=== PATIENT | male | born 1975 | race Caucasian/White ===

== ENCOUNTER 2020-03-20 07:34 | Inpatient (IN) | payer MEDICARE, MEDICAID ==
--- NOTE | 2020-03-20 07:43 | EDM.PDOC ---
ED HPI GENERAL MEDICAL PROBLEM - General Chief Complaint: Respiratory Problem Stated Complaint: [facility] Time Seen by Provider: 03/20/20 07:43 Source of Information: Reports: Patient History Limitations: Reports: No Limitations - History of Present Illness INITIAL COMMENTS - FREE TEXT/NARRATIVE: 44-year-old male presents to the ED with a 3-week history of productive cough. Getting worse the last 3 to 4 days with increased wheezing and dyspnea on minimal exertion. He has been up all night due to dyspnea and wheezing. Has a history of asthma. Quit smoking several months ago. Sputum is dark green in color without hemoptysis. Some chills but no defined fever. Appetite has not been great because of feeling full. Denies any diarrhea nausea or vomiting. No chest pain other than central chest discomfort from coughing so much. Patient uses his metered-dose inhaler which is albuterol as well as his nebulizer at home with very little relief. Paramedics gave him albuterol in the ambulance and Solu-Medrol 125 mg IV. Before he was seen in clinic 3 weeks ago and started on a Medrol Dosepak as well as an antibiotic of which she is not sure what it was. He did take it twice a day for 7 days. He did not get any better. As far as he knows he has had no exposure to COVID 19 virus. Onset: Gradual Onset Date: 02/21/20 Duration: Day(s):, Constant, Getting Worse Location: Reports: Chest (Redness of breath associated with wheezing and severe paroxysmal productive cough.) Quality: Reports: Other Severity: Severe (Shortness of breath with wheezing.) Improves with: Reports: None Worsens with: Reports: None Context: Denies: Activity, Exercise, Lifting, Sick Contact, Trauma, Other Associated Symptoms: Reports: Cough, cough w sputum (Enemas dark green in color without blood), Diaphoresis, Fever/Chills, Loss of Appetite, Malaise (Pelaez but no defined fever), Shortness of Breath. 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 - Related Data Allergies Allergy/AdvReac Type Severity Reaction Status Date / Time No Known Allergies Allergy Verified 03/20/20 07:43 Home Meds: Home Meds Albuterol Sulfate 2.5 mg IH Q6HR PRN #25 unit 11/04/15 [Rx] Albuterol [Proventil HFA] 2 puff INH Q4H PRN #1 inhaler 11/04/15 [Rx] Cyclobenzaprine [Flexeril] 10 mg PO TID PRN 03/20/20 [History] Dulaglutide [Trulicity] 0.75 mg SQ MO 03/20/20 [History] Hydrocodone/Acetaminophen [Hydrocodone-Acetamin 5-325 mg] 1 tab PO Q6H PRN 03/20/20 [History] Losartan [Cozaar] 50 mg PO DAILY 03/20/20 [History] metFORMIN HCl [Metformin HCl] 1,000 mg PO BID 03/20/20 [History] Past Medical History Respiratory History: Reports: Asthma Other Genitourinary History: States voided twice today with blood in it Other Musculoskeletal History: multiple surguries on L arm and hand Endocrine/Metabolic History: Reports: Diabetes, Type II (Controlled with Trulicity and metformin and diet.), Obesity/BMI 30+ - Past Surgical History GI Surgical History: Reports: Hernia, Abdominal (Umbilical herniorrhaphy couple years ago with mesh grafting.) Social & Family History - Living Situation & Occupation Living situation: Reports: Single Occupation: Employed ED ROS GENERAL - Review of Systems Review Of Systems: See Below Constitutional: Reports: Chills, Malaise, Weakness, Fatigue, Decreased Appetite. Denies: Fever HEENT: Reports: No Symptoms Respiratory: Reports: Shortness of Breath, Wheezing, Cough, Sputum. Denies: Pleuritic Chest Pain, Hemoptysis (Greenish colored sputum) Cardiovascular: Reports: Chest Pain (Central chest discomfort from coughing so much.), Blood Pressure Problem, Dyspnea on Exertion, Lightheadedness. Denies: Claudication, Edema, Orthopnea Endocrine: Reports: Fatigue GI/Abdominal: Reports: Decreased Appetite, Nausea. Denies: Constipation, Diarrhea, Vomiting (Based on nausea) : Reports: No Symptoms Musculoskeletal: Reports: Back Pain Skin: Reports: No Symptoms (Occasional problems with low back pain) Neurological: Reports: No Symptoms Psychiatric: Reports: No Symptoms Hematologic/Lymphatic: Reports: No Symptoms Immunologic: Reports: No Symptoms ED EXAM, GENERAL - Physical Exam Exam: See Below Exam Limited By: No Limitations General Appearance: Alert, WD/WN, Moderate Distress, Other (Temperature is 36.1. He does not feel warm to palpation. Heart rate 106 and sinus tachycardia on the monitor respiratory to 35 with O2 sats of 94% on 2 L. BP 169/98.) Eye Exam: Bilateral Eye: Conjunctival Injection (Is been up all night and conjunctiva are mildly injected.), Normal Inspection (No blepharal pallor or scleral icterus.), PERRL Ears: Normal TMs Throat/Mouth: Normal Inspection, Normal Lips, Normal Oropharynx, Other Head: Atraumatic, Normocephalic (Is minimally dry.) Neck: Normal Inspection, Supple, Non-Tender, Full Range of Motion. No: Carotid Bruit, Lymphadenopathy (L), Lymphadenopathy (R) Respiratory/Chest: Chest Non-Tender, Respiratory Distress (Marked tachypnea.), Decreased Breath Sounds (Use wheezing in all lung farris. Air entry of the lower 30% of lung farris bilaterally.), Wheezing. No: Lungs Clear, Normal Breath Sounds, Accessory Muscle Use, Retractions, Splinting Cardiovascular: Regular Rate, Rhythm, No Gallop, No Murmur, No Rub Peripheral Pulses: 1+: Posterior Tibial (L) (Feet are edematous.), Posterior Tibial (R), Dorsalis Pedis (L), Dorsalis Pedis (R), 3+: Carotid (L), Carotid (R) GI/Abdominal: Normal Bowel Sounds, Soft, Non-Tender, No Organomegaly, No Mass, Other (Markedly obese. Abdominal girth limits ability to palpate solid organs.) Back Exam: Normal Inspection, Full Range of Motion. No: CVA Tenderness (L), CVA Tenderness (R) Extremities: Normal Inspection, Non-Tender, Normal Capillary Refill, Pedal Edema Neurological: Alert, Oriented, CN II-XII Intact, Normal Cognition Psychiatric: Normal Affect, Normal Mood Skin Exam: Warm, Dry, Intact, Normal Color, No Rash EKG INTERPRETATION EKG Date: 03/20/20 Time: 08:14 Rhythm: Other Rate (Beats/Min): 100 [place]: Normal P-Wave: Enlarged (Left atrial hypertrophy pattern) QRS: Other (Crease voltage in the precordial leads. There are Q waves V1 and V2. Consider old anteroseptal myocardial infarction.) ST-T: Other (Markedly wandering baseline with early transition pattern no true ischemia identified) QT: Prolonged (Mildly prolonged) EKG Interpretation Comments: Abnormal ECG Course - Vital Signs Last Recorded V/S: Last Vital Signs Temp 36.1 C 03/20/20 07:38 Pulse 106 H 03/20/20 07:38 Resp 35 H 03/20/20 07:38 BP 169/98 H 03/20/20 07:38 Pulse Ox 85 L 03/20/20 08:40 - Orders/Labs/Meds Orders: Active Orders 24 hr Category Date Time Status EKG Documentation Completion [RC] STAT Care 03/20/20 07:54 Active Oxygen Therapy [RC] ASDIRECTED Care 03/20/20 08:40 Active RT Aerosol Therapy [RC] ASDIRECTED Care 03/20/20 07:57 Active CULTURE SPUTUM + SMEAR [] Stat Lab 03/20/20 08:05 Received cefTRIAXone [Rocephin] 2 gm Med 03/20/20 10:15 Active Sodium Chloride 0.9% [Normal Saline] 100 ml IV Q24H Medication Orders Acetaminophen (Tylenol) 650 mg PO Q4H PRN PRN Reason: Pain (Mild 1-3)/fever Albuterol/Ipratropium (Duoneb 3.0-0.5 Mg/3 Ml) 3 ml NEB Q6HRRT [facility] Dextrose/Water (Dextrose 50% In Water) 50 ml IVPUSH ASDIRECTED PRN PRN Reason: Hypoglycemia Enoxaparin Sodium (Lovenox) 40 mg SUBCUT DAILY [facility] Guaifenesin/Phenylephrine HCl (Robitussin Dm) 10 ml PO TID@0700,1400,2100 PRN PRN Reason: Cough Ceftriaxone Sodium 2 gm/ (Sodium Chloride) 100 mls @ 200 mls/hr IV Q24H [facility] Last Admin: 03/20/20 10:20 Dose: 200 mls/hr Documented by: GLADYS Insulin Human Lispro (Humalog) 0 unit SUBCUT QIDACANDBED [facility]; Protocol Ondansetron HCl (Zofran Odt) 4 mg PO Q6H PRN PRN Reason: nausea, able to take PO Labs: Laboratory Tests 03/20/20 03/20/20 03/20/20 Range/Units 08:05 08:15 08:29 WBC 8.06 (4.23-9.07) K/mm3 RBC 5.27 (4.63-6.08) M/mm3 Hgb 15.4 (13.7-17.5) gm/dl Hct 47.8 (40.1-51.0) % MCV 90.7 (79.0-92.2) fl MCH 29.2 (25.7-32.2) pg MCHC 32.2 (32.2-35.5) g/dl RDW Std Deviation 46.1 H (35.1-43.9) fL Plt Count 216 (163-337) K/mm3 MPV 10.7 (9.4-12.3) fl Neutrophils % (Manual) 79 H (40-60) % Band Neutrophils % 0 (0-10) % Lymphocytes % (Manual) 15 L (20-40) % Atypical Lymphs % 0 % Monocytes % (Manual) 3 (2-10) % Eosinophils % (Manual) 2 (0.8-7.0) % Basophils % (Manual) 1 (0.2-1.2) 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 Adequate Plt Morphology Comment Normal Anisocytosis RBC Morph Comment Normal Puncture Site Rt radial ABG pH 7.40 (7.35-7.45) ABG pCO2 45.9 H (35.0-45.0) mmHg ABG pO2 67.0 L (80.0-100.0) mmHg ABG HCO3 27.6 H (22.0-26.0) meq/L ABG O2 Saturation 90.0 L (96.0-97.0) % ABG Base Excess 2.5 H (-2-2.0) Jesu Test Positive A-a Gradient 26 mmHg O2 Delivery Device Room air FiO2 21.00 (21.00-100.00) % Sodium (136-145) mEq/L Potassium (3.5-5.1) mEq/L Chloride (98-107) mEq/L Carbon Dioxide (21-32) mEq/L Anion Gap (5-15) BUN (7-18) mg/dL Creatinine (0.7-1.3) mg/dL Est Cr Clr Drug Dosing mL/min Estimated GFR (MDRD) (>60) mL/min BUN/Creatinine Ratio (14-18) Glucose (74-106) mg/dL Calcium (8.5-10.1) mg/dL Magnesium (1.8-2.4) mg/dl Total Bilirubin (0.2-1.0) mg/dL AST (15-37) U/L ALT (16-63) U/L Alkaline Phosphatase (46-116) U/L Troponin I (0.00-0.056) ng/mL C-Reactive Protein (<1.0) mg/dL NT-Pro-B Natriuret Pep (0-125) pg/mL Total Protein (6.4-8.2) g/dl Albumin (3.4-5.0) g/dl Globulin gm/dL Albumin/Globulin Ratio (1-2) Mycoplasma pneumon IgM (NEGATIVE) SARS Virus RNA (PCR) Negative (NEGATIVE) 03/20/20 03/20/20 03/20/20 Range/Units 08:29 08:29 08:29 WBC (4.23-9.07) K/mm3 RBC (4.63-6.08) M/mm3 Hgb (13.7-17.5) gm/dl Hct (40.1-51.0) % MCV (79.0-92.2) fl MCH (25.7-32.2) pg MCHC (32.2-35.5) g/dl RDW Std Deviation (35.1-43.9) fL Plt Count (163-337) K/mm3 MPV (9.4-12.3) fl Neutrophils % (Manual) (40-60) % Band Neutrophils % (0-10) % Lymphocytes % (Manual) (20-40) % Atypical Lymphs % % Monocytes % (Manual) (2-10) % Eosinophils % (Manual) (0.8-7.0) % Basophils % (Manual) (0.2-1.2) Toxic Granulation Platelet Estimate Plt Morphology Comment Anisocytosis RBC Morph Comment Puncture Site ABG pH (7.35-7.45) ABG pCO2 (35.0-45.0) mmHg ABG pO2 (80.0-100.0) mmHg ABG HCO3 (22.0-26.0) meq/L ABG O2 Saturation (96.0-97.0) % ABG Base Excess (-2-2.0) Jesu Test A-a Gradient mmHg O2 Delivery Device FiO2 (21.00-100.00) % Sodium 140 (136-145) mEq/L Potassium 3.6 (3.5-5.1) mEq/L Chloride 102 (98-107) mEq/L Carbon Dioxide 28 (21-32) mEq/L Anion Gap 13.6 (5-15) BUN 9 (7-18) mg/dL Creatinine 0.8 (0.7-1.3) mg/dL Est Cr Clr Drug Dosing 139.85 mL/min Estimated GFR (MDRD) > 60 (>60) mL/min BUN/Creatinine Ratio 11.3 L (14-18) Glucose 143 H (74-106) mg/dL Calcium 9.3 (8.5-10.1) mg/dL Magnesium 2.1 (1.8-2.4) mg/dl Total Bilirubin 0.4 (0.2-1.0) mg/dL AST 29 (15-37) U/L ALT 47 (16-63) U/L Alkaline Phosphatase 104 (46-116) U/L Troponin I < 0.017 (0.00-0.056) ng/mL C-Reactive Protein 2.0 H* (<1.0) mg/dL NT-Pro-B Natriuret Pep 9 (0-125) pg/mL Total Protein 7.2 (6.4-8.2) g/dl Albumin 3.5 (3.4-5.0) g/dl Globulin 3.7 gm/dL Albumin/Globulin Ratio 1.0 (1-2) Mycoplasma pneumon IgM Negative (NEGATIVE) SARS Virus RNA (PCR) (NEGATIVE) Meds: Medications Generic Name Dose Route Start Last Admin Trade Name Freq PRN Reason Stop Dose Admin Acetaminophen 650 mg 03/20/20 11:48 Tylenol PO Q4H PRN Pain (Mild 1-3)/fever Albuterol/Ipratropium 3 ml 03/20/20 15:00 Duoneb 3.0-0.5 Mg/3 Ml NEB Q6HRRT [facility] Dextrose/Water 50 ml 03/20/20 12:00 Dextrose 50% In Water IVPUSH ASDIRECTED PRN Hypoglycemia Enoxaparin Sodium 40 mg 03/21/20 09:00 Lovenox SUBCUT DAILY [facility] Guaifenesin/Phenylephrine HCl 10 ml 03/20/20 14:00 Robitussin Dm PO TID@0700,1400,2100 PRN Cough Ceftriaxone Sodium 2 gm/ 100 mls @ 200 mls/hr 03/20/20 10:15 03/20/20 10:20 Sodium Chloride IV 200 mls/hr Q24H [facility] Administration Insulin Human Lispro 0 unit 03/20/20 17:00 Humalog SUBCUT QIDACANDBED [facility] Protocol Ondansetron HCl 4 mg 03/20/20 11:48 Zofran Odt PO Q6H PRN nausea, able to take PO Discontinued Medications Generic Name Dose Route Start Last Admin Trade Name Freq PRN Reason Stop Dose Admin Albuterol 10 mg 03/20/20 07:56 03/20/20 08:02 Proventil NEB 03/20/20 07:57 10 mg ONETIME ONE Administration Albuterol Confirm 03/20/20 07:56 03/20/20 08:02 Proventil Neb Soln Administered 03/20/20 07:57 Not Given Dose 10 mg .ROUTE .STK-MED ONE Magnesium Sulfate 2 gm/ Premix 50 mls @ 25 mls/hr 03/20/20 07:55 03/20/20 08:11 IV 03/20/20 09:54 25 mls/hr ONETIME ONE Administration - Radiology Interpretation Free Text/Narrative:: 44-year-old male presents to the ED with a 3-week history of upper respiratory tract infection with paroxysmal cough and increased wheezing and dyspnea. He is gotten worse over the last 3 days. 3 weeks ago he did take a Medrol Dosepak and a antibiotic and seem to be a little bit better. He was up all night the last 2 nights due to dyspnea and wheezing. Coughing up greenish sputum. No defined fever but does have some chills. No known exposure to COVID-19. Has a history of asthma. Using a nebulizer at home to excess with minimal relief. On exam he is diffusely wheezing in all 4 quadrants with loss of air anterior lower 25% lung farris bilaterally posteriorly. Coughing up even saliva at times. Sputum is otherwise green in color. Has not had much to eat because of loss of appetite and early satiety. He has received albuterol treatment by paramedics in route to the hospital as well as Solu-Medrol 125 mg IV. Plan chest x-ray. Routine labs including mycoplasma titer. Will be treated with continuous albuterol treatment 10 mg over the next hour. Routine labs without blood cultures as he is afebrile at this time. Will be screened for COVID-19. - Re-Assessments/Exams Free Text/Narrative Re-Assessment/Exam: 03/20/20 08:37 ABGs reveal a normal pH at 7.40. To retention at 45.9. PO2 is 67 bicarb is 27.6. O2 saturations 90% on room air. Placed back on 2 L/min by nasal cannula. 03/20/20 08:39 he is elevated at 180/85. O2 sats are only 91% on room air. O2 will be increased to 3 L/min. States overall he feels better but he is still breathing very rapidly with diffuse wheezing. 03/20/20 08:46 heart rate is 107. BP 180/85. O2 sats are 95% on 3 L. 03/20/20 09:57 White blood cell count was 8.06. 79% neutrophils no bands cells reported hemoglobin 15.4 with hematocrit of 47.8. Platelet count 216,000. Chemistry reveals a sodium of 140 potassium 3.6. Chloride 102 with a bicarb of 28. Anion gap is 13.6. BUN is 9 with a creatinine of 0.8. GFR greater than 60. Glucose 143. Calcium 9.3. Magnesium 2.1. Liver function normal troponin I is less than 0.017. C-reactive protein 2.0. BNP is 9 Mycoplasma pneumonia IgM negative COVID 19 test negative. Audible chest x-ray which is a very poor quality i.e. underpenetrated. It does not reveal any obvious infiltrates in the lungs. Cardiac silhouette is within normal limits. 03/20/20 10:0 still wheezing in all lung farris. Coughing paroxysmal A. He has brought up a good deal of sputum I am unsure if a sample was actually collected and sent for culture. With the labs the way they are it appears that this is most likely viral in origin. Because he is hypoxic he currently requires treatment with nebulizer management and intravenous steroids. He has to catch the train early on Tuesday this week to get back home [facility]. Case will be discussed with on-call hospitalist Dr. Jose. We will start him on antibiotic Rocephin 2 g IV at this time his sputum is dark green in color. 03/20/20 10:[address] Jose and he is excepted care. Patient will be admitted to the [facility] surgery floor at this time Departure - Departure Time of Disposition: 11:10 Disposition: Admitted As Inpatient 68 Condition: Fair Clinical Impression: Exacerbation of allergic asthma due to infection - Discharge Information *PRESCRIPTION DRUG MONITORING PROGRAM REVIEWED*: Not Applicable *COPY OF PRESCRIPTION DRUG MONITORING REPORT IN PATIENT BEATRIZ: Not Applicable Sepsis Event Note (ED) - Focused Exam Vital Signs: Vital Signs Temp Pulse Resp BP Pulse Ox Pulse Ox Pulse Ox 03/20/20 08:40 85 L 03/20/20 08:03 89 L 03/20/20 07:38 36.1 C 106 H 35 H 169/98 H 94 L - My Orders Last 24 Hours: My Active Orders 03/20/20 07:54 EKG Documentation Completion [RC] STAT 03/20/20 07:57 RT Aerosol Therapy [RC] ASDIRECTED 03/20/20 08:05 CULTURE SPUTUM + SMEAR [RM] Stat 03/20/20 08:40 Oxygen Therapy [RC] ASDIRECTED 03/20/20 10:15 cefTRIAXone [Rocephin] 2 gm Sodium Chloride 0.9% [Normal Saline] 100 ml IV Q24H - Assessment/Plan Last 24 Hours: My Active Orders 03/20/20 07:54 EKG Documentation Completion [RC] STAT 03/20/20 07:57 RT Aerosol Therapy [RC] ASDIRECTED 03/20/20 08:05 CULTURE SPUTUM + SMEAR [RM] Stat 03/20/20 08:40 Oxygen Therapy [RC] ASDIRECTED 03/20/20 10:15 cefTRIAXone [Rocephin] 2 gm Sodium Chloride 0.9% [Normal Saline] 100 ml IV Q24H
[2020-03-20] MEDS ORDERED: Magnesium Sulfate/Water 2 GM in Premix Bag 1 BAG IV ONE (07:55)
[2020-03-20] MEDS ORDERED: Albuterol 0.5% 2.5 MG/0.5 ML Neb Soln NEB ONE (07:56)
[2020-03-20] MEDS ORDERED: Albuterol 0.083% 2.5 MG/3 ML Neb Soln ONE (07:56)
[2020-03-20] MEDS: cefTRIAXone 2 GM in Sodium Chloride 0.9% 100 ML IV SCH (10:20)
--- NOTE | 2020-03-20 10:22 | CR ---
Chest: AP view of the chest was obtained. Comparison: Prior chest x-ray of 11/04/15. Heart size and mediastinum are normal. Lungs show no acute parenchymal change. Bony structures are grossly intact. Impression: 1. Nothing acute is appreciated on AP chest x-ray. Diagnostic code #1 This report was dictated in MDT
--- NOTE | 2020-03-20 10:50 | PCM.HP.2 ---
H&P History of Present Illness - General Date of Service: 03/20/20 Admit Problem/Dx: Admission Diagnosis/Problem Admission Diagnosis/Problem Upper respiratory tract infection Source of Information: Patient, Old Records, Provider, RN, RN Notes Reviewed History Limitations: Reports: No Limitations - History of Present Illness Initial Comments - Free Text/Narative: Gage Gongora is a 44 yo male who presented to ED via [facility] on 03/20/2020 with a 3-week history of productive cough has been getting worse the last 3 to 4 days. He notes an increase in wheezing and worsening dyspnea with minimal exertion. He states he has not been getting any sleep due to symptoms. He does have a history of asthma and is a former smoker who quit several months ago. He has been coughing up dark green sputum. Reports he has been chilled but denies any fever, diarrhea, nausea, vomiting. He does report some mild central pleuritic chest pain from coughing. He has a home albuterol inhaler and nebulizer, both of which have been providing little relief of symptoms. In rout e to ED paramedics gave him an albuterol nebulizer along with 105 mg of Solu- Medrol. Reports he was seen at [place] clinic approximately 3 weeks prior and was given a Medrol dose pack and an antibiotic, but he is unsure which 1. Reports has not been feeling any better. Denies any exposure to COVID-19 virus or sick contacts. He took Tylenol prior to arrival. In the ED he was afebrile with a temp of 36.1 Celsius. Pulse 106. Respirations 35. Blood pressure 169/98. Pulse ox was low at 85% on room air. Twelve-lead EKG is obtained showing sinus tachycardia at 100 bpm. P waves are enlarged indicating a left atrial hypertrophy pattern. Q waves are noted in V1 and V2. There is a wandering baseline with early transition pattern. QT is mildly prolonged. CBC is looks good with no leukocytosis. There is no bandemia. ABG shows metabolic alkalosis. Electrolytes are grossly normal and troponin is negative. Mycoplasma and COVID-19 screen are both negative. He is placed on 2 L of oxygen via nasal cannula and this is later needed to be bumped up to 3 L. Chest x-ray is obtained showing nothing acute. He is having a significantly productive cough and sputum culture is obtained. He started on 2 g IV Rocephin. His wheezing does improve with continued nebulizers. He carries a history of asthma, type II DM on Trulicity and metformin, obesity, umbilical hernia repair, sleep apnea not compliant with CPAP, chronic low back pain, HTN. He is a full code. His PCP is not from the area. - Related Data Allergies/Adverse Reactions: Allergies Allergy/AdvReac Type Severity Reaction Status Date / Time No Known Allergies Allergy Verified 03/20/20 07:43 Home Medications: Home Meds Albuterol Sulfate 2.5 mg IH Q6HR PRN #25 unit 11/04/15 [Rx] Albuterol [Proventil HFA] 2 puff INH Q4H PRN #1 inhaler 11/04/15 [Rx] Cyclobenzaprine [Flexeril] 10 mg PO TID PRN 03/20/20 [History] Dulaglutide [Trulicity] 0.75 mg SQ MO 03/20/20 [History] Hydrocodone/Acetaminophen [Hydrocodone-Acetamin 5-325 mg] 1 tab PO Q6H PRN 03/20/20 [History] Losartan [Cozaar] 50 mg PO DAILY 03/20/20 [History] metFORMIN HCl [Metformin HCl] 1,000 mg PO BID 03/20/20 [History] Past Medical History Cardiovascular History: Reports: Hypertension Respiratory History: Reports: Asthma Other Genitourinary History: States voided twice today with blood in it Other Musculoskeletal History: multiple surguries on L arm and hand Endocrine/Metabolic History: Reports: Diabetes, Type II (Controlled with Trulicity and metformin and diet.), Obesity/BMI 30+ - Past Surgical History GI Surgical History: Reports: Hernia, Abdominal (Umbilical herniorrhaphy couple years ago with mesh grafting.) Social & Family History - Tobacco Use Smoking Status *Q: Never Smoker - Recreational Drug Use Recreational Drug Use: Yes Drug Use in Last 12 Months: Yes Recreational Drug Type: Reports: Marijuana/Hashish - Living Situation & Occupation Living situation: Reports: Single Occupation: Employed H&P Review of Systems - Review of Systems: Review Of Systems: See Below General: Reports: Chills, Malaise, Weakness, Fatigue, Decreased Appetite. Denies: Fever HEENT: Reports: Sore Throat (mild - 2/2 coughing ). Denies: Ear Pain, Eye Pain, Headaches, Hearing Changes, Rhinitis, Post Nasal Drip, Sinus Congestion Pulmonary: Reports: Shortness of Breath, Wheezing, Pleuritic Chest Pain, Cough, Sputum. Denies: Hemoptysis Cardiovascular: Reports: No Symptoms, Lightheadedness. Denies: Chest Pain, Palpitations, Dyspnea on Exertion, Edema Gastrointestinal: Reports: No Symptoms. Denies: Abdominal Pain, Constipation, Diarrhea, Nausea, Vomiting Genitourinary: Reports: No Symptoms. Denies: Pain Musculoskeletal: Reports: Back Pain (Chronic ) Skin: Reports: No Symptoms. Denies: Cyanosis Psychiatric: Reports: No Symptoms Neurological: Reports: No Symptoms. Denies: Confusion, Difficulty Walking, Gait Disturbance Hematologic/Lymphatic: Reports: No Symptoms. Denies: Anemia Exam - Exam Exam: See Below - Vital Signs Vital Signs: Last Vital Signs Temp 97.0 F 03/20/20 07:38 Pulse 106 H 03/20/20 07:38 Resp 35 H 03/20/20 07:38 BP 169/98 H 03/20/20 07:38 Pulse Ox 85 L 03/20/20 08:40 Weight: 420 lb - Exam Quality Assessment: Supplemental Oxygen (2L), DVT Prophylaxis General: Alert, Oriented, Cooperative. No: Mild Distress HEENT: Conjunctiva Clear, EACs Clear, Mucosa Moist & [place], Nares Patent, Posterior Pharynx Clear Neck: Supple, Trachea Midline Lungs: Normal Respiratory Effort, Decreased Breath Sounds, Wheezing. No: Crackles, Rales, Rhonchi Cardiovascular: Regular Rate, Regular Rhythm GI/Abdominal Exam: Normal Bowel Sounds, Soft, Non-Tender, No Distention (Male) Exam: Deferred Rectal (Males) Exam: Deferred Back Exam: Normal Inspection, Full Range of Motion Extremities: Normal Inspection, Normal Range of Motion, Non-Tender, Normal Capillary Refill, Pedal Edema, Other (Bilateral lower extremity discoloration with dry flaking skin ) Peripheral Pulses: 1+: Dorsalis Pedis (L), Dorsalis Pedis (R), 2+: Radial (L), Radial (R) Skin: Warm, Dry, Intact Neurological: Cranial Nerves Intact (Grossly) Neuro Extensive - Mental Status: Alert, Oriented x3, Normal Mood/Affect - Patient Data Lab Results Last 24 hrs: Laboratory Results - last 24 hr 03/20/20 03/20/20 03/20/20 Range/Units 08:05 08:15 08:29 WBC 8.06 (4.23-9.07) K/mm3 RBC 5.27 (4.63-6.08) M/mm3 Hgb 15.4 (13.7-17.5) gm/dl Hct 47.8 (40.1-51.0) % MCV 90.7 (79.0-92.2) fl MCH 29.2 (25.7-32.2) pg MCHC 32.2 (32.2-35.5) g/dl RDW Std Deviation 46.1 H (35.1-43.9) fL Plt Count 216 (163-337) K/mm3 MPV 10.7 (9.4-12.3) fl Neutrophils % (Manual) 79 H (40-60) % Band Neutrophils % 0 (0-10) % Lymphocytes % (Manual) 15 L (20-40) % Atypical Lymphs % 0 % Monocytes % (Manual) 3 (2-10) % Eosinophils % (Manual) 2 (0.8-7.0) % Basophils % (Manual) 1 (0.2-1.2) Toxic Granulation Correction Warden Platelet Estimate Adequate Plt Morphology Comment Normal Anisocytosis RBC Morph Comment Normal Puncture Site Rt radial ABG pH 7.40 (7.35-7.45) ABG pCO2 45.9 H (35.0-45.0) mmHg ABG pO2 67.0 L (80.0-100.0) mmHg ABG HCO3 27.6 H (22.0-26.0) meq/L ABG O2 Saturation 90.0 L (96.0-97.0) % ABG Base Excess 2.5 H (-2-2.0) Jesu Test Positive A-a Gradient 26 mmHg O2 Delivery Device Room air FiO2 21.00 (21.00-100.00) % Sodium (136-145) mEq/L Potassium (3.5-5.1) mEq/L Chloride (98-107) mEq/L Carbon Dioxide (21-32) mEq/L Anion Gap (5-15) BUN (7-18) mg/dL Creatinine (0.7-1.3) mg/dL Est Cr Clr Drug Dosing mL/min Estimated GFR (MDRD) (>60) mL/min BUN/Creatinine Ratio (14-18) Glucose (74-106) mg/dL Calcium (8.5-10.1) mg/dL Magnesium (1.8-2.4) mg/dl Total Bilirubin (0.2-1.0) mg/dL AST (15-37) U/L ALT (16-63) U/L Alkaline Phosphatase (46-116) U/L Troponin I (0.00-0.056) ng/mL C-Reactive Protein (<1.0) mg/dL NT-Pro-B Natriuret Pep (0-125) pg/mL Total Protein (6.4-8.2) g/dl Albumin (3.4-5.0) g/dl Globulin gm/dL Albumin/Globulin Ratio (1-2) Mycoplasma pneumon IgM (NEGATIVE) SARS Virus RNA (PCR) Negative (NEGATIVE) 03/20/20 03/20/20 03/20/20 Range/Units 08:29 08:29 08:29 WBC (4.23-9.07) K/mm3 RBC (4.63-6.08) M/mm3 Hgb (13.7-17.5) gm/dl Hct (40.1-51.0) % MCV (79.0-92.2) fl MCH (25.7-32.2) pg MCHC (32.2-35.5) g/dl RDW Std Deviation (35.1-43.9) fL Plt Count (163-337) K/mm3 MPV (9.4-12.3) fl Neutrophils % (Manual) (40-60) % Band Neutrophils % (0-10) % Lymphocytes % (Manual) (20-40) % Atypical Lymphs % % Monocytes % (Manual) (2-10) % Eosinophils % (Manual) (0.8-7.0) % Basophils % (Manual) (0.2-1.2) Toxic Granulation Platelet Estimate Plt Morphology Comment Anisocytosis RBC Morph Comment Puncture Site ABG pH (7.35-7.45) ABG pCO2 (35.0-45.0) mmHg ABG pO2 (80.0-100.0) mmHg ABG HCO3 (22.0-26.0) meq/L ABG O2 Saturation (96.0-97.0) % ABG Base Excess (-2-2.0) Jesu Test A-a Gradient mmHg O2 Delivery Device FiO2 (21.00-100.00) % Sodium 140 (136-145) mEq/L Potassium 3.6 (3.5-5.1) mEq/L Chloride 102 (98-107) mEq/L Carbon Dioxide 28 (21-32) mEq/L Anion Gap 13.6 (5-15) BUN 9 (7-18) mg/dL Creatinine 0.8 (0.7-1.3) mg/dL Est Cr Clr Drug Dosing 139.85 mL/min Estimated GFR (MDRD) > 60 (>60) mL/min BUN/Creatinine Ratio 11.3 L (14-18) Glucose 143 H (74-106) mg/dL Calcium 9.3 (8.5-10.1) mg/dL Magnesium 2.1 (1.8-2.4) mg/dl Total Bilirubin 0.4 (0.2-1.0) mg/dL AST 29 (15-37) U/L ALT 47 (16-63) U/L Alkaline Phosphatase 104 (46-116) U/L Troponin I < 0.017 (0.00-0.056) ng/mL C-Reactive Protein 2.0 H* (<1.0) mg/dL NT-Pro-B Natriuret Pep 9 (0-125) pg/mL Total Protein 7.2 (6.4-8.2) g/dl Albumin 3.5 (3.4-5.0) g/dl Globulin 3.7 gm/dL Albumin/Globulin Ratio 1.0 (1-2) Mycoplasma pneumon IgM Negative (NEGATIVE) SARS Virus RNA (PCR) (NEGATIVE) Result Diagrams: 03/20/20 08:29 03/20/20 08:29 Sepsis Event Note - Evaluation Sepsis Screening Result: No Definite Risk - Focused Exam Vital Signs: Vital Signs Temp Pulse Resp BP Pulse Ox Pulse Ox Pulse Ox 03/20/20 08:40 85 L 03/20/20 08:03 89 L 03/20/20 07:38 97.0 F 106 H 35 H 169/98 H 94 L Date Exam was Performed: 03/20/20 Time Exam was Performed: 15:47 - Problem List (1) Obesity SNOMED Code(s): 741307956, 882435260 ICD Code: E66.9 - OBESITY, UNSPECIFIED Status: Chronic Priority: High Current Visit: Yes Qualifiers: Obesity type: unspecified obesity type Obesity classification: adult class 3 (BMI >= 40) Serious obesity comorbidity presence: unspecified whether serious comorbidity present Body mass index: BMI 50.0-59.9 Qualified Code(s): E66.01 - Morbid (severe) obesity due to excess calories; Z68.43 - Body mass index (BMI) 50.0-59.9, adult (2) Type II diabetes mellitus SNOMED Code(s): 20769390 ICD Code: E11.9 - TYPE 2 DIABETES MELLITUS WITHOUT COMPLICATIONS Status: Chronic Priority: Medium Current Visit: Yes Qualifiers: 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: with long-term use Diabetes mellitus complication status: with other specified complication Qualified Code(s): E11.69 - Type 2 diabetes mellitus with other specified complication; Z79.4 - intermediate (current) use of insulin (3) GURWINDER (obstructive sleep apnea) SNOMED Code(s): 56904989 ICD Code: G47.33 - OBSTRUCTIVE SLEEP APNEA (ADULT) (PEDIATRIC) Status: Chronic Priority: Medium Current Visit: Yes (4) Asthma exacerbation SNOMED Code(s): 106794614 ICD Code: J45.901 - UNSPECIFIED ASTHMA WITH (ACUTE) EXACERBATION Status: Acute Priority: High Current Visit: Yes Qualifiers: Asthma severity: moderate Asthma persistence: unspecified Qualified Code(s): J45.901 - Unspecified asthma with (acute) exacerbation (5) Exacerbation of allergic asthma due to infection SNOMED Code(s): 491977329 ICD Code: J45.901 - UNSPECIFIED ASTHMA WITH (ACUTE) EXACERBATION Status: Acute Priority: High Current Visit: Yes (6) Bronchitis SNOMED Code(s): 29443871 ICD Code: J40 - BRONCHITIS, NOT SPECIFIED ACUTE OR CHRONIC Status: Acute Priority: High Current Visit: Yes (7) Chronic lower back pain SNOMED Code(s): 836325761 ICD Code: M54.5 - LOW BACK PAIN; G89.29 - OTHER CHRONIC PAIN 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 Priority: Low Current Visit: No Qualifiers: Back pain laterality: unspecified Sciatica presence: unspecified whether sciatica present Qualified Code(s): M54.5 - Low back pain; G89.29 - Other chronic pain (8) Hypertension SNOMED Code(s): 66243305 ICD Code: I10 - ESSENTIAL (PRIMARY) HYPERTENSION Status: Chronic Priority: Low Current Visit: No Qualifiers: Hypertension type: unspecified Qualified Code(s): I10 - Essential (primary) hypertension Problem List Initiated/Reviewed/Updated: Yes Orders Last 24hrs: Active Orders 24 hr Category Date Time Status Admission Status [Patient Status] [ADT] Routine ADT 03/20/20 10:21 Active EKG Documentation Completion [RC] STAT Care 03/20/20 07:54 Active Oxygen Therapy [RC] ASDIRECTED Care 03/20/20 08:40 Active RT Aerosol Therapy [RC] ASDIRECTED Care 03/20/20 07:57 Active CULTURE SPUTUM + SMEAR [RM] Stat Lab 03/20/20 08:05 Received cefTRIAXone [Rocephin] 2 gm Med 03/20/20 10:15 Active Sodium Chloride 0.9% [Normal Saline] 100 ml IV Q24H Medication Orders Ceftriaxone Sodium 2 gm/ (Sodium Chloride) 100 mls @ 200 mls/hr IV Q24H DELBERT Last Admin: 03/20/20 10:20 Dose: 200 mls/hr Documented by: GLADYS Assessment/Plan Comment:: Day of admission: Reports 3 week history of productive cough that has been getting worse over past 3-4 days Hx/o asthma, GURWINDER (untreated), Type II DM, HTN Former smoker who quit a few months ago Used home albuterol inhaler and nebulizer with no relief Given 125mg solu-medrol and albuterol inhale by EMS Given 2gm magnesium, Rocephin, and albuterol neb in ED CXR shows nothing acute No leukocytosis, CRP 2.0, afebrile, electrolytes good Negative COVID-19 and mycoplasma Sputum culture obtained in ED and pending Hoping to catch train from [place] on Tuesday03/22/20 to [facility] Admitted inpatient M/S/P Bronchitis Exacerbation of allergic asthma due to infection Asthma exacerbation GURWINDER (obstructive sleep apnea) PLAN - Continue 2gm Rocephin - RT/IS - Scheduled Duo-nebs and PRN Albuterol nebs - Await sputum cultures - Obtain blood cultures if patient develops fever - Cepacol lozenge for throat pain - PRN dextromethorphan/guaifenesin - Monitor labs - 60mg solu-medrol Q12H - O2 as needed - Consider repeat CXR in 24-48 hours - Droplet isolation Obesity Type II diabetes mellitus Chronic lower back pain Hypertension On home Trulicity, Metformin, PRN [place], PRN Flexeril, Cozaar A1C obtained and is 7.00 PLAN - Hold home Trulicity and metformin - Continue PRN [place] and Flexeril for back pain/spasms - Continue Home Cozaar - Creel Hand consult - Sliding scale insulin - QID AC and Bedtime blood glucose checks DVT prophylaxis: Lovenox GI prophylaxis: Not indicated Code status: Full code PCP: Not from Area Social: Lives in [facility] and is here visiting friends. Hoping to catch train from [place] to home on 03/22/20 if possible. Disposition: Patient will be admitted M/S/P floor inpatient status for management of Asthma exacerbation and further workup of suspected infection. - Mortality Measure Prognosis:: Good
[2020-03-20] MEDS ORDERED: Acetaminophen 325 MG Tab PO PRN (11:48)
[2020-03-20] MEDS ORDERED: Ondansetron 4 MG Tab.DIS PO PRN (11:48)
[2020-03-20] MEDS ORDERED: 50% Dextrose in Water 50 ML Syringe IVPUSH PRN (12:00)
[2020-03-20] MEDS ORDERED: Albuterol 0.083% 2.5 MG/3 ML Neb Soln NEB PRN (13:44)
[2020-03-20] MEDS ORDERED: guaiFENesin/Dextromethorphan 100-10 MG/5 ML Soln 5 ML Cup PO PRN (14:00)
[2020-03-20] MEDS: Albuterol/Ipratropium 3.0-0.5 MG/3 ML Neb Soln NEB SCH ×2 (14:13→20:14)
[2020-03-20] MEDS ORDERED: Nystatin Topical Powder 15 GM Bottle TOP PRN (14:41)
[2020-03-20] MEDS: Insulin Lispro 100 Units/ML 3 ML Vial SUBCUT SCH ×2 (17:28→21:18)
[2020-03-20] MEDS: Acetaminophen/HYDROcodone 325-5 MG Tab PO PRN (17:37)
[2020-03-20] MEDS: methylPREDNISolone Sodium Succinate 40 MG/1 ML SDV IVPUSH SCH (21:09)
[2020-03-20] MEDS: Cyclobenzaprine 10 MG Tab PO PRN (21:09)
[2020-03-20] MEDS: guaiFENesin/Dextromethorphan 100-10 MG/5 ML Soln 5 ML Cup PO SCH (21:09)
[2020-03-21] MEDS: Albuterol/Ipratropium 3.0-0.5 MG/3 ML Neb Soln NEB SCH ×4 (02:43→20:18)
[2020-03-21] MEDS: Acetaminophen/HYDROcodone 325-5 MG Tab PO PRN ×3 (06:21→21:00)
[2020-03-21] MEDS: guaiFENesin/Dextromethorphan 100-10 MG/5 ML Soln 5 ML Cup PO SCH ×3 (06:21→21:01)
[2020-03-21] MEDS: Benzocaine/Cetylpyridinium/Menthol Lozenge MUCMEM PRN ×3 (06:21→13:43)
[2020-03-21] MEDS: Cyclobenzaprine 10 MG Tab PO PRN ×2 (08:11→17:24)
[2020-03-21] MEDS: Losartan 25 MG Tab PO SCH (08:11)
[2020-03-21] MEDS: Insulin Lispro 100 Units/ML 3 ML Vial SUBCUT SCH ×4 (08:12→21:01)
[2020-03-21] MEDS: Enoxaparin 40 MG/0.4 ML Syringe SUBCUT SCH (08:14)
[2020-03-21] MEDS: methylPREDNISolone Sodium Succinate 40 MG/1 ML SDV IVPUSH SCH ×2 (08:16→21:00)
[2020-03-21] MEDS: cefTRIAXone 2 GM in Sodium Chloride 0.9% 100 ML IV SCH (10:40)
[2020-03-21] MEDS ORDERED: Nicotine 14 MG/24 Hr Patch TRDERM SCH (11:00)
--- NOTE | 2020-03-21 12:38 | PCM.PN ---
- General Info Date of Service: 03/21/20 Admission Dx/Problem (Free Text): Admission Diagnosis/Problem Admission Diagnosis/Problem Upper respiratory tract infection Functional Status: Reports: Pain Controlled, Tolerating Diet, Ambulating, Urinating, Other (Acapella ). Denies: New Symptoms - Review of Systems General: Reports: No Symptoms, Weakness (improved ). Denies: Fever, Fatigue, Malaise, Chills HEENT: Reports: No Symptoms. Denies: Headaches, Sore Throat Pulmonary: Reports: Shortness of Breath (Improved ), Pleuritic Chest Pain (Mild ), Cough (Improved ), Sputum, Wheezing (improved ) Cardiovascular: Reports: Dyspnea on Exertion, Edema (baseline ). Denies: Palpitations Gastrointestinal: Reports: No Symptoms. Denies: Abdominal Pain, Constipation, Diarrhea, Nausea, Vomiting Genitourinary: Reports: No Symptoms. Denies: Pain Musculoskeletal: Reports: No Symptoms Skin: Reports: No Symptoms. Denies: Cyanosis Neurological: Reports: No Symptoms. Denies: Confusion, Pre-Existing Deficit, Difficulty Walking, Gait Disturbance Psychiatric: Reports: No Symptoms - Patient Data Vitals - Most Recent: Last Vital Signs Temp 97.7 F 03/21/20 07:43 Pulse 97 03/21/20 07:43 Resp 20 03/21/20 07:43 BP 171/84 H 03/21/20 08:11 Pulse Ox 92 L 03/21/20 09:05 Weight - Most Recent: 432 lb 14.4 oz I&O - Last 24 Hours: Intake & Output 03/20/20 03/21/20 03/21/20 22:59 06:59 14:59 Intake Total 1100 1000 500 Output Total 1600 1700 Balance -500 -700 500 Lab Results Last 24 Hours: Laboratory Results - last 24 hr 03/20/20 03/20/20 03/20/20 Range/Units 08:29 16:45 17:13 WBC (4.23-9.07) K/mm3 RBC (4.63-6.08) M/mm3 Hgb (13.7-17.5) gm/dl Hct (40.1-51.0) % MCV (79.0-92.2) fl MCH (25.7-32.2) pg MCHC (32.2-35.5) g/dl RDW Std Deviation (35.1-43.9) fL Plt Count (163-337) K/mm3 MPV (9.4-12.3) fl Neut % (Auto) (34.0-67.9) % Lymph % (Auto) (21.8-53.1) % Scott % (Auto) (5.3-12.2) % Eos % (Auto) (0.8-7.0) Baso % (Auto) (0.1-1.2) % Neut # (Auto) (1.78-5.38) K/mm3 Lymph # (Auto) (1.32-3.57) K/mm3 Scott # (Auto) (0.30-0.82) K/mm3 Eos # (Auto) (0.04-0.54) K/mm3 Baso # (Auto) (0.01-0.08) K/mm3 Manual Slide Review Sodium (136-145) mEq/L Potassium (3.5-5.1) mEq/L Chloride (98-107) mEq/L Carbon Dioxide (21-32) mEq/L Anion Gap (5-15) BUN (7-18) mg/dL Creatinine (0.7-1.3) mg/dL Est Cr Clr Drug Dosing mL/min Estimated GFR (MDRD) (>60) mL/min BUN/Creatinine Ratio (14-18) Glucose (74-106) mg/dL POC Glucose 207 H (70-105) mg/dL Hemoglobin A1c 7.00 H (4.50-6.20) % Calcium (8.5-10.1) mg/dL Magnesium (1.8-2.4) mg/dl MRSA (PCR) Negative 03/20/20 03/21/20 03/21/20 Range/Units 21:16 04:53 04:53 WBC 10.22 H (4.23-9.07) K/mm3 RBC 5.16 (4.63-6.08) M/mm3 Hgb 14.9 (13.7-17.5) gm/dl Hct 46.6 (40.1-51.0) % MCV 90.3 (79.0-92.2) fl MCH 28.9 (25.7-32.2) pg MCHC 32.0 L (32.2-35.5) g/dl RDW Std Deviation 46.2 H (35.1-43.9) fL Plt Count 199 (163-337) K/mm3 MPV 11.5 (9.4-12.3) fl Neut % (Auto) 92.2 H (34.0-67.9) % Lymph % (Auto) 5.7 L (21.8-53.1) % Scott % (Auto) 1.9 L (5.3-12.2) % Eos % (Auto) 0 L (0.8-7.0) Baso % (Auto) 0.1 (0.1-1.2) % Neut # (Auto) 9.43 H (1.78-5.38) K/mm3 Lymph # (Auto) 0.58 L (1.32-3.57) K/mm3 Scott # (Auto) 0.19 L (0.30-0.82) K/mm3 Eos # (Auto) 0.00 L (0.04-0.54) K/mm3 Baso # (Auto) 0.01 (0.01-0.08) K/mm3 Manual Slide Review Abnormal smear Sodium 142 (136-145) mEq/L Potassium 4.5 (3.5-5.1) mEq/L Chloride 106 (98-107) mEq/L Carbon Dioxide 26 (21-32) mEq/L Anion Gap 14.5 (5-15) BUN 13 (7-18) mg/dL Creatinine 0.7 (0.7-1.3) mg/dL Est Cr Clr Drug Dosing 159.83 mL/min Estimated GFR (MDRD) > 60 (>60) mL/min BUN/Creatinine Ratio 18.6 H (14-18) Glucose 170 H (74-106) mg/dL POC Glucose 237 H (70-105) mg/dL Hemoglobin A1c (4.50-6.20) % Calcium 9.2 (8.5-10.1) mg/dL Magnesium 2.2 (1.8-2.4) mg/dl MRSA (PCR) 03/21/20 03/21/20 Range/Units 06:29 11:55 WBC (4.23-9.07) K/mm3 RBC (4.63-6.08) M/mm3 Hgb (13.7-17.5) gm/dl Hct (40.1-51.0) % MCV (79.0-92.2) fl MCH (25.7-32.2) pg MCHC (32.2-35.5) g/dl RDW Std Deviation (35.1-43.9) fL Plt Count (163-337) K/mm3 MPV (9.4-12.3) fl Neut % (Auto) (34.0-67.9) % Lymph % (Auto) (21.8-53.1) % Scott % (Auto) (5.3-12.2) % Eos % (Auto) (0.8-7.0) Baso % (Auto) (0.1-1.2) % Neut # (Auto) (1.78-5.38) K/mm3 Lymph # (Auto) (1.32-3.57) K/mm3 Scott # (Auto) (0.30-0.82) K/mm3 Eos # (Auto) (0.04-0.54) K/mm3 Baso # (Auto) (0.01-0.08) K/mm3 Manual Slide Review Sodium (136-145) mEq/L Potassium (3.5-5.1) mEq/L Chloride (98-107) mEq/L Carbon Dioxide (21-32) mEq/L Anion Gap (5-15) BUN (7-18) mg/dL Creatinine (0.7-1.3) mg/dL Est Cr Clr Drug Dosing mL/min Estimated GFR (MDRD) (>60) mL/min BUN/Creatinine Ratio (14-18) Glucose (74-106) mg/dL POC Glucose 173 H 188 H (70-105) mg/dL Hemoglobin A1c (4.50-6.20) % Calcium (8.5-10.1) mg/dL Magnesium (1.8-2.4) mg/dl MRSA (PCR) Davian Results Last 24 Hours: Microbiology 03/20/20 08:05 Gram Stain - Final Sputum - Expectorated Sputum Culture - Preliminary Med Orders - Current: Current Medications Acetaminophen (Tylenol) 650 mg PO Q4H PRN PRN Reason: Pain (Mild 1-3)/fever Hydrocodone Bitart/Acetaminophen ([place] 325-5 Mg) 1 tab PO Q6H PRN PRN Reason: Pain Last Admin: 03/21/20 06:21 Dose: 1 tab Documented by: Albuterol (Proventil Neb Soln) 2.5 mg NEB Q2H PRN PRN Reason: SOB/Wheezing Last Admin: 03/21/20 00:35 Dose: 2.5 mg Documented by: Albuterol/Ipratropium (Duoneb 3.0-0.5 Mg/3 Ml) 3 ml NEB Q6HRRT [facility] Last Admin: 03/21/20 08:50 Dose: 3 ml Documented by: Benzocaine/Menthol (Cepacol Sore Throat) 1 lozenge MUCMEM Q2H PRN PRN Reason: Sore Throat Last Admin: 03/21/20 08:11 Dose: 1 lozenge Documented by: Cyclobenzaprine HCl (Flexeril) 10 mg PO TID PRN PRN Reason: Pain Last Admin: 03/21/20 08:11 Dose: 10 mg Documented by: Dextrose/Water (Dextrose 50% In Water) 50 ml IVPUSH ASDIRECTED PRN PRN Reason: Hypoglycemia Enoxaparin Sodium (Lovenox) 40 mg SUBCUT DAILY [facility] Last Admin: 03/21/20 08:14 Dose: 40 mg Documented by: Guaifenesin/Phenylephrine HCl (Robitussin Dm) 10 ml PO TID@0700,1400,2100 [facility] Last Admin: 03/21/20 06:21 Dose: 10 ml Documented by: Ceftriaxone Sodium 2 gm/ (Sodium Chloride) 100 mls @ 200 mls/hr IV Q24H [facility] Last Admin: 03/21/20 10:40 Dose: 200 mls/hr Documented by: Insulin Human Lispro (Humalog) 0 unit SUBCUT QIDACANDBED [facility]; Protocol Last Admin: 03/21/20 12:07 Dose: 2 units Documented by: Losartan Potassium (Cozaar) 50 mg PO DAILY [facility] Last Admin: 03/21/20 08:11 Dose: 50 mg Documented by: Methylprednisolone Sodium Succinate (Solu-Medrol) 60 mg IVPUSH Q12H [facility] Last Admin: 03/21/20 08:16 Dose: 60 mg Documented by: Miscellaneous Information (Remove Patch) 1 ea TRDERM DAILY@1100 [facility] Last Admin: 03/21/20 12:08 Dose: Not Given Documented by: Nicotine (Habitrol) 14 mg TRDERM DAILY@1100 [facility] Last Admin: 03/21/20 12:05 Dose: 14 mg Documented by: Nystatin (Nystop) 0 gm TOP TID PRN PRN Reason: Rash Ondansetron HCl (Zofran Odt) 4 mg PO Q6H PRN PRN Reason: nausea, able to take PO Discontinued Medications Albuterol (Proventil) 10 mg NEB ONETIME ONE Stop: 03/20/20 07:57 Last Admin: 03/20/20 08:02 Dose: 10 mg Documented by: Albuterol (Proventil Neb Soln) Confirm Administered Dose 10 mg .ROUTE .STK-MED ONE Stop: 03/20/20 07:57 Last Admin: 03/20/20 08:02 Dose: Not Given Documented by: Guaifenesin/Phenylephrine HCl (Robitussin Dm) 10 ml PO TID@0700,1400,2100 PRN PRN Reason: Cough Magnesium Sulfate 2 gm/ Premix 50 mls @ 25 mls/hr IV ONETIME ONE Stop: 03/20/20 09:54 Last Admin: 03/20/20 08:11 Dose: 25 mls/hr Documented by: - Exam Quality Assessment: Supplemental Oxygen (1L), DVT Prophylaxis General: Alert, Oriented, Cooperative, No Acute Distress HEENT: Pupils Equal, Pupils Reactive, Mucous Membr. Moist/[place] Neck: Supple, Trachea Midline Lungs: Normal Respiratory Effort, Decreased Breath Sounds, Wheezing (improved ) Cardiovascular: Regular Rate, Regular Rhythm GI/Abdominal Exam: Normal Bowel Sounds, Soft, Non-Tender, No Distention (Male) Exam: Deferred Back Exam: Normal Inspection, Full Range of Motion Extremities: Normal Range of Motion, Non-Tender, Normal Capillary Refill, Pedal Edema (trace ), Other (Bilateral chronic lower extremity discoloration) Peripheral Pulses: 2+: Dorsalis Pedis (L), Dorsalis Pedis (R), 3+: Radial (L), Radial (R) Skin: Warm, Dry, Intact Neurological: No New Focal Deficit Psy/Mental Status: Alert, Normal Affect, Normal Mood Sepsis Event Note - Evaluation Sepsis Screening Result: No Definite Risk - Focused Exam Vital Signs: Vital Signs Temp Pulse Resp BP Pulse Ox Pulse Ox Pulse Ox 03/21/20 09:05 92 L 03/21/20 08:51 89 L 03/21/20 08:11 171/84 H 03/21/20 07:43 97.7 F 97 20 171/84 H 92 L 03/21/20 06:26 106 H 20 143/75 H 93 L 03/21/20 02:46 95 03/21/20 00:37 97 Date Exam was Performed: 03/21/20 Time Exam was Performed: 12:32 - Problem List & Annotations (1) Obesity SNOMED Code(s): 013530970, 243586823 Code(s): E66.9 - OBESITY, UNSPECIFIED Status: Chronic Priority: High Current Visit: Yes Qualifiers: Obesity type: unspecified obesity type Obesity classification: adult class 3 (BMI >= 40) Serious obesity comorbidity presence: unspecified whether serious comorbidity present Body mass index: BMI 50.0-59.9 Qualified Code(s): E66.01 - Morbid (severe) obesity due to excess calories; Z68.43 - Body mass index (BMI) 50.0-59.9, adult (2) Type II diabetes mellitus SNOMED Code(s): 65867911 Code(s): E11.9 - TYPE 2 DIABETES MELLITUS WITHOUT COMPLICATIONS Status: Chronic Priority: Medium Current Visit: Yes Qualifiers: Diabetes mellitus senior living insulin use: with exterminator helper use Diabetes mellitus complication status: with other specified complication Qualified Code(s): E11.69 - Type 2 diabetes mellitus with other specified complication; Z79.4 - retirement (current) use of insulin (3) GURWINDER (obstructive sleep apnea) SNOMED Code(s): 14259362 Code(s): G47.33 - OBSTRUCTIVE SLEEP APNEA (ADULT) (PEDIATRIC) Status: Chronic Priority: Medium Current Visit: Yes (4) Asthma exacerbation SNOMED Code(s): 809670264 Code(s): J45.901 - UNSPECIFIED ASTHMA WITH (ACUTE) EXACERBATION Status: Acute Priority: High Current Visit: Yes Qualifiers: Asthma severity: moderate Asthma persistence: unspecified Qualified Code(s): J45.901 - Unspecified asthma with (acute) exacerbation (5) Exacerbation of allergic asthma due to infection SNOMED Code(s): 760952886 Code(s): J45.901 - UNSPECIFIED ASTHMA WITH (ACUTE) EXACERBATION Status: Acute Priority: High Current Visit: Yes (6) Bronchitis SNOMED Code(s): 36183126 Code(s): J40 - BRONCHITIS, NOT SPECIFIED ACUTE OR CHRONIC Status: Acute Priority: High Current Visit: Yes (7) Chronic lower back pain SNOMED Code(s): 825474125 Code(s): M54.5 - LOW BACK PAIN; G89.29 - OTHER CHRONIC PAIN Status: Chronic Priority: Low Current Visit: No Qualifiers: Back pain laterality: unspecified Sciatica presence: unspecified whether sciatica present Qualified Code(s): M54.5 - Low back pain; G89.29 - Other chronic pain (8) Hypertension SNOMED Code(s): 35909565 Code(s): I10 - ESSENTIAL (PRIMARY) HYPERTENSION Status: Chronic Priority: Low Current Visit: No Qualifiers: Hypertension type: unspecified Qualified Code(s): I10 - Essential (primary) hypertension - Problem List Review Problem List Initiated/Reviewed/Updated: Yes - My Orders Last 24 Hours: My Active Orders 03/20/20 11:48 Height and Weight [RC] 0400 Up With Assistance [RC] ASDIRECTED VTE/DVT Education [RC] BID Vital Signs [RC] 10,16,22,04 Respiratory Care Assess and Treatment [CONS] Routine Acetaminophen [Tylenol] 650 mg PO Q4H PRN Ondansetron [Zofran ODT] 4 mg PO Q6H PRN Resuscitation Status Routine 03/20/20 11:49 Intake and Output [RC] 04,1600 Pulse Oximetry [RC] PRN 03/20/20 11:58 Consult to Hearing Aid Assembly Supervisor [CONS] Routine 03/20/20 12:00 Blood Glucose Check, Bedside [RC] QIDACANDBED Dextrose 50% in Water 50 ml IVPUSH ASDIRECTED PRN 03/20/20 13:44 Albuterol [Proventil Neb Soln] 2.5 mg NEB Q2H PRN 03/20/20 13:45 RT Aerosol Therapy [RC] ASDIRECTED 03/20/20 14:15 Acapella [RT Chest Physiotherapy] [RC] ASDIRECTED 03/20/20 14:29 CPAP Adult [RT BiPAP/CPAP] [RC] ASDIRECTED 03/20/20 14:41 Nystatin [Nystop] 0 gm TOP TID PRN 03/20/20 15:00 Albuterol/Ipratropium [DuoNeb 3.0-0.5 MG/3 ML] 3 ml NEB Q6HRRT 03/20/20 15:05 STREP PNEUMONIAE ANTIGEN [MREF] Routine 03/20/20 15:20 Benzocaine/Cetylpyrd/Menthol [Cepacol Sore Throat] 1 lozenge MUCMEM Q2H PRN 03/20/20 15:51 Isolation [COMM] Routine 03/20/20 15:56 Acetaminophen/HYDROcodone [[place] 325-5 MG] 1 tab PO Q6H PRN Cyclobenzaprine [Flexeril] 10 mg PO TID PRN 03/20/20 16:45 CULTURE MRSA [RM] Routine 03/20/20 17:00 Insulin Lispro [HumaLOG] See Protocol SUBCUT QIDACANDBED 03/20/20 21:00 Dextromethorphan/guaiFENesin [Robitussin DM] 10 ml PO TID@0700,1400,2100 methylPREDNISolone Sod Succ [Solu-MEDROL] 60 mg IVPUSH Q12H 03/21/20 09:00 Enoxaparin [Lovenox] 40 mg SUBCUT DAILY Losartan [Cozaar] 50 mg PO DAILY 03/21/20 11:00 Nicotine [Habitrol] 14 mg TRDERM DAILY@1100 Remove Patch 1 ea TRDERM DAILY@1100 03/22/20 05:11 BASIC METABOLIC PANEL,BMP [CHEM] AM CBC WITH AUTO DIFF [HEME] AM MAGNESIUM [CHEM] AM 03/23/20 05:11 BASIC METABOLIC PANEL,BMP [CHEM] AM CBC WITH AUTO DIFF [HEME] AM MAGNESIUM [CHEM] AM 03/24/20 05:11 BASIC METABOLIC PANEL,BMP [CHEM] AM CBC WITH AUTO DIFF [HEME] AM MAGNESIUM [CHEM] AM - Assessment Assessment:: Day of admission: Reports 3 week history of productive cough that has been getting worse over past 3-4 days Hx/o asthma, GURWINDER (untreated), Type II DM, HTN Former smoker who quit a few months ago Used home albuterol inhaler and nebulizer with no relief Given 125mg solu-medrol and albuterol inhale by EMS Given 2gm magnesium, Rocephin, and albuterol neb in ED CXR shows nothing acute No leukocytosis, CRP 2.0, afebrile, electrolytes good Negative COVID-19 and mycoplasma Sputum culture obtained in ED and pending Hoping to catch train from [place] on Tuesday03/22/20 to [facility] Admitted inpatient M/S/P Day 1: Feeling better States cough is shorter duration and longer in between Utilizing acapella - will add IS as well Moved train ticket to Tuesday morning Sputum culture showing many WBCs, Many gram negative coccobacilli, moderate gram positive cocci, few gram negative rods Continue Rocephin Increase SS insulin from low to medium Labs: -WBC 10.22 (likely elevated 2/2 steroid) -Sodium 142 -Potassium 4.5 -Creatinine 0.7 -GFR >60 Continue current treatment plan - Plan Plan:: Bronchitis Exacerbation of allergic asthma due to infection Asthma exacerbation GURWINDER (obstructive sleep apnea) History of MRSA PLAN - Continue 2gm Rocephin - RT/IS/Acapella - Scheduled Duo-nebs and PRN Albuterol nebs - Await sputum cultures - Obtain blood cultures if patient develops fever - Cepacol lozenge for throat pain - Schedule dextromethorphan/guaifenesin - Monitor labs - 60mg solu-medrol Q12H - O2 as needed - continue to wean - Consider repeat CXR tomorrow - Droplet/contact isolation Obesity Type II diabetes mellitus Chronic lower back pain Hypertension On home Trulicity, Metformin, PRN [place], PRN Flexeril, Cozaar A1C obtained and is 7.00 PLAN - Hold home Trulicity and metformin - Continue PRN [place] and Flexeril for back pain/spasms - Continue Home Cozaar - Hearing Aid Assembly Supervisor consult - Sliding scale insulin - medium - QID AC and Bedtime blood glucose checks DVT prophylaxis: Lovenox GI prophylaxis: Not indicated Code status: Full code PCP: Not from Area Social: Lives in [facility] and is here visiting friends. Hoping to catch train from [place] to home on 03/22/20 if possible. Disposition: Patient will remain admitted M/S/P floor inpatient status for management of Asthma exacerbation and further workup of suspected infection.
[2020-03-22] MEDS: Albuterol/Ipratropium 3.0-0.5 MG/3 ML Neb Soln NEB SCH ×4 (02:53→20:20)
[2020-03-22] MEDS: Acetaminophen/HYDROcodone 325-5 MG Tab PO PRN ×4 (03:11→22:23)
[2020-03-22] MEDS: Benzocaine/Cetylpyridinium/Menthol Lozenge MUCMEM PRN ×4 (03:13→13:33)
[2020-03-22] MEDS: guaiFENesin/Dextromethorphan 100-10 MG/5 ML Soln 5 ML Cup PO SCH ×3 (06:42→20:55)
[2020-03-22] MEDS: Cyclobenzaprine 10 MG Tab PO PRN ×3 (06:47→20:58)
[2020-03-22] MEDS: Insulin Lispro 100 Units/ML 3 ML Vial SUBCUT SCH ×5 (07:32→21:22)
--- NOTE | 2020-03-22 08:44 | CR ---
Chest: 2 views of the chest were obtained. Comparison: Prior chest x-ray of 03/20/20 and 11/04/15. Mild increased density is noted within the left base which appears to be within the lingula. Lungs are slightly hyperinflated. Lungs otherwise are clear. Heart size and mediastinum are normal. Bony structures are unremarkable. Impression: 1. Lungs slightly hyperinflated raising the possibility of early emphysematous change or asthma. 2. Increased density within left lung base. Differential includes small area of pneumonia versus prominent atelectasis. Diagnostic code #3 Study was dictated in MDT
[2020-03-22] MEDS: methylPREDNISolone Sodium Succinate 40 MG/1 ML SDV IVPUSH SCH (09:13)
[2020-03-22] MEDS: cefTRIAXone 2 GM in Sodium Chloride 0.9% 100 ML IV SCH (09:21)
[2020-03-22] MEDS: Losartan 25 MG Tab PO SCH (09:28)
[2020-03-22] MEDS: Enoxaparin 40 MG/0.4 ML Syringe SUBCUT SCH (09:29)
[2020-03-22] MEDS: Nicotine 14 MG/24 Hr Patch TRDERM SCH (09:31)
[2020-03-22] MEDS ORDERED: Azithromycin 250 MG Tab PO ONE (11:33)
--- NOTE | 2020-03-22 11:35 | PCM.PN ---
- General Info Date of Service: 03/22/20 Admission Dx/Problem (Free Text): Admission Diagnosis/Problem Admission Diagnosis/Problem Upper respiratory tract infection Subjective Update: Patient is feeling much better. Oxygen saturations, although still considered low at 93%, have improved on room air. Unfortunately, when he ambulates his oxygen saturation is still dropping into the 80s. - Review of Systems General: Reports: No Symptoms HEENT: Reports: No Symptoms Pulmonary: Reports: Cough, Sputum Cardiovascular: Reports: No Symptoms Gastrointestinal: Reports: No Symptoms Genitourinary: Reports: No Symptoms Musculoskeletal: Reports: Back Pain - Patient Data Vitals - Most Recent: Last Vital Signs Temp 97.7 F 03/22/20 07:26 Pulse 102 H 03/22/20 07:35 Resp 20 03/22/20 07:26 BP 140/80 03/22/20 09:28 Pulse Ox 91 L 03/22/20 10:23 Weight - Most Recent: 197.449 kg I&O - Last 24 Hours: Intake & Output 03/21/20 03/22/20 03/22/20 22:59 06:59 14:59 Intake Total 1820 820 Output Total 1800 1300 Balance 20 -480 Lab Results Last 24 Hours: Laboratory Results - last 24 hr 03/21/20 03/21/20 03/21/20 Range/Units 11:55 17:22 20:59 WBC (4.23-9.07) K/mm3 RBC (4.63-6.08) M/mm3 Hgb (13.7-17.5) gm/dl Hct (40.1-51.0) % MCV (79.0-92.2) fl MCH (25.7-32.2) pg MCHC (32.2-35.5) g/dl RDW Std Deviation (35.1-43.9) fL Plt Count (163-337) K/mm3 MPV (9.4-12.3) fl Neut % (Auto) (34.0-67.9) % Lymph % (Auto) (21.8-53.1) % [place] % (Auto) (5.3-12.2) % Eos % (Auto) (0.8-7.0) Baso % (Auto) (0.1-1.2) % Neut # (Auto) (1.78-5.38) K/mm3 Lymph # (Auto) (1.32-3.57) K/mm3 [place] # (Auto) (0.30-0.82) K/mm3 Eos # (Auto) (0.04-0.54) K/mm3 Baso # (Auto) (0.01-0.08) K/mm3 Manual Slide Review Sodium (136-145) mEq/L Potassium (3.5-5.1) mEq/L Chloride (98-107) mEq/L Carbon Dioxide (21-32) mEq/L Anion Gap (5-15) BUN (7-18) mg/dL Creatinine (0.7-1.3) mg/dL Est Cr Clr Drug Dosing mL/min Estimated GFR (MDRD) (>60) mL/min BUN/Creatinine Ratio (14-18) Glucose (74-106) mg/dL POC Glucose 188 H 173 H 225 H (70-105) mg/dL Calcium (8.5-10.1) mg/dL Magnesium (1.8-2.4) mg/dl 03/22/20 03/22/20 Range/Units 04:50 04:50 WBC 12.53 H (4.23-9.07) K/mm3 RBC 5.18 (4.63-6.08) M/mm3 Hgb 14.9 (13.7-17.5) gm/dl Hct 47.3 (40.1-51.0) % MCV 91.3 (79.0-92.2) fl MCH 28.8 (25.7-32.2) pg MCHC 31.5 L (32.2-35.5) g/dl RDW Std Deviation 46.7 H (35.1-43.9) fL Plt Count 210 (163-337) K/mm3 MPV 11.2 (9.4-12.3) fl Neut % (Auto) 92.3 H (34.0-67.9) % Lymph % (Auto) 5.7 L (21.8-53.1) % [place] % (Auto) 1.8 L (5.3-12.2) % Eos % (Auto) 0 L (0.8-7.0) Baso % (Auto) 0.0 L (0.1-1.2) % Neut # (Auto) 11.58 H (1.78-5.38) K/mm3 Lymph # (Auto) 0.71 L (1.32-3.57) K/mm3 [place] # (Auto) 0.22 L (0.30-0.82) K/mm3 Eos # (Auto) 0.00 L (0.04-0.54) K/mm3 Baso # (Auto) 0.00 L (0.01-0.08) K/mm3 Manual Slide Review Abnormal smear Sodium 140 (136-145) mEq/L Potassium 4.5 (3.5-5.1) mEq/L Chloride 103 (98-107) mEq/L Carbon Dioxide 27 (21-32) mEq/L Anion Gap 14.5 (5-15) BUN 19 H (7-18) mg/dL Creatinine 0.8 (0.7-1.3) mg/dL Est Cr Clr Drug Dosing 139.85 mL/min Estimated GFR (MDRD) > 60 (>60) mL/min BUN/Creatinine Ratio 23.8 H (14-18) Glucose 210 H (74-106) mg/dL POC Glucose (70-105) mg/dL Calcium 9.2 (8.5-10.1) mg/dL Magnesium 2.2 (1.8-2.4) mg/dl Davian Results Last 24 Hours: Microbiology 03/20/20 08:05 Gram Stain - Final Sputum - Expectorated 03/20/20 16:45 MRSA Culture - Final Nares, Unspecified NO MRSA ISOLATED 03/20/20 15:05 Streptococcus pneumoniae Antigen (M - Final Urine Med Orders - Current: Current Medications Acetaminophen (Tylenol) 650 mg PO Q4H PRN PRN Reason: Pain (Mild 1-3)/fever Hydrocodone Bitart/Acetaminophen ([place] 325-5 Mg) 1 tab PO Q6H PRN PRN Reason: Pain Last Admin: 03/22/20 09:27 Dose: 1 tab Documented by: Albuterol (Proventil Neb Soln) 2.5 mg NEB Q2H PRN PRN Reason: SOB/Wheezing Last Admin: 03/21/20 00:35 Dose: 2.5 mg Documented by: Albuterol/Ipratropium (Duoneb 3.0-0.5 Mg/3 Ml) 3 ml NEB Q6HRRT [facility] Last Admin: 03/22/20 10:20 Dose: 3 ml Documented by: Benzocaine/Menthol (Cepacol Sore Throat) 1 lozenge MUCMEM Q2H PRN PRN Reason: Sore Throat Last Admin: 03/22/20 09:28 Dose: 1 lozenge Documented by: Cyclobenzaprine HCl (Flexeril) 10 mg PO TID PRN PRN Reason: Pain Last Admin: 03/22/20 06:47 Dose: 10 mg Documented by: Dextrose/Water (Dextrose 50% In Water) 50 ml IVPUSH ASDIRECTED PRN PRN Reason: Hypoglycemia Enoxaparin Sodium (Lovenox) 40 mg SUBCUT DAILY [facility] Last Admin: 03/22/20 09:29 Dose: 40 mg Documented by: Guaifenesin/Phenylephrine HCl (Robitussin Dm) 10 ml PO TID@0700,1400,2100 [facility] Last Admin: 03/22/20 06:42 Dose: 10 ml Documented by: Ceftriaxone Sodium 2 gm/ (Sodium Chloride) 100 mls @ 200 mls/hr IV Q24H [facility] Last Admin: 03/22/20 09:21 Dose: 200 mls/hr Documented by: Insulin Human Lispro (Humalog) 0 unit SUBCUT QIDACANDBED [facility]; Protocol Last Admin: 03/22/20 07:32 Dose: 4 units Documented by: Losartan Potassium (Cozaar) 50 mg PO DAILY [facility] Last Admin: 03/22/20 09:28 Dose: 50 mg Documented by: Methylprednisolone Sodium Succinate (Solu-Medrol) 60 mg IVPUSH Q12H [facility] Last Admin: 03/22/20 09:13 Dose: 60 mg Documented by: Miscellaneous Information (Remove Patch) 1 ea TRDERM DAILY [facility] Last Admin: 03/22/20 09:32 Dose: 1 ea Documented by: Nicotine (Habitrol) 14 mg TRDERM DAILY [facility] Last Admin: 03/22/20 09:31 Dose: 14 mg Documented by: Nystatin (Nystop) 0 gm TOP TID PRN PRN Reason: Rash Ondansetron HCl (Zofran Odt) 4 mg PO Q6H PRN PRN Reason: nausea, able to take PO Discontinued Medications Albuterol (Proventil) 10 mg NEB ONETIME ONE Stop: 03/20/20 07:57 Last Admin: 03/20/20 08:02 Dose: 10 mg Documented by: Albuterol (Proventil Neb Soln) Confirm Administered Dose 10 mg .ROUTE .STK-MED ONE Stop: 03/20/20 07:57 Last Admin: 03/20/20 08:02 Dose: Not Given Documented by: Guaifenesin/Phenylephrine HCl (Robitussin Dm) 10 ml PO TID@0700,1400,2100 PRN PRN Reason: Cough Magnesium Sulfate 2 gm/ Premix 50 mls @ 25 mls/hr IV ONETIME ONE Stop: 03/20/20 09:54 Last Admin: 03/20/20 08:11 Dose: 25 mls/hr Documented by: Miscellaneous Information (Remove Patch) 1 ea TRDERM DAILY@1100 [facility] Last Admin: 03/21/20 12:08 Dose: Not Given Documented by: Nicotine (Habitrol) 14 mg TRDERM DAILY@1100 [facility] Last Admin: 03/21/20 12:05 Dose: 14 mg Documented by: - Exam Quality Assessment: No: Supplemental Oxygen General: Alert, Oriented HEENT: Pupils Equal, Mucous Membr. Moist/[place] Neck: Supple Lungs: Clear to Auscultation, Normal Respiratory Effort, Decreased Breath Sounds Cardiovascular: Regular Rate, Regular Rhythm Extremities: Normal Inspection, Non-Tender, Normal Capillary Refill Skin: Warm Neurological: No New Focal Deficit Psy/Mental Status: Alert, Normal Affect, Normal Mood Sepsis Event Note - Evaluation Sepsis Screening Result: Sepsis Risk - Focused Exam Vital Signs: Vital Signs Temp Pulse Resp BP Pulse Ox Pulse Ox 03/22/20 10:23 91 L 03/22/20 09:28 140/80 03/22/20 07:35 102 H 93 L 03/22/20 07:32 140/80 03/22/20 07:26 97.7 F 65 20 159/117 H 95 03/22/20 03:17 97.5 F 78 15 157/88 H 93 L 03/22/20 02:55 93 L Date Exam was Performed: 03/22/20 Time Exam was Performed: 11:29 - Problem List Review Problem List Initiated/Reviewed/Updated: Yes - My Orders Last 24 Hours: My Active Orders 03/22/20 10:55 RT Evaluate for Home Oxygen [RC] Click to Edit - Assessment Assessment:: Day of admission: Reports 3 week history of productive cough that has been getting worse over past 3-4 days Hx/o asthma, GURWINDER (untreated), Type II DM, HTN Former smoker who quit a few months ago Used home albuterol inhaler and nebulizer with no relief Given 125mg solu-medrol and albuterol inhale by EMS Given 2gm magnesium, Rocephin, and albuterol neb in ED CXR shows nothing acute No leukocytosis, CRP 2.0, afebrile, electrolytes good Negative COVID-19 and mycoplasma Sputum culture obtained in ED and pending Hoping to catch train from [place] on Tuesday03/22/20 to [facility] Admitted inpatient M/S/P Day 1: Feeling better States cough is shorter duration and longer in between Utilizing acapella - will add IS as well Moved train ticket to Tuesday morning Sputum culture showing many WBCs, Many gram negative coccobacilli, moderate gram positive cocci, few gram negative rods Continue Rocephin Increase SS insulin from low to medium Labs: -WBC 10.22 (likely elevated 2/2 steroid) -Sodium 142 -Potassium 4.5 -Creatinine 0.7 -GFR >60 Continue current treatment plan Day 2 Chest x-ray consistent with left lower lobe pneumonia versus atelectasis. White count increasing, but likely secondary to steroid effect. Afebrile. Cough is productive. Sputum culture pending Urine antigen for streptococcal negative MRSA screen negative On Rocephin Encouraging Acapella and IS - Plan Plan:: Bronchitis Exacerbation of allergic asthma due to infection Asthma exacerbation GURWINDER (obstructive sleep apnea) History of MRSA PLAN - Continue 2gm Rocephin - Add Zithromax 500 mg today and 250 mg daily x4 days for possible community- acquired pneumonia - RT/IS/Acapella - Scheduled Duo-nebs and PRN Albuterol nebs - Await sputum cultures - Obtain blood cultures if patient develops fever - Cepacol lozenge for throat pain - Schedule dextromethorphan/guaifenesin - Monitor labs - 60mg solu-medrol Q12H - O2 as needed - continue to wean - Droplet isolation Obesity Type II diabetes mellitus Chronic lower back pain Hypertension On home Trulicity, Metformin, PRN [place], PRN Flexeril, Cozaar A1C obtained and is 7.00 PLAN - Hold home Trulicity and metformin - Continue PRN [place] and Flexeril for back pain/spasms - Continue Home Cozaar - [employer] consult - Sliding scale insulin - medium - QID AC and Bedtime blood glucose checks DVT prophylaxis: Lovenox GI prophylaxis: Not indicated Code status: Full code PCP: Not from Area Social: Lives in [facility] and is here visiting friends. Hoping to catch train from [place] to home on 03/22/20 if possible. Disposition: Patient will remain admitted M/S/P floor inpatient status for management of Asthma exacerbation and further workup of suspected infection. Likely discharge tomorrow.
[2020-03-22] MEDS ORDERED: methylPREDNISolone Sodium Succinate 40 MG/1 ML SDV IVPUSH ONE (21:00)
[2020-03-23] MEDS: Albuterol/Ipratropium 3.0-0.5 MG/3 ML Neb Soln NEB SCH ×2 (03:52→10:14)
[2020-03-23] MEDS: Acetaminophen/HYDROcodone 325-5 MG Tab PO PRN ×2 (04:17→10:38)
[2020-03-23] MEDS: Cyclobenzaprine 10 MG Tab PO PRN (04:55)
[2020-03-23] MEDS: guaiFENesin/Dextromethorphan 100-10 MG/5 ML Soln 5 ML Cup PO SCH (06:39)
[2020-03-23] MEDS ORDERED: predniSONE 20 MG Tab PO SCH (07:00)
[2020-03-23] MEDS: Nicotine 14 MG/24 Hr Patch TRDERM SCH (08:31)
[2020-03-23] MEDS: Benzocaine/Cetylpyridinium/Menthol Lozenge MUCMEM PRN (08:32)
[2020-03-23] MEDS: Insulin Lispro 100 Units/ML 3 ML Vial SUBCUT SCH (08:33)
[2020-03-23] MEDS: Losartan 25 MG Tab PO SCH (08:33)
[2020-03-23 08:34] VITALS: BP 152/94
[2020-03-23] MEDS: Enoxaparin 40 MG/0.4 ML Syringe SUBCUT SCH (08:34)
[2020-03-23] MEDS ORDERED: Azithromycin 250 MG Tab PO SCH (09:00)
[2020-03-23] MEDS: cefTRIAXone 2 GM in Sodium Chloride 0.9% 100 ML IV SCH ×2 (09:07→10:38)
[2020-03-23 09:11] VITALS: PULSE 90
--- NOTE | 2020-03-23 09:59 | PCM.DCSUM1 ---
Discharge Summary - Hospital Course HPI Initial Comments: Gage Gongora is a 44 yo male who presented to ED via [facility] on 03/20/2020 with a 3-week history of productive cough has been getting worse the last 3 to 4 days. He notes an increase in wheezing and worsening dyspnea with minimal exertion. He states he has not been getting any sleep due to symptoms. He does have a history of asthma and is a former smoker who quit several months ago. He has been coughing up dark green sputum. Reports he has been chilled but denies any fever, diarrhea, nausea, vomiting. He does report some mild central pleuritic chest pain from coughing. He has a home albuterol inhaler and nebulizer, both of which have been providing little relief of symptoms. In route to ED paramedics gave him an albuterol nebulizer along with 105 mg of Solu-Medrol. Reports he was seen at [place] hometown clinic approximately 3 weeks prior and was given a Medrol dose pack and an antibiotic, but he is unsure which 1. Reports has not been feeling any better. Denies any exposure to COVID-19 virus or sick contacts. He took Tylenol prior to arrival. In the ED he was afebrile with a temp of 36.1 Celsius. Pulse 106. Respirations 35. Blood pressure 169/98. Pulse ox was low at 85% on room air. Twelve-lead EKG is obtained showing sinus tachycardia at 100 bpm. P waves are enlarged indicating a left atrial hypertrophy pattern. Q waves are noted in V1 and V2. There is a wandering baseline with early transition pattern. QT is mildly prolonged. CBC is looks good with no leukocytosis. There is no bandemia. ABG shows metabolic alkalosis. Electrolytes are grossly normal and troponin is negative. Mycoplasma and COVID-19 screen are both negative. He is placed on 2 L of oxygen via nasal cannula and this is later needed to be bumped up to 3 L. Chest x-ray is obtained showing nothing acute. He is having a significantly productive cough and sputum culture is obtained. He started on 2 g IV Rocephin. His wheezing does improve with continued nebulizers. He carries a history of asthma, type II DM on Trulicity and metformin, obesity, umbilical hernia repair, sleep apnea not compliant with CPAP, chronic low back pain, HTN. He is a full code. His PCP is not from the area. Diagnosis: Stroke: No - Discharge Data Discharge Date: 03/23/20 Discharge Disposition: Home, Self-Care 01 Condition: Good - Referral to Home Health Primary Care Physician: PCP Not In Area - Discharge Diagnosis/Problem(s) (1) Asthma exacerbation SNOMED Code(s): 945106130 ICD Code: J45.901 - UNSPECIFIED ASTHMA WITH (ACUTE) EXACERBATION Status: Acute Priority: High Qualifiers: Asthma severity: moderate Asthma persistence: unspecified Qualified Code(s): J45.901 - Unspecified asthma with (acute) exacerbation (2) Bronchitis SNOMED Code(s): 96733326 ICD Code: J40 - BRONCHITIS, NOT SPECIFIED ACUTE OR CHRONIC Status: Acute Priority: High (3) Obesity SNOMED Code(s): 600085998, 019660469 ICD Code: E66.9 - OBESITY, UNSPECIFIED Status: Chronic Priority: High Qualifiers: Obesity type: unspecified obesity type Obesity classification: adult class 3 (BMI >= 40) Serious obesity comorbidity presence: unspecified whether serious comorbidity present Body mass index: BMI 50.0-59.9 Qualified Code(s): E66.01 - Morbid (severe) obesity due to excess calories; Z68.43 - Body mass index (BMI) 50.0-59.9, adult (4) Type II diabetes mellitus SNOMED Code(s): 54964145 ICD Code: E11.9 - TYPE 2 DIABETES MELLITUS WITHOUT COMPLICATIONS Status: Chronic Priority: Medium Qualifiers: Diabetes mellitus grocery caddy insulin use: with grocery caddy use Diabetes mellitus complication status: with other specified complication Qualified Code(s): E11.69 - Type 2 diabetes mellitus with other specified complication; Z79.4 - lease out man (current) use of insulin (5) Chronic lower back pain SNOMED Code(s): 167734624 ICD Code: M54.5 - LOW BACK PAIN; G89.29 - OTHER CHRONIC PAIN Status: Chronic Priority: Low Qualifiers: Back pain laterality: unspecified Sciatica presence: unspecified whether sciatica present Qualified Code(s): M54.5 - Low back pain; G89.29 - Other chronic pain - Patient Summary/Data Consults: Consultations 03/20/20 11:48 Respiratory Care Assess and Treatment [CONS] Routine 03/20/20 11:58 Consult to Medical Art Therapist [CONS] Routine Hospital Course: Assessment:: Day of admission: Reports 3 week history of productive cough that has been getting worse over past 3-4 days Hx/o asthma, GURWINDER (untreated), Type II DM, HTN Former smoker who quit a few months ago Used home albuterol inhaler and nebulizer with no relief Given 125mg solu-medrol and albuterol inhale by EMS Given 2gm magnesium, Rocephin, and albuterol neb in ED CXR shows nothing acute No leukocytosis, CRP 2.0, afebrile, electrolytes good Negative COVID-19 and mycoplasma Sputum culture obtained in ED and pending Hoping to catch train from [place] on Tuesday03/22/20 to [facility] Admitted inpatient M/S/P Day 1: Feeling better States cough is shorter duration and longer in between Utilizing acapella - will add IS as well Moved train ticket to Tuesday morning Sputum culture showing many WBCs, Many gram negative coccobacilli, moderate gram positive cocci, few gram negative rods Continue Rocephin Increase SS insulin from low to medium Labs: -WBC 10.22 (likely elevated 2/2 steroid) -Sodium 142 -Potassium 4.5 -Creatinine 0.7 -GFR >60 Continue current treatment plan Day 2 Chest x-ray consistent with left lower lobe pneumonia versus atelectasis. White count increasing, but likely secondary to steroid effect. Afebrile. Cough is productive. Sputum culture pending Urine antigen for streptococcal negative MRSA screen negative On Rocephin Encouraging Acapella and IS Day of discharge White count returned to normal. Afebrile. Feeling much better with less cough Sputum culture still pending Was started on azithromycin yesterday. Discharged on Omnicef and azithromycin. - Patient Instructions Diet: Diabetic Diet Activity: As Tolerated Driving: May Drive Today Showering/Bathing: May Shower Notify Provider of: Fever (Shortness of breath) Other/Special Instructions: Follow-up with primary care provider as soon as you are back in [place]. - Discharge Plan *PRESCRIPTION DRUG MONITORING PROGRAM REVIEWED*: Not Applicable *COPY OF PRESCRIPTION DRUG MONITORING REPORT IN PATIENT BEATRIZ: Not Applicable Prescriptions/Med Rec: Nicotine [Habitrol] 14 mg TRDERM DAILY #30 patch Hydrocodone/Acetaminophen [Hydrocodone-Acetamin 5-325 mg] 1 tab PO Q6H PRN #10 PRN Reason: Pain Cefdinir [Omnicef] 300 mg PO BID #6 cap predniSONE 40 mg PO WITHBREAKFAST #30 tablet Azithromycin [Zithromax] 250 mg PO DAILY #3 tablet Home Medications: Home Meds Albuterol Sulfate 2.5 mg IH Q6HR PRN #25 unit 11/04/15 [Rx] Albuterol [Proventil HFA] 2 puff INH Q4H PRN #1 inhaler 11/04/15 [Rx] Cyclobenzaprine [Flexeril] 10 mg PO TID PRN 03/20/20 [History] Dulaglutide [Trulicity] 0.75 mg SQ MO 03/20/20 [History] Losartan [Cozaar] 50 mg PO DAILY 03/20/20 [History] metFORMIN HCl [Metformin HCl] 1,000 mg PO BID 03/20/20 [History] Azithromycin [Zithromax] 250 mg PO DAILY #3 tablet 03/23/20 [Rx] Cefdinir [Omnicef] 300 mg PO BID #6 cap 03/23/20 [Rx] Dextromethorphan/guaiFENesin [Robitussin DM] 10 ml PO TID@0700,1400,2100 cup 03/23/20 [Rx] Hydrocodone/Acetaminophen [Hydrocodone-Acetamin 5-325 mg] 1 tab PO Q6H PRN #10 03/23/20 [Rx] Nicotine [Habitrol] 14 mg TRDERM DAILY #30 patch 03/23/20 [Rx] predniSONE 40 mg PO WITHBREAKFAST #30 tablet 03/23/20 [Rx] Oxygen Therapy Mode: Room Air Patient Handouts: Type 2 Diabetes Mellitus, Diagnosis, Adult, Steps to Quit Smoking Referrals: smoking, cessation [Other] (patient has declined appointment for smoking cessation.) PCP,Not In Area [Primary Care Provider] - (Patient to follow up with Primary doctor when he gets back home.) - Discharge Summary/Plan Comment DC Time >30 min.: Yes Discharge Summary/Plan Comment: Discharged home in good condition Follow-up with primary care provider this week. - General Info Date of Service: 03/23/20 Admission Dx/Problem (Free Text: Admission Diagnosis/Problem Admission Diagnosis/Problem Upper respiratory tract infection Subjective Update: Patient continues to improve. He is off oxygen. Appetite is good. Functional Status: Reports: Pain Controlled - Review of Systems General: Reports: No Symptoms HEENT: Reports: No Symptoms Pulmonary: Reports: No Symptoms Cardiovascular: Reports: No Symptoms Gastrointestinal: Reports: No Symptoms Musculoskeletal: Reports: No Symptoms - Patient Data Vitals - Most Recent: Last Vital Signs Temp 97.9 F 03/23/20 08:30 Pulse 90 03/23/20 09:11 Resp 16 03/23/20 08:30 BP 152/94 H 03/23/20 08:33 Pulse Ox 93 L 03/23/20 08:30 Weight - Most Recent: 197.131 kg I&O - Last 24 hours: Intake & Output 03/22/20 03/23/20 03/23/20 22:59 06:59 14:59 Intake Total 3860 800 Output Total 1400 1000 Balance 2460 -200 Lab Results - Last 24 hrs: Laboratory Results - last 24 hr 03/22/20 03/22/20 03/22/20 Range/Units 06:41 11:26 17:21 WBC (4.23-9.07) K/mm3 RBC (4.63-6.08) M/mm3 Hgb (13.7-17.5) gm/dl Hct (40.1-51.0) % MCV (79.0-92.2) fl MCH (25.7-32.2) pg MCHC (32.2-35.5) g/dl RDW Std Deviation (35.1-43.9) fL Plt Count (163-337) K/mm3 MPV (9.4-12.3) fl Neut % (Auto) (34.0-67.9) % Lymph % (Auto) (21.8-53.1) % [place] % (Auto) (5.3-12.2) % Eos % (Auto) (0.8-7.0) Baso % (Auto) (0.1-1.2) % Neut # (Auto) (1.78-5.38) K/mm3 Lymph # (Auto) (1.32-3.57) K/mm3 [place] # (Auto) (0.30-0.82) K/mm3 Eos # (Auto) (0.04-0.54) K/mm3 Baso # (Auto) (0.01-0.08) K/mm3 Manual Slide Review Sodium (136-145) mEq/L Potassium (3.5-5.1) mEq/L Chloride (98-107) mEq/L Carbon Dioxide (21-32) mEq/L Anion Gap (5-15) BUN (7-18) mg/dL Creatinine (0.7-1.3) mg/dL Est Cr Clr Drug Dosing mL/min Estimated GFR (MDRD) (>60) mL/min BUN/Creatinine Ratio (14-18) Glucose (74-106) mg/dL POC Glucose 200 H 171 H 224 H (70-105) mg/dL Calcium (8.5-10.1) mg/dL Magnesium (1.8-2.4) mg/dl 03/22/20 03/23/20 03/23/20 Range/Units 20:54 05:00 05:00 WBC 9.84 H (4.23-9.07) K/mm3 RBC 5.23 (4.63-6.08) M/mm3 Hgb 15.1 (13.7-17.5) gm/dl Hct 47.2 (40.1-51.0) % MCV 90.2 (79.0-92.2) fl MCH 28.9 (25.7-32.2) pg MCHC 32.0 L (32.2-35.5) g/dl RDW Std Deviation 45.8 H (35.1-43.9) fL Plt Count 222 (163-337) K/mm3 MPV 11.1 (9.4-12.3) fl Neut % (Auto) 88.4 H (34.0-67.9) % Lymph % (Auto) 7.5 L (21.8-53.1) % [place] % (Auto) 3.9 L (5.3-12.2) % Eos % (Auto) 0 L (0.8-7.0) Baso % (Auto) 0.1 (0.1-1.2) % Neut # (Auto) 8.70 H (1.78-5.38) K/mm3 Lymph # (Auto) 0.74 L (1.32-3.57) K/mm3 [place] # (Auto) 0.38 (0.30-0.82) K/mm3 Eos # (Auto) 0.00 L (0.04-0.54) K/mm3 Baso # (Auto) 0.01 (0.01-0.08) K/mm3 Manual Slide Review Abnormal smear Sodium 138 (136-145) mEq/L Potassium 4.1 (3.5-5.1) mEq/L Chloride 103 (98-107) mEq/L Carbon Dioxide 29 (21-32) mEq/L Anion Gap 10.1 (5-15) BUN 17 (7-18) mg/dL Creatinine 0.7 (0.7-1.3) mg/dL Est Cr Clr Drug Dosing 159.83 mL/min Estimated GFR (MDRD) > 60 (>60) mL/min BUN/Creatinine Ratio 24.3 H (14-18) Glucose 202 H (74-106) mg/dL POC Glucose 215 H (70-105) mg/dL Calcium 9.2 (8.5-10.1) mg/dL Magnesium 2.2 (1.8-2.4) mg/dl 03/23/20 Range/Units 06:38 WBC (4.23-9.07) K/mm3 RBC (4.63-6.08) M/mm3 Hgb (13.7-17.5) gm/dl Hct (40.1-51.0) % MCV (79.0-92.2) fl MCH (25.7-32.2) pg MCHC (32.2-35.5) g/dl RDW Std Deviation (35.1-43.9) fL Plt Count (163-337) K/mm3 MPV (9.4-12.3) fl Neut % (Auto) (34.0-67.9) % Lymph % (Auto) (21.8-53.1) % [place] % (Auto) (5.3-12.2) % Eos % (Auto) (0.8-7.0) Baso % (Auto) (0.1-1.2) % Neut # (Auto) (1.78-5.38) K/mm3 Lymph # (Auto) (1.32-3.57) K/mm3 [place] # (Auto) (0.30-0.82) K/mm3 Eos # (Auto) (0.04-0.54) K/mm3 Baso # (Auto) (0.01-0.08) K/mm3 Manual Slide Review Sodium (136-145) mEq/L Potassium (3.5-5.1) mEq/L Chloride (98-107) mEq/L Carbon Dioxide (21-32) mEq/L Anion Gap (5-15) BUN (7-18) mg/dL Creatinine (0.7-1.3) mg/dL Est Cr Clr Drug Dosing mL/min Estimated GFR (MDRD) (>60) mL/min BUN/Creatinine Ratio (14-18) Glucose (74-106) mg/dL POC Glucose 189 H (70-105) mg/dL Calcium (8.5-10.1) mg/dL Magnesium (1.8-2.4) mg/dl ALFREDO Results - Last 24 hrs: Microbiology 03/20/20 08:05 Gram Stain - Final Sputum - Expectorated 03/20/20 16:45 MRSA Culture - Final Nares, Unspecified NO MRSA ISOLATED Med Orders - Current: Current Medications Acetaminophen (Tylenol) 650 mg PO Q4H PRN PRN Reason: Pain (Mild 1-3)/fever Hydrocodone Bitart/Acetaminophen (Carbon 325-5 Mg) 1 tab PO Q6H PRN PRN Reason: Pain Last Admin: 03/23/20 04:17 Dose: 1 tab Documented by: Albuterol (Proventil Neb Soln) 2.5 mg NEB Q2H PRN PRN Reason: SOB/Wheezing Last Admin: 03/21/20 00:35 Dose: 2.5 mg Documented by: Albuterol/Ipratropium (Duoneb 3.0-0.5 Mg/3 Ml) 3 ml NEB Q6HRRT DELBERT Last Admin: 03/23/20 03:52 Dose: 3 ml Documented by: Azithromycin (Zithromax) 250 mg PO DAILY [facility]BERT Stop: 03/27/20 09:01 Last Admin: 03/23/20 08:32 Dose: 250 mg Documented by: Benzocaine/Menthol (Cepacol Sore Throat) 1 lozenge MUCMEM Q2H PRN PRN Reason: Sore Throat Last Admin: 03/23/20 08:32 Dose: 1 lozenge Documented by: Cyclobenzaprine HCl (Flexeril) 10 mg PO TID PRN PRN Reason: Pain Last Admin: 03/23/20 04:55 Dose: 10 mg Documented by: Dextrose/Water (Dextrose 50% In Water) 50 ml IVPUSH ASDIRECTED PRN PRN Reason: Hypoglycemia Enoxaparin Sodium (Lovenox) 40 mg SUBCUT DAILY [facility] Last Admin: 03/23/20 08:34 Dose: 40 mg Documented by: Guaifenesin/Phenylephrine HCl (Robitussin Dm) 10 ml PO TID@0700,1400,2100 [facility] Last Admin: 03/23/20 06:39 Dose: 10 ml Documented by: Ceftriaxone Sodium 2 gm/ (Sodium Chloride) 100 mls @ 200 mls/hr IV Q24H [facility] Last Admin: 03/23/20 09:07 Dose: 200 mls/hr Documented by: Insulin Human Lispro (Humalog) 0 unit SUBCUT QIDACANDBED [facility]; Protocol Last Admin: 03/23/20 08:33 Dose: 2 units Documented by: Losartan Potassium (Cozaar) 50 mg PO DAILY [facility] Last Admin: 03/23/20 08:33 Dose: 50 mg Documented by: Miscellaneous Information (Remove Patch) 1 ea TRDERM DAILY [facility] Last Admin: 03/23/20 08:32 Dose: 1 ea Documented by: Nicotine (Habitrol) 14 mg TRDERM DAILY [facility] Last Admin: 03/23/20 08:31 Dose: 14 mg Documented by: Nystatin (Nystop) 0 gm TOP TID PRN PRN Reason: Rash Ondansetron HCl (Zofran Odt) 4 mg PO Q6H PRN PRN Reason: nausea, able to take PO Prednisone (Prednisone) 40 mg PO WITHBREAKFAST [facility] Last Admin: 03/23/20 06:39 Dose: 40 mg Documented by: Discontinued Medications Albuterol (Proventil) 10 mg NEB ONETIME ONE Stop: 03/20/20 07:57 Last Admin: 03/20/20 08:02 Dose: 10 mg Documented by: Albuterol (Proventil Neb Soln) Confirm Administered Dose 10 mg .ROUTE .STK-MED ONE Stop: 03/20/20 07:57 Last Admin: 03/20/20 08:02 Dose: Not Given Documented by: Azithromycin (Zithromax) 500 mg PO ONETIME ONE Stop: 03/22/20 11:34 Last Admin: 03/22/20 13:32 Dose: 500 mg Documented by: Guaifenesin/Phenylephrine HCl (Robitussin Dm) 10 ml PO TID@0700,1400,2100 PRN PRN Reason: Cough Magnesium Sulfate 2 gm/ Premix 50 mls @ 25 mls/hr IV ONETIME ONE Stop: 03/20/20 09:54 Last Admin: 03/20/20 08:11 Dose: 25 mls/hr Documented by: Methylprednisolone Sodium Succinate (Solu-Medrol) 60 mg IVPUSH Q12H [facility] Last Admin: 03/22/20 09:13 Dose: 60 mg Documented by: Methylprednisolone Sodium Succinate (Solu-Medrol) 40 mg IVPUSH ONETIME ONE Stop: 03/22/20 21:01 Last Admin: 03/22/20 20:55 Dose: 40 mg Documented by: Miscellaneous Information (Remove Patch) 1 ea TRDERM DAILY@1100 [facility] Last Admin: 03/21/20 12:08 Dose: Not Given Documented by: Nicotine (Habitrol) 14 mg TRDERM DAILY@1100 [facility] Last Admin: 03/21/20 12:05 Dose: 14 mg Documented by: - Exam General: Reports: Alert, Oriented HEENT: Reports: Pupils Equal, Mucous Membr. Moist/[place] Neck: Reports: Supple Lungs: Reports: Clear to Auscultation, Normal Respiratory Effort Cardiovascular: Reports: Regular Rate, Regular Rhythm GI/Abdominal Exam: Normal Bowel Sounds, Soft, Non-Tender, No Organomegaly, No Distention, No Abnormal Bruit Extremities: Normal Inspection, Normal Range of Motion, Non-Tender, No Pedal Edema, Normal Capillary Refill Skin: Reports: Warm, Dry, Intact Neurological: Reports: No New Focal Deficit Psy/Mental Status: Reports: Alert, Normal Affect, Normal Mood
== END 2020-03-23 10:52 | disposition home or self-care (01) | DRG 202 ==
LOC: JD.ED 07:34 → JD.MS 10:21
PROVIDERS: ADMIT Family Medicine; ATTEND Family Medicine
PROC: 8E0ZXY6 Isolation (ICD-10-PCS; principal; 2020-03-20)
DX: J45.901 Unspecified asthma with (acute) exacerbation (principal); Z68.43 Body mass index [BMI] 50.0-59.9, adult; E66.9 Obesity, unspecified; Z79.84 Long term (current) use of oral hypoglycemic drugs; E87.3 Alkalosis; E66.01 Morbid (severe) obesity due to excess calories; G89.29 Other chronic pain; M54.5 Low back pain; Z20.828 Contact with and (suspected) exposure to other viral communicable diseases; E11.9 Type 2 diabetes mellitus without complications; I10 Essential (primary) hypertension; G47.33 Obstructive sleep apnea (adult) (pediatric); Z79.899 Other long term (current) drug therapy; Z87.891 Personal history of nicotine dependence; Z79.4 Long term (current) use of insulin
CPT/HCPCS: 36415; 36600; 71045; 71045-26; 71046; 71046-26; 80048; 80053; 82803; 82962; 83036; 83735; 83880; 84484; 85007; 85025; 85027; 86140; 86738; 87070; 87077; 87184; 87186; 87205; 87641; 87899; 93005; 94640; 94667; 94668; 94761; 96365; 96375; 99285-25; A9270-GY; J0696; J1650; J1815-GY; J2920; J3475; J7050; J7512; J7620-GY; U0002

== ENCOUNTER 2021-04-01 21:49 | Emergency (ER) | payer MEDICAID, MEDICARE ==
[2021-04-01 22:02] VITALS: BP 157/84; PULSE 111
[2021-04-01] MEDS ORDERED: Albuterol/Ipratropium 3.0-0.5 MG/3 ML Neb Soln NEB ONE (22:02)
--- NOTE | 2021-04-01 22:18 | EDM.PDOC ---
ED HPI GENERAL MEDICAL PROBLEM - General Chief Complaint: Respiratory Problem Stated Complaint: SOB/HAS ASTHMA Time Seen by Provider: 04/01/21 22:12 - History of Present Illness INITIAL COMMENTS - FREE TEXT/NARRATIVE: 45-year-old male presents the emergency room with breathing difficulties. Patient states that his breathing got bad this morning and progressively got worse through the day. He gets winded easily with any sort of activity. Patient has longstanding asthma. Also suffers from type 2 diabetes morbid obesity hypertension. He quit smoking recently. Patient denies any fevers or chills. He is coughing more and bringing up small amounts of off-color sputum. He has some lower extremity edema but this is no worse than normal he has had an ankle injury that has led to this. Patient has some chest tightness in his lungs denies chest pressure. The discomfort he is feeling is fairly typical for when his asthma acts up. - Related Data Allergies Allergy/AdvReac Type Severity Reaction Status Date / Time No Known Allergies Allergy Verified 01/20/21 08:37 Home Meds: Home Meds Albuterol [Proventil HFA] 2 puff INH Q4H PRN #1 inhaler 11/04/15 [Rx] Dulaglutide [Trulicity] 3 mg SQ WE 03/20/20 [History] Losartan [Cozaar] 50 mg PO DAILY 03/20/20 [History] metFORMIN HCl [Metformin HCl] 1,000 mg PO BID 03/20/20 [History] Hydrocodone/Acetaminophen [Hydrocodone-Acetamin 5-325 mg] 1 tab PO Q6H PRN #10 03/23/20 [Rx] Cyclobenzaprine [Flexeril] 10 mg PO TID PRN 01/20/21 [History] Fluticasone/Vilanterol [Breo Ellipta 200-25 MCG Inhalation Kit] 1 inh INH BID 01/20/21 [History] Gabapentin [Neurontin] 300 mg PO TID 01/20/21 [History] Montelukast [Singulair] 10 mg PO DAILY 01/20/21 [History] Diltiazem [Cardizem LA] 420 mg PO DAILY #30 tab.la 01/26/21 [Rx] Insulin Aspart [Insulin Aspart Flexpen] See Protocol SQ QIDACANDBED #4 insuln.pen 01/26/21 [Rx] Isosorbide Mononitrate [Imdur] 30 mg PO DAILY #30 tab.er 01/26/21 [Rx] Losartan [Cozaar] 100 mg PO DAILY #30 tablet 01/26/21 [Rx] Metoprolol Tartrate [Lopressor] 12.5 mg PO BID #60 tablet 01/26/21 [Rx] Potassium Chloride [Klor-Con M20] 20 meq PO TID #2 tab.er 01/26/21 [Rx] hydroCHLOROthiazide [Hydrochlorothiazide] 12.5 mg PO DAILY #30 cap 01/26/21 [Rx] predniSONE 30 mg PO DAILY #26 tablet 01/26/21 [Rx] Albuterol/Ipratropium [DuoNeb 3.0-0.5 MG/3 ML] 3 ml .XX QID #60 neb 04/02/21 [Rx ] Albuterol/Ipratropium [DuoNeb 3.0-0.5 MG/3 ML] 3 ml .XX QID #60 neb 04/02/21 [Rx] Doxycycline [Vibramycin] 100 mg PO BID #14 tab 04/02/21 [Rx] predniSONE 20 mg PO WITHBREAKFAST #20 tab 04/02/21 [Rx] predniSONE [Prednisone] 20 mg PO ASDIRECTED #20 tablet 04/02/21 [Rx] Past Medical History - Past Health History Medical/Surgical History: Denies Medical/Surgical History Cardiovascular History: Reports: Hypertension Respiratory History: Reports: Asthma, Pneumonia, Recurrent, Other (See Below) Other Respiratory History: respiratory failure 2017 Genitourinary History: Reports: None Other Genitourinary History: States voided twice today with blood in it Musculoskeletal History: Reports: Back Pain, Chronic Other Musculoskeletal History: multiple surguries on L arm and hand Neurological History: Reports: Neuropathy, Peripheral Psychiatric History: Reports: Anxiety Other Psychiatric History: situational anxiety improving Endocrine/Metabolic History: Reports: Diabetes, Type II, Obesity/BMI 30+ Dermatologic History: Reports: Venous Stasis Dermatitis, Other (See Below) Other Dermatologic History: skin dryness/discoloration - Infectious Disease History Infectious Disease History: Reports: Chicken Pox, Influenza, MRSA, Shingles Other Infectious Disease History: chicken pox as a kid. hx MRSA on right thigh wound in 2005 that is now healed. - Past Surgical History HEENT Surgical History: Reports: Other (See Below) Other HEENT Surgeries/Procedures: Neck surgery; lump removal that was benign. GI Surgical History: Reports: Hernia, Abdominal Musculoskeletal Surgical History: Reports: ORIF Other Musculoskeletal Surgeries/Procedures:: multiple on L arm and hand Social & Family History - Family History Endocrine/Metabolic: Reports: Diabetes, type II Other Endocrine/Metabolic Family History: Mother DM - Tobacco Use Tobacco Use Status *Q: Never Tobacco User - Caffeine Use Caffeine Use: Reports: Coffee, Energy Drinks - Recreational Drug Use Recreational Drug Use: No - Living Situation & Occupation Living situation: Reports: Single Occupation: Employed ED ROS GENERAL - Review of Systems Review Of Systems: See Below Constitutional: Reports: No Symptoms HEENT: Reports: No Symptoms Respiratory: Reports: Shortness of Breath, Wheezing, Cough, Sputum. Denies: Hemoptysis Cardiovascular: Denies: Chest Pain Endocrine: Reports: High Glucose GI/Abdominal: Reports: No Symptoms : Reports: No Symptoms Musculoskeletal: Reports: No Symptoms Neurological: Reports: No Symptoms ED EXAM, GENERAL - Physical Exam Exam: See Below Exam Limited By: No Limitations General Appearance: Alert, No Apparent Distress Ears: Normal External Exam, Normal Canal, Hearing Grossly Normal, Normal TMs Nose: Normal Inspection, Normal Mucosa, No Blood Throat/Mouth: Normal Inspection, Normal Lips, Normal Teeth, Normal Gums, Normal Oropharynx, Normal Voice, No Airway Compromise Head: Atraumatic, Normocephalic Neck: Normal Inspection, Supple, Non-Tender, Full Range of Motion. No: Lymphadenopathy (R) Respiratory/Chest: No Respiratory Distress, Lungs Clear, Decreased Breath Sounds. No: Crackles, Rales, Rhonchi, Wheezing Cardiovascular: Normal Peripheral Pulses, Regular Rate, Rhythm, Other (Trace edema this is normal for him) GI/Abdominal: Normal Bowel Sounds, Soft, Non-Tender, Other (Orbit obesity) Back Exam: Normal Inspection. No: CVA Tenderness (L), CVA Tenderness (R) Lymphatic: No Adenopathy #1 Interpretation EKG Date: 04/01/21 Rhythm: NSR Rate (Beats/Min): 89 Beals: Normal P-Wave: Present QRS: Other (Poor R wave progression precordial leads probably due to body habitus) ST-T: Other (Nonspecific nondiagnostic ST depression leads II) QT: Normal Comparison: No Change (No significant change from January 20, 2021) EKG Interpretation Comments: Borderline EKG Course - Vital Signs Last Recorded V/S: Last Vital Signs Temp 37.1 C 04/01/21 21:50 Pulse 111 H 04/01/21 21:50 Resp 22 H 04/01/21 21:50 BP 157/84 H 04/01/21 21:50 Pulse Ox 96 04/01/21 22:09 - Orders/Labs/Meds Orders: Active Orders 24 hr Category Date Time Status EKG Documentation Completion [RC] ASDIRECTED Care 04/01/21 22:05 Active RT Aerosol Therapy [RC] ASDIRECTED Care 04/01/21 22:02 Active Chest 1V Frontal [CR] Stat Exams 04/01/21 21:58 Taken EKG 12 Lead [EK] Stat Ther 04/01/21 22:04 Ordered Labs: Laboratory Tests 04/01/21 04/01/21 04/01/21 Range/Units 20:27 20:27 20:27 WBC 8.09 (4.23-9.07) K/mm3 RBC 5.23 (4.63-6.08) M/mm3 Hgb 15.3 (13.7-17.5) gm/dl Hct 45.7 (40.1-51.0) % MCV 87.4 (79.0-92.2) fl MCH 29.3 (25.7-32.2) pg MCHC 33.5 (32.2-35.5) g/dl RDW Std Deviation 47.1 H (35.1-43.9) fL Plt Count 214 (163-337) K/mm3 MPV 10.9 (9.4-12.3) fl Neut % (Auto) 72.7 H (34.0-67.9) % Lymph % (Auto) 19.3 L (21.8-53.1) % Toole % (Auto) 6.8 (5.3-12.2) % Eos % (Auto) 1.0 (0.8-7.0) Baso % (Auto) 0.2 (0.1-1.2) % Neut # (Auto) 5.88 H (1.78-5.38) K/mm3 Lymph # (Auto) 1.56 (1.32-3.57) K/mm3 Toole # (Auto) 0.55 (0.30-0.82) K/mm3 Eos # (Auto) 0.08 (0.04-0.54) K/mm3 Baso # (Auto) 0.02 (0.01-0.08) K/mm3 Sodium 140 (136-145) mEq/L Potassium 4.0 (3.5-5.1) mEq/L Chloride 104 (98-107) mEq/L Carbon Dioxide 27 (21-32) mEq/L Anion Gap 13.0 (5-15) BUN 14 (7-18) mg/dL Creatinine 0.9 (0.7-1.3) mg/dL Est Cr Clr Drug Dosing TNP Estimated GFR (MDRD) > 60 (>60) mL/min BUN/Creatinine Ratio 15.6 (14-18) Glucose 171 H (70-99) mg/dL Calcium 9.0 (8.5-10.1) mg/dL Magnesium 1.8 (1.8-2.4) mg/dL Total Bilirubin 0.6 (0.2-1.0) mg/dL AST 17 (15-37) U/L ALT 32 (16-63) U/L Alkaline Phosphatase 107 (46-116) U/L Troponin I < 0.017 (0.00-0.056) ng/mL NT-Pro-B Natriuret Pep 21 (0-125) pg/mL Total Protein 7.5 (6.4-8.2) g/dl Albumin 3.3 L (3.4-5.0) g/dl Globulin 4.2 gm/dL Albumin/Globulin Ratio 0.8 L (1-2) Meds: Medications Discontinued Medications Generic Name Dose Route Start Last Admin Trade Name Freq PRN Reason Stop Dose Admin Albuterol/Ipratropium 3 ml 04/01/21 22:02 04/01/21 22:09 Albuterol/Ipratropium 3.0-0.5 Mg/3 Ml Neb Soln NEB 04/01/21 22:03 3 ml ONETIME ONE Administration Albuterol/Ipratropium 3 ml 04/02/21 00:13 Albuterol/Ipratropium 3.0-0.5 Mg/3 Ml Neb Soln NEB 04/02/21 00:14 ONETIME ONE Doxycycline Hyclate 100 mg 04/02/21 00:15 Doxycycline 100 Mg Cap PO 04/02/21 00:16 ONETIME ONE Methylprednisolone Sodium Succinate 125 mg 04/01/21 22:20 04/01/21 22:26 Methylprednisolone Sodium Succinate 125 Mg/2 Ml Sdv IVPUSH 04/01/21 22:21 125 mg ONETIME ONE Administration - Re-Assessments/Exams Free Text/Narrative Re-Assessment/Exam: 04/02/21 00:17 Patient is doing much better at this time and is ready to go home. Apparently the patient has run out of his nebulizer solution. We will give him 2 vials of DuoNeb to use at home until he can get to the pharmacy to get this filled. He has a productive cough chest x-ray is really nondiagnostic but of limited quality due to his body habitus. We will treat with doxycycline the patient has been on prednisone a couple of months ago we will put him on a prednisone taper. Departure - Departure Time of Disposition: 00:18 Disposition: Home, Self-Care 01 Clinical Impression: Acute bronchitis, Acute asthma - Discharge Information Referrals: Tigre Ni MD [Primary Care Provider] - Forms: ED Department Discharge Additional Instructions: Return to the emergency room with any questions problems or worsening symptoms. He been started on doxycycline this is an antibiotic take 1 twice daily until all gone if you are going to spend any prolonged time out in the sun wear a good hat and longsleeve shirt because this can make sunburn worse. I have refilled your nebulizer solution and gave you DuoNeb use 1 every 6 hours as needed. We will have you on prednisone for 12 days get this filled first thing tomorrow morning and take 3 tablets every morning for 3 days, then 2 tablets every morning for 3 days, then 1 tablet every morning for 3 days, then 1/2 tablet every morning for 4 days. Follow-up with Dr. Rosario next week or sooner if needed. Sepsis Event Note (ED) - Evaluation Sepsis Screening Result: No Definite Risk - Focused Exam Vital Signs: Vital Signs Temp Pulse Resp BP Pulse Ox Pulse Ox 04/01/21 22:09 96 04/01/21 21:50 37.1 C 111 H 22 H 157/84 H 95 - My Orders Last 24 Hours: My Active Orders 04/01/21 21:58 Chest 1V Frontal [CR] Stat 04/01/21 22:04 EKG 12 Lead [EK] Stat 04/01/21 22:05 EKG Documentation Completion [RC] ASDIRECTED - Assessment/Plan Last 24 Hours: My Active Orders 04/01/21 21:58 Chest 1V Frontal [CR] Stat 04/01/21 22:04 EKG 12 Lead [EK] Stat 04/01/21 22:05 EKG Documentation Completion [RC] ASDIRECTED
[2021-04-01] MEDS ORDERED: methylPREDNISolone Sodium Succinate 125 MG/2 ML SDV IVPUSH ONE (22:20)
[2021-04-02] MEDS ORDERED: Albuterol/Ipratropium 3.0-0.5 MG/3 ML Neb Soln NEB ONE (00:13)
[2021-04-02] MEDS ORDERED: Doxycycline 100 MG Cap PO ONE (00:15)
--- NOTE | 2021-04-02 08:05 | CR ---
Chest: Frontal view of the chest was obtained. Comparison: Prior chest x-ray of 01/26/21. Heart size and mediastinum are normal. Lungs are clear with no acute parenchymal change. Bony structure shows nothing acute. Impression: 1. Nothing acute is appreciated on frontal chest x-ray. Diagnostic code #1
== END 2021-04-02 00:40 | disposition home or self-care (01) ==
LOC: JD.ED 21:49
DX: J20.9 Acute bronchitis, unspecified (principal); J45.909 Unspecified asthma, uncomplicated; I10 Essential (primary) hypertension; E11.40 Type 2 diabetes mellitus with diabetic neuropathy, unspecified; E66.9 Obesity, unspecified; Z68.30 Body mass index [BMI] 30.0-30.9, adult; Z79.4 Long term (current) use of insulin; Z79.899 Other long term (current) drug therapy
CPT/HCPCS: 36415; 71045; 80053; 83735; 83880; 84484; 85025; 93005; 94640; 96374; 99285; A9270; J2930; 93010; 99284; J7620-GY

== ENCOUNTER 2021-04-06 17:08 | Emergency (ER) | payer MEDICARE, MEDICAID ==
[2021-04-06] MEDS ORDERED: Albuterol 0.083% 2.5 MG/3 ML Neb Soln NEB ONE (17:47)
[2021-04-06] MEDS ORDERED: predniSONE 20 MG Tab PO STA (17:49)
[2021-04-06] MEDS: Albuterol 0.083% 2.5 MG/3 ML Neb Soln NEB SCH ×2 (18:00→18:07)
[2021-04-06 18:07] VITALS: BP 119/68; PULSE 91
[2021-04-06] MEDS ORDERED: Albuterol 0.083% 2.5 MG/3 ML Neb Soln NEB STA (18:13)
[2021-04-06] MEDS ORDERED: Acetaminophen 325 MG Tab PO ONE (18:18)
--- NOTE | 2021-04-06 18:22 | CR ---
Chest: Frontal view of the chest was obtained. Comparison: Prior chest x-ray of 04/01/21. Heart size and mediastinum are normal. Lungs are clear with no acute parenchymal change. No acute osseous abnormality is appreciated. Impression: 1. Nothing acute is identified on frontal chest x-ray. Diagnostic code #1
[2021-04-06] MEDS ORDERED: oxyCODONE 5 MG Tab PO ONE (19:03)
[2021-04-06] MEDS ORDERED: Ipratropium 0.02% 0.5 MG/2.5 ML Neb Soln NEB ONE (19:03)
--- NOTE | 2021-04-06 19:03 | EDM.PDOC ---
ED HPI GENERAL MEDICAL PROBLEM - General Chief Complaint: Respiratory Problem Stated Complaint: SOB Time Seen by Provider: 04/06/21 17:47 Source of Information: Reports: Patient History Limitations: Reports: No Limitations - History of Present Illness INITIAL COMMENTS - FREE TEXT/NARRATIVE: 45-year-old male presents the emergency department with complaints of an asthma exacerbation. Patient states that his increased shortness of breath and wheezing started about a week ago. He states he has been using albuterol nebulizers at home however he ran out of his albuterol inhaler. States he is progressively gotten more short of breath. He denies any recent fever, chills, nausea, vomiting or diarrhea. He denies any cough. States his breathing has gotten "tighter "over the past couple of days. Patient also complains of pain to his left forearm when reaching for or picking up objects. Left Arm Pain Score (Numeric/FACES): 8 - Related Data Allergies Allergy/AdvReac Type Severity Reaction Status Date / Time No Known Allergies Allergy Verified 04/06/21 17:17 Home Meds: Home Meds Albuterol [Proventil HFA] 2 puff INH Q4H PRN #1 inhaler 11/04/15 [Rx] Dulaglutide [Trulicity] 3 mg SQ WE 03/20/20 [History] Losartan [Cozaar] 50 mg PO DAILY 03/20/20 [History] metFORMIN HCl [Metformin HCl] 1,000 mg PO BID 03/20/20 [History] Hydrocodone/Acetaminophen [Hydrocodone-Acetamin 5-325 mg] 1 tab PO Q6H PRN #10 03/23/20 [Rx] Cyclobenzaprine [Flexeril] 10 mg PO TID PRN 01/20/21 [History] Fluticasone/Vilanterol [Breo Ellipta 200-25 MCG Inhalation Kit] 1 inh INH BID 01/20/21 [History] Gabapentin [Neurontin] 300 mg PO TID 01/20/21 [History] Montelukast [Singulair] 10 mg PO DAILY 01/20/21 [History] Diltiazem [Cardizem LA] 420 mg PO DAILY #30 tab.la 01/26/21 [Rx] Insulin Aspart [Insulin Aspart Flexpen] See Protocol SQ QIDACANDBED #4 insuln.pen 01/26/21 [Rx] Isosorbide Mononitrate [Imdur] 30 mg PO DAILY #30 tab.er 01/26/21 [Rx] Losartan [Cozaar] 100 mg PO DAILY #30 tablet 01/26/21 [Rx] Metoprolol Tartrate [Lopressor] 12.5 mg PO BID #60 tablet 01/26/21 [Rx] Potassium Chloride [Klor-Con M20] 20 meq PO TID #2 tab.er 01/26/21 [Rx] hydroCHLOROthiazide [Hydrochlorothiazide] 12.5 mg PO DAILY #30 cap 01/26/21 [Rx] predniSONE 30 mg PO DAILY #26 tablet 01/26/21 [Rx] Albuterol/Ipratropium [DuoNeb 3.0-0.5 MG/3 ML] 3 ml .XX QID #60 neb 04/02/21 [Rx] Albuterol/Ipratropium [DuoNeb 3.0-0.5 MG/3 ML] 3 ml .XX QID #60 neb 04/02/21 [Rx] Doxycycline [Vibramycin] 100 mg PO BID #14 tab 04/02/21 [Rx] predniSONE 20 mg PO WITHBREAKFAST #20 tab 04/02/21 [Rx] predniSONE [Prednisone] 20 mg PO ASDIRECTED #20 tablet 04/02/21 [Rx] Albuterol Sulfate [Albuterol Sulfate HFA] 8.5 gm INH Q2H #1 inhaler 04/06/21 [Rx] Mometasone/Formoterol [Dulera 200 Mcg/5 Mcg Inhaler] 2 puff IH BID #1 hfa.aer.ad 04/06/21 [Rx] predniSONE 40 mg PO WITHBREAKFAST #5 tab 04/06/21 [Rx] Past Medical History - Past Health History Medical/Surgical History: Denies Medical/Surgical History Cardiovascular History: Reports: Hypertension Respiratory History: Reports: Asthma, Bronchitis, Recurrent, COPD, Pneumonia, Recurrent, Other (See Below) Other Respiratory History: respiratory failure 2017 Gastrointestinal History: Reports: Other (See Below) Other Gastrointestinal History: hernias Genitourinary History: Reports: Renal Calculus, UTI, Recurrent Other Genitourinary History: States voided twice today with blood in it Musculoskeletal History: Reports: Back Pain, Chronic, Fracture Other Musculoskeletal History: multiple surguries on L arm and hand Neurological History: Reports: Neuropathy, Peripheral Psychiatric History: Reports: Addiction, Anxiety, Depression Other Psychiatric History: situational anxiety improving Endocrine/Metabolic History: Reports: Diabetes, Type II, Obesity/BMI 30+ Hematologic History: Reports: Blood Transfusion(s) Dermatologic History: Reports: Venous Stasis Dermatitis, Other (See Below) Other Dermatologic History: skin dryness/discoloration - Infectious Disease History Infectious Disease History: Reports: Chicken Pox, Influenza, MRSA, Shingles Other Infectious Disease History: chicken pox as a kid. hx MRSA on right thigh wound in 2006 that is now healed. - Past Surgical History HEENT Surgical History: Reports: Other (See Below) Other HEENT Surgeries/Procedures: Neck surgery; lump removal that was benign. GI Surgical History: Reports: Hernia, Abdominal Musculoskeletal Surgical History: Reports: ORIF Other Musculoskeletal Surgeries/Procedures:: multiple on L arm and hand, R) leg ORIF with leatha. Social & Family History - Family History Endocrine/Metabolic: Reports: Diabetes, type II Other Endocrine/Metabolic Family History: Mother DM - Tobacco Use Tobacco Use Status *Q: Never Tobacco User Second Hand Smoke Exposure: No - Caffeine Use Caffeine Use: Reports: Coffee, Energy Drinks, Soda, Tea - Recreational Drug Use Recreational Drug Use: Yes Recreational Drug Type: Reports: Marijuana/Hashish Other Recreational Drug Type: stopped using heroin and meth 5 yrs ago. - Living Situation & Occupation Living situation: Reports: Single Occupation: Employed ED ROS GENERAL - Review of Systems Review Of Systems: Comprehensive ROS is negative, except as noted in HPI. ED EXAM, GENERAL - Physical Exam Exam: See Below Exam Limited By: No Limitations General Appearance: Alert, WD/WN, Moderate Distress, Obese Ears: Normal External Exam, Hearing Grossly Normal Nose: Normal Inspection Throat/Mouth: Normal Inspection, Normal Lips, Normal Voice, Other (Moderate respiratory distress he can only speak in 2-3 word sentences) Head: Atraumatic Neck: Normal Inspection, Supple Respiratory/Chest: Chest Non-Tender, Wheezing (Expiratory wheeze noted in all farris), Accessory Muscle Use. No: No Respiratory Distress (Moderate respi ratory stress. Only able to speak in 2-3 word sentences), Lungs Clear, Normal Breath Sounds (Diminished throughout with prolonged expiratory wheeze in all farris) Cardiovascular: Normal Peripheral Pulses, Regular Rate, Rhythm, No Murmur GI/Abdominal: Normal Bowel Sounds, Soft, Non-Tender, No Distention (Male) Exam: Deferred Rectal (Males) Exam: Deferred Back Exam: Normal Inspection, Full Range of Motion Extremities: Normal Inspection Neurological: Alert, Oriented, Normal Cognition Psychiatric: Normal Affect, Normal Mood Skin Exam: Warm, Intact, Normal Color, No Rash, Diaphoretic Lymphatic: No Adenopathy #1 Interpretation EKG Date: 04/06/21 Time: 17:15 Rhythm: NSR Rate (Beats/Min): 91 [place]: Normal P-Wave: Present QRS: Normal ST-T: Normal QT: Normal EKG Interpretation Comments: Per Dr. Quinteros interpretation: Normal sinus rhythm rate of 91; normal QRS; no ST changes Course - Vital Signs Text/Narrative:: Patient presents with an asthma exacerbation. Audible expiratory wheezes noted when ambulating back to the room. Upon assessment, lung sounds are extremely tight and diminished and there is very little air exchange noted. He does have prolonged expiration with wheeze. I have ordered albuterol nebulizer treatments q. 20 minutes x 3. I have ordered a chest x-ray. I have ordered labs to include a CBC, CMP, magnesium level, and a C-reactive protein. Last Recorded V/S: Last Vital Signs Temp 97.0 F 04/06/21 18:04 Pulse 91 04/06/21 18:04 Resp 22 H 04/06/21 18:04 BP 119/68 04/06/21 18:04 Pulse Ox 93 L 04/06/21 19:16 - Orders/Labs/Meds Orders: Active Orders 24 hr Category Date Time Status RT Aerosol Therapy [RC] ASDIRECTED Care 04/06/21 17:48 Active RT Aerosol Therapy [RC] ASDIRECTED Care 04/06/21 17:59 Active RT Post Treatment Assessment [RC] Click to Edit Care 04/06/21 19:04 Active RT Pre-Treatment Assessment [RC] Click to Edit Care 04/06/21 19:04 Active Mometasone/Formoterol [Dulera 100-5 MCG] Med 04/06/21 21:00 Active 2 puff IH BIDRT Medication Orders Mometasone Furoate/Formoterol Fumar (Formoterol/Mometasone 100-5 Mcg 8.8 Gm Inhaler) 2 puff IH BIDRT DELBERT Last Admin: 04/06/21 19:42 Dose: 2 puff Documented by: MIKAL Labs: Laboratory Tests 04/06/21 04/06/21 Range/Units 17:20 17:20 WBC 11.39 H (4.23-9.07) K/mm3 RBC 5.58 (4.63-6.08) M/mm3 Hgb 16.2 (13.7-17.5) gm/dl Hct 48.9 (40.1-51.0) % MCV 87.6 (79.0-92.2) fl MCH 29.0 (25.7-32.2) pg MCHC 33.1 (32.2-35.5) g/dl RDW Std Deviation 47.2 H (35.1-43.9) fL Plt Count 253 (163-337) K/mm3 MPV 11.3 (9.4-12.3) fl Neut % (Auto) 84.8 H (34.0-67.9) % Lymph % (Auto) 10.4 L (21.8-53.1) % [place] % (Auto) 4.3 L (5.3-12.2) % Eos % (Auto) 0.2 L (0.8-7.0) Baso % (Auto) 0.1 (0.1-1.2) % Neut # (Auto) 9.67 H (1.78-5.38) K/mm3 Lymph # (Auto) 1.18 L (1.32-3.57) K/mm3 [place] # (Auto) 0.49 (0.30-0.82) K/mm3 Eos # (Auto) 0.02 L (0.04-0.54) K/mm3 Baso # (Auto) 0.01 (0.01-0.08) K/mm3 Manual Slide Review Normal smear Sodium 137 (136-145) mEq/L Potassium 4.8 (3.5-5.1) mEq/L Chloride 99 (98-107) mEq/L Carbon Dioxide 27 (21-32) mEq/L Anion Gap 15.8 H (5-15) BUN 17 (7-18) mg/dL Creatinine 0.9 (0.7-1.3) mg/dL Est Cr Clr Drug Dosing 123.05 mL/min Estimated GFR (MDRD) > 60 (>60) mL/min BUN/Creatinine Ratio 18.9 H (14-18) Glucose 228 H (70-99) mg/dL Calcium 9.4 (8.5-10.1) mg/dL Magnesium 1.8 (1.8-2.4) mg/dL Total Bilirubin 0.4 (0.2-1.0) mg/dL AST 17 (15-37) U/L ALT 41 (16-63) U/L Alkaline Phosphatase 123 H (46-116) U/L C-Reactive Protein 0.2 (<1.0) mg/dL Total Protein 7.5 (6.4-8.2) g/dl Albumin 3.7 (3.4-5.0) g/dl Globulin 3.8 gm/dL Albumin/Globulin Ratio 1.0 (1-2) Meds: Medications Generic Name Dose Route Start Last Admin Trade Name Freq PRN Reason Stop Dose Admin Mometasone Furoate/Formoterol Fumar 2 puff 04/06/21 21:00 04/06/21 19:42 Formoterol/Mometasone 100-5 Mcg 8.8 Gm Inhaler IH 2 puff BIDRT DELBERT Administration Discontinued Medications Generic Name Dose Route Start Last Admin Trade Name Freq PRN Reason Stop Dose Admin Acetaminophen 650 mg 04/06/21 18:18 04/06/21 18:28 Acetaminophen 325 Mg Tab PO 04/06/21 18:19 Not Given NOW ONE Albuterol 2.5 mg 04/06/21 17:47 04/06/21 18:00 Albuterol 0.083% 2.5 Mg/3 Ml Neb Soln [facility] 04/06/21 17:48 Not Given ONETIME ONE Albuterol 2.5 mg 04/06/21 18:00 04/06/21 18:07 Albuterol 0.083% 2.5 Mg/3 Ml Neb Soln NEB 04/08/21 18:01 2.5 mg ONETIME DELBERT Administration Albuterol 2.5 mg 04/06/21 18:13 04/06/21 18:33 Albuterol 0.083% 2.5 Mg/3 Ml Neb Soln NEB 04/06/21 18:14 2.5 mg ONETIME STA Administration Ipratropium [place] 0.5 mg 04/06/21 19:03 04/06/21 19:16 Ipratropium 0.02% 0.5 Mg/2.5 Ml Neb Soln NEB 04/06/21 19:04 0.5 mg ONETIME ONE Administration Oxycodone HCl 5 mg 04/06/21 19:03 04/06/21 19:50 Oxycodone 5 Mg Tab PO 04/06/21 19:04 5 mg ONETIME ONE Administration Prednisone 40 mg 04/06/21 17:49 04/06/21 18:03 Prednisone 20 Mg Tab PO 04/06/21 17:50 40 mg NOW STA Administration - Re-Assessments/Exams Free Text/Narrative Re-Assessment/Exam: 04/06/21 18:52 Hematology reveals a WBC of 11.39, hemoglobin 16.2, hematocrit 48.9, platelet count 253 Chemistry reveals a sodium of 137, potassium 4.8, carbon dioxide 27, anion gap 15.8, BUN 17, creatinine 0.9, glucose 228, magnesium 1.8, total bilirubin 0.4, AST 17, ALT 41, alk phos 123, C-reactive protein 0.2 Radiologist impression portable view of the chest: 1. Nothing acute is identified on frontal chest x-ray. 04/06/21 19:04 Patient states his breathing is much easier. O2 saturations 94 to 98% on room air. On auscultation there are no further wheezes noted however lung sounds are still diminished posteriorly. I am going to go ahead and give the patient an Atrovent nebulizer treatment. Patient is complaining of pain to the left medial forearm area. Area is painful with palpitation over the brachioradialis muscle. He appears to have tendonitis. There is no redness warmth or swelling noted to the area.He is requesting pain medication. I had ordered for him to receive 650 mg of Tylenol however he refuses stating that it irritates his stomach. Patient states that he took a pain pill this morning and it did not touch the pain. He is requesting 5 mg of oxycodone. I will order this for him however I will not discharge him on any narcotic medication. I did discuss this at length with him and he understands. 04/06/21 19:31 Respiratory therapist was consulting with me and recommends that the patient be started on Dulera bid. I have sent this order to his pharmacy to be started tomorrow. 04/06/21 20:10 Patient also received Dulera inhaler while in the emergency department. He states he is feeling much better after Atrovent nebulizer treatment and Dulera. He is moving air much better throughout his lungs. He will be discharged to home. Departure - Departure Time of Disposition: 20:11 Disposition: Home, Self-Care 01 Condition: Good Clinical Impression: Asthma exacerbation Qualifiers: Asthma severity: moderate Asthma persistence: unspecified Qualified Code(s): J45.901 - Unspecified asthma with (acute) exacerbation - Discharge Information Prescriptions: Albuterol Sulfate [Albuterol Sulfate HFA] 8.5 gm INH Q2H #1 inhaler Mometasone/Formoterol [Dulera 200 Mcg/5 Mcg Inhaler] 2 puff IH BID #1 hfa.aer.ad predniSONE 40 mg PO WITHBREAKFAST #5 tab Instructions: Asthma, Adult, [id number] Referrals: Tigre Ni MD [Primary Care Provider] - Forms: ED Department Discharge Additional Instructions: You were seen in the emergency department today with an exacerbation of your asthma. You were given 3 albuterol treatments which did seem to help. There is no further wheezing noted after that however he still had a fair amount of diminished lung sounds posteriorly. You then received 1 Atrovent treatment and this did seem to help. While in the emergency department lab work was completed which was essentially unremarkable. Chest x-ray was completed which did not show any pneumonia or acute infection of any kind. You are given prednisone 40 mg while in the emergency department. I have sent a prescription to your pharmacy, [facility], for prednisone 40 mg daily for another 5 days. Keep in mind this that this will make your blood sugars rise however the risk of not to give you prednisone outweighs the benefit of keeping your blood sugar is low. I have also refilled your albuterol inhaler. I have also sent a prescription for a Dulera inhaler to your pharmacy. This is a steroid inhaler. You need to take 2 puffs of this twice daily. Be sure to follow-up with Dr. Rosario in 1 week for reevaluation. Should your condition worsen or change, do not hesitate returning to the emergency department. Sepsis Event Note (ED) - Evaluation Sepsis Screening Result: No Definite Risk - Focused Exam Vital Signs: Vital Signs Temp Pulse Resp BP Pulse Ox Pulse Ox 04/06/21 19:16 93 L 04/06/21 18:34 93 L 04/06/21 18:04 97.0 F 91 22 H 119/68 95 04/06/21 17:59 94 L 04/06/21 17:48 95 04/06/21 17:10 96.9 F 104 H 40 H 147/95 H 95 - My Orders Last 24 Hours: My Active Orders 04/06/21 17:48 RT Aerosol Therapy [RC] ASDIRECTED 04/06/21 17:59 RT Aerosol Therapy [RC] ASDIRECTED 04/06/21 19:04 RT Post Treatment Assessment [RC] Click to Edit RT Pre-Treatment Assessment [RC] Click to Edit 04/06/21 21:00 Mometasone/Formoterol [Dulera 100-5 MCG] 2 puff IH BIDRT - Assessment/Plan Last 24 Hours: My Active Orders 04/06/21 17:48 RT Aerosol Therapy [RC] ASDIRECTED 04/06/21 17:59 RT Aerosol Therapy [RC] ASDIRECTED 04/06/21 19:04 RT Post Treatment Assessment [RC] Click to Edit RT Pre-Treatment Assessment [RC] Click to Edit 04/06/21 21:00 Mometasone/Formoterol [Dulera 100-5 MCG] 2 puff IH BIDRT
[2021-04-06] MEDS ORDERED: Formoterol/Mometasone 100-5 MCG 8.8 GM Inhaler IH SCH (21:00)
== END 2021-04-06 20:28 | disposition home or self-care (01) ==
LOC: JD.ED 17:08
DX: J45.901 Unspecified asthma with (acute) exacerbation (principal); I10 Essential (primary) hypertension; E11.9 Type 2 diabetes mellitus without complications; E66.9 Obesity, unspecified; Z68.30 Body mass index [BMI] 30.0-30.9, adult; Z79.899 Other long term (current) drug therapy; Z68.43 Body mass index [BMI] 50.0-59.9, adult
CPT/HCPCS: 36415; 71045; 80053; 83735; 85025; 86140; 93005; 94640; 99285; A9270; J7512; 93010; 99284

== ENCOUNTER 2021-05-18 16:55 | Emergency (ER) | payer MEDICARE, MEDICAID ==
[2021-05-18 17:08] VITALS: BP 182/97; PULSE 115
--- NOTE | 2021-05-18 17:25 | EDM.PDOC ---
ED HPI GENERAL MEDICAL PROBLEM - General Chief Complaint: General Stated Complaint: POSS RT HAND/LT INNER THIGH SWELLING Time Seen by Provider: 05/18/21 17:06 Source of Information: Reports: Patient History Limitations: Reports: No Limitations - History of Present Illness INITIAL COMMENTS - FREE TEXT/NARRATIVE: The patient presents with right hand pain and pain and swelling to his left groin. He got upset this morning and he hit a cupboard. He has swelling to the right hand over the 2nd and 3rd MCP joints. He is right handed. He also has redness and swelling to the left groin. He noticed some discomfort a few days ago and now there is swelling. He has no fever or chills. He has no chest pain, shortness of breath, abdominal pain, nausea or vomiting. Onset: Sudden Duration: Hour(s): Location: Reports: Upper Extremity, Right (hand) Quality: Reports: Sharp Severity: Moderate Improves with: Reports: Immobilization Worsens with: Reports: Movement Context: Reports: Trauma (punched a cupboard) Associated Symptoms: Reports: No Other Symptoms Right Hand Pain Score (Numeric/FACES): 7 - Related Data Allergies Allergy/AdvReac Type Severity Reaction Status Date / Time No Known Allergies Allergy Verified 05/18/21 17:08 Home Meds: Home Meds Albuterol [Proventil HFA] 2 puff INH Q4H PRN #1 inhaler 11/04/15 [Rx] Dulaglutide [Trulicity] 3 mg SQ WE 03/20/20 [History] Losartan [Cozaar] 50 mg PO DAILY 03/20/20 [History] metFORMIN HCl [Metformin HCl] 1,000 mg PO BID 03/20/20 [History] Hydrocodone/Acetaminophen [HYDROcodone-Acetaminophen 5-325 MG] 1 tab PO Q6H PRN #10 03/23/20 [Rx] Cyclobenzaprine [Flexeril] 10 mg PO TID PRN 01/20/21 [History] Fluticasone/Vilanterol [Breo Ellipta 200-25 MCG Inhalation Kit] 1 inh INH BID 01/20/21 [History] Gabapentin [Neurontin] 300 mg PO TID 01/20/21 [History] Montelukast [Singulair] 10 mg PO DAILY 01/20/21 [History] Diltiazem [Cardizem LA] 420 mg PO DAILY #30 tab.la 01/26/21 [Rx] Insulin Aspart [Insulin Aspart Flexpen] See Protocol SQ QIDACANDBED #4 insuln.pen 01/26/21 [Rx] Isosorbide Mononitrate [Imdur] 30 mg PO DAILY #30 tab.er 01/26/21 [Rx] Losartan [Cozaar] 100 mg PO DAILY #30 tablet 01/26/21 [Rx] Metoprolol Tartrate [Lopressor] 12.5 mg PO BID #60 tablet 01/26/21 [Rx] Potassium Chloride [Klor-Con M20] 20 meq PO TID #2 tab.er 01/26/21 [Rx] hydroCHLOROthiazide [Hydrochlorothiazide] 12.5 mg PO DAILY #30 cap 01/26/21 [Rx] predniSONE 30 mg PO DAILY #26 tablet 01/26/21 [Rx] Albuterol/Ipratropium [DuoNeb 3.0-0.5 MG/3 ML] 3 ml .XX QID #60 neb 04/02/21 [Rx] Albuterol/Ipratropium [DuoNeb 3.0-0.5 MG/3 ML] 3 ml .XX QID #60 neb 04/02/21 [Rx] Doxycycline [Vibramycin] 100 mg PO BID #14 tab 04/02/21 [Rx] predniSONE 20 mg PO WITHBREAKFAST #20 tab 04/02/21 [Rx] predniSONE [Prednisone] 20 mg PO ASDIRECTED #20 tablet 04/02/21 [Rx] Albuterol Sulfate [Albuterol Sulfate HFA] 8.5 gm INH Q2H #1 inhaler 04/06/21 [Rx] Mometasone/Formoterol [Dulera 200 Mcg/5 Mcg Inhaler] 2 puff IH BID #1 hfa.aer.ad 04/06/21 [Rx] predniSONE 40 mg PO WITHBREAKFAST #5 tab 04/06/21 [Rx] cephALEXin [Keflex] 500 mg PO QID #40 cap 05/18/21 [Rx] Past Medical History - Past Health History Medical/Surgical History: Denies Medical/Surgical History Cardiovascular History: Reports: Hypertension Respiratory History: Reports: Asthma, Bronchitis, Recurrent, COPD, Pneumonia, Recurrent, Other (See Below) Other Respiratory History: respiratory failure 2017 Gastrointestinal History: Reports: Other (See Below) Other Gastrointestinal History: hernias Genitourinary History: Reports: Renal Calculus, UTI, Recurrent Other Genitourinary History: States voided twice today with blood in it Musculoskeletal History: Reports: Back Pain, Chronic, Fracture Other Musculoskeletal History: multiple surguries on L arm and hand Neurological History: Reports: Neuropathy, Peripheral Psychiatric History: Reports: Addiction, Anxiety, Depression Other Psychiatric History: situational anxiety improving Endocrine/Metabolic History: Reports: Diabetes, Type II, Obesity/BMI 30+ Hematologic History: Reports: Blood Transfusion(s) Dermatologic History: Reports: Venous Stasis Dermatitis, Other (See Below) Other Dermatologic History: skin dryness/discoloration - Infectious Disease History Infectious Disease History: Reports: Chicken Pox, Influenza, MRSA, Shingles Other Infectious Disease History: chicken pox as a kid. hx MRSA on right thigh wound in 2005 that is now healed. - Past Surgical History HEENT Surgical History: Reports: Other (See Below) Other HEENT Surgeries/Procedures: Neck surgery; lump removal that was benign. GI Surgical History: Reports: Hernia, Abdominal Musculoskeletal Surgical History: Reports: ORIF Other Musculoskeletal Surgeries/Procedures:: multiple on L arm and hand, R) leg ORIF with leatha. Social & Family History - Family History Endocrine/Metabolic: Reports: Diabetes, type II Other Endocrine/Metabolic Family History: Mother DM - Tobacco Use Tobacco Use Status *Q: Former Tobacco User Used Tobacco, but Quit: Yes Month/Year Tobacco Last Used: 04/2021 - Caffeine Use Caffeine Use: Reports: Coffee, Energy Drinks, Soda - Recreational Drug Use Recreational Drug Use: Yes Recreational Drug Type: Reports: Marijuana/Hashish - Living Situation & Occupation Living situation: Reports: Single Occupation: Employed ED ROS GENERAL - Review of Systems Review Of Systems: See Below Constitutional: Reports: No Symptoms HEENT: Reports: No Symptoms Respiratory: Reports: No Symptoms Cardiovascular: Reports: No Symptoms Endocrine: Reports: No Symptoms GI/Abdominal: Reports: No Symptoms : Reports: No Symptoms Musculoskeletal: Reports: Other (Right hand pain and left groin pain) ED EXAM, GENERAL - Physical Exam Exam: See Below Exam Limited By: No Limitations General Appearance: Alert, No Apparent Distress Ears: Normal External Exam Nose: Normal Inspection Head: Atraumatic, Normocephalic Neck: Normal Inspection Respiratory/Chest: No Respiratory Distress (Male) Exam: Other (Erythema and edema to the left groin.) Extremities: Other (Edema and pain upon palpation to the right hand mostly over the 2nd and 3rd MCPs.) Course - Vital Signs Last Recorded V/S: Last Vital Signs Temp 96.7 F L 05/18/21 17:05 Pulse 115 H 05/18/21 17:05 Resp 24 H 05/18/21 17:05 BP 182/97 H 05/18/21 17:05 Pulse Ox 96 05/18/21 17:05 - Orders/Labs/Meds Orders: Active Orders 24 hr Category Date Time Status Hand Comp Min 3V Rt [CR] Stat Exams 05/18/21 17:17 Taken - Re-Assessments/Exams Free Text/Narrative Re-Assessment/Exam: 05/18/21 17:25 I ordered an x-ray of his hand and I will do an US of his groin to see if there is an abscess for me to drain. 05/18/21 17:41 I looked with the US and there is nothing to drain. He has cellulitis. I will get him on some keflex. His x-ray shows no fracture. There does appear to be an old fracture of the 5th metacarpal. Departure - Departure Time of Disposition: 17:45 Disposition: Home, Self-Care 01 Condition: Good Clinical Impression: Cellulitis of left groin Contusion of right hand Qualifiers: Encounter type: initial encounter Qualified Code(s): S60.221A - Contusion of right hand, initial encounter - Discharge Information *PRESCRIPTION DRUG MONITORING PROGRAM REVIEWED*: Not Applicable *COPY OF PRESCRIPTION DRUG MONITORING REPORT IN PATIENT BEATRIZ: Not Applicable Prescriptions: cephALEXin [Keflex] 500 mg PO QID #40 cap Referrals: Tigre Ni MD [Primary Care Provider] - 1 Week Forms: ED Department Discharge Additional Instructions: Ice your hand for 15 minutes 3 times per day for 2 days. Take tylenol or motrin as needed for pain. Take the keflex 4 times per day for 10 days. Put warm compresses on the left groin. Please return if you are worse. Sepsis Event Note (ED) - Evaluation Sepsis Screening Result: Possible Sepsis Risk - Focused Exam Vital Signs: Vital Signs Temp Pulse Resp BP Pulse Ox 05/18/21 17:05 96.7 F L 115 H 24 H 182/97 H 96 - My Orders Last 24 Hours: My Active Orders 05/18/21 17:17 Hand Comp Min 3V Rt [CR] Stat - Assessment/Plan Last 24 Hours: My Active Orders 05/18/21 17:17 Hand Comp Min 3V Rt [CR] Stat
--- NOTE | 2021-05-19 10:22 | CR ---
Right hand: 4 views of the right hand were obtained. Comparison: Prior right hand study of 09/09/14. Slight deformity within the fifth metacarpal is seen compatible with old healed fracture. Old healed fracture is also noted at the base of the fourth metacarpal. Joint spaces are fairly well preserved. No acute fracture, dislocation or other bony abnormality is appreciated. Impression: 1. Old healed fractures. 2. Nothing acute is appreciated on right hand exam. Diagnostic code #2
== END 2021-05-18 17:53 | disposition home or self-care (01) ==
LOC: JD.ED 16:55
DX: S60.221A Contusion of right hand, initial encounter (principal); L03.314 Cellulitis of groin; R60.0 Localized edema; J44.9 Chronic obstructive pulmonary disease, unspecified; I10 Essential (primary) hypertension; Z79.4 Long term (current) use of insulin; Z79.899 Other long term (current) drug therapy; W22.09XA Striking against other stationary object, initial encounter
CPT/HCPCS: 73130-26-RT; 73130-RT; 99283; 99284-25

== ENCOUNTER 2021-07-28 15:55 | Emergency (ER) | payer MEDICARE, MEDICAID ==
[2021-07-28 16:14] VITALS: BP 166/91; PULSE 95
--- NOTE | 2021-07-28 16:18 | EDM.PDOC ---
ED HPI GENERAL MEDICAL PROBLEM - General Chief Complaint: Respiratory Problem Stated Complaint: SOB Time Seen by Provider: 07/28/21 16:17 - History of Present Illness INITIAL COMMENTS - FREE TEXT/NARRATIVE: 45-year-old male presents the emergency room with a productive cough. This productive cough is been getting worse over the last 3 days. He brings up clear to off-color occasionally green sputum. He denies any fevers or chills. Patient states he gets this twice a year. And he wants to get started on something before it gets worse and lands him in the hospital. Patient has not had a Covid vaccine he denies any loss of taste or smell. He has not had any aches and pains no fevers or chills. Patient has a history of congestive heart failure bad lungs morbid obesity. His edema and swelling is doing very well at this time. He has not had any central chest pressure. He has some sharp pain in the left lower chest. Chest Pain Score (Numeric/FACES): 8 - Related Data Allergies Allergy/AdvReac Type Severity Reaction Status Date / Time No Known Allergies Allergy Verified 05/18/21 17:08 Home Meds: Home Meds Albuterol [Proventil HFA] 2 puff INH Q4H PRN #1 inhaler 11/04/15 [Rx] Dulaglutide [Trulicity] 3 mg SQ WE 03/20/20 [History] Losartan [Cozaar] 50 mg PO DAILY 03/20/20 [History] metFORMIN HCl [Metformin HCl] 1,000 mg PO BID 03/20/20 [History] Hydrocodone/Acetaminophen [HYDROcodone-Acetaminophen 5-325 MG] 1 tab PO Q6H PRN #10 03/23/20 [Rx] Cyclobenzaprine [Flexeril] 10 mg PO TID PRN 01/20/21 [History] Fluticasone/Vilanterol [Breo Ellipta 200-25 MCG Inhalation Kit] 1 inh INH BID 01/20/21 [History] Gabapentin [Neurontin] 300 mg PO TID 01/20/21 [History] Montelukast [Singulair] 10 mg PO DAILY 01/20/21 [History] Diltiazem [Cardizem LA] 420 mg PO DAILY #30 tab.la 01/26/21 [Rx] Insulin Aspart [Insulin Aspart Flexpen] See Protocol SQ QIDACANDBED #4 insuln.pen 01/26/21 [Rx] Isosorbide Mononitrate [Imdur] 30 mg PO DAILY #30 tab.er 01/26/21 [Rx] Losartan [Cozaar] 100 mg PO DAILY #30 tablet 01/26/21 [Rx] Metoprolol Tartrate [Lopressor] 12.5 mg PO BID #60 tablet 01/26/21 [Rx] Potassium Chloride [Klor-Con M20] 20 meq PO TID #2 tab.er 01/26/21 [Rx] hydroCHLOROthiazide [Hydrochlorothiazide] 12.5 mg PO DAILY #30 cap 01/26/21 [Rx] predniSONE 30 mg PO DAILY #26 tablet 01/26/21 [Rx] Albuterol/Ipratropium [DuoNeb 3.0-0.5 MG/3 ML] 3 ml .XX QID #60 neb 04/02/21 [Rx] Albuterol/Ipratropium [DuoNeb 3.0-0.5 MG/3 ML] 3 ml .XX QID #60 neb 04/02/21 [Rx] Doxycycline [Vibramycin] 100 mg PO BID #14 tab 04/02/21 [Rx] predniSONE 20 mg PO WITHBREAKFAST #20 tab 04/02/21 [Rx] predniSONE [Prednisone] 20 mg PO ASDIRECTED #20 tablet 04/02/21 [Rx] Albuterol Sulfate [Albuterol Sulfate HFA] 8.5 gm INH Q2H #1 inhaler 04/06/21 [Rx] Mometasone/Formoterol [Dulera 200 Mcg/5 Mcg Inhaler] 2 puff IH BID #1 hfa.aer.ad 04/06/21 [Rx] predniSONE 40 mg PO WITHBREAKFAST #5 tab 04/06/21 [Rx] cephALEXin [Keflex] 500 mg PO QID #40 cap 05/18/21 [Rx] Cefuroxime Axetil [Ceftin] 500 mg PO BID #14 tablet 07/28/21 [Rx] Doxycycline [Vibra-Tabs] 100 mg PO Q12HR #14 tab 07/28/21 [Rx] Past Medical History - Past Health History Medical/Surgical History: Denies Medical/Surgical History Cardiovascular History: Reports: Hypertension Respiratory History: Reports: Asthma, Bronchitis, Recurrent, COPD, Pneumonia, Recurrent, Other (See Below) Other Respiratory History: respiratory failure 2017 Gastrointestinal History: Reports: Other (See Below) Other Gastrointestinal History: hernias Genitourinary History: Reports: Renal Calculus, UTI, Recurrent Other Genitourinary History: States voided twice today with blood in it Musculoskeletal History: Reports: Back Pain, Chronic, Fracture Other Musculoskeletal History: multiple surguries on L arm and hand Neurological History: Reports: Neuropathy, Peripheral Psychiatric History: Reports: Addiction, Anxiety, Depression Other Psychiatric History: situational anxiety improving Endocrine/Metabolic History: Reports: Diabetes, Type II, Obesity/BMI 30+ Hematologic History: Reports: Blood Transfusion(s) Dermatologic History: Reports: Venous Stasis Dermatitis, Other (See Below) Other Dermatologic History: skin dryness/discoloration - Infectious Disease History Infectious Disease History: Reports: Chicken Pox, Influenza, MRSA, Shingles Other Infectious Disease History: chicken pox as a kid. hx MRSA on right thigh wound in 2005 that is now healed. - Past Surgical History HEENT Surgical History: Reports: Other (See Below) Other HEENT Surgeries/Procedures: Neck surgery; lump removal that was benign. GI Surgical History: Reports: Hernia, Abdominal Musculoskeletal Surgical History: Reports: ORIF Other Musculoskeletal Surgeries/Procedures:: multiple on L arm and hand, R) leg ORIF with leatha. Social & Family History - Family History Endocrine/Metabolic: Reports: Diabetes, type II Other Endocrine/Metabolic Family History: Mother DM - Tobacco Use Tobacco Use Status *Q: Former Tobacco User Used Tobacco, but Quit: Yes Month/Year Tobacco Last Used: 1 yr - Caffeine Use Caffeine Use: Reports: Coffee, Soda, Tea - Recreational Drug Use Recreational Drug Use: Yes Recreational Drug Type: Reports: Marijuana/Hashish Other Recreational Drug Type: daily - Living Situation & Occupation Living situation: Reports: Single Occupation: Employed ED ROS GENERAL - Review of Systems Review Of Systems: See Below Constitutional: Reports: Malaise. Denies: Fever, Chills, Night Sweats, Diaphoresis, Decreased Appetite HEENT: Reports: No Symptoms Respiratory: Reports: Shortness of Breath, Cough, Sputum. Denies: Hemoptysis Cardiovascular: Reports: Other (Left sided posterior chest wall pain sharp in nature worse with deep breathing) Endocrine: Reports: No Symptoms GI/Abdominal: Reports: No Symptoms : Reports: No Symptoms Musculoskeletal: Reports: No Symptoms Skin: Reports: No Symptoms Neurological: Reports: No Symptoms ED EXAM, GENERAL - Physical Exam Exam: See Below Exam Limited By: No Limitations General Appearance: Alert, No Apparent Distress, Obese Ears: Normal External Exam, Normal Canal, Hearing Grossly Normal, Normal TMs Nose: Normal Inspection, Normal Mucosa, No Blood Throat/Mouth: Normal Inspection, Normal Lips, Normal Teeth, Normal Gums, Normal Oropharynx, Normal Voice, No Airway Compromise Head: Atraumatic, Normocephalic Neck: Normal Inspection, Supple, Non-Tender. No: Lymphadenopathy (L), Lymphadenopathy (R) Respiratory/Chest: No Respiratory Distress, Lungs Clear, Normal Breath Sounds, Other (Chest wall tenderness left posterior and to a lesser degree left lower lateral chest) Cardiovascular: Regular Rate, Rhythm, No Murmur, Other (Minimal if any edema he has old stasis-like changes that make it difficult to entirely exclude) GI/Abdominal: Normal Bowel Sounds, Soft, Non-Tender, Other Back Exam: Normal Inspection, CVA Tenderness (L) (Up near the tender area in his chest wall) Extremities: Other (Minimal if any edema open stasis changes make minimal edema difficult to exclude) Neurological: Alert, Oriented, Normal Cognition Psychiatric: Normal Affect, Normal Mood Skin Exam: Warm, Dry, Intact Lymphatic: No Adenopathy Course - Vital Signs Last Recorded V/S: Last Vital Signs Temp 36.6 C 07/28/21 16:14 Pulse 95 07/28/21 16:14 Resp 20 07/28/21 16:14 BP 166/91 H 07/28/21 16:14 Pulse Ox 93 L 07/28/21 17:24 - Orders/Labs/Meds Orders: Active Orders 24 hr Category Date Time Status RT Aerosol Therapy [RC] ASDIRECTED Care 07/28/21 17:24 Active Isolation [COMM] Routine Oth 07/28/21 16:32 Ordered Labs: Laboratory Tests 07/28/21 07/28/21 07/28/21 Range/Units 16:40 16:40 16:40 WBC 8.22 (4.23-9.07) K/mm3 RBC 5.46 (4.63-6.08) M/mm3 Hgb 15.7 (13.7-17.5) gm/dl Hct 47.9 (40.1-51.0) % MCV 87.7 (79.0-92.2) fl MCH 28.8 (25.7-32.2) pg MCHC 32.8 (32.2-35.5) g/dl RDW Std Deviation 44.7 H (35.1-43.9) fL Plt Count 192 (163-337) K/mm3 MPV 10.7 (9.4-12.3) fl Neut % (Auto) 74.9 H (34.0-67.9) % Lymph % (Auto) 16.5 L (21.8-53.1) % Scurry % (Auto) 7.4 (5.3-12.2) % Eos % (Auto) 1.0 (0.8-7.0) Baso % (Auto) 0.1 (0.1-1.2) % Neut # (Auto) 6.15 H (1.78-5.38) K/mm3 Lymph # (Auto) 1.36 (1.32-3.57) K/mm3 Scurry # (Auto) 0.61 (0.30-0.82) K/mm3 Eos # (Auto) 0.08 (0.04-0.54) K/mm3 Baso # (Auto) 0.01 (0.01-0.08) K/mm3 D-Dimer, Quantitative 0.43 (0.19-0.50) mg/L Sodium 138 (136-145) mEq/L Potassium 4.0 (3.5-5.1) mEq/L Chloride 103 (98-107) mEq/L Carbon Dioxide 30 (21-32) mEq/L Anion Gap 9.0 (5-15) BUN 9 (7-18) mg/dL Creatinine 0.7 (0.7-1.3) mg/dL Est Cr Clr Drug Dosing 162.63 mL/min Estimated GFR (MDRD) > 60 (>60) mL/min BUN/Creatinine Ratio 12.9 L (14-18) Glucose 146 H (70-99) mg/dL Calcium 9.3 (8.5-10.1) mg/dL Ferritin (26-388) ng/ml Total Bilirubin 0.5 (0.2-1.0) mg/dL AST 21 (15-37) U/L ALT 24 (16-63) U/L Alkaline Phosphatase 98 (46-116) U/L Lactate Dehydrogenase 173 (85-227) U/L Troponin I < 0.017 (0.00-0.056) ng/mL C-Reactive Protein 1.5 H* (<1.0) mg/dL Total Protein 7.4 (6.4-8.2) g/dl Albumin 3.5 (3.4-5.0) g/dl Globulin 3.9 gm/dL Albumin/Globulin Ratio 0.9 L (1-2) SARS-CoV-2 RNA ([facility]) (NEGATIVE) 07/28/21 07/28/21 Range/Units 16:40 17:20 WBC (4.23-9.07) K/mm3 RBC (4.63-6.08) M/mm3 Hgb (13.7-17.5) gm/dl Hct (40.1-51.0) % MCV (79.0-92.2) fl MCH (25.7-32.2) pg MCHC (32.2-35.5) g/dl RDW Std Deviation (35.1-43.9) fL Plt Count (163-337) K/mm3 MPV (9.4-12.3) fl Neut % (Auto) (34.0-67.9) % Lymph % (Auto) (21.8-53.1) % Scurry % (Auto) (5.3-12.2) % Eos % (Auto) (0.8-7.0) Baso % (Auto) (0.1-1.2) % Neut # (Auto) (1.78-5.38) K/mm3 Lymph # (Auto) (1.32-3.57) K/mm3 Scurry # (Auto) (0.30-0.82) K/mm3 Eos # (Auto) (0.04-0.54) K/mm3 Baso # (Auto) (0.01-0.08) K/mm3 D-Dimer, Quantitative (0.19-0.50) mg/L Sodium (136-145) mEq/L Potassium (3.5-5.1) mEq/L Chloride (98-107) mEq/L Carbon Dioxide (21-32) mEq/L Anion Gap (5-15) BUN (7-18) mg/dL Creatinine (0.7-1.3) mg/dL Est Cr Clr Drug Dosing mL/min Estimated GFR (MDRD) (>60) mL/min BUN/Creatinine Ratio (14-18) Glucose (70-99) mg/dL Calcium (8.5-10.1) mg/dL Ferritin 129 (26-388) ng/ml Total Bilirubin (0.2-1.0) mg/dL AST (15-37) U/L ALT (16-63) U/L Alkaline Phosphatase (46-116) U/L Lactate Dehydrogenase (85-227) U/L Troponin I (0.00-0.056) ng/mL C-Reactive Protein (<1.0) mg/dL Total Protein (6.4-8.2) g/dl Albumin (3.4-5.0) g/dl Globulin gm/dL Albumin/Globulin Ratio (1-2) SARS-CoV-2 RNA ([facility]) Negative (NEGATIVE) Meds: Medications Discontinued Medications Generic Name Dose Route Start Last Admin Trade Name Freq PRN Reason Stop Dose Admin Albuterol/Ipratropium 3 ml 07/28/21 17:24 07/28/21 17:36 Albuterol/Ipratropium 3.0-0.5 Mg/3 Ml Neb Soln NEB 07/28/21 17:25 3 ml ONETIME ONE Administration - Re-Assessments/Exams Free Text/Narrative Re-Assessment/Exam: 07/28/21 18:38 Labs do not suggest Covid his Covid test is negative influenza is negative. Chest x-ray suggestive for mild scattered pneumonia in the absence of Covid however consider Covid type pattern. With a negative Covid test the patient w ill be started on doxycycline 100 mg twice daily. He will get his first dose of doxy here in the ER. Is also given 2 g of Rocephin here in the ER. I will put him on cefuroxime axitil 500 mg twice daily in addition to the Doxy. He just got new nebulizer supplies and will use his DuoNeb's 4 times daily. Departure - Departure Time of Disposition: 18:40 Disposition: Home, Self-Care 01 Clinical Impression: Pneumonia - Discharge Information Referrals: Tigre Ni MD [Primary Care Provider] - Forms: ED Department Discharge Additional Instructions: Return to the emergency room with any questions problems or worsening symptoms. You been started on 2 antibiotics for some is soft and its similar to the Rocephin that you receive the injection of in the emergency room. The second is doxycycline you were started on this in the emergency room. 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 The Rocephin injection last 24 hours that is why you will start the cefuroxime tomorrow evening. At this time your asthma seems to be doing pretty good I will not start you on steroids however if you think your asthma is worsening return to the emergency room or follow-up with Dr. Rosario. Follow-up with Dr. Rosario for recheck at the end of this week if possible. Sepsis Event Note (ED) - Focused Exam Vital Signs: Vital Signs Temp Pulse Resp BP Pulse Ox Pulse Ox 07/28/21 17:24 93 L 07/28/21 16:14 36.6 C 95 20 166/91 H 91 L - My Orders Last 24 Hours: My Active Orders 07/28/21 16:32 Isolation [COMM] Routine 07/28/21 17:24 RT Aerosol Therapy [RC] ASDIRECTED - Assessment/Plan Last 24 Hours: My Active Orders 07/28/21 16:32 Isolation [COMM] Routine 07/28/21 17:24 RT Aerosol Therapy [RC] ASDIRECTED
--- NOTE | 2021-07-28 16:50 | CR ---
Chest: Portable view of the chest was obtained. Comparison: Prior chest x-ray of 04/06/21. Slight patchy areas of increased density are seen within the periphery of the right upper lung as well as minimal areas of density within the right lower lung. Minimal densities within the left lower lung are seen. Heart size and mediastinum are within normal limits. No acute osseous abnormality is appreciated. Impression: 1. Slight areas of parenchymal density. Please rule out COVID disease. Findings otherwise represent mild areas of scattered pneumonia. Diagnostic code #3
[2021-07-28] MEDS ORDERED: Albuterol/Ipratropium 3.0-0.5 MG/3 ML Neb Soln NEB ONE (17:24)
[2021-07-28] MEDS ORDERED: Doxycycline 100 MG Cap PO ONE (18:39)
[2021-07-28] MEDS ORDERED: cefTRIAXone 2 GM, Lidocaine 1% 2.1 ML IM SCH ×2 (18:45)
== END 2021-07-28 19:02 | disposition home or self-care (01) ==
LOC: JD.ED 15:55
DX: J18.9 Pneumonia, unspecified organism (principal); I10 Essential (primary) hypertension; J44.9 Chronic obstructive pulmonary disease, unspecified; E11.9 Type 2 diabetes mellitus without complications; E66.9 Obesity, unspecified; Z79.4 Long term (current) use of insulin; Z79.899 Other long term (current) drug therapy; Z87.891 Personal history of nicotine dependence; Z20.822 Contact with and (suspected) exposure to COVID-19
CPT/HCPCS: 36415; 71045; 80053; 82728; 83615; 84484; 85025; 85379; 86140; 87804; 94640; 96372; 99285; A9270; J0696; U0002; J7620-GY

== ENCOUNTER 2021-09-11 06:14 | Inpatient (IN) | payer MEDICARE, MEDICAID ==
[2021-09-11] MEDS ORDERED: Sodium Chloride 0.9% 10 ML Syringe FLUSH PRN (06:23)
[2021-09-11] MEDS ORDERED: methylPREDNISolone Sodium Succinate 125 MG/2 ML SDV IVPUSH ONE (06:24)
[2021-09-11] MEDS ORDERED: Magnesium Sulfate/Water 2 GM in Premix Bag 1 BAG IV ONE (06:25)
--- NOTE | 2021-09-11 06:27 | EDM.PDOC ---
<Aftab Ludwig - Last Filed: 09/11/21 07:06> ED HPI GENERAL MEDICAL PROBLEM - General Chief Complaint: Respiratory Problem Stated Complaint: [facility] Time Seen by Provider: 09/11/21 06:23 Source of Information: Reports: Patient, EMS History Limitations: Reports: No Limitations - History of Present Illness INITIAL COMMENTS - FREE TEXT/NARRATIVE: The patient presents by [facility] for shortness of breath. He said this all started about 2am. He has a history of COPD, asthma and chronic bronchitis. He has been coughing. He was just off quarantine 3 weeks ago. He had no symptoms with it. He has no fever, chills, chest pain, abdominal pain, nausea or vomiting. He got a duoneb and albuterol on the way in. Onset: Sudden Duration: Hour(s): Severity: Moderate Improves with: Reports: None Worsens with: Reports: None Associated Symptoms: Reports: Cough, Shortness of Breath. Denies: Chest Pain, Headaches, Nausea/Vomiting - Related Data Allergies Allergy/AdvReac Type Severity Reaction Status Date / Time No Known Allergies Allergy Verified 09/11/21 06:18 Home Meds: Home Meds Hydrocodone/Acetaminophen [HYDROcodone-Acetaminophen 5-325 MG] 1 tab PO Q6H PRN #10 03/23/20 [Rx] Cyclobenzaprine [Flexeril] 10 mg PO TID PRN 01/20/21 [History] Isosorbide Mononitrate [Imdur] 30 mg PO DAILY #30 tab.er 01/26/21 [Rx] Losartan [Cozaar] 100 mg PO DAILY #30 tablet 01/26/21 [Rx] Metoprolol Tartrate [Lopressor] 12.5 mg PO BID #60 tablet 01/26/21 [Rx] Potassium Chloride [Klor-Con M20] 20 meq PO TID #2 tab.er 01/26/21 [Rx] hydroCHLOROthiazide [Hydrochlorothiazide] 12.5 mg PO DAILY #30 cap 01/26/21 [Rx] Albuterol Sulfate 2.5 mg INH Q4H PRN 09/11/21 [History] Albuterol Sulfate [Albuterol Sulfate HFA] 1 puff INH Q4H PRN 09/11/21 [History] Budesonide/Formoterol [Symbicort 160-4.5 MCG] 2 puff INH BID 09/11/21 [History] Dulaglutide [Trulicity] 3 mg SUBCUT WEEKLY 09/11/21 [History] Furosemide [Lasix] 40 mg PO Q48H 09/11/21 [History] Gabapentin [Neurontin] 600 mg PO TID 09/11/21 [History] Insulin Glargine,Hum.Rec.Anlog [Lantus Solostar] 20 units SUBCUT BEDTIME 09/11/21 [History] Nicotine Polacrilex [Nicotine Gum] 4 mg CHEW ASDIRECTED PRN 09/11/21 [History] Rosuvastatin [Crestor] 10 mg PO DAILY 09/11/21 [History] Sertraline [Zoloft] 100 mg PO DAILY 09/11/21 [History] Tiotropium BR/Olodaterol HCL [Stiolto Respimat] 5 mcg INH DAILY 09/11/21 [History] levalbuterol HCL [Xopenex] 1.25 mg INH Q4H PRN 09/11/21 [History] Past Medical History - Past Health History Medical/Surgical History: Denies Medical/Surgical History Cardiovascular History: Reports: Hypertension Respiratory History: Reports: Asthma, Bronchitis, Recurrent, COPD, Pneumonia, Recurrent, Other (See Below) Other Respiratory History: respiratory failure 2016 Gastrointestinal History: Reports: Other (See Below) Other Gastrointestinal History: hernias Genitourinary History: Reports: Renal Calculus, UTI, Recurrent Other Genitourinary History: States voided twice today with blood in it Musculoskeletal History: Reports: Back Pain, Chronic, Fracture Other Musculoskeletal History: multiple surguries on L arm and hand Neurological History: Reports: Neuropathy, Peripheral Psychiatric History: Reports: Addiction, Anxiety, Depression Other Psychiatric History: situational anxiety improving Endocrine/Metabolic History: Reports: Diabetes, Type II, Obesity/BMI 30+ Hematologic History: Reports: Blood Transfusion(s) Dermatologic History: Reports: Venous Stasis Dermatitis, Other (See Below) Other Dermatologic History: skin dryness/discoloration - Infectious Disease History Infectious Disease History: Reports: Chicken Pox, Influenza, MRSA, Shingles Other Infectious Disease History: chicken pox as a kid. hx MRSA on right thigh wound in 2006 that is now healed. - Past Surgical History HEENT Surgical History: Reports: Other (See Below) Other HEENT Surgeries/Procedures: Neck surgery; lump removal that was benign. GI Surgical History: Reports: Hernia, Abdominal Musculoskeletal Surgical History: Reports: ORIF Other Musculoskeletal Surgeries/Procedures:: multiple on L arm and hand, R) leg ORIF with leatha. Social & Family History - Family History Endocrine/Metabolic: Reports: Diabetes, type II Other Endocrine/Metabolic Family History: Mother DM - Caffeine Use Caffeine Use: Reports: Coffee, Soda, Tea - Living Situation & Occupation Living situation: Reports: Single Occupation: Employed ED ROS GENERAL - Review of Systems Review Of Systems: See Below Constitutional: Reports: No Symptoms HEENT: Reports: No Symptoms Respiratory: Reports: Shortness of Breath, Wheezing, Cough Cardiovascular: Reports: No Symptoms Endocrine: Reports: No Symptoms GI/Abdominal: Reports: No Symptoms : Reports: No Symptoms Musculoskeletal: Reports: No Symptoms Skin: Reports: No Symptoms Neurological: Reports: No Symptoms ED EXAM, GENERAL - Physical Exam Exam: See Below Exam Limited By: No Limitations General Appearance: Alert, No Apparent Distress Ears: Normal External Exam Nose: Normal Inspection Head: Atraumatic, Normocephalic Neck: Normal Inspection Respiratory/Chest: Respiratory Distress (moderate), Wheezing Cardiovascular: No Edema, No Murmur, Tachycardia GI/Abdominal: Soft, Non-Tender, No Organomegaly Back Exam: Normal Inspection #1 Interpretation EKG Date: 09/11/21 Time: 06:30 Rhythm: Other (sinus tachycardia) Rate (Beats/Min): 121 Elizabeth: Normal P-Wave: Present QRS: Normal ST-T: Normal QT: Normal Course - Re-Assessments/Exams Free Text/Narrative Re-Assessment/Exam: 09/11/21 06:30 I ordered oxygen, IV saline lock, EKG, CXR, labs, solu-medrol 125mg IV and magnesium 2 grams IV. 09/11/21 07:07 His EKG shows a sinus tachycardia. His CXR looks good. 09/11/21 07:08 His WBC was elevated at 9.28. His D-dimer is negative. I will give him another breathing treatment. It is change of shift. Dr Cobian to take over. Departure - Departure Disposition: Admitted As Inpatient 68 Clinical Impression: Acute exacerbation of COPD with asthma, Morbid obesity with BMI of 60.0-69.9, adult, Hypoxemia - Discharge Information Sepsis Event Note (ED) - Evaluation Sepsis Screening Result: No Definite Risk <Hector Cobian Ganesh - Last Filed: 09/11/21 15:23> ED HPI GENERAL MEDICAL PROBLEM Back Pain Score (Numeric/FACES): 8 Past Medical History - History Comment History Comment: Chronic pain syndrome peripheral neuropathy chronic low back pain Social & Family History - Tobacco Use Tobacco Use Status *Q: Current Every Day Tobacco User Tobacco Use Within Last Twelve Months: Cigarettes (5 to 10/day.) Course - Vital Signs Last Recorded V/S: Last Vital Signs Temp 36.7 C 09/11/21 10:40 Pulse 113 H 09/11/21 10:40 Resp 22 H 09/11/21 10:40 BP 150/84 H 09/11/21 10:40 Pulse Ox 96 09/11/21 15:18 - Orders/Labs/Meds Orders: Active Orders 24 hr Category Date Time Status Sodium Chloride 0.9% [Saline Flush] Med 09/11/21 06:23 Active 10 ml FLUSH ASDIRECTED PRN Peripheral IV Insertion Adult [OM.PC] Stat Oth 09/11/21 06:23 Ordered Medication Orders Acetaminophen (Acetaminophen 325 Mg Tab) 650 mg PO Q4H PRN PRN Reason: Pain (Mild 1-3)/fever Hydrocodone Bitart/Acetaminophen (Acetaminophen/Hydrocodone 325-5 Mg Tab) 1 tab PO Q6H PRN PRN Reason: Pain (moderate 4-6) Last Admin: 09/11/21 13:52 Dose: 1 tab Documented by: CATHY Albuterol (Albuterol 6.7 Gm Inhaler) 0 gm INH Q2H PRN PRN Reason: Shortness of Breath Last Admin: 09/11/21 13:22 Dose: 2 inhalation Documented by: NATO Albuterol/Ipratropium (Albuterol/Ipratropium 3.0-0.5 Mg/3 Ml Neb Soln) 3 ml NEB QIDRT DELBERT Last Admin: 09/11/21 15:18 Dose: 3 ml Documented by: NATO Azithromycin (Azithromycin 250 Mg Tab) 500 mg PO 1200 DELBERT Stop: 09/13/21 12:01 Last Admin: 09/11/21 12:55 Dose: 500 mg Documented by: CHARLENE Cyclobenzaprine HCl (Cyclobenzaprine 10 Mg Tab) 10 mg PO TID PRN PRN Reason: Pain Last Admin: 09/11/21 13:56 Dose: 10 mg Documented by: [id number] Enoxaparin Sodium (Enoxaparin 40 Mg/0.4 Ml Syringe) 40 mg SUBCUT DAILY [facility] Furosemide (Furosemide 40 Mg Tab) 40 mg PO Q48H [facility] Last Admin: 09/11/21 13:56 Dose: 40 mg Documented by: [id number] Gabapentin (Gabapentin 600 Mg Tab) 600 mg PO TID [facility] Last Admin: 09/11/21 13:53 Dose: 600 mg Documented by: [id number] Hydrochlorothiazide (Hydrochlorothiazide 12.5 Mg Cap) 12.5 mg PO DAILY [facility] Insulin Glargine (Insulin Glargine,Hum.Rec.Anlog 100 Unit/Ml 3 Ml Pen) 20 unit SUBCUT BEDTIME [facility] Insulin Human Lispro (Insulin Lispro 100 Unit/Ml 3 Ml Kwikpen) 0 unit SUBCUT 0700,1100,1700,2100 [facility]; Protocol Last Admin: 09/11/21 12:53 Dose: 10 units Documented by: CHARLENE Isosorbide Mononitrate (Isosorbide Mononitrate 30 Mg Tab.Er) 30 mg PO DAILY [facility] Losartan Potassium (Losartan 100 Mg Tab) 100 mg PO DAILY [facility] Methylprednisolone Sodium Succinate (Methylprednisolone Sodium Succinate 40 Mg/1 Ml Sdv) 60 mg IVPUSH DAILY [facility] Metoprolol Tartrate (Metoprolol Tartrate 25 Mg Tab) 12.5 mg PO BID [facility] Miscellaneous Information (Remove Nicotine Patch) 1 ea TRDERM DAILY [facility] Mometasone Furoate/Formoterol Fumar (Formoterol/Mometasone 200-5 Mcg 8.8 Gm Inhaler) 2 puff IH BID [facility] Nicotine (Nicotine 14 Mg/24 Hr Patch) 14 mg TRDERM DAILY [facility] Last Admin: 09/11/21 14:34 Dose: 14 mg Documented by: CHARLENE Ondansetron HCl (Ondansetron 4 Mg/2 Ml Sdv) 4 mg IV Q6H PRN PRN Reason: Nausea/Vomiting Potassium Chloride (Potassium Chloride 20 Meq Tab.Er) 20 meq PO TID [facility] Last Admin: 09/11/21 13:52 Dose: 20 meq Documented by: [id number] Rosuvastatin Calcium (Rosuvastatin 10 Mg Tab) 10 mg PO DAILY [facility] Senna/Docusate Sodium (Docusate Sodium/Sennosides 50-8.6 Mg Tab) 1 tab PO BID PRN PRN Reason: Constipation Sertraline HCl (Sertraline 50 Mg Tab) 100 mg PO DAILY [facility] Sodium Chloride (Sodium Chloride 0.9% 10 Ml Syringe) 10 ml FLUSH ASDIRECTED PRN PRN Reason: Keep Vein Open Last Admin: 09/11/21 06:32 Dose: 10 ml Documented by: JACKIE Labs: Laboratory Tests 09/11/21 09/11/21 09/11/21 Range/Units 06:44 06:44 06:44 WBC 9.28 H (4.23-9.07) K/mm3 RBC 5.38 (4.63-6.08) M/mm3 Hgb 15.4 (13.7-17.5) gm/dl Hct 46.6 (40.1-51.0) % MCV 86.6 (79.0-92.2) fl MCH 28.6 (25.7-32.2) pg MCHC 33.0 (32.2-35.5) g/dl RDW Std Deviation 43.5 (35.1-43.9) fL Plt Count 184 (163-337) K/mm3 MPV 11.2 (9.4-12.3) fl Neut % (Auto) 86.6 H (34.0-67.9) % Lymph % (Auto) 7.7 L (21.8-53.1) % Parker % (Auto) 4.8 L (5.3-12.2) % Eos % (Auto) 0.6 L (0.8-7.0) Baso % (Auto) 0.1 (0.1-1.2) % Neut # (Auto) 8.03 H (1.78-5.38) K/mm3 Lymph # (Auto) 0.71 L (1.32-3.57) K/mm3 Parker # (Auto) 0.45 (0.30-0.82) K/mm3 Eos # (Auto) 0.06 (0.04-0.54) K/mm3 Baso # (Auto) 0.01 (0.01-0.08) K/mm3 D-Dimer, Quantitative 0.40 (0.19-0.50) mg/L Puncture Site ABG pH (7.35-7.45) ABG pCO2 (35.0-45.0) mmHg ABG pO2 (80.0-100.0) mmHg ABG HCO3 (22.0-26.0) meq/L ABG O2 Saturation (96.0-97.0) % ABG Base Excess (-2-2.0) A-a Gradient mmHg O2 Delivery Device Oxygen Flow Rate FiO2 (21.00-100.00) % Sodium 138 (136-145) mEq/L Potassium 3.9 (3.5-5.1) mEq/L Chloride 101 (98-107) mEq/L Carbon Dioxide 27 (21-32) mEq/L Anion Gap 13.9 (5-15) BUN 9 (7-18) mg/dL Creatinine 0.7 (0.7-1.3) mg/dL Est Cr Clr Drug Dosing 156.57 mL/min Estimated GFR (MDRD) > 60 (>60) mL/min BUN/Creatinine Ratio 12.9 L (14-18) Glucose 371 H (70-99) mg/dL Calcium 9.2 (8.5-10.1) mg/dL Total Bilirubin 0.3 (0.2-1.0) mg/dL AST 37 (15-37) U/L ALT 63 (16-63) U/L Alkaline Phosphatase 152 H (46-116) U/L Troponin I < 0.017 (0.00-0.056) ng/mL NT-Pro-B Natriuret Pep (0-125) pg/mL Total Protein 7.3 (6.4-8.2) g/dl Albumin 3.4 (3.4-5.0) g/dl Globulin 3.9 gm/dL Albumin/Globulin Ratio 0.9 L (1-2) 09/11/21 09/11/21 Range/Units 06:44 08:36 WBC (4.23-9.07) K/mm3 RBC (4.63-6.08) M/mm3 Hgb (13.7-17.5) gm/dl Hct (40.1-51.0) % MCV (79.0-92.2) fl MCH (25.7-32.2) pg MCHC (32.2-35.5) g/dl RDW Std Deviation (35.1-43.9) fL Plt Count (163-337) K/mm3 MPV (9.4-12.3) fl Neut % (Auto) (34.0-67.9) % Lymph % (Auto) (21.8-53.1) % Parker % (Auto) (5.3-12.2) % Eos % (Auto) (0.8-7.0) Baso % (Auto) (0.1-1.2) % Neut # (Auto) (1.78-5.38) K/mm3 Lymph # (Auto) (1.32-3.57) K/mm3 Parker # (Auto) (0.30-0.82) K/mm3 Eos # (Auto) (0.04-0.54) K/mm3 Baso # (Auto) (0.01-0.08) K/mm3 D-Dimer, Quantitative (0.19-0.50) mg/L Puncture Site Rt radial ABG pH 7.37 (7.35-7.45) ABG pCO2 46.8 H (35.0-45.0) mmHg ABG pO2 78.0 L (80.0-100.0) mmHg ABG HCO3 26.4 H (22.0-26.0) meq/L ABG O2 Saturation 95.4 L (96.0-97.0) % ABG Base Excess 1.1 (-2-2.0) A-a Gradient 120 mmHg O2 Delivery Device Nasal cannula Oxygen Flow Rate 4.0 FiO2 36.00 (21.00-100.00) % Sodium (136-145) mEq/L Potassium (3.5-5.1) mEq/L Chloride (98-107) mEq/L Carbon Dioxide (21-32) mEq/L Anion Gap (5-15) BUN (7-18) mg/dL Creatinine (0.7-1.3) mg/dL Est Cr Clr Drug Dosing mL/min Estimated GFR (MDRD) (>60) mL/min BUN/Creatinine Ratio (14-18) Glucose (70-99) mg/dL Calcium (8.5-10.1) mg/dL Total Bilirubin (0.2-1.0) mg/dL AST (15-37) U/L ALT (16-63) U/L Alkaline Phosphatase (46-116) U/L Troponin I (0.00-0.056) ng/mL NT-Pro-B Natriuret Pep 11 (0-125) pg/mL Total Protein (6.4-8.2) g/dl Albumin (3.4-5.0) g/dl Globulin gm/dL Albumin/Globulin Ratio (1-2) Meds: Medications Generic Name Dose Route Start Last Admin Trade Name Freq PRN Reason Stop Dose Admin Acetaminophen 650 mg 09/11/21 11:09 Acetaminophen 325 Mg Tab PO Q4H PRN Pain (Mild 1-3)/fever Hydrocodone Bitart/Acetaminophen 1 tab 09/11/21 13:13 09/11/21 13:52 Acetaminophen/Hydrocodone 325-5 Mg Tab PO 1 tab Q6H PRN Administration Pain (moderate 4-6) Albuterol 0 gm 09/11/21 11:09 09/11/21 13:22 Albuterol 6.7 Gm Inhaler INH 2 inhalation Q2H PRN Administration Shortness of Breath Albuterol/Ipratropium 3 ml 09/11/21 16:00 09/11/21 15:18 Albuterol/Ipratropium 3.0-0.5 Mg/3 Ml Neb Soln NEB 3 ml QIDRT DELBERT Administration Azithromycin 500 mg 09/11/21 12:00 09/11/21 12:55 Azithromycin 250 Mg Tab PO 09/13/21 12:01 500 mg 1200 DELBERT Administration Cyclobenzaprine HCl 10 mg 09/11/21 13:02 09/11/21 13:56 Cyclobenzaprine 10 Mg Tab PO 10 mg TID PRN Administration Pain Enoxaparin Sodium 40 mg 09/12/21 09:00 Enoxaparin 40 Mg/0.4 Ml Syringe SUBCUT DAILY [facility] Furosemide 40 mg 09/11/21 13:30 09/11/21 13:56 Furosemide 40 Mg Tab PO 40 mg Q48H [facility] Administration Gabapentin 600 mg 09/11/21 15:00 09/11/21 13:53 Gabapentin 600 Mg Tab PO 600 mg TID [facility] Administration Hydrochlorothiazide 12.5 mg 09/12/21 09:00 Hydrochlorothiazide 12.5 Mg Cap PO DAILY [facility] Insulin Glargine 20 unit 09/11/21 21:00 Insulin Glargine,Hum.Rec.Anlog 100 Unit/Ml 3 Ml Pen SUBCUT BEDTIME [facility] Insulin Human Lispro 0 unit 09/11/21 11:30 09/11/21 12:53 Insulin Lispro 100 Unit/Ml 3 Ml Kwikpen SUBCUT 10 units 0700,1100,1700,2100 [facility] Administration Protocol Isosorbide Mononitrate 30 mg 09/12/21 09:00 Isosorbide Mononitrate 30 Mg Tab.Er PO DAILY [facility] Losartan Potassium 100 mg 09/12/21 09:00 Losartan 100 Mg Tab PO DAILY [facility] Methylprednisolone Sodium Succinate 60 mg 09/12/21 09:00 Methylprednisolone Sodium Succinate 40 Mg/1 Ml Sdv IVPUSH DAILY [facility] Metoprolol Tartrate 12.5 mg 09/11/21 21:00 Metoprolol Tartrate 25 Mg Tab PO BID [facility] Miscellaneous Information 1 ea 09/12/21 09:00 Remove Nicotine Patch TRDERM DAILY [facility] Mometasone Furoate/Formoterol Fumar 2 puff 09/11/21 21:00 Formoterol/Mometasone 200-5 Mcg 8.8 Gm Inhaler IH BID [facility] Nicotine 14 mg 09/11/21 14:15 09/11/21 14:34 Nicotine 14 Mg/24 Hr Patch TRDERM 14 mg DAILY [facility] Administration Ondansetron HCl 4 mg 09/11/21 11:09 Ondansetron 4 Mg/2 Ml Sdv IV Q6H PRN Nausea/Vomiting Potassium Chloride 20 meq 09/11/21 15:00 09/11/21 13:52 Potassium Chloride 20 Meq Tab.Er PO 20 meq TID [facility] Administration Rosuvastatin Calcium 10 mg 09/12/21 09:00 Rosuvastatin 10 Mg Tab PO DAILY [facility] Senna/Docusate Sodium 1 tab 09/11/21 11:09 Docusate Sodium/Sennosides 50-8.6 Mg Tab PO BID PRN Constipation Sertraline HCl 100 mg 09/12/21 09:00 Sertraline 50 Mg Tab PO DAILY [facility] Sodium Chloride 10 ml 09/11/21 06:23 09/11/21 06:32 Sodium Chloride 0.9% 10 Ml Syringe FLUSH 10 ml ASDIRECTED PRN Administration Keep Vein Open Discontinued Medications Generic Name Dose Route Start Last Admin Trade Name Freq PRN Reason Stop Dose Admin Hydrocodone Bitart/Acetaminophen 1 tab 09/11/21 09:10 09/11/21 09:28 Acetaminophen/Hydrocodone 325-5 Mg Tab PO 09/11/21 09:11 1 tab ONETIME ONE Administration Hydrocodone Bitart/Acetaminophen 1 tab 09/11/21 11:09 Acetaminophen/Hydrocodone 325-5 Mg Tab PO Q4H PRN Pain (moderate 4-6) Albuterol 10 mg 09/11/21 08:18 09/11/21 08:28 Albuterol 0.5% 2.5 Mg/0.5 Ml Neb Soln NEB 09/11/21 08:19 10 mg ONETIME ONE Administration Albuterol/Ipratropium 3 ml 09/11/21 07:09 09/11/21 07:28 Albuterol/Ipratropium 3.0-0.5 Mg/3 Ml Neb Soln NEB 09/11/21 07:10 3 ml ONETIME ONE Administration Magnesium Sulfate 2 gm/ Premix 50 mls @ 25 mls/hr 09/11/21 06:25 09/11/21 06:32 IV 09/11/21 08:24 25 mls/hr ONETIME ONE Administration Insulin Human Lispro 0 unit 09/11/21 11:15 Insulin Lispro 100 Unit/Ml 3 Ml Kwikpen SUBCUT WITHMEALSANDBED [facility] Protocol Insulin Human Regular 10 unit 09/11/21 09:08 09/11/21 09:39 Insulin Regular, Human 100 Units/Ml 3 Ml Vial SUBCUT 09/11/21 09:09 10 unit ONETIME ONE Administration Methylprednisolone Sodium Succinate 125 mg 09/11/21 06:24 09/11/21 06:30 Methylprednisolone Sodium Succinate 125 Mg/2 Ml Sdv IVPUSH 09/11/21 06:25 125 mg ONETIME ONE Administration - Re-Assessments/Exams Free Text/Narrative Re-Assessment/Exam: 09/11/21 07:[address] Ludwig at change of shift. O2 sats currently 95%. BP 156/82 09/11/21 08:13 on exam 25 minutes after receiving DuoNeb patient remains diffusely wheezing in all lung farris. Plan albuterol 10 mg via nebulizer continuously over the next hour. He has already had 2 g of magnesium and Solu- Medrol. ABGs will be ordered.ABGs revealed a pH of seven 7.37 with a PCO2 of 46.8. PO2 was 78.0 bicarb was 26.4 with O2 sats of 95.4% on 4 L/min by nasal cannula. Glucose elevated at 371. 09/11/21 09:03 Patient remains extremely wheezy and is struggling to breathe. He is currently detention through his 1 hour treatment of continuous albuterol inhalational treatment. O2 sats are staying around 94% on 4 L/min by nasal cannula. Patient is going to need to be admitted to the hospital. I will therefore speak with the hospitalist in this regard I believe it is Dr. Baez. The plan will be to have CT of his chest carried out per the radiologist request to look at infiltrate left apex of the heart. This will be done after he has completed his continuous albuterol inhalational treatment. 09/11/21 09:10 patient understands his need to stay in the hospital. He is likely going to require a good deal of steroids to open him up. He is diabetic and current blood sugar was 371. Uses Trulicity once weekly every Tuesday. I am going to give him 10 units of regular insulin subcu now. He is also going to be given a meal. He is on a regular dose of hydrocodone 5 /325 mg strength and I will give him 1 tablet now as he usually takes 1 every morning at 9am. 09/11/21 09:18 I have spoken with Dr. Baez--he is excepted the patient and tentatively will be admitted to the [facility] surgery floor as an admission. 09/11/21 10:20 CT scan of the chest have been performed without any contrast per radiology request. It reveals that the lungs are clear with no pulmonary infiltrates identified. Patient has a very large fat pad both anterior and lateral to both sides of his heart. I believe this is the reason for the area of concern on chest x-ray. Cardiac silhouette appears otherwise normal as does the mediastinum. Departure - Departure Time of Disposition: 10:40 Condition: Serious - Discharge Information *PRESCRIPTION DRUG MONITORING PROGRAM REVIEWED*: Not Applicable *COPY OF PRESCRIPTION DRUG MONITORING REPORT IN PATIENT BEATRIZ: Not Applicable Sepsis Event Note (ED) - Focused Exam Vital Signs: Vital Signs Temp Pulse Resp Pulse Ox Pulse Ox 09/11/21 08:19 92 L 09/11/21 07:09 94 L 09/11/21 06:18 35.9 C L 125 H 32 H 94 L
[2021-09-11] MEDS ORDERED: Albuterol/Ipratropium 3.0-0.5 MG/3 ML Neb Soln NEB ONE (07:09)
--- NOTE | 2021-09-11 07:36 | CR ---
Chest: Portable view of the chest was obtained. Comparison: Prior chest x-ray of 07/28/21. Heart size and mediastinum are within normal limits. Slight parenchymal density is seen off the left cardiac apex. This finding is noted on most recent studies but is not seen on more remote exams. Lungs otherwise are clear. Bony structures show nothing acute. Impression: 1. Density off the left cardiac apex. Difficult to exclude a small mass. Recommend a noncontrast chest CT to exclude this possibility. 2. Nothing acute is otherwise seen on portable chest x-ray. Diagnostic code #3
[2021-09-11] MEDS ORDERED: Albuterol 0.5% 2.5 MG/0.5 ML Neb Soln NEB ONE (08:18)
[2021-09-11] MEDS ORDERED: Insulin Regular, Human 100 Units/ML 3 ML Vial SUBCUT ONE (09:08)
[2021-09-11] MEDS ORDERED: Acetaminophen/HYDROcodone 325-5 MG Tab PO ONE (09:10)
--- NOTE | 2021-09-11 10:00 | PCM.HP.2 ---
<Duc Bose - Last Filed: 09/11/21 13:15> H&P History of Present Illness - General Date of Service: 09/11/21 Admit Problem/Dx: Admission Diagnosis/Problem Admission Diagnosis/Problem Asthma with acute exacerbation in adult Source of Information: Patient, Old Records, Provider, RN, RN Notes Reviewed History Limitations: Reports: No Limitations - History of Present Illness Initial Comments - Free Text/Narative: This is a 46-year-old morbidly obese male who presents to ED on 09/11/2021 via [facility] for shortness of breath which began around 2 AM. He has a history of COPD, asthma and chronic bronchitis. He does have a history of Covid infection however he was off quarantine several weeks ago. He states he was asymptomatic with his COVID-19. He now reports shortness of breath and productive cough but no fever, chills, chest pain, abdominal pain, nausea or vomiting. EMS gave him an albuterol and DuoNeb. In the ED twelve-lead EKG was obtained showing a sinus tachycardia at 121 bpm with no ectopy. Temp is 35.9 Celsius. Pulse 125. Respirations 32. Pulse oximetry 92%. He started on oxygen and given 125 mg IV push Solu-Medrol and 2 g IV magnesium. Labs are obtained showing a mild leukocytosis at 9.28. Hemoglobin is 15.4. Platelet are 184,000. Neutrophils are 86.6%. D-dimer is 0.40. Sodium 138. Potassium 3.9. Chloride 101. Carbon dioxide 27. Anion gap is 13.9. BUN is nine. Creatinine 0.7. GFR greater than 60. Glucose is 371. Calcium 9.2. Total bilirubin 0.3. AST is 37, ALT 63, alkaline phosphatase 152. Troponin is less than 0.017. Albumin is 3.4. proBNP is 11. ABGs obtained in the right radial with a pH of 7.37. PCO2 of 46.8. PO2 of 78.0. HCO3 of 26.4. O2 saturation is 95.4. Base excess is 1.1. AA gradient is 120. This is obtained while on 4 L via nasal cannula. He is given a DuoNeb and a continuous albuterol nebulizer. He is also given [place] for pain and 10 units of regular insulin. Chest x-ray is obtained showing a density off the left cardiac apex. Difficult to exclude a small mass and a chest CT noncontrast was recommended. Chest CT was obtained and was stable from prior study on 01/21/2021 with no density appreciated and nothing acute seen. He carries a history of hypertension, asthma, recurrent bronchitis, COPD, recurrent pneumonia, recurrent UTI, chronic back pain, peripheral neuropathy, anxiety, depression, type II DM, obesity, venous stasis dermatitis and MRSA on his right thigh wound in 2005. He is a full code. His PCP is Dr. Tigre Rosario. He subsequently admitted to the medical floor for management of his COPD exacerbation. - Related Data Allergies/Adverse Reactions: Allergies Allergy/AdvReac Type Severity Reaction Status Date / Time No Known Allergies Allergy Verified 09/11/21 06:18 Home Medications: Home Meds Hydrocodone/Acetaminophen [HYDROcodone-Acetaminophen 5-325 MG] 1 tab PO Q6H PRN #10 03/23/20 [Rx] Cyclobenzaprine [Flexeril] 10 mg PO TID PRN 01/20/21 [History] Isosorbide Mononitrate [Imdur] 30 mg PO DAILY #30 tab.er 01/26/21 [Rx] Losartan [Cozaar] 100 mg PO DAILY #30 tablet 01/26/21 [Rx] Metoprolol Tartrate [Lopressor] 12.5 mg PO BID #60 tablet 01/26/21 [Rx] Potassium Chloride [Klor-Con M20] 20 meq PO TID #2 tab.er 01/26/21 [Rx] Albuterol Sulfate 2.5 mg INH Q4H PRN 09/11/21 [History] Albuterol Sulfate [Albuterol Sulfate HFA] 1 puff INH Q4H PRN 09/11/21 [History] Budesonide/Formoterol [Symbicort 160-4.5 MCG] 2 puff INH BID 09/11/21 [History] Dulaglutide [Trulicity] 3 mg SUBCUT WEEKLY 09/11/21 [History] Furosemide [Lasix] 40 mg PO Q48H 09/11/21 [History] Gabapentin [Neurontin] 600 mg PO TID 09/11/21 [History] Rosuvastatin [Crestor] 10 mg PO DAILY 09/11/21 [History] Sertraline [Zoloft] 100 mg PO DAILY 09/11/21 [History] Tiotropium BR/Olodaterol HCL [Stiolto Respimat] 5 mcg INH DAILY 09/11/21 [History] levalbuterol HCL [Xopenex] 1.25 mg INH Q4H PRN 09/11/21 [History] Past Medical History - Past Health History Medical/Surgical History: Denies Medical/Surgical History Cardiovascular History: Reports: Hypertension Respiratory History: Reports: Asthma, Bronchitis, Recurrent, COPD, Pneumonia, Recurrent, Other (See Below) Other Respiratory History: respiratory failure 2017 Gastrointestinal History: Reports: Other (See Below) Other Gastrointestinal History: hernias Genitourinary History: Reports: Renal Calculus, UTI, Recurrent Other Genitourinary History: States voided twice today with blood in it Musculoskeletal History: Reports: Back Pain, Chronic, Fracture Other Musculoskeletal History: multiple surguries on L arm and hand Neurological History: Reports: Neuropathy, Peripheral Psychiatric History: Reports: Addiction, Anxiety, Depression Other Psychiatric History: situational anxiety improving Endocrine/Metabolic History: Reports: Diabetes, Type II, Obesity/BMI 30+ Hematologic History: Reports: Blood Transfusion(s) Dermatologic History: Reports: Venous Stasis Dermatitis, Other (See Below) Other Dermatologic History: skin dryness/discoloration - Infectious Disease History Infectious Disease History: Reports: Chicken Pox, Influenza, MRSA, Novel Coronavirus, Shingles Other Infectious Disease History: chicken pox as a kid. hx MRSA on right thigh wound in 2005 that is now healed. - Past Surgical History HEENT Surgical History: Reports: Other (See Below) Other HEENT Surgeries/Procedures: Neck surgery; lump removal that was benign. GI Surgical History: Reports: Hernia, Abdominal Musculoskeletal Surgical History: Reports: ORIF Other Musculoskeletal Surgeries/Procedures:: multiple on L arm and hand, R) leg ORIF with leatha. Social & Family History - Family History Endocrine/Metabolic: Reports: Diabetes, type II Other Endocrine/Metabolic Family History: Mother DM - Tobacco Use Tobacco Use Status *Q: Former Tobacco User Used Tobacco, but Quit: Yes Month/Year Tobacco Last Used: 2000 - Caffeine Use Caffeine Use: Reports: Coffee, Soda, Tea - Living Situation & Occupation Living situation: Reports: Single Occupation: Employed H&P Review of Systems - Review of Systems: Review Of Systems: See Below General: Reports: No Symptoms. Denies: Fever, Chills, Malaise, Weakness, Fatigue HEENT: Reports: No Symptoms. Denies: Sore Throat, Visual Changes Pulmonary: Reports: Shortness of Breath, Wheezing, Cough, Sputum. Denies: P leuritic Chest Pain Cardiovascular: Reports: No Symptoms, Dyspnea on Exertion. Denies: Chest Pain, Palpitations, Edema Gastrointestinal: Reports: No Symptoms. Denies: Abdominal Pain, Constipation, Diarrhea, Nausea, Vomiting Genitourinary: Reports: No Symptoms. Denies: Pain Musculoskeletal: Reports: No Symptoms Skin: Reports: No Symptoms. Denies: Cyanosis Psychiatric: Reports: No Symptoms. Denies: Confusion Neurological: Reports: No Symptoms. Denies: Confusion, Dizziness, Headache, Numbness, Pre-Existing Deficit, Seizure, Syncope, Tingling, Difficulty Walking, Weakness, Gait Disturbance Hematologic/Lymphatic: Reports: No Symptoms. Denies: Anemia Immunologic: Reports: No Symptoms Exam - Exam Exam: See Below - Vital Signs Vital Signs: Last Vital Signs Temp 96.6 F L 09/11/21 06:18 Pulse 125 H 09/11/21 06:18 Resp 32 H 09/11/21 06:18 BP Pulse Ox 92 L 09/11/21 08:19 Weight: 442 lb - Exam Quality Assessment: Supplemental Oxygen (4L), DVT Prophylaxis. No: Urinary Catheter General: Alert, Oriented, Cooperative, Other (Morbidly obese) HEENT: Conjunctiva Clear, EACs Clear, Mucosa Moist & [place], Posterior Pharynx C lear Neck: Supple, Trachea Midline Lungs: Decreased Breath Sounds, Wheezing. No: Normal Respiratory Effort (Tachypnea), Crackles, Rhonchi Cardiovascular: Regular Rhythm, Tachycardia. No: Systolic Murmur, Diastolic Murmur GI/Abdominal Exam: Normal Bowel Sounds, Soft, Non-Tender, No Distention (Male) Exam: Deferred Rectal (Males) Exam: Deferred Back Exam: Normal Inspection, Full Range of Motion Extremities: Normal Range of Motion, Non-Tender, No Pedal Edema, Other (Bilateral lower extremity discoloration consistent with PVD.) Skin: Warm, Dry, Intact Neurological: Cranial Nerves Intact (Grossly) Neuro Extensive - Mental Status: Alert, Oriented x3, Normal Mood/Affect - Patient Data Lab Results Last 24 hrs: Laboratory Results - last 24 hr 09/11/21 09/11/21 09/11/21 Range/Units 06:44 06:44 06:44 WBC 9.28 H (4.23-9.07) K/mm3 RBC 5.38 (4.63-6.08) M/mm3 Hgb 15.4 (13.7-17.5) gm/dl Hct 46.6 (40.1-51.0) % MCV 86.6 (79.0-92.2) fl MCH 28.6 (25.7-32.2) pg MCHC 33.0 (32.2-35.5) g/dl RDW Std Deviation 43.5 (35.1-43.9) fL Plt Count 184 (163-337) K/mm3 MPV 11.2 (9.4-12.3) fl Neut % (Auto) 86.6 H (34.0-67.9) % Lymph % (Auto) 7.7 L (21.8-53.1) % [place] % (Auto) 4.8 L (5.3-12.2) % Eos % (Auto) 0.6 L (0.8-7.0) Baso % (Auto) 0.1 (0.1-1.2) % Neut # (Auto) 8.03 H (1.78-5.38) K/mm3 Lymph # (Auto) 0.71 L (1.32-3.57) K/mm3 [place] # (Auto) 0.45 (0.30-0.82) K/mm3 Eos # (Auto) 0.06 (0.04-0.54) K/mm3 Baso # (Auto) 0.01 (0.01-0.08) K/mm3 D-Dimer, Quantitative 0.40 (0.19-0.50) mg/L Puncture Site ABG pH (7.35-7.45) ABG pCO2 (35.0-45.0) mmHg ABG pO2 (80.0-100.0) mmHg ABG HCO3 (22.0-26.0) meq/L ABG O2 Saturation (96.0-97.0) % ABG Base Excess (-2-2.0) A-a Gradient mmHg O2 Delivery Device Oxygen Flow Rate FiO2 (21.00-100.00) % Sodium 138 (136-145) mEq/L Potassium 3.9 (3.5-5.1) mEq/L Chloride 101 (98-107) mEq/L Carbon Dioxide 27 (21-32) mEq/L Anion Gap 13.9 (5-15) BUN 9 (7-18) mg/dL Creatinine 0.7 (0.7-1.3) mg/dL Est Cr Clr Drug Dosing 156.57 mL/min Estimated GFR (MDRD) > 60 (>60) mL/min BUN/Creatinine Ratio 12.9 L (14-18) Glucose 371 H (70-99) mg/dL Calcium 9.2 (8.5-10.1) mg/dL Total Bilirubin 0.3 (0.2-1.0) mg/dL AST 37 (15-37) U/L ALT 63 (16-63) U/L Alkaline Phosphatase 152 H (46-116) U/L Troponin I < 0.017 (0.00-0.056) ng/mL NT-Pro-B Natriuret Pep (0-125) pg/mL Total Protein 7.3 (6.4-8.2) g/dl Albumin 3.4 (3.4-5.0) g/dl Globulin 3.9 gm/dL Albumin/Globulin Ratio 0.9 L (1-2) 09/11/21 09/11/21 Range/Units 06:44 08:36 WBC (4.23-9.07) K/mm3 RBC (4.63-6.08) M/mm3 Hgb (13.7-17.5) gm/dl Hct (40.1-51.0) % MCV (79.0-92.2) fl MCH (25.7-32.2) pg MCHC (32.2-35.5) g/dl RDW Std Deviation (35.1-43.9) fL Plt Count (163-337) K/mm3 MPV (9.4-12.3) fl Neut % (Auto) (34.0-67.9) % Lymph % (Auto) (21.8-53.1) % [place] % (Auto) (5.3-12.2) % Eos % (Auto) (0.8-7.0) Baso % (Auto) (0.1-1.2) % Neut # (Auto) (1.78-5.38) K/mm3 Lymph # (Auto) (1.32-3.57) K/mm3 [place] # (Auto) (0.30-0.82) K/mm3 Eos # (Auto) (0.04-0.54) K/mm3 Baso # (Auto) (0.01-0.08) K/mm3 D-Dimer, Quantitative (0.19-0.50) mg/L Puncture Site Rt radial ABG pH 7.37 (7.35-7.45) ABG pCO2 46.8 H (35.0-45.0) mmHg ABG pO2 78.0 L (80.0-100.0) mmHg ABG HCO3 26.4 H (22.0-26.0) meq/L ABG O2 Saturation 95.4 L (96.0-97.0) % ABG Base Excess 1.1 (-2-2.0) A-a Gradient 120 mmHg O2 Delivery Device Nasal cannula Oxygen Flow Rate 4.0 FiO2 36.00 (21.00-100.00) % Sodium (136-145) mEq/L Potassium (3.5-5.1) mEq/L Chloride (98-107) mEq/L Carbon Dioxide (21-32) mEq/L Anion Gap (5-15) BUN (7-18) mg/dL Creatinine (0.7-1.3) mg/dL Est Cr Clr Drug Dosing mL/min Estimated GFR (MDRD) (>60) mL/min BUN/Creatinine Ratio (14-18) Glucose (70-99) mg/dL Calcium (8.5-10.1) mg/dL Total Bilirubin (0.2-1.0) mg/dL AST (15-37) U/L ALT (16-63) U/L Alkaline Phosphatase (46-116) U/L Troponin I (0.00-0.056) ng/mL NT-Pro-B Natriuret Pep 11 (0-125) pg/mL Total Protein (6.4-8.2) g/dl Albumin (3.4-5.0) g/dl Globulin gm/dL Albumin/Globulin Ratio (1-2) Result Diagrams: 09/11/21 06:44 09/11/21 06:44 Sepsis Event Note - Evaluation Sepsis Screening Result: No Definite Risk - Focused Exam Vital Signs: Vital Signs Temp Pulse Resp Pulse Ox Pulse Ox 09/11/21 08:19 92 L 09/11/21 07:09 94 L 09/11/21 06:18 96.6 F L 125 H 32 H 94 L - Problem List (1) COPD exacerbation SNOMED Code(s): 911793583 ICD Code: J44.1 - CHRONIC OBSTRUCTIVE PULMONARY DISEASE W (ACUTE) EXACERBATION Status: Acute Priority: High Current Visit: Yes (2) H/O recurrent pneumonia SNOMED Code(s): 855957200 ICD Code: Z87.01 - PERSONAL HISTORY OF PNEUMONIA (RECURRENT) Status: Chronic Priority: Low Current Visit: No (3) History of recurrent UTI (urinary tract infection) SNOMED Code(s): 549026998 ICD Code: Z87.440 - PERSONAL HISTORY OF URINARY (TRACT) INFECTIONS Status: Chronic Priority: Low Current Visit: No (4) Peripheral neuropathy SNOMED Code(s): 749578821 ICD Code: G62.9 - POLYNEUROPATHY, UNSPECIFIED Status: Chronic Priority: Low Current Visit: No Qualifiers: Peripheral neuropathy type: polyneuropathy, unspecified Qualified Code(s): G62.9 - Polyneuropathy, unspecified (5) Anxiety SNOMED Code(s): 65901882 ICD Code: F41.9 - ANXIETY DISORDER, UNSPECIFIED Status: Chronic Priority: Low Current Visit: No (6) Depression SNOMED Code(s): 08150377 ICD Code: F32.A - DEPRESSION, UNSPECIFIED Status: Chronic Priority: Low Current Visit: No Qualifiers: Depression Type: other depression Qualified Code(s): F32.89 - Other specified depressive episodes (7) Venous stasis dermatitis of both lower extremities SNOMED Code(s): 74039729 ICD Code: I87.2 - VENOUS INSUFFICIENCY (CHRONIC) (PERIPHERAL) Status: Chronic Priority: Low Current Visit: No (8) History of MRSA infection SNOMED Code(s): 719376210, 861140490 ICD Code: Z86.14 - PERSONAL HISTORY OF METHICILLIN RESIS STAPH INFECTION Status: Chronic Priority: Low Current Visit: No (9) History of COVID-19 SNOMED Code(s): 301245330920123767, 448031979975489375 ICD Code: Z86.16 - PERSONAL HISTORY OF COVID-19 Status: Chronic Priority: Medium Current Visit: No (10) Asthma exacerbation SNOMED Code(s): 624576929 ICD Code: J45.901 - UNSPECIFIED ASTHMA WITH (ACUTE) EXACERBATION Status: Acute Priority: High Current Visit: Yes Qualifiers: Asthma severity: moderate Asthma persistence: unspecified Qualified Code(s): J45.901 - Unspecified asthma with (acute) exacerbation (11) Chronic lower back pain SNOMED Code(s): 285689998 ICD Code: M54.5 - LOW BACK PAIN * DO NOT USE *; G89.29 - OTHER CHRONIC PAIN Status: Chronic Priority: Low Current Visit: No Qualifiers: Back pain laterality: unspecified Sciatica presence: unspecified whether sciatica present Qualified Code(s): M54.50 - Low back pain, unspecified; G89.29 - Other chronic pain (12) Hypertension SNOMED Code(s): 72877688 ICD Code: I10 - ESSENTIAL (PRIMARY) HYPERTENSION Status: Chronic Priority: Medium Current Visit: No Qualifiers: Hypertension type: unspecified Qualified Code(s): I10 - Essential (primary) hypertension (13) Obesity SNOMED Code(s): 160263244, 865426540 ICD Code: E66.9 - OBESITY, UNSPECIFIED Status: Chronic Priority: High Current Visit: No Qualifiers: Obesity type: unspecified obesity type Obesity classification: adult class 3 (BMI >= 40) Serious obesity comorbidity presence: unspecified whether serious comorbidity present Body mass index: BMI 50.0-59.9 Qualified Code(s): E66.01 - Morbid (severe) obesity due to excess calories; Z68.43 - Body mass index [BMI] 50.0-59.9, adult (14) Type II diabetes mellitus SNOMED Code(s): 28489032 ICD Code: E11.9 - TYPE 2 DIABETES MELLITUS WITHOUT COMPLICATIONS Status: Chronic Priority: Medium Current Visit: No Qualifiers: Diabetes mellitus buttermaker continuous churn insulin use: without retirement use Diabetes mellitus complication status: with diabetic arthropathy Problem List Initiated/Reviewed/Updated: Yes Orders Last 24hrs: Active Orders 24 hr Category Date Time Status Admission Status [Patient Status] [ADT] Routine ADT 09/11/21 09:13 Active Cardiac Monitoring [RC] . DIRECTED Care 09/11/21 06:23 Active Oxygen Therapy [RC] PRN Care 09/11/21 06:23 Active Peripheral IV Care [RC] . DIRECTED Care 09/11/21 06:24 Active RT Aerosol Therapy [RC] ASDIRECTED Care 09/11/21 07:09 Active RT Aerosol Therapy [RC] ASDIRECTED Care 09/11/21 08:19 Active Chest wo Cont [CT] Stat Exams 09/11/21 09:16 Taken Sodium Chloride 0.9% [Saline Flush] Med 09/11/21 06:23 Active 10 ml FLUSH ASDIRECTED PRN Peripheral IV Insertion Adult [OM.PC] Stat Oth 09/11/21 06:23 Ordered Medication Orders Sodium Chloride (Sodium Chloride 0.9% 10 Ml Syringe) 10 ml FLUSH ASDIRECTED PRN PRN Reason: Keep Vein Open Last Admin: 09/11/21 06:32 Dose: 10 ml Documented by: JACKIE Assessment/Plan Comment:: COPD exacerbation History of COVID-19 Asthma exacerbation Obesity * Oxygen as needed to keep saturations greater than 88% * IS * Respiratory therapy consultation * Steroids as ordered * 500 mg azithromycin p.o. daily for 3 days * Scheduled DuoNebs 4 times daily * As needed albuterol MDI * Aspiratory medications as ordered H/O recurrent pneumonia History of recurrent UTI (urinary tract infection) * No acute concerns Peripheral neuropathy * No acute concerns * Continue home gabapentin Anxiety Depression * No acute concerns * Continue home medications as ordered Venous stasis dermatitis of both lower extremities * No acute concerns * Elevate extremities BID History of MRSA infection * Skin - related to wound on right thigh in 2005 * Follow institutional MRSA protocol Chronic lower back pain * No acute concerns * As needed pain medications as ordered Hypertension * No acute concerns * Monitor vital signs * Home medications as ordered Type II diabetes mellitus * No acute concerns * High dose sliding scale insulin * Continue home long acting insulin * Hold home Metformin * Anticipate rise in blood glucose readings due to steroids * We will hold off obtaining A1c for now as patient has been on steroids due to Covid infection recently. Code status: Full code PCP: Dr. Tigre Rosario DVT prophylaxis: Lovenox Disposition: Patient mated to the floor for COPD exacerbation. Likely length of stay 2 to 3 days pending improvement in oxygen demand. - Mortality Measure Prognosis:: Good <Aj Baez Jr - Last Filed: 09/12/21 06:41> H&P History of Present Illness - General Admit Problem/Dx: Admission Diagnosis/Problem Admission Diagnosis/Problem Asthma with acute exacerbation in adult Exam - Vital Signs Vital Signs: Last Vital Signs Temp 98.1 F 09/12/21 03:54 Pulse 91 09/12/21 00:18 Resp 13 09/12/21 03:54 BP 139/74 09/12/21 03:54 Pulse Ox 93 L 09/12/21 05:59 - Patient Data Lab Results Last 24 hrs: Laboratory Results - last 24 hr 09/11/21 09/11/21 09/11/21 Range/Units 06:44 06:44 06:44 WBC 9.28 H (4.23-9.07) K/mm3 RBC 5.38 (4.63-6.08) M/mm3 Hgb 15.4 (13.7-17.5) gm/dl Hct 46.6 (40.1-51.0) % MCV 86.6 (79.0-92.2) fl MCH 28.6 (25.7-32.2) pg MCHC 33.0 (32.2-35.5) g/dl RDW Std Deviation 43.5 (35.1-43.9) fL Plt Count 184 (163-337) K/mm3 MPV 11.2 (9.4-12.3) fl Neut % (Auto) 86.6 H (34.0-67.9) % Lymph % (Auto) 7.7 L (21.8-53.1) % [place] % (Auto) 4.8 L (5.3-12.2) % Eos % (Auto) 0.6 L (0.8-7.0) Baso % (Auto) 0.1 (0.1-1.2) % Neut # (Auto) 8.03 H (1.78-5.38) K/mm3 Lymph # (Auto) 0.71 L (1.32-3.57) K/mm3 [place] # (Auto) 0.45 (0.30-0.82) K/mm3 Eos # (Auto) 0.06 (0.04-0.54) K/mm3 Baso # (Auto) 0.01 (0.01-0.08) K/mm3 D-Dimer, Quantitative 0.40 (0.19-0.50) mg/L Puncture Site ABG pH (7.35-7.45) ABG pCO2 (35.0-45.0) mmHg ABG pO2 (80.0-100.0) mmHg ABG HCO3 (22.0-26.0) meq/L ABG O2 Saturation (96.0-97.0) % ABG Base Excess (-2-2.0) A-a Gradient mmHg O2 Delivery Device Oxygen Flow Rate FiO2 (21.00-100.00) % Sodium 138 (136-145) mEq/L Potassium 3.9 (3.5-5.1) mEq/L Chloride 101 (98-107) mEq/L Carbon Dioxide 27 (21-32) mEq/L Anion Gap 13.9 (5-15) BUN 9 (7-18) mg/dL Creatinine 0.7 (0.7-1.3) mg/dL Est Cr Clr Drug Dosing 156.57 mL/min Estimated GFR (MDRD) > 60 (>60) mL/min BUN/Creatinine Ratio 12.9 L (14-18) Glucose 371 H (70-99) mg/dL POC Glucose (70-99) mg/dL Calcium 9.2 (8.5-10.1) mg/dL Total Bilirubin 0.3 (0.2-1.0) mg/dL AST 37 (15-37) U/L ALT 63 (16-63) U/L Alkaline Phosphatase 152 H (46-116) U/L Troponin I < 0.017 (0.00-0.056) ng/mL NT-Pro-B Natriuret Pep (0-125) pg/mL Total Protein 7.3 (6.4-8.2) g/dl Albumin 3.4 (3.4-5.0) g/dl Globulin 3.9 gm/dL Albumin/Globulin Ratio 0.9 L (1-2) 09/11/21 09/11/21 09/11/21 Range/Units 06:44 08:36 12:53 WBC (4.23-9.07) K/mm3 RBC (4.63-6.08) M/mm3 Hgb (13.7-17.5) gm/dl Hct (40.1-51.0) % MCV (79.0-92.2) fl MCH (25.7-32.2) pg MCHC (32.2-35.5) g/dl RDW Std Deviation (35.1-43.9) fL Plt Count (163-337) K/mm3 MPV (9.4-12.3) fl Neut % (Auto) (34.0-67.9) % Lymph % (Auto) (21.8-53.1) % [place] % (Auto) (5.3-12.2) % Eos % (Auto) (0.8-7.0) Baso % (Auto) (0.1-1.2) % Neut # (Auto) (1.78-5.38) K/mm3 Lymph # (Auto) (1.32-3.57) K/mm3 [place] # (Auto) (0.30-0.82) K/mm3 Eos # (Auto) (0.04-0.54) K/mm3 Baso # (Auto) (0.01-0.08) K/mm3 D-Dimer, Quantitative (0.19-0.50) mg/L Puncture Site Rt radial ABG pH 7.37 (7.35-7.45) ABG pCO2 46.8 H (35.0-45.0) mmHg ABG pO2 78.0 L (80.0-100.0) mmHg ABG HCO3 26.4 H (22.0-26.0) meq/L ABG O2 Saturation 95.4 L (96.0-97.0) % ABG Base Excess 1.1 (-2-2.0) A-a Gradient 120 mmHg O2 Delivery Device Nasal cannula Oxygen Flow Rate 4.0 FiO2 36.00 (21.00-100.00) % Sodium (136-145) mEq/L Potassium (3.5-5.1) mEq/L Chloride (98-107) mEq/L Carbon Dioxide (21-32) mEq/L Anion Gap (5-15) BUN (7-18) mg/dL Creatinine (0.7-1.3) mg/dL Est Cr Clr Drug Dosing mL/min Estimated GFR (MDRD) (>60) mL/min BUN/Creatinine Ratio (14-18) Glucose (70-99) mg/dL POC Glucose 378 H (70-99) mg/dL Calcium (8.5-10.1) mg/dL Total Bilirubin (0.2-1.0) mg/dL AST (15-37) U/L ALT (16-63) U/L Alkaline Phosphatase (46-116) U/L Troponin I (0.00-0.056) ng/mL NT-Pro-B Natriuret Pep 11 (0-125) pg/mL Total Protein (6.4-8.2) g/dl Albumin (3.4-5.0) g/dl Globulin gm/dL Albumin/Globulin Ratio (1-2) 09/11/21 09/11/21 09/12/21 Range/Units 16:57 20:23 05:55 WBC 11.78 H (4.23-9.07) K/mm3 RBC 5.19 (4.63-6.08) M/mm3 Hgb 14.8 (13.7-17.5) gm/dl Hct 45.4 (40.1-51.0) % MCV 87.5 (79.0-92.2) fl MCH 28.5 (25.7-32.2) pg MCHC 32.6 (32.2-35.5) g/dl RDW Std Deviation 45.1 H (35.1-43.9) fL Plt Count 191 (163-337) K/mm3 MPV 11.6 (9.4-12.3) fl Neut % (Auto) 89.0 H (34.0-67.9) % Lymph % (Auto) 5.4 L (21.8-53.1) % [place] % (Auto) 5.3 (5.3-12.2) % Eos % (Auto) 0 L (0.8-7.0) Baso % (Auto) 0.1 (0.1-1.2) % Neut # (Auto) 10.49 H (1.78-5.38) K/mm3 Lymph # (Auto) 0.64 L (1.32-3.57) K/mm3 [place] # (Auto) 0.62 (0.30-0.82) K/mm3 Eos # (Auto) 0.00 L (0.04-0.54) K/mm3 Baso # (Auto) 0.01 (0.01-0.08) K/mm3 D-Dimer, Quantitative (0.19-0.50) mg/L Puncture Site ABG pH (7.35-7.45) ABG pCO2 (35.0-45.0) mmHg ABG pO2 (80.0-100.0) mmHg ABG HCO3 (22.0-26.0) meq/L ABG O2 Saturation (96.0-97.0) % ABG Base Excess (-2-2.0) A-a Gradient mmHg O2 Delivery Device Oxygen Flow Rate FiO2 (21.00-100.00) % Sodium (136-145) mEq/L Potassium (3.5-5.1) mEq/L Chloride (98-107) mEq/L Carbon Dioxide (21-32) mEq/L Anion Gap (5-15) BUN (7-18) mg/dL Creatinine (0.7-1.3) mg/dL Est Cr Clr Drug Dosing mL/min Estimated GFR (MDRD) (>60) mL/min BUN/Creatinine Ratio (14-18) Glucose (70-99) mg/dL POC Glucose 380 H 343 H (70-99) mg/dL Calcium (8.5-10.1) mg/dL Total Bilirubin (0.2-1.0) mg/dL AST (15-37) U/L ALT (16-63) U/L Alkaline Phosphatase (46-116) U/L Troponin I (0.00-0.056) ng/mL NT-Pro-B Natriuret Pep (0-125) pg/mL Total Protein (6.4-8.2) g/dl Albumin (3.4-5.0) g/dl Globulin gm/dL Albumin/Globulin Ratio (1-2) 09/12/21 Range/Units 06:05 WBC (4.23-9.07) K/mm3 RBC (4.63-6.08) M/mm3 Hgb (13.7-17.5) gm/dl Hct (40.1-51.0) % MCV (79.0-92.2) fl MCH (25.7-32.2) pg MCHC (32.2-35.5) g/dl RDW Std Deviation (35.1-43.9) fL Plt Count (163-337) K/mm3 MPV (9.4-12.3) fl Neut % (Auto) (34.0-67.9) % Lymph % (Auto) (21.8-53.1) % [place] % (Auto) (5.3-12.2) % Eos % (Auto) (0.8-7.0) Baso % (Auto) (0.1-1.2) % Neut # (Auto) (1.78-5.38) K/mm3 Lymph # (Auto) (1.32-3.57) K/mm3 [place] # (Auto) (0.30-0.82) K/mm3 Eos # (Auto) (0.04-0.54) K/mm3 Baso # (Auto) (0.01-0.08) K/mm3 D-Dimer, Quantitative (0.19-0.50) mg/L Puncture Site ABG pH (7.35-7.45) ABG pCO2 (35.0-45.0) mmHg ABG pO2 (80.0-100.0) mmHg ABG HCO3 (22.0-26.0) meq/L ABG O2 Saturation (96.0-97.0) % ABG Base Excess (-2-2.0) A-a Gradient mmHg O2 Delivery Device Oxygen Flow Rate FiO2 (21.00-100.00) % Sodium (136-145) mEq/L Potassium (3.5-5.1) mEq/L Chloride (98-107) mEq/L Carbon Dioxide (21-32) mEq/L Anion Gap (5-15) BUN (7-18) mg/dL Creatinine (0.7-1.3) mg/dL Est Cr Clr Drug Dosing mL/min Estimated GFR (MDRD) (>60) mL/min BUN/Creatinine Ratio (14-18) Glucose (70-99) mg/dL POC Glucose 295 H (70-99) mg/dL Calcium (8.5-10.1) mg/dL Total Bilirubin (0.2-1.0) mg/dL AST (15-37) U/L ALT (16-63) U/L Alkaline Phosphatase (46-116) U/L Troponin I (0.00-0.056) ng/mL NT-Pro-B Natriuret Pep (0-125) pg/mL Total Protein (6.4-8.2) g/dl Albumin (3.4-5.0) g/dl Globulin gm/dL Albumin/Globulin Ratio (1-2) Result Diagrams: 09/12/21 05:55 09/11/21 06:44 Sepsis Event Note - Focused Exam Vital Signs: Vital Signs Temp Pulse Resp BP Pulse Ox Pulse Ox 09/12/21 05:59 93 L 09/12/21 04:25 92 L 09/12/21 03:54 98.1 F 13 139/74 09/12/21 00:18 97.3 F 91 20 147/86 H 85 L 09/11/21 20:56 92 L 09/11/21 20:33 109 H 138/97 H 09/11/21 20:31 98.6 F 109 H 22 H 138/97 H 93 L Orders Last 24hrs: Active Orders 24 hr Category Date Time Status Admission Status [Patient Status] [ADT] Routine ADT 09/11/21 09:13 Active Blood Glucose Check, Bedside [RC] QIDACANDBED Care 09/11/21 11:15 Active Elevate Extremity [RC] BID Care 09/11/21 13:16 Active Height and Weight [RC] 0600 Care 09/11/21 11:09 Active Intake and Output [RC] 04,16 Care 09/11/21 11:10 Active Oxygen Therapy [RC] ASDIRECTED Care 09/11/21 11:10 Active Pulse Oximetry [RC] PRN Care 09/11/21 11:10 Active RT Aerosol Therapy [RC] ASDIRECTED Care 09/11/21 11:11 Active RT Incentive Spirometry [RC] ASDIRECTED Care 09/11/21 11:09 Active Up With Assistance [RC] ASDIRECTED Care 09/11/21 11:10 Active Vital Signs [RC] Q6H Care 09/11/21 11:10 Active Respiratory Care Assess and Treatment [CONS] Routine Cons 09/11/21 11:12 Active Consistent Carbohydrate Diet [DIET] Diet 09/11/21 Lunch Active CBC WITH AUTO DIFF [HEME] AM Lab 09/13/21 05:11 Ordered CBC WITH AUTO DIFF [HEME] AM Lab 09/14/21 05:11 Ordered CBC WITH AUTO DIFF [HEME] AM Lab 09/15/21 05:11 Ordered COMPREHENSIVE METABOLIC PN,CMP [CHEM] AM Lab 09/12/21 05:55 Received COMPREHENSIVE METABOLIC PN,CMP [CHEM] AM Lab 09/13/21 05:11 Ordered COMPREHENSIVE METABOLIC PN,CMP [CHEM] AM Lab 09/14/21 05:11 Ordered COMPREHENSIVE METABOLIC PN,CMP [CHEM] AM Lab 09/15/21 05:11 Ordered MAGNESIUM [CHEM] AM Lab 09/12/21 05:55 Received MAGNESIUM [CHEM] AM Lab 09/13/21 05:11 Ordered MAGNESIUM [CHEM] AM Lab 09/14/21 05:11 Ordered MAGNESIUM [CHEM] AM Lab 09/15/21 05:11 Ordered Acetaminophen [TylenoL] Med 09/11/21 11:09 Active 650 mg PO Q4H PRN Acetaminophen/HYDROcodone [[place] 325-5 MG] Med 09/11/21 13:13 Active 1 tab PO Q6H PRN Albuterol [Proventil HFA] Med 09/11/21 11:09 Active See Dose Instructions INH Q2H PRN Albuterol/Ipratropium [DuoNeb 3.0-0.5 MG/3 ML] Med 09/11/21 16:00 Active 3 ml NEB QIDRT Azithromycin [Zithromax] Med 09/11/21 12:00 Active 500 mg PO 1200 Cyclobenzaprine [Flexeril] Med 09/11/21 13:02 Active 10 mg PO TID PRN Docusate Sodium/Sennosides [Senna Plus] Med 09/11/21 11:09 Active 1 tab PO BID PRN Enoxaparin [Lovenox] Med 09/12/21 09:00 Active 40 mg SUBCUT DAILY Furosemide [Lasix] Med 09/11/21 13:30 Active 40 mg PO Q48H Gabapentin [Neurontin] Med 09/11/21 15:00 Active 600 mg PO TID Insulin Lispro [HumaLOG] Med 09/11/21 11:30 Active 0 unit SUBCUT 0700,1100,1700,2100 Isosorbide Mononitrate [Imdur] Med 09/12/21 09:00 Active 30 mg PO DAILY Losartan [Cozaar] Med 09/12/21 09:00 Active 100 mg PO DAILY Metoprolol Tartrate [Lopressor] Med 09/11/21 21:00 Active 12.5 mg PO BID Mometasone/Formoterol [Dulera 200-5 MCG] Med 09/11/21 21:00 Active 2 puff IH BID Nicotine [Habitrol] Med 09/11/21 14:15 Active 14 mg TRDERM DAILY Nystatin [Nystop] Med 09/11/21 21:00 Active 0 gm TOP TID Ondansetron [Zofran] Med 09/11/21 11:09 Active 4 mg IV Q6H PRN Potassium Chloride [Klor-Con M20] Med 09/11/21 15:00 Active 20 meq PO TID Remove Patch Med 09/12/21 09:00 Active 1 ea TRDERM DAILY Rosuvastatin [Crestor] Med 09/12/21 09:00 Active 10 mg PO DAILY Sertraline [Zoloft] Med 09/12/21 09:00 Active 100 mg PO DAILY Sodium Chloride 0.9% [Saline Flush] Med 09/11/21 06:23 Active 10 ml FLUSH ASDIRECTED PRN Tiotropium BR/Olodaterol HCL [Stiolto Respimat] Med 09/12/21 09:00 Active See Dose Instructions INH DAILY methylPREDNISolone Sod Succ [Solu-MEDROL] Med 09/12/21 09:00 Active 60 mg IVPUSH DAILY Peripheral IV Insertion Adult [OM.PC] Stat Oth 09/11/21 06:23 Ordered Resuscitation Status Routine Resus Stat 09/11/21 11:09 Ordered Medication Orders Acetaminophen (Acetaminophen 325 Mg Tab) 650 mg PO Q4H PRN PRN Reason: Pain (Mild 1-3)/fever Hydrocodone Bitart/Acetaminophen (Acetaminophen/Hydrocodone 325-5 Mg Tab) 1 tab PO Q6H PRN PRN Reason: Pain (moderate 4-6) Last Admin: 09/12/21 05:08 Dose: 1 tab Documented by: Admin: 09/11/21 20:33 Dose: 1 tab Documented by: Admin: 09/11/21 13:52 Dose: 1 tab Documented by: CATHY Albuterol (Albuterol 6.7 Gm Inhaler) 0 gm INH Q2H PRN PRN Reason: Shortness of Breath Last Admin: 09/11/21 13:22 Dose: 2 inhalation Documented by: NATO Albuterol/Ipratropium (Albuterol/Ipratropium 3.0-0.5 Mg/3 Ml Neb Soln) 3 ml NEB QIDRT [facility] Last Admin: 09/12/21 05:58 Dose: 3 ml Documented by: Admin: 09/11/21 20:55 Dose: 3 ml Documented by: Admin: 09/11/21 15:18 Dose: 3 ml Documented by: NATO Azithromycin (Azithromycin 250 Mg Tab) 500 mg PO 1200 [facility] Stop: 09/13/21 12:01 Last Admin: 09/11/21 12:55 Dose: 500 mg Documented by: CHARLENE Cyclobenzaprine HCl (Cyclobenzaprine 10 Mg Tab) 10 mg PO TID PRN PRN Reason: Pain Last Admin: 09/12/21 05:08 Dose: 10 mg Documented by: Admin: 09/11/21 20:33 Dose: 10 mg Documented by: Admin: 09/11/21 13:56 Dose: 10 mg Documented by: CATHY Enoxaparin Sodium (Enoxaparin 40 Mg/0.4 Ml Syringe) 40 mg SUBCUT DAILY [facility] Furosemide (Furosemide 40 Mg Tab) 40 mg PO Q48H [facility] Last Admin: 09/11/21 13:56 Dose: 40 mg Documented by: CATHY Gabapentin (Gabapentin 600 Mg Tab) 600 mg PO TID [facility] Last Admin: 09/11/21 20:33 Dose: 600 mg Documented by: Admin: 09/11/21 16:16 Dose: Not Given Documented by: Admin: 09/11/21 13:53 Dose: 600 mg Documented by: CATHY Insulin Human Lispro (Insulin Lispro 100 Unit/Ml 3 Ml Kwikpen) 0 unit SUBCUT 0700,1100,1700,2100 [facility]; Protocol Last Admin: 09/11/21 20:38 Dose: 12 units Documented by: Admin: 09/11/21 17:09 Dose: 15 units Documented by: Admin: 09/11/21 12:53 Dose: 10 units Documented by: CHARLENE Isosorbide Mononitrate (Isosorbide Mononitrate 30 Mg Tab.Er) 30 mg PO DAILY [facility] Losartan Potassium (Losartan 100 Mg Tab) 100 mg PO DAILY [facility] Methylprednisolone Sodium Succinate (Methylprednisolone Sodium Succinate 40 Mg/1 Ml Sdv) 60 mg IVPUSH DAILY [facility] Metoprolol Tartrate (Metoprolol Tartrate 25 Mg Tab) 12.5 mg PO BID [facility] Last Admin: 09/11/21 20:33 Dose: 12.5 mg Documented by: KEVIN Miscellaneous Information (Remove Nicotine Patch) 1 ea TRDERM DAILY [facility] Mometasone Furoate/Formoterol Fumar (Formoterol/Mometasone 200-5 Mcg 8.8 Gm Inhaler) 2 puff IH BID [facility] Last Admin: 09/11/21 20:55 Dose: 2 puff Documented by: MIKAL Nicotine (Nicotine 14 Mg/24 Hr Patch) 14 mg TRDERM DAILY [facility] Last Admin: 09/11/21 14:34 Dose: 14 mg Documented by: CHARLENE Nystatin (Nystatin Topical Powder 15 Gm Bottle) 0 gm TOP TID [facility] Last Admin: 09/11/21 20:34 Dose: 1 applic Documented by: KEVIN Ondansetron HCl (Ondansetron 4 Mg/2 Ml Sdv) 4 mg IV Q6H PRN PRN Reason: Nausea/Vomiting Potassium Chloride (Potassium Chloride 20 Meq Tab.Er) 20 meq PO TID [facility] Last Admin: 09/11/21 20:34 Dose: 20 meq Documented by: Admin: 09/11/21 16:15 Dose: Not Given Documented by: Admin: 09/11/21 13:52 Dose: 20 meq Documented by: CATHY Rosuvastatin Calcium (Rosuvastatin 10 Mg Tab) 10 mg PO DAILY [facility] Senna/Docusate Sodium (Docusate Sodium/Sennosides 50-8.6 Mg Tab) 1 tab PO BID PRN PRN Reason: Constipation Sertraline HCl (Sertraline 50 Mg Tab) 100 mg PO DAILY [facility] Sodium Chloride (Sodium Chloride 0.9% 10 Ml Syringe) 10 ml FLUSH ASDIRECTED PRN PRN Reason: Keep Vein Open Last Admin: 09/11/21 06:32 Dose: 10 ml Documented by: JACKIE Assessment/Plan Comment:: Case discussed in full. Agree with evaluation, assessment and plan. -Israel Mars Jr., DO
--- NOTE | 2021-09-11 10:27 | CT ---
Chest: Multiple axial sections through the chest were obtained. Intravenous contrast was not utilized. Comparison: Prior chest x-ray of 09/11/21. Chest CT study of 01/21/21 is also available. Findings: Small fluid filled cyst is noted within the superior mediastinum measuring approximately 2.5 cm in size which is stable from prior exam. Thoracic aorta shows no aneurysm. No other mediastinal abnormality is seen. No pericardial thickening is seen. Diffuse fatty infiltration is seen within the liver. Lungs are clear with no acute parenchymal change. Bone window settings were obtained which shows compression deformities within the thoracic spine which are stable. Degenerative change is also noted within the spine. Impression: 1. Stable chest CT from prior study of 01/21/21. 2. Prior chest x-ray showed a density at the left cardiac apex which is not appreciated as a mass on chest CT. 3. Nothing acute is seen. Diagnostic code #2
[2021-09-11] MEDS ORDERED: Ondansetron 4 MG/2 ML SDV IV PRN (11:09)
[2021-09-11] MEDS ORDERED: Acetaminophen/HYDROcodone 325-5 MG Tab PO PRN (11:09)
[2021-09-11] MEDS ORDERED: Acetaminophen 325 MG Tab PO PRN (11:09)
[2021-09-11] MEDS ORDERED: Insulin Lispro 100 Unit/ML 3 ML KwikPen SUBCUT SCH (11:15)
[2021-09-11] MEDS: Insulin Lispro 100 Unit/ML 3 ML KwikPen SUBCUT SCH ×3 (12:53→20:38)
[2021-09-11] MEDS: Azithromycin 250 MG Tab PO SCH (12:55)
[2021-09-11] MEDS: Albuterol 6.7 GM Inhaler INH PRN (13:22)
[2021-09-11] MEDS: Potassium Chloride 20 MEQ Tab.ER PO SCH ×3 (13:52→20:34)
[2021-09-11] MEDS: Acetaminophen/HYDROcodone 325-5 MG Tab PO PRN ×2 (13:52→20:33)
[2021-09-11] MEDS: Gabapentin 600 MG Tab PO SCH ×3 (13:53→20:33)
[2021-09-11] MEDS: Furosemide 40 MG Tab PO SCH (13:56)
[2021-09-11] MEDS: Cyclobenzaprine 10 MG Tab PO PRN ×2 (13:56→20:33)
[2021-09-11] MEDS: Nicotine 14 MG/24 Hr Patch TRDERM SCH (14:34)
[2021-09-11] MEDS: Albuterol/Ipratropium 3.0-0.5 MG/3 ML Neb Soln NEB SCH ×2 (15:18→20:55)
[2021-09-11] MEDS: Metoprolol Tartrate 25 MG Tab PO SCH (20:33)
[2021-09-11] MEDS: Nystatin Topical Powder 15 GM Bottle TOP SCH (20:34)
[2021-09-11] MEDS: Formoterol/Mometasone 200-5 MCG 8.8 GM Inhaler IH SCH (20:55)
[2021-09-11] MEDS ORDERED: Insulin Glargine,Hum.Rec.Anlog 100 UNIT/ML 3 ML Pen SUBCUT SCH (21:00)
[2021-09-12] MEDS: Cyclobenzaprine 10 MG Tab PO PRN ×3 (05:08→21:54)
[2021-09-12] MEDS: Acetaminophen/HYDROcodone 325-5 MG Tab PO PRN ×3 (05:08→17:43)
[2021-09-12] MEDS: Albuterol/Ipratropium 3.0-0.5 MG/3 ML Neb Soln NEB SCH ×4 (05:58→20:32)
--- NOTE | 2021-09-12 07:57 | PCM.PN ---
- General Info Date of Service: 09/12/21 Admission Dx/Problem (Free Text): Admission Diagnosis/Problem Admission Diagnosis/Problem Asthma with acute exacerbation in adult Subjective Update: No acute events overnight. No new nursing concerns. Patient seen and examined while he sitting up in the chair eating breakfast. He does not endorse any specific new complaints other than discolored sputum which he has shown to me to be yellow and dark brown in color. No hemoptysis. No fever. States that he feels better today in comparison to when he came into the hospital. Still remains on 3 L supplemental oxygen. Working with incentive spirometer multiple times an hour. - Patient Data Vitals - Most Recent: Last Vital Signs Temp 98.1 F 09/12/21 03:54 Pulse 91 09/12/21 00:18 Resp 13 09/12/21 03:54 BP 139/74 09/12/21 03:54 Pulse Ox 93 L 09/12/21 05:59 Weight - Most Recent: 452 lb 1.6 oz I&O - Last 24 Hours: Intake & Output 09/11/21 09/12/21 09/12/21 22:59 06:59 14:59 Intake Total 1600 800 Output Total 2100 2000 Balance -500 -1200 Lab Results Last 24 Hours: Laboratory Results - last 24 hr 09/11/21 09/11/21 09/11/21 Range/Units 08:36 12:53 16:57 WBC (4.23-9.07) K/mm3 RBC (4.63-6.08) M/mm3 Hgb (13.7-17.5) gm/dl Hct (40.1-51.0) % MCV (79.0-92.2) fl MCH (25.7-32.2) pg MCHC (32.2-35.5) g/dl RDW Std Deviation (35.1-43.9) fL Plt Count (163-337) K/mm3 MPV (9.4-12.3) fl Neut % (Auto) (34.0-67.9) % Lymph % (Auto) (21.8-53.1) % [place] % (Auto) (5.3-12.2) % Eos % (Auto) (0.8-7.0) Baso % (Auto) (0.1-1.2) % Neut # (Auto) (1.78-5.38) K/mm3 Lymph # (Auto) (1.32-3.57) K/mm3 [place] # (Auto) (0.30-0.82) K/mm3 Eos # (Auto) (0.04-0.54) K/mm3 Baso # (Auto) (0.01-0.08) K/mm3 Puncture Site Rt radial ABG pH 7.37 (7.35-7.45) ABG pCO2 46.8 H (35.0-45.0) mmHg ABG pO2 78.0 L (80.0-100.0) mmHg ABG HCO3 26.4 H (22.0-26.0) meq/L ABG O2 Saturation 95.4 L (96.0-97.0) % ABG Base Excess 1.1 (-2-2.0) A-a Gradient 120 mmHg O2 Delivery Device Nasal cannula Oxygen Flow Rate 4.0 FiO2 36.00 (21.00-100.00) % Sodium (136-145) mEq/L Potassium (3.5-5.1) mEq/L Chloride (98-107) mEq/L Carbon Dioxide (21-32) mEq/L Anion Gap (5-15) BUN (7-18) mg/dL Creatinine (0.7-1.3) mg/dL Est Cr Clr Drug Dosing mL/min Estimated GFR (MDRD) (>60) mL/min BUN/Creatinine Ratio (14-18) Glucose (70-99) mg/dL POC Glucose 378 H 380 H (70-99) mg/dL Calcium (8.5-10.1) mg/dL Magnesium (1.8-2.4) mg/dL Total Bilirubin (0.2-1.0) mg/dL AST (15-37) U/L ALT (16-63) U/L Alkaline Phosphatase (46-116) U/L Total Protein (6.4-8.2) g/dl Albumin (3.4-5.0) g/dl Globulin gm/dL Albumin/Globulin Ratio (1-2) 09/11/21 09/12/21 09/12/21 Range/Units 20:23 05:55 05:55 WBC 11.78 H (4.23-9.07) K/mm3 RBC 5.19 (4.63-6.08) M/mm3 Hgb 14.8 (13.7-17.5) gm/dl Hct 45.4 (40.1-51.0) % MCV 87.5 (79.0-92.2) fl MCH 28.5 (25.7-32.2) pg MCHC 32.6 (32.2-35.5) g/dl RDW Std Deviation 45.1 H (35.1-43.9) fL Plt Count 191 (163-337) K/mm3 MPV 11.6 (9.4-12.3) fl Neut % (Auto) 89.0 H (34.0-67.9) % Lymph % (Auto) 5.4 L (21.8-53.1) % [place] % (Auto) 5.3 (5.3-12.2) % Eos % (Auto) 0 L (0.8-7.0) Baso % (Auto) 0.1 (0.1-1.2) % Neut # (Auto) 10.49 H (1.78-5.38) K/mm3 Lymph # (Auto) 0.64 L (1.32-3.57) K/mm3 [place] # (Auto) 0.62 (0.30-0.82) K/mm3 Eos # (Auto) 0.00 L (0.04-0.54) K/mm3 Baso # (Auto) 0.01 (0.01-0.08) K/mm3 Puncture Site ABG pH (7.35-7.45) ABG pCO2 (35.0-45.0) mmHg ABG pO2 (80.0-100.0) mmHg ABG HCO3 (22.0-26.0) meq/L ABG O2 Saturation (96.0-97.0) % ABG Base Excess (-2-2.0) A-a Gradient mmHg O2 Delivery Device Oxygen Flow Rate FiO2 (21.00-100.00) % Sodium 138 (136-145) mEq/L Potassium 4.3 (3.5-5.1) mEq/L Chloride 101 (98-107) mEq/L Carbon Dioxide 28 (21-32) mEq/L Anion Gap 13.3 (5-15) BUN 17 (7-18) mg/dL Creatinine 0.7 (0.7-1.3) mg/dL Est Cr Clr Drug Dosing 156.57 mL/min Estimated GFR (MDRD) > 60 (>60) mL/min BUN/Creatinine Ratio 24.3 H (14-18) Glucose 303 H (70-99) mg/dL POC Glucose 343 H (70-99) mg/dL Calcium 9.0 (8.5-10.1) mg/dL Magnesium 2.0 (1.8-2.4) mg/dL Total Bilirubin 0.5 (0.2-1.0) mg/dL AST 29 (15-37) U/L ALT 58 (16-63) U/L Alkaline Phosphatase 113 (46-116) U/L Total Protein 6.7 (6.4-8.2) g/dl Albumin 3.4 (3.4-5.0) g/dl Globulin 3.3 gm/dL Albumin/Globulin Ratio 1.0 (1-2) 09/12/21 Range/Units 06:05 WBC (4.23-9.07) K/mm3 RBC (4.63-6.08) M/mm3 Hgb (13.7-17.5) gm/dl Hct (40.1-51.0) % MCV (79.0-92.2) fl MCH (25.7-32.2) pg MCHC (32.2-35.5) g/dl RDW Std Deviation (35.1-43.9) fL Plt Count (163-337) K/mm3 MPV (9.4-12.3) fl Neut % (Auto) (34.0-67.9) % Lymph % (Auto) (21.8-53.1) % [place] % (Auto) (5.3-12.2) % Eos % (Auto) (0.8-7.0) Baso % (Auto) (0.1-1.2) % Neut # (Auto) (1.78-5.38) K/mm3 Lymph # (Auto) (1.32-3.57) K/mm3 [place] # (Auto) (0.30-0.82) K/mm3 Eos # (Auto) (0.04-0.54) K/mm3 Baso # (Auto) (0.01-0.08) K/mm3 Puncture Site ABG pH (7.35-7.45) ABG pCO2 (35.0-45.0) mmHg ABG pO2 (80.0-100.0) mmHg ABG HCO3 (22.0-26.0) meq/L ABG O2 Saturation (96.0-97.0) % ABG Base Excess (-2-2.0) A-a Gradient mmHg O2 Delivery Device Oxygen Flow Rate FiO2 (21.00-100.00) % Sodium (136-145) mEq/L Potassium (3.5-5.1) mEq/L Chloride (98-107) mEq/L Carbon Dioxide (21-32) mEq/L Anion Gap (5-15) BUN (7-18) mg/dL Creatinine (0.7-1.3) mg/dL Est Cr Clr Drug Dosing mL/min Estimated GFR (MDRD) (>60) mL/min BUN/Creatinine Ratio (14-18) Glucose (70-99) mg/dL POC Glucose 295 H (70-99) mg/dL Calcium (8.5-10.1) mg/dL Magnesium (1.8-2.4) mg/dL Total Bilirubin (0.2-1.0) mg/dL AST (15-37) U/L ALT (16-63) U/L Alkaline Phosphatase (46-116) U/L Total Protein (6.4-8.2) g/dl Albumin (3.4-5.0) g/dl Globulin gm/dL Albumin/Globulin Ratio (1-2) Med Orders - Current: Current Medications Acetaminophen (Acetaminophen 325 Mg Tab) 650 mg PO Q4H PRN PRN Reason: Pain (Mild 1-3)/fever Hydrocodone Bitart/Acetaminophen (Acetaminophen/Hydrocodone 325-5 Mg Tab) 1 tab PO Q6H PRN PRN Reason: Pain (moderate 4-6) Last Admin: 09/12/21 05:08 Dose: 1 tab Documented by: Albuterol (Albuterol 6.7 Gm Inhaler) 0 gm INH Q2H PRN PRN Reason: Shortness of Breath Last Admin: 09/11/21 13:22 Dose: 2 inhalation Documented by: Albuterol/Ipratropium (Albuterol/Ipratropium 3.0-0.5 Mg/3 Ml Neb Soln) 3 ml NEB QIDRT [facility] Last Admin: 09/12/21 05:58 Dose: 3 ml Documented by: Azithromycin (Azithromycin 250 Mg Tab) 500 mg PO 1200 [facility] Stop: 09/13/21 12:01 Last Admin: 09/11/21 12:55 Dose: 500 mg Documented by: Cyclobenzaprine HCl (Cyclobenzaprine 10 Mg Tab) 10 mg PO TID PRN PRN Reason: Pain Last Admin: 09/12/21 05:08 Dose: 10 mg Documented by: Enoxaparin Sodium (Enoxaparin 40 Mg/0.4 Ml Syringe) 40 mg SUBCUT DAILY [facility] Furosemide (Furosemide 40 Mg Tab) 40 mg PO Q48H [facility] Last Admin: 09/11/21 13:56 Dose: 40 mg Documented by: Gabapentin (Gabapentin 600 Mg Tab) 600 mg PO TID [facility] Last Admin: 09/11/21 20:33 Dose: 600 mg Documented by: Insulin Human Lispro (Insulin Lispro 100 Unit/Ml 3 Ml Kwikpen) 0 unit SUBCUT 0700,1100,1700,2100 [facility]; Protocol Last Admin: 09/11/21 20:38 Dose: 12 units Documented by: Isosorbide Mononitrate (Isosorbide Mononitrate 30 Mg Tab.Er) 30 mg PO DAILY [facility] Losartan Potassium (Losartan 100 Mg Tab) 100 mg PO DAILY [facility] Methylprednisolone Sodium Succinate (Methylprednisolone Sodium Succinate 40 Mg/1 Ml Sdv) 60 mg IVPUSH DAILY [facility] Metoprolol Tartrate (Metoprolol Tartrate 25 Mg Tab) 12.5 mg PO BID [facility] Last Admin: 09/11/21 20:33 Dose: 12.5 mg Documented by: Miscellaneous Information (Remove Nicotine Patch) 1 ea TRDERM DAILY [facility] Mometasone Furoate/Formoterol Fumar (Formoterol/Mometasone 200-5 Mcg 8.8 Gm Inhaler) 2 puff IH BID [facility] Last Admin: 09/11/21 20:55 Dose: 2 puff Documented by: Nicotine (Nicotine 14 Mg/24 Hr Patch) 14 mg TRDERM DAILY [facility] Last Admin: 09/11/21 14:34 Dose: 14 mg Documented by: Nystatin (Nystatin Topical Powder 15 Gm Bottle) 0 gm TOP TID [facility] Last Admin: 09/11/21 20:34 Dose: 1 applic Documented by: Ondansetron HCl (Ondansetron 4 Mg/2 Ml Sdv) 4 mg IV Q6H PRN PRN Reason: Nausea/Vomiting Potassium Chloride (Potassium Chloride 20 Meq Tab.Er) 20 meq PO TID [facility] Last Admin: 09/11/21 20:34 Dose: 20 meq Documented by: Rosuvastatin Calcium (Rosuvastatin 10 Mg Tab) 10 mg PO DAILY [facility] Senna/Docusate Sodium (Docusate Sodium/Sennosides 50-8.6 Mg Tab) 1 tab PO BID PRN PRN Reason: Constipation Sertraline HCl (Sertraline 50 Mg Tab) 100 mg PO DAILY [facility] Sodium Chloride (Sodium Chloride 0.9% 10 Ml Syringe) 10 ml FLUSH ASDIRECTED PRN PRN Reason: Keep Vein Open Last Admin: 09/11/21 06:32 Dose: 10 ml Documented by: Discontinued Medications Hydrocodone Bitart/Acetaminophen (Acetaminophen/Hydrocodone 325-5 Mg Tab) 1 tab PO ONETIME ONE Stop: 09/11/21 09:11 Last Admin: 09/11/21 09:28 Dose: 1 tab Documented by: Hydrocodone Bitart/Acetaminophen (Acetaminophen/Hydrocodone 325-5 Mg Tab) 1 tab PO Q4H PRN PRN Reason: Pain (moderate 4-6) Albuterol (Albuterol 0.5% 2.5 Mg/0.5 Ml Neb Soln) 10 mg NEB ONETIME ONE Stop: 09/11/21 08:19 Last Admin: 09/11/21 08:28 Dose: 10 mg Documented by: Albuterol/Ipratropium (Albuterol/Ipratropium 3.0-0.5 Mg/3 Ml Neb Soln) 3 ml NEB ONETIME ONE Stop: 09/11/21 07:10 Last Admin: 09/11/21 07:28 Dose: 3 ml Documented by: Hydrochlorothiazide (Hydrochlorothiazide 12.5 Mg Cap) 12.5 mg PO DAILY [facility] Magnesium Sulfate 2 gm/ Premix 50 mls @ 25 mls/hr IV ONETIME ONE Stop: 09/11/21 08:24 Last Admin: 09/11/21 06:32 Dose: 25 mls/hr Documented by: Insulin Glargine (Insulin Glargine,Hum.Rec.Anlog 100 Unit/Ml 3 Ml Pen) 20 unit SUBCUT BEDTIME [facility] Insulin Human Lispro (Insulin Lispro 100 Unit/Ml 3 Ml Kwikpen) 0 unit SUBCUT WITHMEALSANDBED [facility]; Protocol Insulin Human Regular (Insulin Regular, Human 100 Units/Ml 3 Ml Vial) 10 unit SUBCUT ONETIME ONE Stop: 09/11/21 09:09 Last Admin: 09/11/21 09:39 Dose: 10 unit Documented by: Methylprednisolone Sodium Succinate (Methylprednisolone Sodium Succinate 125 Mg/2 Ml Sdv) 125 mg IVPUSH ONETIME ONE Stop: 09/11/21 06:25 Last Admin: 09/11/21 06:30 Dose: 125 mg Documented by: - Exam Quality Assessment: Supplemental Oxygen General: Alert, No Acute Distress Lungs: Decreased Breath Sounds, Wheezing Cardiovascular: Regular Rate GI/Abdominal Exam: Normal Bowel Sounds, Soft, Non-Tender, Other (Morbidly obese) Extremities: Normal Inspection Skin: Warm, Dry - Patient Data Lab Results Last 24 hrs: Laboratory Results - last 24 hr 09/11/21 09/11/21 09/11/21 Range/Units 08:36 12:53 16:57 WBC (4.23-9.07) K/mm3 RBC (4.63-6.08) M/mm3 Hgb (13.7-17.5) gm/dl Hct (40.1-51.0) % MCV (79.0-92.2) fl MCH (25.7-32.2) pg MCHC (32.2-35.5) g/dl RDW Std Deviation (35.1-43.9) fL Plt Count (163-337) K/mm3 MPV (9.4-12.3) fl Neut % (Auto) (34.0-67.9) % Lymph % (Auto) (21.8-53.1) % [place] % (Auto) (5.3-12.2) % Eos % (Auto) (0.8-7.0) Baso % (Auto) (0.1-1.2) % Neut # (Auto) (1.78-5.38) K/mm3 Lymph # (Auto) (1.32-3.57) K/mm3 [place] # (Auto) (0.30-0.82) K/mm3 Eos # (Auto) (0.04-0.54) K/mm3 Baso # (Auto) (0.01-0.08) K/mm3 Puncture Site Rt radial ABG pH 7.37 (7.35-7.45) ABG pCO2 46.8 H (35.0-45.0) mmHg ABG pO2 78.0 L (80.0-100.0) mmHg ABG HCO3 26.4 H (22.0-26.0) meq/L ABG O2 Saturation 95.4 L (96.0-97.0) % ABG Base Excess 1.1 (-2-2.0) A-a Gradient 120 mmHg O2 Delivery Device Nasal cannula Oxygen Flow Rate 4.0 FiO2 36.00 (21.00-100.00) % Sodium (136-145) mEq/L Potassium (3.5-5.1) mEq/L Chloride (98-107) mEq/L Carbon Dioxide (21-32) mEq/L Anion Gap (5-15) BUN (7-18) mg/dL Creatinine (0.7-1.3) mg/dL Est Cr Clr Drug Dosing mL/min Estimated GFR (MDRD) (>60) mL/min BUN/Creatinine Ratio (14-18) Glucose (70-99) mg/dL POC Glucose 378 H 380 H (70-99) mg/dL Calcium (8.5-10.1) mg/dL Magnesium (1.8-2.4) mg/dL Total Bilirubin (0.2-1.0) mg/dL AST (15-37) U/L ALT (16-63) U/L Alkaline Phosphatase (46-116) U/L Total Protein (6.4-8.2) g/dl Albumin (3.4-5.0) g/dl Globulin gm/dL Albumin/Globulin Ratio (1-2) 09/11/21 09/12/21 09/12/21 Range/Units 20:23 05:55 05:55 WBC 11.78 H (4.23-9.07) K/mm3 RBC 5.19 (4.63-6.08) M/mm3 Hgb 14.8 (13.7-17.5) gm/dl Hct 45.4 (40.1-51.0) % MCV 87.5 (79.0-92.2) fl MCH 28.5 (25.7-32.2) pg MCHC 32.6 (32.2-35.5) g/dl RDW Std Deviation 45.1 H (35.1-43.9) fL Plt Count 191 (163-337) K/mm3 MPV 11.6 (9.4-12.3) fl Neut % (Auto) 89.0 H (34.0-67.9) % Lymph % (Auto) 5.4 L (21.8-53.1) % [place] % (Auto) 5.3 (5.3-12.2) % Eos % (Auto) 0 L (0.8-7.0) Baso % (Auto) 0.1 (0.1-1.2) % Neut # (Auto) 10.49 H (1.78-5.38) K/mm3 Lymph # (Auto) 0.64 L (1.32-3.57) K/mm3 [place] # (Auto) 0.62 (0.30-0.82) K/mm3 Eos # (Auto) 0.00 L (0.04-0.54) K/mm3 Baso # (Auto) 0.01 (0.01-0.08) K/mm3 Puncture Site ABG pH (7.35-7.45) ABG pCO2 (35.0-45.0) mmHg ABG pO2 (80.0-100.0) mmHg ABG HCO3 (22.0-26.0) meq/L ABG O2 Saturation (96.0-97.0) % ABG Base Excess (-2-2.0) A-a Gradient mmHg O2 Delivery Device Oxygen Flow Rate FiO2 (21.00-100.00) % Sodium 138 (136-145) mEq/L Potassium 4.3 (3.5-5.1) mEq/L Chloride 101 (98-107) mEq/L Carbon Dioxide 28 (21-32) mEq/L Anion Gap 13.3 (5-15) BUN 17 (7-18) mg/dL Creatinine 0.7 (0.7-1.3) mg/dL Est Cr Clr Drug Dosing 156.57 mL/min Estimated GFR (MDRD) > 60 (>60) mL/min BUN/Creatinine Ratio 24.3 H (14-18) Glucose 303 H (70-99) mg/dL POC Glucose 343 H (70-99) mg/dL Calcium 9.0 (8.5-10.1) mg/dL Magnesium 2.0 (1.8-2.4) mg/dL Total Bilirubin 0.5 (0.2-1.0) mg/dL AST 29 (15-37) U/L ALT 58 (16-63) U/L Alkaline Phosphatase 113 (46-116) U/L Total Protein 6.7 (6.4-8.2) g/dl Albumin 3.4 (3.4-5.0) g/dl Globulin 3.3 gm/dL Albumin/Globulin Ratio 1.0 (1-2) 09/12/21 Range/Units 06:05 WBC (4.23-9.07) K/mm3 RBC (4.63-6.08) M/mm3 Hgb (13.7-17.5) gm/dl Hct (40.1-51.0) % MCV (79.0-92.2) fl MCH (25.7-32.2) pg MCHC (32.2-35.5) g/dl RDW Std Deviation (35.1-43.9) fL Plt Count (163-337) K/mm3 MPV (9.4-12.3) fl Neut % (Auto) (34.0-67.9) % Lymph % (Auto) (21.8-53.1) % [place] % (Auto) (5.3-12.2) % Eos % (Auto) (0.8-7.0) Baso % (Auto) (0.1-1.2) % Neut # (Auto) (1.78-5.38) K/mm3 Lymph # (Auto) (1.32-3.57) K/mm3 [place] # (Auto) (0.30-0.82) K/mm3 Eos # (Auto) (0.04-0.54) K/mm3 Baso # (Auto) (0.01-0.08) K/mm3 Puncture Site ABG pH (7.35-7.45) ABG pCO2 (35.0-45.0) mmHg ABG pO2 (80.0-100.0) mmHg ABG HCO3 (22.0-26.0) meq/L ABG O2 Saturation (96.0-97.0) % ABG Base Excess (-2-2.0) A-a Gradient mmHg O2 Delivery Device Oxygen Flow Rate FiO2 (21.00-100.00) % Sodium (136-145) mEq/L Potassium (3.5-5.1) mEq/L Chloride (98-107) mEq/L Carbon Dioxide (21-32) mEq/L Anion Gap (5-15) BUN (7-18) mg/dL Creatinine (0.7-1.3) mg/dL Est Cr Clr Drug Dosing mL/min Estimated GFR (MDRD) (>60) mL/min BUN/Creatinine Ratio (14-18) Glucose (70-99) mg/dL POC Glucose 295 H (70-99) mg/dL Calcium (8.5-10.1) mg/dL Magnesium (1.8-2.4) mg/dL Total Bilirubin (0.2-1.0) mg/dL AST (15-37) U/L ALT (16-63) U/L Alkaline Phosphatase (46-116) U/L Total Protein (6.4-8.2) g/dl Albumin (3.4-5.0) g/dl Globulin gm/dL Albumin/Globulin Ratio (1-2) Result Diagrams: 09/12/21 05:55 09/12/21 05:55 Sepsis Event Note - Evaluation Sepsis Screening Result: No Definite Risk - Focused Exam Vital Signs: Vital Signs Temp Pulse Resp BP Pulse Ox Pulse Ox 09/12/21 05:59 93 L 09/12/21 04:25 92 L 09/12/21 03:54 98.1 F 13 139/74 09/12/21 00:18 97.3 F 91 20 147/86 H 85 L 09/11/21 20:56 92 L 09/11/21 20:33 109 H 138/97 H 09/11/21 20:31 98.6 F 109 H 22 H 138/97 H 93 L - Problem List Review Problem List Initiated/Reviewed/Updated: Yes - My Orders Last 24 Hours: My Active Orders 09/11/21 21:00 Nystatin [Nystop] 0 gm TOP TID 09/12/21 08:00 cefTRIAXone [Rocephin] 1 gm Sodium Chloride 0.9% [Normal Saline AdvBag] 100 ml IV Q24H - Assessment Assessment:: 46-year-old male admitted for acute asthma/obstructive lung disease exacerbation 09/11 requiring 3 L supplemental oxygen. 1. Acute hypoxic respiratory failure secondary to asthma/COPD exacerbation. Continue supplemental oxygen and wean or uptitrate as necessary. Continue incentive spirometry. Daily steroid therapies. Respiratory therapy consult. Scheduled and as needed nebulizers. 2. Acute bronchitis. Azithromycin was added at time of admission. Will initiate Rocephin considering his change in sputum. Continue all home therapies at regular dose as all of his other medical comorbidities are nonactive conditions and do not require urgent attention or change in therapies. CODE STATUS: Full code. Chemical DVT prophylaxis. - Plan Plan:: Case discussed in full. Agree with evaluation, assessment and plan. -Israel Mars Jr., DO
[2021-09-12] MEDS: Enoxaparin 40 MG/0.4 ML Syringe SUBCUT SCH (08:29)
[2021-09-12] MEDS: Losartan 100 MG Tab PO SCH (08:30)
[2021-09-12] MEDS: Sertraline 50 MG Tab PO SCH (08:30)
[2021-09-12] MEDS: Rosuvastatin 10 MG Tab PO SCH (08:31)
[2021-09-12] MEDS: Potassium Chloride 20 MEQ Tab.ER PO SCH ×3 (08:31→21:51)
[2021-09-12] MEDS: Isosorbide Mononitrate 30 MG Tab.ER PO SCH (08:31)
[2021-09-12] MEDS: Gabapentin 600 MG Tab PO SCH ×3 (08:31→21:54)
[2021-09-12] MEDS: Nicotine 14 MG/24 Hr Patch TRDERM SCH (08:32)
[2021-09-12] MEDS: methylPREDNISolone Sodium Succinate 40 MG/1 ML SDV IVPUSH SCH (08:32)
[2021-09-12] MEDS: Insulin Lispro 100 Unit/ML 3 ML KwikPen SUBCUT SCH ×4 (08:33→21:49)
[2021-09-12] MEDS: Metoprolol Tartrate 25 MG Tab PO SCH ×2 (08:39→21:52)
[2021-09-12] MEDS: Nystatin Topical Powder 15 GM Bottle TOP SCH ×2 (08:41→15:30)
[2021-09-12] MEDS: cefTRIAXone 1 GM in Sodium Chloride 0.9% 100 ML IV SCH (08:58)
[2021-09-12] MEDS ORDERED: Hydrochlorothiazide 12.5 MG Cap PO SCH (09:00)
[2021-09-12] MEDS: Formoterol/Mometasone 200-5 MCG 8.8 GM Inhaler IH SCH ×2 (09:15→20:32)
[2021-09-12] MEDS: Tiotropium BR/Olodaterol HCL 4 GM Inhalation Spray 2.5mcg/1 dose; 10 doses INH SCH (09:57)
[2021-09-12] MEDS: Azithromycin 250 MG Tab PO SCH (11:09)
[2021-09-12] MEDS: Albuterol 6.7 GM Inhaler INH PRN (13:25)
[2021-09-12] MEDS ORDERED: Insulin Lispro 100 Unit/ML 3 ML KwikPen SUBCUT ONE (16:53)
[2021-09-13] MEDS: Acetaminophen/HYDROcodone 325-5 MG Tab PO PRN ×4 (00:01→18:04)
[2021-09-13] MEDS: Nystatin Topical Powder 15 GM Bottle TOP SCH ×4 (00:02→20:53)
[2021-09-13] MEDS: Cyclobenzaprine 10 MG Tab PO PRN ×3 (04:16→20:54)
[2021-09-13] MEDS: Albuterol/Ipratropium 3.0-0.5 MG/3 ML Neb Soln NEB SCH ×4 (06:10→20:26)
[2021-09-13] MEDS: Enoxaparin 40 MG/0.4 ML Syringe SUBCUT SCH (08:09)
[2021-09-13] MEDS: Potassium Chloride 20 MEQ Tab.ER PO SCH ×3 (08:09→20:51)
[2021-09-13] MEDS: Sertraline 50 MG Tab PO SCH (08:09)
[2021-09-13] MEDS: Gabapentin 600 MG Tab PO SCH ×3 (08:10→20:53)
[2021-09-13] MEDS: Metoprolol Tartrate 25 MG Tab PO SCH ×2 (08:10→20:52)
[2021-09-13] MEDS: Losartan 100 MG Tab PO SCH (08:11)
[2021-09-13] MEDS: Isosorbide Mononitrate 30 MG Tab.ER PO SCH (08:12)
[2021-09-13] MEDS: Insulin Lispro 100 Unit/ML 3 ML KwikPen SUBCUT SCH ×4 (08:12→20:50)
[2021-09-13] MEDS: Rosuvastatin 10 MG Tab PO SCH (08:12)
[2021-09-13] MEDS: methylPREDNISolone Sodium Succinate 40 MG/1 ML SDV IVPUSH SCH (08:14)
[2021-09-13] MEDS: cefTRIAXone 1 GM in Sodium Chloride 0.9% 100 ML IV SCH (08:16)
[2021-09-13] MEDS: Nicotine 14 MG/24 Hr Patch TRDERM SCH (08:21)
--- NOTE | 2021-09-13 08:23 | PCM.PN ---
- General Info Date of Service: 09/13/21 Admission Dx/Problem (Free Text): Admission Diagnosis/Problem Admission Diagnosis/Problem Asthma with acute exacerbation in adult Subjective Update: No acute events overnight. No new nursing concerns. Patient still requiring 2 L supplemental oxygen despite the patient saying that he feels better today and is hoping to be weaned off and go home. Excessive thirst due to hyperglycemia. Working well with incentive spirometry. - Patient Data Vitals - Most Recent: Last Vital Signs Temp 97.3 F 09/13/21 04:04 Pulse 65 09/13/21 04:04 Resp 20 09/13/21 04:04 BP 131/79 09/13/21 04:04 Pulse Ox 97 09/13/21 06:13 Weight - Most Recent: 451 lb 14.4 oz I&O - Last 24 Hours: Intake & Output 09/12/21 09/13/21 09/13/21 22:59 06:59 14:59 Intake Total 2995 2400 Output Total 1150 2750 Balance 1845 -350 Lab Results Last 24 Hours: Laboratory Results - last 24 hr 09/12/21 09/12/21 09/12/21 Range/Units 11:08 16:44 21:09 WBC (4.23-9.07) K/mm3 RBC (4.63-6.08) M/mm3 Hgb (13.7-17.5) gm/dl Hct (40.1-51.0) % MCV (79.0-92.2) fl MCH (25.7-32.2) pg MCHC (32.2-35.5) g/dl RDW Std Deviation (35.1-43.9) fL Plt Count (163-337) K/mm3 MPV (9.4-12.3) fl Neut % (Auto) (34.0-67.9) % Lymph % (Auto) (21.8-53.1) % [place] % (Auto) (5.3-12.2) % Eos % (Auto) (0.8-7.0) Baso % (Auto) (0.1-1.2) % Neut # (Auto) (1.78-5.38) K/mm3 Lymph # (Auto) (1.32-3.57) K/mm3 [place] # (Auto) (0.30-0.82) K/mm3 Eos # (Auto) (0.04-0.54) K/mm3 Baso # (Auto) (0.01-0.08) K/mm3 Sodium (136-145) mEq/L Potassium (3.5-5.1) mEq/L Chloride (98-107) mEq/L Carbon Dioxide (21-32) mEq/L Anion Gap (5-15) BUN (7-18) mg/dL Creatinine (0.7-1.3) mg/dL Est Cr Clr Drug Dosing mL/min Estimated GFR (MDRD) (>60) mL/min BUN/Creatinine Ratio (14-18) Glucose (70-99) mg/dL POC Glucose 362 H 405 H* 342 H (70-99) mg/dL Calcium (8.5-10.1) mg/dL Magnesium (1.8-2.4) mg/dL Total Bilirubin (0.2-1.0) mg/dL AST (15-37) U/L ALT (16-63) U/L Alkaline Phosphatase (46-116) U/L Total Protein (6.4-8.2) g/dl Albumin (3.4-5.0) g/dl Globulin gm/dL Albumin/Globulin Ratio (1-2) 09/13/21 09/13/21 09/13/21 Range/Units 05:15 05:15 06:09 WBC 10.50 H (4.23-9.07) K/mm3 RBC 5.02 (4.63-6.08) M/mm3 Hgb 14.3 (13.7-17.5) gm/dl Hct 44.2 (40.1-51.0) % MCV 88.0 (79.0-92.2) fl MCH 28.5 (25.7-32.2) pg MCHC 32.4 (32.2-35.5) g/dl RDW Std Deviation 45.4 H (35.1-43.9) fL Plt Count 184 (163-337) K/mm3 MPV 11.9 (9.4-12.3) fl Neut % (Auto) 82.7 H (34.0-67.9) % Lymph % (Auto) 10.4 L (21.8-53.1) % [place] % (Auto) 6.7 (5.3-12.2) % Eos % (Auto) 0 L (0.8-7.0) Baso % (Auto) 0.1 (0.1-1.2) % Neut # (Auto) 8.69 H (1.78-5.38) K/mm3 Lymph # (Auto) 1.09 L (1.32-3.57) K/mm3 [place] # (Auto) 0.70 (0.30-0.82) K/mm3 Eos # (Auto) 0.00 L (0.04-0.54) K/mm3 Baso # (Auto) 0.01 (0.01-0.08) K/mm3 Sodium 136 (136-145) mEq/L Potassium 4.1 (3.5-5.1) mEq/L Chloride 99 (98-107) mEq/L Carbon Dioxide 27 (21-32) mEq/L Anion Gap 14.1 (5-15) BUN 21 H (7-18) mg/dL Creatinine 0.7 (0.7-1.3) mg/dL Est Cr Clr Drug Dosing 156.57 mL/min Estimated GFR (MDRD) > 60 (>60) mL/min BUN/Creatinine Ratio 30.0 H (14-18) Glucose 269 H (70-99) mg/dL POC Glucose 290 H (70-99) mg/dL Calcium 8.8 (8.5-10.1) mg/dL Magnesium 2.0 (1.8-2.4) mg/dL Total Bilirubin 0.4 (0.2-1.0) mg/dL AST 29 (15-37) U/L ALT 63 (16-63) U/L Alkaline Phosphatase 102 (46-116) U/L Total Protein 6.5 (6.4-8.2) g/dl Albumin 3.4 (3.4-5.0) g/dl Globulin 3.1 gm/dL Albumin/Globulin Ratio 1.1 (1-2) Med Orders - Current: Current Medications Acetaminophen (Acetaminophen 325 Mg Tab) 650 mg PO Q4H PRN PRN Reason: Pain (Mild 1-3)/fever Hydrocodone Bitart/Acetaminophen (Acetaminophen/Hydrocodone 325-5 Mg Tab) 1 tab PO Q6H PRN PRN Reason: Pain (moderate 4-6) Last Admin: 09/13/21 05:52 Dose: 1 tab Documented by: Albuterol (Albuterol 6.7 Gm Inhaler) 0 gm INH Q2H PRN PRN Reason: Shortness of Breath Last Admin: 09/12/21 13:25 Dose: 2 inhalation Documented by: Albuterol/Ipratropium (Albuterol/Ipratropium 3.0-0.5 Mg/3 Ml Neb Soln) 3 ml NEB QIDRT [facility] Last Admin: 09/13/21 06:10 Dose: 3 ml Documented by: Azithromycin (Azithromycin 250 Mg Tab) 500 mg PO 1200 [facility] Stop: 09/13/21 12:01 Last Admin: 09/12/21 11:09 Dose: 500 mg Documented by: Cyclobenzaprine HCl (Cyclobenzaprine 10 Mg Tab) 10 mg PO TID PRN PRN Reason: Pain Last Admin: 09/13/21 04:16 Dose: 10 mg Documented by: Enoxaparin Sodium (Enoxaparin 40 Mg/0.4 Ml Syringe) 40 mg SUBCUT DAILY [facility] Last Admin: 09/12/21 08:29 Dose: 40 mg Documented by: Furosemide (Furosemide 40 Mg Tab) 40 mg PO Q48H [facility] Last Admin: 09/11/21 13:56 Dose: 40 mg Documented by: Gabapentin (Gabapentin 600 Mg Tab) 600 mg PO TID [facility] Last Admin: 09/12/21 21:54 Dose: 600 mg Documented by: Ceftriaxone Sodium 1 gm/ (Sodium Chloride) 100 mls @ 200 mls/hr IV Q24H [facility] Last Admin: 09/12/21 08:58 Dose: 200 mls/hr Documented by: Insulin Glargine (Insulin Glargine,Human Rec. Analog 100 Units/Ml 3 Ml Pen) 20 units SUBCUT DAILY [facility] Insulin Human Lispro (Insulin Lispro 100 Unit/Ml 3 Ml Kwikpen) 0 unit SUBCUT 0700,1100,1700,2100 [facility]; Protocol Last Admin: 09/12/21 21:49 Dose: 12 units Documented by: Isosorbide Mononitrate (Isosorbide Mononitrate 30 Mg Tab.Er) 30 mg PO DAILY [facility] Last Admin: 09/12/21 08:31 Dose: 30 mg Documented by: Losartan Potassium (Losartan 100 Mg Tab) 100 mg PO DAILY [facility] Last Admin: 09/12/21 08:30 Dose: 100 mg Documented by: Methylprednisolone Sodium Succinate (Methylprednisolone Sodium Succinate 40 Mg/1 Ml Sdv) 60 mg IVPUSH DAILY [facility] Last Admin: 09/12/21 08:32 Dose: 60 mg Documented by: Metoprolol Tartrate (Metoprolol Tartrate 25 Mg Tab) 12.5 mg PO BID [facility] Last Admin: 09/12/21 21:52 Dose: 12.5 mg Documented by: Miscellaneous Information (Remove Nicotine Patch) 1 ea TRDERM DAILY [facility] Last Admin: 09/12/21 08:30 Dose: 1 ea Documented by: Mometasone Furoate/Formoterol Fumar (Formoterol/Mometasone 200-5 Mcg 8.8 Gm Inhaler) 2 puff IH BID [facility] Last Admin: 09/12/21 20:32 Dose: 2 puff Documented by: Nicotine (Nicotine 14 Mg/24 Hr Patch) 14 mg TRDERM DAILY [facility] Last Admin: 09/12/21 08:32 Dose: 14 mg Documented by: Nystatin (Nystatin Topical Powder 15 Gm Bottle) 0 gm TOP TID [facility] Last Admin: 09/13/21 00:02 Dose: 1 applic Documented by: Ondansetron HCl (Ondansetron 4 Mg/2 Ml Sdv) 4 mg IV Q6H PRN PRN Reason: Nausea/Vomiting Potassium Chloride (Potassium Chloride 20 Meq Tab.Er) 20 meq PO TID [facility] Last Admin: 09/12/21 21:51 Dose: 20 meq Documented by: Rosuvastatin Calcium (Rosuvastatin 10 Mg Tab) 10 mg PO DAILY [facility] Last Admin: 09/12/21 08:31 Dose: 10 mg Documented by: Senna/Docusate Sodium (Docusate Sodium/Sennosides 50-8.6 Mg Tab) 1 tab PO BID PRN PRN Reason: Constipation Sertraline HCl (Sertraline 50 Mg Tab) 100 mg PO DAILY [facility] Last Admin: 09/12/21 08:30 Dose: 100 mg Documented by: Sodium Chloride (Sodium Chloride 0.9% 10 Ml Syringe) 10 ml FLUSH ASDIRECTED PRN PRN Reason: Keep Vein Open Last Admin: 09/11/21 06:32 Dose: 10 ml Documented by: Discontinued Medications Hydrocodone Bitart/Acetaminophen (Acetaminophen/Hydrocodone 325-5 Mg Tab) 1 tab PO ONETIME ONE Stop: 09/11/21 09:11 Last Admin: 09/11/21 09:28 Dose: 1 tab Documented by: Hydrocodone Bitart/Acetaminophen (Acetaminophen/Hydrocodone 325-5 Mg Tab) 1 tab PO Q4H PRN PRN Reason: Pain (moderate 4-6) Albuterol (Albuterol 0.5% 2.5 Mg/0.5 Ml Neb Soln) 10 mg NEB ONETIME ONE Stop: 09/11/21 08:19 Last Admin: 09/11/21 08:28 Dose: 10 mg Documented by: Albuterol/Ipratropium (Albuterol/Ipratropium 3.0-0.5 Mg/3 Ml Neb Soln) 3 ml NEB ONETIME ONE Stop: 09/11/21 07:10 Last Admin: 09/11/21 07:28 Dose: 3 ml Documented by: Hydrochlorothiazide (Hydrochlorothiazide 12.5 Mg Cap) 12.5 mg PO DAILY [facility] Magnesium Sulfate 2 gm/ Premix 50 mls @ 25 mls/hr IV ONETIME ONE Stop: 09/11/21 08:24 Last Admin: 09/11/21 06:32 Dose: 25 mls/hr Documented by: Insulin Glargine (Insulin Glargine,Hum.Rec.Anlog 100 Unit/Ml 3 Ml Pen) 20 unit SUBCUT BEDTIME [facility] Insulin Human Lispro (Insulin Lispro 100 Unit/Ml 3 Ml Kwikpen) 0 unit SUBCUT WITHMEALSANDBED [facility]; Protocol Insulin Human Lispro (Insulin Lispro 100 Unit/Ml 3 Ml Kwikpen) 20 unit SUBCUT ONETIME ONE Stop: 09/12/21 16:54 Last Admin: 09/12/21 17:06 Dose: 20 units Documented by: Insulin Human Regular (Insulin Regular, Human 100 Units/Ml 3 Ml Vial) 10 unit SUBCUT ONETIME ONE Stop: 09/11/21 09:09 Last Admin: 09/11/21 09:39 Dose: 10 unit Documented by: Methylprednisolone Sodium Succinate (Methylprednisolone Sodium Succinate 125 Mg/2 Ml Sdv) 125 mg IVPUSH ONETIME ONE Stop: 09/11/21 06:25 Last Admin: 09/11/21 06:30 Dose: 125 mg Documented by: - Exam Quality Assessment: Supplemental Oxygen General: Alert, No Acute Distress Lungs: Normal Respiratory Effort, Decreased Breath Sounds, Wheezing Cardiovascular: Regular Rate GI/Abdominal Exam: Normal Bowel Sounds, Soft, Non-Tender, Other (Morbidly obese) Extremities: Normal Inspection Skin: Warm, Dry Neurological: No New Focal Deficit - Patient Data Lab Results Last 24 hrs: Laboratory Results - last 24 hr 09/12/21 09/12/21 09/12/21 Range/Units 11:08 16:44 21:09 WBC (4.23-9.07) K/mm3 RBC (4.63-6.08) M/mm3 Hgb (13.7-17.5) gm/dl Hct (40.1-51.0) % MCV (79.0-92.2) fl MCH (25.7-32.2) pg MCHC (32.2-35.5) g/dl RDW Std Deviation (35.1-43.9) fL Plt Count (163-337) K/mm3 MPV (9.4-12.3) fl Neut % (Auto) (34.0-67.9) % Lymph % (Auto) (21.8-53.1) % [place] % (Auto) (5.3-12.2) % Eos % (Auto) (0.8-7.0) Baso % (Auto) (0.1-1.2) % Neut # (Auto) (1.78-5.38) K/mm3 Lymph # (Auto) (1.32-3.57) K/mm3 [place] # (Auto) (0.30-0.82) K/mm3 Eos # (Auto) (0.04-0.54) K/mm3 Baso # (Auto) (0.01-0.08) K/mm3 Sodium (136-145) mEq/L Potassium (3.5-5.1) mEq/L Chloride (98-107) mEq/L Carbon Dioxide (21-32) mEq/L Anion Gap (5-15) BUN (7-18) mg/dL Creatinine (0.7-1.3) mg/dL Est Cr Clr Drug Dosing mL/min Estimated GFR (MDRD) (>60) mL/min BUN/Creatinine Ratio (14-18) Glucose (70-99) mg/dL POC Glucose 362 H 405 H* 342 H (70-99) mg/dL Calcium (8.5-10.1) mg/dL Magnesium (1.8-2.4) mg/dL Total Bilirubin (0.2-1.0) mg/dL AST (15-37) U/L ALT (16-63) U/L Alkaline Phosphatase (46-116) U/L Total Protein (6.4-8.2) g/dl Albumin (3.4-5.0) g/dl Globulin gm/dL Albumin/Globulin Ratio (1-2) 09/13/21 09/13/21 09/13/21 Range/Units 05:15 05:15 06:09 WBC 10.50 H (4.23-9.07) K/mm3 RBC 5.02 (4.63-6.08) M/mm3 Hgb 14.3 (13.7-17.5) gm/dl Hct 44.2 (40.1-51.0) % MCV 88.0 (79.0-92.2) fl MCH 28.5 (25.7-32.2) pg MCHC 32.4 (32.2-35.5) g/dl RDW Std Deviation 45.4 H (35.1-43.9) fL Plt Count 184 (163-337) K/mm3 MPV 11.9 (9.4-12.3) fl Neut % (Auto) 82.7 H (34.0-67.9) % Lymph % (Auto) 10.4 L (21.8-53.1) % [place] % (Auto) 6.7 (5.3-12.2) % Eos % (Auto) 0 L (0.8-7.0) Baso % (Auto) 0.1 (0.1-1.2) % Neut # (Auto) 8.69 H (1.78-5.38) K/mm3 Lymph # (Auto) 1.09 L (1.32-3.57) K/mm3 [place] # (Auto) 0.70 (0.30-0.82) K/mm3 Eos # (Auto) 0.00 L (0.04-0.54) K/mm3 Baso # (Auto) 0.01 (0.01-0.08) K/mm3 Sodium 136 (136-145) mEq/L Potassium 4.1 (3.5-5.1) mEq/L Chloride 99 (98-107) mEq/L Carbon Dioxide 27 (21-32) mEq/L Anion Gap 14.1 (5-15) BUN 21 H (7-18) mg/dL Creatinine 0.7 (0.7-1.3) mg/dL Est Cr Clr Drug Dosing 156.57 mL/min Estimated GFR (MDRD) > 60 (>60) mL/min BUN/Creatinine Ratio 30.0 H (14-18) Glucose 269 H (70-99) mg/dL POC Glucose 290 H (70-99) mg/dL Calcium 8.8 (8.5-10.1) mg/dL Magnesium 2.0 (1.8-2.4) mg/dL Total Bilirubin 0.4 (0.2-1.0) mg/dL AST 29 (15-37) U/L ALT 63 (16-63) U/L Alkaline Phosphatase 102 (46-116) U/L Total Protein 6.5 (6.4-8.2) g/dl Albumin 3.4 (3.4-5.0) g/dl Globulin 3.1 gm/dL Albumin/Globulin Ratio 1.1 (1-2) Result Diagrams: 09/13/21 05:15 09/13/21 05:15 Sepsis Event Note - Evaluation Sepsis Screening Result: No Definite Risk - Focused Exam Vital Signs: Vital Signs Temp Pulse Resp BP Pulse Ox Pulse Ox 09/13/21 06:13 97 09/13/21 04:04 97.3 F 65 20 131/79 94 L 09/13/21 00:51 70 20 133/85 93 L 09/12/21 21:52 79 112/79 09/12/21 20:27 93 L - Problem List Review Problem List Initiated/Reviewed/Updated: Yes - My Orders Last 24 Hours: My Active Orders 09/12/21 08:00 [email or web address] [Rocephin] 1 gm Sodium Chloride 0.9% [Normal Saline AdvBag] 100 ml IV Q24H 09/13/21 09:00 Insulin Glarg,Human.Rec.Analog [LantUS Solostar] 20 units SUBCUT DAILY - Assessment Assessment:: 46-year-old male admitted for acute asthma/obstructive lung disease exacerbation 09/11 requiring 3 L supplemental oxygen. 1. Acute hypoxic respiratory failure secondary to asthma/COPD exacerbation. Continue supplemental oxygen and wean or uptitrate as necessary. Continue incentive spirometry. Daily steroid therapies. Respiratory therapy consult. Scheduled and as needed nebulizers. 2. Acute bronchitis. Azithromycin was added at time of admission. Continue Rocephin considering his change in sputum. Continue all home therapies at regular dose as all of his other medical comorbidities are nonactive conditions and do not require urgent attention or change in therapies. CODE STATUS: Full code. Chemical DVT prophylaxis. Disposition, to home when off oxygen. - Plan Plan:: Case discussed in full. Agree with evaluation, assessment and plan. -Israel Mars Jr., DO
[2021-09-13] MEDS ORDERED: Insulin Glargine,Human Rec. Analog 100 Units/ML 3 ML Pen SUBCUT SCH (09:00)
[2021-09-13] MEDS: Tiotropium BR/Olodaterol HCL 4 GM Inhalation Spray 2.5mcg/1 dose; 10 doses INH SCH (09:35)
[2021-09-13] MEDS: Formoterol/Mometasone 200-5 MCG 8.8 GM Inhaler IH SCH ×2 (09:35→20:26)
[2021-09-13] MEDS: Insulin Glargine,Hum.Rec.Anlog 100 UNIT/ML 3 ML Pen SUBCUT SCH (10:32)
[2021-09-13] MEDS: Azithromycin 250 MG Tab PO SCH (11:18)
[2021-09-13] MEDS: Furosemide 40 MG Tab PO SCH (12:34)
[2021-09-14] MEDS: Acetaminophen/HYDROcodone 325-5 MG Tab PO PRN ×4 (02:43→21:55)
[2021-09-14] MEDS: Cyclobenzaprine 10 MG Tab PO PRN ×2 (04:42→15:14)
[2021-09-14] MEDS: Albuterol/Ipratropium 3.0-0.5 MG/3 ML Neb Soln NEB SCH ×5 (06:18→20:52)
--- NOTE | 2021-09-14 07:10 | PCM.PN ---
<Duc Bose - Last Filed: 09/14/21 09:38> - General Info Date of Service: 09/14/21 Admission Dx/Problem (Free Text): Admission Diagnosis/Problem Admission Diagnosis/Problem Asthma with acute exacerbation in adult Functional Status: Reports: Pain Controlled, Tolerating Diet, Ambulating, Urinating, Incentive Spirometry, Other (Acapella ). Denies: New Symptoms - Review of Systems General: Reports: No Symptoms. Denies: Fever, Weakness, Fatigue, Malaise, Chills HEENT: Reports: No Symptoms. Denies: Headaches, Sore Throat Pulmonary: Reports: Shortness of Breath (mild ), Cough (improving ), Sputum (improving ), Wheezing Cardiovascular: Reports: No Symptoms, Dyspnea on Exertion. Denies: Chest Pain, Palpitations, Edema, Lightheadedness Gastrointestinal: Reports: No Symptoms. Denies: Abdominal Pain, Constipation, Decreased Appetite, Diarrhea, Nausea, Vomiting Genitourinary: Reports: No Symptoms. Denies: Pain Musculoskeletal: Reports: No Symptoms Skin: Reports: No Symptoms. Denies: Cyanosis Neurological: Reports: No Symptoms. Denies: Confusion, Dizziness, Headache, Numbness, Pre-Existing Deficit, Seizure, Syncope, Tingling, Difficulty Walking, Gait Disturbance Psychiatric: Reports: No Symptoms. Denies: Confusion - Patient Data Vitals - Most Recent: Last Vital Signs Temp 97.4 F 09/14/21 04:38 Pulse 70 09/14/21 04:38 Resp 18 09/14/21 04:38 BP 137/96 H 09/14/21 04:38 Pulse Ox 94 L 09/14/21 06:21 Weight - Most Recent: 454 lb I&O - Last 24 Hours: Intake & Output 09/13/21 09/14/21 09/14/21 22:59 06:59 14:59 Intake Total 2195 2280 Output Total 1000 1800 Balance 1195 480 Lab Results Last 24 Hours: Laboratory Results - last 24 hr 09/13/21 09/13/21 09/13/21 Range/Units 10:58 16:54 20:48 WBC (4.23-9.07) K/mm3 RBC (4.63-6.08) M/mm3 Hgb (13.7-17.5) gm/dl Hct (40.1-51.0) % MCV (79.0-92.2) fl MCH (25.7-32.2) pg MCHC (32.2-35.5) g/dl RDW Std Deviation (35.1-43.9) fL Plt Count (163-337) K/mm3 MPV (9.4-12.3) fl Neut % (Auto) (34.0-67.9) % Lymph % (Auto) (21.8-53.1) % [place] % (Auto) (5.3-12.2) % Eos % (Auto) (0.8-7.0) Baso % (Auto) (0.1-1.2) % Neut # (Auto) (1.78-5.38) K/mm3 Lymph # (Auto) (1.32-3.57) K/mm3 [place] # (Auto) (0.30-0.82) K/mm3 Eos # (Auto) (0.04-0.54) K/mm3 Baso # (Auto) (0.01-0.08) K/mm3 Sodium (136-145) mEq/L Potassium (3.5-5.1) mEq/L Chloride (98-107) mEq/L Carbon Dioxide (21-32) mEq/L Anion Gap (5-15) BUN (7-18) mg/dL Creatinine (0.7-1.3) mg/dL Est Cr Clr Drug Dosing mL/min Estimated GFR (MDRD) (>60) mL/min BUN/Creatinine Ratio (14-18) Glucose (70-99) mg/dL POC Glucose 282 H 384 H 373 H (70-99) mg/dL Calcium (8.5-10.1) mg/dL Magnesium (1.8-2.4) mg/dL Total Bilirubin (0.2-1.0) mg/dL AST (15-37) U/L ALT (16-63) U/L Alkaline Phosphatase (46-116) U/L Total Protein (6.4-8.2) g/dl Albumin (3.4-5.0) g/dl Globulin gm/dL Albumin/Globulin Ratio (1-2) 09/14/21 09/14/21 09/14/21 Range/Units 05:30 05:30 06:24 WBC 9.65 H (4.23-9.07) K/mm3 RBC 5.27 (4.63-6.08) M/mm3 Hgb 15.1 (13.7-17.5) gm/dl Hct 45.8 (40.1-51.0) % MCV 86.9 (79.0-92.2) fl MCH 28.7 (25.7-32.2) pg MCHC 33.0 (32.2-35.5) g/dl RDW Std Deviation 44.8 H (35.1-43.9) fL Plt Count 191 (163-337) K/mm3 MPV 11.6 (9.4-12.3) fl Neut % (Auto) 83.7 H (34.0-67.9) % Lymph % (Auto) 10.4 L (21.8-53.1) % [place] % (Auto) 5.6 (5.3-12.2) % Eos % (Auto) 0 L (0.8-7.0) Baso % (Auto) 0.1 (0.1-1.2) % Neut # (Auto) 8.08 H (1.78-5.38) K/mm3 Lymph # (Auto) 1.00 L (1.32-3.57) K/mm3 [place] # (Auto) 0.54 (0.30-0.82) K/mm3 Eos # (Auto) 0.00 L (0.04-0.54) K/mm3 Baso # (Auto) 0.01 (0.01-0.08) K/mm3 Sodium 137 (136-145) mEq/L Potassium 4.2 (3.5-5.1) mEq/L Chloride 100 (98-107) mEq/L Carbon Dioxide 28 (21-32) mEq/L Anion Gap 13.2 (5-15) BUN 20 H (7-18) mg/dL Creatinine 0.8 (0.7-1.3) mg/dL Est Cr Clr Drug Dosing 137.00 mL/min Estimated GFR (MDRD) > 60 (>60) mL/min BUN/Creatinine Ratio 25.0 H (14-18) Glucose 279 H (70-99) mg/dL POC Glucose 261 H (70-99) mg/dL Calcium 9.0 (8.5-10.1) mg/dL Magnesium 2.2 (1.8-2.4) mg/dL Total Bilirubin 0.4 (0.2-1.0) mg/dL AST 32 (15-37) U/L ALT 74 H (16-63) U/L Alkaline Phosphatase 111 (46-116) U/L Total Protein 7.0 (6.4-8.2) g/dl Albumin 3.6 (3.4-5.0) g/dl Globulin 3.4 gm/dL Albumin/Globulin Ratio 1.1 (1-2) Med Orders - Current: Current Medications Acetaminophen (Acetaminophen 325 Mg Tab) 650 mg PO Q4H PRN PRN Reason: Pain (Mild 1-3)/fever Hydrocodone Bitart/Acetaminophen (Acetaminophen/Hydrocodone 325-5 Mg Tab) 1 tab PO Q6H PRN PRN Reason: Pain (moderate 4-6) Last Admin: 09/14/21 02:43 Dose: 1 tab Documented by: Albuterol (Albuterol 6.7 Gm Inhaler) 0 gm INH Q2H PRN PRN Reason: Shortness of Breath Last Admin: 09/12/21 13:25 Dose: 2 inhalation Documented by: Albuterol/Ipratropium (Albuterol/Ipratropium 3.0-0.5 Mg/3 Ml Neb Soln) 3 ml NEB QIDRT [facility] Last Admin: 09/14/21 06:18 Dose: 3 ml Documented by: Cyclobenzaprine HCl (Cyclobenzaprine 10 Mg Tab) 10 mg PO TID PRN PRN Reason: Pain Last Admin: 09/14/21 04:42 Dose: 10 mg Documented by: Enoxaparin Sodium (Enoxaparin 40 Mg/0.4 Ml Syringe) 40 mg SUBCUT DAILY [facility] Last Admin: 09/13/21 08:09 Dose: 40 mg Documented by: Furosemide (Furosemide 40 Mg Tab) 40 mg PO Q48H [facility] Last Admin: 09/13/21 12:34 Dose: 40 mg Documented by: Gabapentin (Gabapentin 600 Mg Tab) 600 mg PO TID [facility] Last Admin: 09/13/21 20:53 Dose: 600 mg Documented by: Ceftriaxone Sodium 1 gm/ (Sodium Chloride) 100 mls @ 200 mls/hr IV Q24H [facility] Last Admin: 09/13/21 08:16 Dose: 200 mls/hr Documented by: Insulin Glargine (Insulin Glargine,Hum.Rec.Anlog 100 Unit/Ml 3 Ml Pen) 20 unit SUBCUT DAILY [facility] Last Admin: 09/13/21 10:32 Dose: 20 units Documented by: Insulin Human Lispro (Insulin Lispro 100 Unit/Ml 3 Ml Kwikpen) 0 unit SUBCUT 0700,1100,1700,2100 [facility]; Protocol Last Admin: 09/13/21 20:50 Dose: 15 units Documented by: Isosorbide Mononitrate (Isosorbide Mononitrate 30 Mg Tab.Er) 30 mg PO DAILY [facility] Last Admin: 09/13/21 08:12 Dose: 30 mg Documented by: Losartan Potassium (Losartan 100 Mg Tab) 100 mg PO DAILY [facility] Last Admin: 09/13/21 08:11 Dose: 100 mg Documented by: Methylprednisolone Sodium Succinate (Methylprednisolone Sodium Succinate 40 Mg/1 Ml Sdv) 60 mg IVPUSH DAILY [facility] Last Admin: 09/13/21 08:14 Dose: 60 mg Documented by: Metoprolol Tartrate (Metoprolol Tartrate 25 Mg Tab) 12.5 mg PO BID [facility] Last Admin: 09/13/21 20:52 Dose: 12.5 mg Documented by: Miscellaneous Information (Remove Nicotine Patch) 1 ea TRDERM DAILY [facility] Last Admin: 09/13/21 08:20 Dose: 1 ea Documented by: Mometasone Furoate/Formoterol Fumar (Formoterol/Mometasone 200-5 Mcg 8.8 Gm Inhaler) 2 puff IH BID [facility] Last Admin: 09/13/21 20:26 Dose: 2 puff Documented by: Nicotine (Nicotine 14 Mg/24 Hr Patch) 14 mg TRDERM DAILY [facility] Last Admin: 09/13/21 08:21 Dose: 14 mg Documented by: Nystatin (Nystatin Topical Powder 15 Gm Bottle) 0 gm TOP TID [facility] Last Admin: 09/13/21 20:53 Dose: 1 applic Documented by: Ondansetron HCl (Ondansetron 4 Mg/2 Ml Sdv) 4 mg IV Q6H PRN PRN Reason: Nausea/Vomiting Potassium Chloride (Potassium Chloride 20 Meq Tab.Er) 20 meq PO TID [facility] Last Admin: 09/13/21 20:51 Dose: 20 meq Documented by: Rosuvastatin Calcium (Rosuvastatin 10 Mg Tab) 10 mg PO DAILY [facility] Last Admin: 09/13/21 08:12 Dose: 10 mg Documented by: Senna/Docusate Sodium (Docusate Sodium/Sennosides 50-8.6 Mg Tab) 1 tab PO BID PRN PRN Reason: Constipation Sertraline HCl (Sertraline 50 Mg Tab) 100 mg PO DAILY [facility] Last Admin: 09/13/21 08:09 Dose: 100 mg Documented by: Sodium Chloride (Sodium Chloride 0.9% 10 Ml Syringe) 10 ml FLUSH ASDIRECTED PRN PRN Reason: Keep Vein Open Last Admin: 09/11/21 06:32 Dose: 10 ml Documented by: Discontinued Medications Hydrocodone Bitart/Acetaminophen (Acetaminophen/Hydrocodone 325-5 Mg Tab) 1 tab PO ONETIME ONE Stop: 09/11/21 09:11 Last Admin: 09/11/21 09:28 Dose: 1 tab Documented by: Hydrocodone Bitart/Acetaminophen (Acetaminophen/Hydrocodone 325-5 Mg Tab) 1 tab PO Q4H PRN PRN Reason: Pain (moderate 4-6) Albuterol (Albuterol 0.5% 2.5 Mg/0.5 Ml Neb Soln) 10 mg NEB ONETIME ONE Stop: 09/11/21 08:19 Last Admin: 09/11/21 08:28 Dose: 10 mg Documented by: Albuterol/Ipratropium (Albuterol/Ipratropium 3.0-0.5 Mg/3 Ml Neb Soln) 3 ml NEB ONETIME ONE Stop: 09/11/21 07:10 Last Admin: 09/11/21 07:28 Dose: 3 ml Documented by: Azithromycin (Azithromycin 250 Mg Tab) 500 mg PO 1200 [facility] Stop: 09/13/21 12:01 Last Admin: 09/13/21 11:18 Dose: 500 mg Documented by: Hydrochlorothiazide (Hydrochlorothiazide 12.5 Mg Cap) 12.5 mg PO DAILY [facility] Magnesium Sulfate 2 gm/ Premix 50 mls @ 25 mls/hr IV ONETIME ONE Stop: 09/11/21 08:24 Last Admin: 09/11/21 06:32 Dose: 25 mls/hr Documented by: Insulin Glargine (Insulin Glargine,Hum.Rec.Anlog 100 Unit/Ml 3 Ml Pen) 20 unit SUBCUT BEDTIME [facility] Insulin Glargine (Insulin Glargine,Human Rec. Analog 100 Units/Ml 3 Ml Pen) 20 units SUBCUT DAILY [facility] Insulin Human Lispro (Insulin Lispro 100 Unit/Ml 3 Ml Kwikpen) 0 unit SUBCUT WITHMEALSANDBED [facility]; Protocol Insulin Human Lispro (Insulin Lispro 100 Unit/Ml 3 Ml Kwikpen) 20 unit SUBCUT ONETIME ONE Stop: 09/12/21 16:54 Last Admin: 09/12/21 17:06 Dose: 20 units Documented by: Insulin Human Regular (Insulin Regular, Human 100 Units/Ml 3 Ml Vial) 10 unit SUBCUT ONETIME ONE Stop: 09/11/21 09:09 Last Admin: 09/11/21 09:39 Dose: 10 unit Documented by: Methylprednisolone Sodium Succinate (Methylprednisolone Sodium Succinate 125 Mg/2 Ml Sdv) 125 mg IVPUSH ONETIME ONE Stop: 09/11/21 06:25 Last Admin: 09/11/21 06:30 Dose: 125 mg Documented by: - Exam Quality Assessment: Supplemental Oxygen (1L), DVT Prophylaxis General: Alert, Oriented, Cooperative, No Acute Distress HEENT: Pupils Equal, Pupils Reactive, Mucous Membr. Moist/[place] Neck: Supple, Trachea Midline Lungs: Normal Respiratory Effort, Decreased Breath Sounds, Rhonchi, Wheezing Cardiovascular: Regular Rate, Regular Rhythm GI/Abdominal Exam: Normal Bowel Sounds, Soft, Non-Tender, No Distention (Male) Exam: Deferred Back Exam: Normal Inspection, Full Range of Motion Extremities: Normal Range of Motion, Non-Tender, No Pedal Edema, Normal Capillary Refill, Other (Bilateral lower extremity discoloration consistent with PVD) Skin: Warm, Dry, Intact Neurological: No New Focal Deficit Psy/Mental Status: Alert, Normal Affect, Normal Mood - Patient Data Lab Results Last 24 hrs: Laboratory Results - last 24 hr 09/13/21 09/13/21 09/13/21 Range/Units 10:58 16:54 20:48 WBC (4.23-9.07) K/mm3 RBC (4.63-6.08) M/mm3 Hgb (13.7-17.5) gm/dl Hct (40.1-51.0) % MCV (79.0-92.2) fl MCH (25.7-32.2) pg MCHC (32.2-35.5) g/dl RDW Std Deviation (35.1-43.9) fL Plt Count (163-337) K/mm3 MPV (9.4-12.3) fl Neut % (Auto) (34.0-67.9) % Lymph % (Auto) (21.8-53.1) % [place] % (Auto) (5.3-12.2) % Eos % (Auto) (0.8-7.0) Baso % (Auto) (0.1-1.2) % Neut # (Auto) (1.78-5.38) K/mm3 Lymph # (Auto) (1.32-3.57) K/mm3 [place] # (Auto) (0.30-0.82) K/mm3 Eos # (Auto) (0.04-0.54) K/mm3 Baso # (Auto) (0.01-0.08) K/mm3 Sodium (136-145) mEq/L Potassium (3.5-5.1) mEq/L Chloride (98-107) mEq/L Carbon Dioxide (21-32) mEq/L Anion Gap (5-15) BUN (7-18) mg/dL Creatinine (0.7-1.3) mg/dL Est Cr Clr Drug Dosing mL/min Estimated GFR (MDRD) (>60) mL/min BUN/Creatinine Ratio (14-18) Glucose (70-99) mg/dL POC Glucose 282 H 384 H 373 H (70-99) mg/dL Calcium (8.5-10.1) mg/dL Magnesium (1.8-2.4) mg/dL Total Bilirubin (0.2-1.0) mg/dL AST (15-37) U/L ALT (16-63) U/L Alkaline Phosphatase (46-116) U/L Total Protein (6.4-8.2) g/dl Albumin (3.4-5.0) g/dl Globulin gm/dL Albumin/Globulin Ratio (1-2) 09/14/21 09/14/21 09/14/21 Range/Units 05:30 05:30 06:24 WBC 9.65 H (4.23-9.07) K/mm3 RBC 5.27 (4.63-6.08) M/mm3 Hgb 15.1 (13.7-17.5) gm/dl Hct 45.8 (40.1-51.0) % MCV 86.9 (79.0-92.2) fl MCH 28.7 (25.7-32.2) pg MCHC 33.0 (32.2-35.5) g/dl RDW Std Deviation 44.8 H (35.1-43.9) fL Plt Count 191 (163-337) K/mm3 MPV 11.6 (9.4-12.3) fl Neut % (Auto) 83.7 H (34.0-67.9) % Lymph % (Auto) 10.4 L (21.8-53.1) % [place] % (Auto) 5.6 (5.3-12.2) % Eos % (Auto) 0 L (0.8-7.0) Baso % (Auto) 0.1 (0.1-1.2) % Neut # (Auto) 8.08 H (1.78-5.38) K/mm3 Lymph # (Auto) 1.00 L (1.32-3.57) K/mm3 [place] # (Auto) 0.54 (0.30-0.82) K/mm3 Eos # (Auto) 0.00 L (0.04-0.54) K/mm3 Baso # (Auto) 0.01 (0.01-0.08) K/mm3 Sodium 137 (136-145) mEq/L Potassium 4.2 (3.5-5.1) mEq/L Chloride 100 (98-107) mEq/L Carbon Dioxide 28 (21-32) mEq/L Anion Gap 13.2 (5-15) BUN 20 H (7-18) mg/dL Creatinine 0.8 (0.7-1.3) mg/dL Est Cr Clr Drug Dosing 137.00 mL/min Estimated GFR (MDRD) > 60 (>60) mL/min BUN/Creatinine Ratio 25.0 H (14-18) Glucose 279 H (70-99) mg/dL POC Glucose 261 H (70-99) mg/dL Calcium 9.0 (8.5-10.1) mg/dL Magnesium 2.2 (1.8-2.4) mg/dL Total Bilirubin 0.4 (0.2-1.0) mg/dL AST 32 (15-37) U/L ALT 74 H (16-63) U/L Alkaline Phosphatase 111 (46-116) U/L Total Protein 7.0 (6.4-8.2) g/dl Albumin 3.6 (3.4-5.0) g/dl Globulin 3.4 gm/dL Albumin/Globulin Ratio 1.1 (1-2) Result Diagrams: 09/14/21 05:30 09/14/21 05:30 Sepsis Event Note - Evaluation Sepsis Screening Result: No Definite Risk - Focused Exam Vital Signs: Vital Signs Temp Temp Pulse Resp BP Pulse Ox Pulse Ox 09/14/21 06:21 94 L 09/14/21 04:38 97.4 F 70 18 137/96 H 91 L 09/13/21 20:52 75 131/80 09/13/21 20:28 93 L 09/13/21 19:17 97.0 F 09/13/21 19:15 71 20 131/80 92 L - Problem List & Annotations (1) COPD exacerbation SNOMED Code(s): 902643829 Code(s): J44.1 - CHRONIC OBSTRUCTIVE PULMONARY DISEASE W (ACUTE) EXACERBATION Status: Acute Priority: High Current Visit: Yes (2) H/O recurrent pneumonia SNOMED Code(s): 048282352 Code(s): Z87.01 - PERSONAL HISTORY OF PNEUMONIA (RECURRENT) Status: Chronic Priority: Low Current Visit: No (3) History of recurrent UTI (urinary tract infection) SNOMED Code(s): 793555517 Code(s): Z87.440 - PERSONAL HISTORY OF URINARY (TRACT) INFECTIONS Status: Chronic Priority: Low Current Visit: No (4) Peripheral neuropathy SNOMED Code(s): 847001482 Code(s): G62.9 - POLYNEUROPATHY, UNSPECIFIED Status: Chronic Priority: Low Current Visit: No Qualifiers: Peripheral neuropathy type: polyneuropathy, unspecified Qualified Code(s): G62.9 - Polyneuropathy, unspecified (5) Anxiety SNOMED Code(s): 87878012 Code(s): F41.9 - ANXIETY DISORDER, UNSPECIFIED Status: Chronic Priority: Low Current Visit: No (6) Depression SNOMED Code(s): 99566705 Code(s): F32.A - DEPRESSION, UNSPECIFIED Status: Chronic Priority: Low Current Visit: No Qualifiers: Depression Type: other depression Qualified Code(s): F32.89 - Other specified depressive episodes (7) Venous stasis dermatitis of both lower extremities SNOMED Code(s): 30689762 Code(s): I87.2 - VENOUS INSUFFICIENCY (CHRONIC) (PERIPHERAL) Status: Chronic Priority: Low Current Visit: No (8) History of MRSA infection SNOMED Code(s): 202430363, 381462079 Code(s): Z86.14 - PERSONAL HISTORY OF METHICILLIN RESIS STAPH INFECTION Status: Chronic Priority: Low Current Visit: No (9) History of COVID-19 SNOMED Code(s): 295290693407488098, [id number] Code(s): Z86.16 - PERSONAL HISTORY OF COVID-19 Status: Chronic Priority: Medium Current Visit: No (10) Asthma exacerbation SNOMED Code(s): 662995896 Code(s): J45.901 - UNSPECIFIED ASTHMA WITH (ACUTE) EXACERBATION Status: Acute Priority: High Current Visit: Yes Qualifiers: Asthma severity: moderate Asthma persistence: unspecified Qualified Code(s): J45.901 - Unspecified asthma with (acute) exacerbation (11) Chronic lower back pain SNOMED Code(s): 531255333 Code(s): M54.5 - LOW BACK PAIN * DO NOT USE *; G89.29 - OTHER CHRONIC PAIN Status: Chronic Priority: Low Current Visit: No Qualifiers: Back pain laterality: unspecified Sciatica presence: unspecified whether sciatica present Qualified Code(s): M54.50 - Low back pain, unspecified; G89.29 - Other chronic pain (12) Hypertension SNOMED Code(s): 99620811 Code(s): I10 - ESSENTIAL (PRIMARY) HYPERTENSION Status: Chronic Priority: Medium Current Visit: No Qualifiers: Hypertension type: unspecified Qualified Code(s): I10 - Essential (primary) hypertension (13) Obesity SNOMED Code(s): 417399226, 007495713 Code(s): E66.9 - OBESITY, UNSPECIFIED Status: Chronic Priority: High Current Visit: No Qualifiers: Obesity type: unspecified obesity type Obesity classification: adult class 3 (BMI >= 40) Serious obesity comorbidity presence: unspecified whether serious comorbidity present Body mass index: BMI 50.0-59.9 Qualified Code(s): E66.01 - Morbid (severe) obesity due to excess calories; Z68.43 - Body mass index [BMI] 50.0-59.9, adult (14) Type II diabetes mellitus SNOMED Code(s): 03282345 Code(s): E11.9 - TYPE 2 DIABETES MELLITUS WITHOUT COMPLICATIONS Status: Chronic Priority: Medium Current Visit: No Qualifiers: Diabetes mellitus usp insulin use: without usp use Diabetes mellitus complication status: with diabetic arthropathy (15) Acute bronchitis SNOMED Code(s): 68836937 Code(s): J20.9 - ACUTE BRONCHITIS, UNSPECIFIED Status: Acute Priority: High Current Visit: Yes (16) Acute respiratory failure with hypoxia SNOMED Code(s): 24349351, 809717727 Code(s): J96.01 - ACUTE RESPIRATORY FAILURE WITH HYPOXIA Status: Acute Priority: High Current Visit: Yes - Problem List Review Problem List Initiated/Reviewed/Updated: Yes - My Orders Last 24 Hours: My Active Orders 09/15/21 05:11 CBC WITH AUTO DIFF [HEME] AM COMPREHENSIVE METABOLIC PN,CMP [CHEM] AM MAGNESIUM [CHEM] AM - Assessment Assessment:: 09/14/2021 This is a 46-year-old male admitted to the floor for acute hypoxemic respiratory failure secondary to COPDasthma exacerbation. He also appears to have acute bronchitis with significant sputum. He was originally started on azithromycin and 1 g Rocephin was added. He completed 3 days of azithromycin and 1 g Rocephin continues. He has been working with respiratory therapy. He is on scheduled DuoNebs. Overall he reports he feels much better than yesterday. He remains on 1 L of oxygen. Pharmacy does have some concerns with his respiratory medications and we will review these. Labs today show WBC of 9.65. Hemoglobin 15.1. Platelet 191,000. Neutrophils are elevated at 83.7%. Sodium is 137. Potassium 4.2. Chloride 100. Carbon dioxide 28. Anion gap is 13.2. BUN is 20. Creatinine 0.8. GFR greater than 60. Blood glucose has been between 261 and 384. Uneasiness 2.2. Total bilirubin 0.4. AST 32, ALT 74, alkaline phosphatase 111. Albumin is 3.6. He remains on high-dose short acting sliding scale insulin and long-acting insulin. As noted hopeful for discharge tomorrow. We will work on weaning patient off oxygen today. - Plan Plan:: COPD exacerbation History of COVID-19 Asthma exacerbation Acute bronchitis Obesity Acute respiratory failure with hypoxia * Oxygen as needed to keep saturations greater than 88% * IS * Respiratory therapy consultation * Steroids as ordered * Completed 500mg azithromycin * Continue 1gm daily Rocephin * Scheduled DuoNebs 4 times daily * As needed albuterol MDI * Aspiratory medications as ordered H/O recurrent pneumonia History of recurrent UTI (urinary tract infection) * No acute concerns Peripheral neuropathy * No acute concerns * Continue home gabapentin Anxiety Depression * No acute concerns * Continue home medications as ordered Venous stasis dermatitis of both lower extremities * No acute concerns * Elevate extremities BID History of MRSA infection * Skin - related to wound on right thigh in 2005 * Follow institutional MRSA protocol Chronic lower back pain * No acute concerns * As needed pain medications as ordered Hypertension * No acute concerns * Monitor vital signs * Home medications as ordered Type II diabetes mellitus * No acute concerns * High dose sliding scale insulin * Increase long-acting insulin. * Hold home Metformin * Anticipate rise in blood glucose readings due to steroids * We will hold off obtaining A1c for now as patient has been on steroids due to Covid infection recently. Code status: Full code PCP: Dr. Tigre Rosario DVT prophylaxis: Lovenox Disposition: Likely discharge in 1 to 2 days pending continued improvement <Aj Baez Jr - Last Filed: 09/15/21 07:07> - Patient Data Vitals - Most Recent: Last Vital Signs Temp 97.5 F 09/15/21 04:54 Pulse 57 L 09/15/21 04:54 Resp 20 09/15/21 04:54 BP 144/96 H 09/15/21 04:54 Pulse Ox 93 L 09/15/21 05:16 I&O - Last 24 Hours: Intake & Output 09/14/21 09/15/21 09/15/21 22:59 06:59 14:59 Intake Total 2195 1840 Output Total 2500 2800 Balance -305 -960 Lab Results Last 24 Hours: Laboratory Results - last 24 hr 09/14/21 09/14/21 09/14/21 Range/Units 11:17 16:42 20:45 WBC (4.23-9.07) K/mm3 RBC (4.63-6.08) M/mm3 Hgb (13.7-17.5) gm/dl Hct (40.1-51.0) % MCV (79.0-92.2) fl MCH (25.7-32.2) pg MCHC (32.2-35.5) g/dl RDW Std Deviation (35.1-43.9) fL Plt Count (163-337) K/mm3 MPV (9.4-12.3) fl Neut % (Auto) (34.0-67.9) % Lymph % (Auto) (21.8-53.1) % [place] % (Auto) (5.3-12.2) % Eos % (Auto) (0.8-7.0) Baso % (Auto) (0.1-1.2) % Neut # (Auto) (1.78-5.38) K/mm3 Lymph # (Auto) (1.32-3.57) K/mm3 [place] # (Auto) (0.30-0.82) K/mm3 Eos # (Auto) (0.04-0.54) K/mm3 Baso # (Auto) (0.01-0.08) K/mm3 Sodium (136-145) mEq/L Potassium (3.5-5.1) mEq/L Chloride (98-107) mEq/L Carbon Dioxide (21-32) mEq/L Anion Gap (5-15) BUN (7-18) mg/dL Creatinine (0.7-1.3) mg/dL Est Cr Clr Drug Dosing mL/min Estimated GFR (MDRD) (>60) mL/min BUN/Creatinine Ratio (14-18) Glucose (70-99) mg/dL POC Glucose 334 H 345 H 310 H (70-99) mg/dL Calcium (8.5-10.1) mg/dL Magnesium (1.8-2.4) mg/dL Total Bilirubin (0.2-1.0) mg/dL AST (15-37) U/L ALT (16-63) U/L Alkaline Phosphatase (46-116) U/L Total Protein (6.4-8.2) g/dl Albumin (3.4-5.0) g/dl Globulin gm/dL Albumin/Globulin Ratio (1-2) 09/14/21 09/15/21 09/15/21 Range/Units 22:02 05:10 05:10 WBC 9.22 H (4.23-9.07) K/mm3 RBC 5.17 (4.63-6.08) M/mm3 Hgb 14.9 (13.7-17.5) gm/dl Hct 45.1 (40.1-51.0) % MCV 87.2 (79.0-92.2) fl MCH 28.8 (25.7-32.2) pg MCHC 33.0 (32.2-35.5) g/dl RDW Std Deviation 44.7 H (35.1-43.9) fL Plt Count 186 (163-337) K/mm3 MPV 11.7 (9.4-12.3) fl Neut % (Auto) 77.5 H (34.0-67.9) % Lymph % (Auto) 15.2 L (21.8-53.1) % [place] % (Auto) 7.0 (5.3-12.2) % Eos % (Auto) 0 L (0.8-7.0) Baso % (Auto) 0.0 L (0.1-1.2) % Neut # (Auto) 7.14 H (1.78-5.38) K/mm3 Lymph # (Auto) 1.40 (1.32-3.57) K/mm3 [place] # (Auto) 0.65 (0.30-0.82) K/mm3 Eos # (Auto) 0.00 L (0.04-0.54) K/mm3 Baso # (Auto) 0.00 L (0.01-0.08) K/mm3 Sodium 136 (136-145) mEq/L Potassium 4.0 (3.5-5.1) mEq/L Chloride 100 (98-107) mEq/L Carbon Dioxide 30 (21-32) mEq/L Anion Gap 10.0 (5-15) BUN 20 H (7-18) mg/dL Creatinine 0.8 (0.7-1.3) mg/dL Est Cr Clr Drug Dosing 137.00 mL/min Estimated GFR (MDRD) > 60 (>60) mL/min BUN/Creatinine Ratio 25.0 H (14-18) Glucose 255 H (70-99) mg/dL POC Glucose 331 H (70-99) mg/dL Calcium 8.5 (8.5-10.1) mg/dL Magnesium 2.0 (1.8-2.4) mg/dL Total Bilirubin 0.4 (0.2-1.0) mg/dL AST 23 (15-37) U/L ALT 69 H (16-63) U/L Alkaline Phosphatase 111 (46-116) U/L Total Protein 6.5 (6.4-8.2) g/dl Albumin 3.4 (3.4-5.0) g/dl Globulin 3.1 gm/dL Albumin/Globulin Ratio 1.1 (1-2) 09/15/21 Range/Units 06:25 WBC (4.23-9.07) K/mm3 RBC (4.63-6.08) M/mm3 Hgb (13.7-17.5) gm/dl Hct (40.1-51.0) % MCV (79.0-92.2) fl MCH (25.7-32.2) pg MCHC (32.2-35.5) g/dl RDW Std Deviation (35.1-43.9) fL Plt Count (163-337) K/mm3 MPV (9.4-12.3) fl Neut % (Auto) (34.0-67.9) % Lymph % (Auto) (21.8-53.1) % [place] % (Auto) (5.3-12.2) % Eos % (Auto) (0.8-7.0) Baso % (Auto) (0.1-1.2) % Neut # (Auto) (1.78-5.38) K/mm3 Lymph # (Auto) (1.32-3.57) K/mm3 [place] # (Auto) (0.30-0.82) K/mm3 Eos # (Auto) (0.04-0.54) K/mm3 Baso # (Auto) (0.01-0.08) K/mm3 Sodium (136-145) mEq/L Potassium (3.5-5.1) mEq/L Chloride (98-107) mEq/L Carbon Dioxide (21-32) mEq/L Anion Gap (5-15) BUN (7-18) mg/dL Creatinine (0.7-1.3) mg/dL Est Cr Clr Drug Dosing mL/min Estimated GFR (MDRD) (>60) mL/min BUN/Creatinine Ratio (14-18) Glucose (70-99) mg/dL POC Glucose 254 H (70-99) mg/dL Calcium (8.5-10.1) mg/dL Magnesium (1.8-2.4) mg/dL Total Bilirubin (0.2-1.0) mg/dL AST (15-37) U/L ALT (16-63) U/L Alkaline Phosphatase (46-116) U/L Total Protein (6.4-8.2) g/dl Albumin (3.4-5.0) g/dl Globulin gm/dL Albumin/Globulin Ratio (1-2) Med Orders - Current: Current Medications Acetaminophen (Acetaminophen 325 Mg Tab) 650 mg PO Q4H PRN PRN Reason: Pain (Mild 1-3)/fever Hydrocodone Bitart/Acetaminophen (Acetaminophen/Hydrocodone 325-5 Mg Tab) 1 tab PO Q6H PRN PRN Reason: Pain (moderate 4-6) Last Admin: 09/15/21 04:56 Dose: 1 tab Documented by: Albuterol (Albuterol 6.7 Gm Inhaler) 0 gm INH Q2H PRN PRN Reason: Shortness of Breath Last Admin: 09/12/21 13:25 Dose: 2 inhalation Documented by: Albuterol/Ipratropium (Albuterol/Ipratropium 3.0-0.5 Mg/3 Ml Neb Soln) 3 ml NEB QIDRT [facility] Last Admin: 09/15/21 05:14 Dose: 3 ml Documented by: Cyclobenzaprine HCl (Cyclobenzaprine 10 Mg Tab) 10 mg PO TID PRN PRN Reason: Pain Last Admin: 09/15/21 04:57 Dose: 10 mg Documented by: Enoxaparin Sodium (Enoxaparin 40 Mg/0.4 Ml Syringe) 40 mg SUBCUT DAILY [facility] Last Admin: 09/14/21 08:16 Dose: 40 mg Documented by: Furosemide (Furosemide 40 Mg Tab) 40 mg PO Q48H [facility] Last Admin: 09/13/21 12:34 Dose: 40 mg Documented by: Gabapentin (Gabapentin 600 Mg Tab) 600 mg PO TID [facility] Last Admin: 09/14/21 21:01 Dose: 600 mg Documented by: Ceftriaxone Sodium 1 gm/ (Sodium Chloride) 100 mls @ 200 mls/hr IV Q24H [facility] Last Admin: 09/14/21 08:15 Dose: 200 mls/hr Documented by: Insulin Glargine (Insulin Glargine,Hum.Rec.Anlog 100 Unit/Ml 3 Ml Pen) 30 unit SUBCUT DAILY [facility] Insulin Human Lispro (Insulin Lispro 100 Unit/Ml 3 Ml Kwikpen) 0 unit SUBCUT 0700,1100,1700,2100 [facility]; Protocol Last Admin: 09/14/21 21:13 Dose: 12 units Documented by: Isosorbide Mononitrate (Isosorbide Mononitrate 30 Mg Tab.Er) 30 mg PO DAILY [facility] Last Admin: 09/14/21 08:21 Dose: 30 mg Documented by: Losartan Potassium (Losartan 100 Mg Tab) 100 mg PO DAILY [facility] Last Admin: 09/14/21 08:21 Dose: 100 mg Documented by: Methylprednisolone Sodium Succinate (Methylprednisolone Sodium Succinate 40 Mg/1 Ml Sdv) 60 mg IVPUSH DAILY [facility] Last Admin: 09/14/21 08:21 Dose: 60 mg Documented by: Metoprolol Tartrate (Metoprolol Tartrate 25 Mg Tab) 12.5 mg PO BID [facility] Last Admin: 09/14/21 21:02 Dose: 12.5 mg Documented by: Miscellaneous Information (Remove Nicotine Patch) 1 ea TRDERM DAILY [facility] Last Admin: 09/14/21 08:10 Dose: 1 ea Documented by: Mometasone Furoate/Formoterol Fumar (Formoterol/Mometasone 200-5 Mcg 8.8 Gm Inhaler) 2 puff IH BID [facility] Last Admin: 09/14/21 20:52 Dose: 2 puff Documented by: Nicotine (Nicotine 14 Mg/24 Hr Patch) 14 mg TRDERM DAILY [facility] Last Admin: 09/14/21 08:24 Dose: 14 mg Documented by: Nystatin (Nystatin Topical Powder 15 Gm Bottle) 0 gm TOP TID [facility] Last Admin: 09/14/21 21:15 Dose: 1 applic Documented by: Ondansetron HCl (Ondansetron 4 Mg/2 Ml Sdv) 4 mg IV Q6H PRN PRN Reason: Nausea/Vomiting Potassium Chloride (Potassium Chloride 20 Meq Tab.Er) 20 meq PO TID [facility] Last Admin: 09/14/21 21:01 Dose: 20 meq Documented by: Rosuvastatin Calcium (Rosuvastatin 10 Mg Tab) 10 mg PO DAILY [facility] Last Admin: 09/14/21 08:16 Dose: 10 mg Documented by: Senna/Docusate Sodium (Docusate Sodium/Sennosides 50-8.6 Mg Tab) 1 tab PO BID PRN PRN Reason: Constipation Sertraline HCl (Sertraline 50 Mg Tab) 100 mg PO DAILY [facility] Last Admin: 09/14/21 08:21 Dose: 100 mg Documented by: Sodium Chloride (Sodium Chloride 0.9% 10 Ml Syringe) 10 ml FLUSH ASDIRECTED PRN PRN Reason: Keep Vein Open Last Admin: 09/11/21 06:32 Dose: 10 ml Documented by: Discontinued Medications Hydrocodone Bitart/Acetaminophen (Acetaminophen/Hydrocodone 325-5 Mg Tab) 1 tab PO ONETIME ONE Stop: 09/11/21 09:11 Last Admin: 09/11/21 09:28 Dose: 1 tab Documented by: Hydrocodone Bitart/Acetaminophen (Acetaminophen/Hydrocodone 325-5 Mg Tab) 1 tab PO Q4H PRN PRN Reason: Pain (moderate 4-6) Albuterol (Albuterol 0.5% 2.5 Mg/0.5 Ml Neb Soln) 10 mg NEB ONETIME ONE Stop: 09/11/21 08:19 Last Admin: 09/11/21 08:28 Dose: 10 mg Documented by: Albuterol/Ipratropium (Albuterol/Ipratropium 3.0-0.5 Mg/3 Ml Neb Soln) 3 ml NEB ONETIME ONE Stop: 09/11/21 07:10 Last Admin: 09/11/21 07:28 Dose: 3 ml Documented by: Azithromycin (Azithromycin 250 Mg Tab) 500 mg PO 1200 [facility] Stop: 09/13/21 12:01 Last Admin: 09/13/21 11:18 Dose: 500 mg Documented by: Hydrochlorothiazide (Hydrochlorothiazide 12.5 Mg Cap) 12.5 mg PO DAILY [facility] Magnesium Sulfate 2 gm/ Premix 50 mls @ 25 mls/hr IV ONETIME ONE Stop: 09/11/21 08:24 Last Admin: 09/11/21 06:32 Dose: 25 mls/hr Documented by: Insulin Glargine (Insulin Glargine,Hum.Rec.Anlog 100 Unit/Ml 3 Ml Pen) 20 unit SUBCUT BEDTIME [facility] Insulin Glargine (Insulin Glargine,Human Rec. Analog 100 Units/Ml 3 Ml Pen) 20 units SUBCUT DAILY [facility] Insulin Glargine (Insulin Glargine,Hum.Rec.Anlog 100 Unit/Ml 3 Ml Pen) 20 unit SUBCUT DAILY [facility] Last Admin: 09/14/21 08:22 Dose: 20 units Documented by: Insulin Glargine (Insulin Glargine,Hum.Rec.Anlog 100 Unit/Ml 3 Ml Pen) 5 unit SUBCUT ONETIME ONE Stop: 09/14/21 09:41 Last Admin: 09/14/21 10:12 Dose: 5 units Documented by: Insulin Human Lispro (Insulin Lispro 100 Unit/Ml 3 Ml Kwikpen) 0 unit SUBCUT WITHMEALSANDBED [facility]; Protocol Insulin Human Lispro (Insulin Lispro 100 Unit/Ml 3 Ml Kwikpen) 20 unit SUBCUT ONETIME ONE Stop: 09/12/21 16:54 Last Admin: 09/12/21 17:06 Dose: 20 units Documented by: Insulin Human Regular (Insulin Regular, Human 100 Units/Ml 3 Ml Vial) 10 unit SUBCUT ONETIME ONE Stop: 09/11/21 09:09 Last Admin: 09/11/21 09:39 Dose: 10 unit Documented by: Methylprednisolone Sodium Succinate (Methylprednisolone Sodium Succinate 125 Mg/2 Ml Sdv) 125 mg IVPUSH ONETIME ONE Stop: 09/11/21 06:25 Last Admin: 09/11/21 06:30 Dose: 125 mg Documented by: - Patient Data Lab Results Last 24 hrs: Laboratory Results - last 24 hr 09/14/21 09/14/21 09/14/21 Range/Units 11:17 16:42 20:45 WBC (4.23-9.07) K/mm3 RBC (4.63-6.08) M/mm3 Hgb (13.7-17.5) gm/dl Hct (40.1-51.0) % MCV (79.0-92.2) fl MCH (25.7-32.2) pg MCHC (32.2-35.5) g/dl RDW Std Deviation (35.1-43.9) fL Plt Count (163-337) K/mm3 MPV (9.4-12.3) fl Neut % (Auto) (34.0-67.9) % Lymph % (Auto) (21.8-53.1) % [place] % (Auto) (5.3-12.2) % Eos % (Auto) (0.8-7.0) Baso % (Auto) (0.1-1.2) % Neut # (Auto) (1.78-5.38) K/mm3 Lymph # (Auto) (1.32-3.57) K/mm3 [place] # (Auto) (0.30-0.82) K/mm3 Eos # (Auto) (0.04-0.54) K/mm3 Baso # (Auto) (0.01-0.08) K/mm3 Sodium (136-145) mEq/L Potassium (3.5-5.1) mEq/L Chloride (98-107) mEq/L Carbon Dioxide (21-32) mEq/L Anion Gap (5-15) BUN (7-18) mg/dL Creatinine (0.7-1.3) mg/dL Est Cr Clr Drug Dosing mL/min Estimated GFR (MDRD) (>60) mL/min BUN/Creatinine Ratio (14-18) Glucose (70-99) mg/dL POC Glucose 334 H 345 H 310 H (70-99) mg/dL Calcium (8.5-10.1) mg/dL Magnesium (1.8-2.4) mg/dL Total Bilirubin (0.2-1.0) mg/dL AST (15-37) U/L ALT (16-63) U/L Alkaline Phosphatase (46-116) U/L Total Protein (6.4-8.2) g/dl Albumin (3.4-5.0) g/dl Globulin gm/dL Albumin/Globulin Ratio (1-2) 09/14/21 09/15/21 09/15/21 Range/Units 22:02 05:10 05:10 WBC 9.22 H (4.23-9.07) K/mm3 RBC 5.17 (4.63-6.08) M/mm3 Hgb 14.9 (13.7-17.5) gm/dl Hct 45.1 (40.1-51.0) % MCV 87.2 (79.0-92.2) fl MCH 28.8 (25.7-32.2) pg MCHC 33.0 (32.2-35.5) g/dl RDW Std Deviation 44.7 H (35.1-43.9) fL Plt Count 186 (163-337) K/mm3 MPV 11.7 (9.4-12.3) fl Neut % (Auto) 77.5 H (34.0-67.9) % Lymph % (Auto) 15.2 L (21.8-53.1) % [place] % (Auto) 7.0 (5.3-12.2) % Eos % (Auto) 0 L (0.8-7.0) Baso % (Auto) 0.0 L (0.1-1.2) % Neut # (Auto) 7.14 H (1.78-5.38) K/mm3 Lymph # (Auto) 1.40 (1.32-3.57) K/mm3 [place] # (Auto) 0.65 (0.30-0.82) K/mm3 Eos # (Auto) 0.00 L (0.04-0.54) K/mm3 Baso # (Auto) 0.00 L (0.01-0.08) K/mm3 Sodium 136 (136-145) mEq/L Potassium 4.0 (3.5-5.1) mEq/L Chloride 100 (98-107) mEq/L Carbon Dioxide 30 (21-32) mEq/L Anion Gap 10.0 (5-15) BUN 20 H (7-18) mg/dL Creatinine 0.8 (0.7-1.3) mg/dL Est Cr Clr Drug Dosing 137.00 mL/min Estimated GFR (MDRD) > 60 (>60) mL/min BUN/Creatinine Ratio 25.0 H (14-18) Glucose 255 H (70-99) mg/dL POC Glucose 331 H (70-99) mg/dL Calcium 8.5 (8.5-10.1) mg/dL Magnesium 2.0 (1.8-2.4) mg/dL Total Bilirubin 0.4 (0.2-1.0) mg/dL AST 23 (15-37) U/L ALT 69 H (16-63) U/L Alkaline Phosphatase 111 (46-116) U/L Total Protein 6.5 (6.4-8.2) g/dl Albumin 3.4 (3.4-5.0) g/dl Globulin 3.1 gm/dL Albumin/Globulin Ratio 1.1 (1-2) 09/15/21 Range/Units 06:25 WBC (4.23-9.07) K/mm3 RBC (4.63-6.08) M/mm3 Hgb (13.7-17.5) gm/dl Hct (40.1-51.0) % MCV (79.0-92.2) fl MCH (25.7-32.2) pg MCHC (32.2-35.5) g/dl RDW Std Deviation (35.1-43.9) fL Plt Count (163-337) K/mm3 MPV (9.4-12.3) fl Neut % (Auto) (34.0-67.9) % Lymph % (Auto) (21.8-53.1) % [place] % (Auto) (5.3-12.2) % Eos % (Auto) (0.8-7.0) Baso % (Auto) (0.1-1.2) % Neut # (Auto) (1.78-5.38) K/mm3 Lymph # (Auto) (1.32-3.57) K/mm3 [place] # (Auto) (0.30-0.82) K/mm3 Eos # (Auto) (0.04-0.54) K/mm3 Baso # (Auto) (0.01-0.08) K/mm3 Sodium (136-145) mEq/L Potassium (3.5-5.1) mEq/L Chloride (98-107) mEq/L Carbon Dioxide (21-32) mEq/L Anion Gap (5-15) BUN (7-18) mg/dL Creatinine (0.7-1.3) mg/dL Est Cr Clr Drug Dosing mL/min Estimated GFR (MDRD) (>60) mL/min BUN/Creatinine Ratio (14-18) Glucose (70-99) mg/dL POC Glucose 254 H (70-99) mg/dL Calcium (8.5-10.1) mg/dL Magnesium (1.8-2.4) mg/dL Total Bilirubin (0.2-1.0) mg/dL AST (15-37) U/L ALT (16-63) U/L Alkaline Phosphatase (46-116) U/L Total Protein (6.4-8.2) g/dl Albumin (3.4-5.0) g/dl Globulin gm/dL Albumin/Globulin Ratio (1-2) Result Diagrams: 09/15/21 05:10 09/15/21 05:10 Sepsis Event Note - Focused Exam Vital Signs: Vital Signs Temp Pulse Resp BP Pulse Ox Pulse Ox 09/15/21 05:16 93 L 09/15/21 04:54 97.5 F 57 L 20 144/96 H 91 L 09/14/21 23:05 98.4 F 70 18 117/80 94 L 09/14/21 21:11 66 16 121/85 91 L 09/14/21 21:02 75 121/85 09/14/21 20:52 94 L 09/14/21 20:14 97.9 F 66 20 118/52 L 92 L - Plan Plan:: Case discussed in full. Agree with evaluation, assessment and plan. -Israel Mars Jr., DO
[2021-09-14] MEDS: cefTRIAXone 1 GM in Sodium Chloride 0.9% 100 ML IV SCH (08:15)
[2021-09-14] MEDS: Rosuvastatin 10 MG Tab PO SCH (08:16)
[2021-09-14] MEDS: Metoprolol Tartrate 25 MG Tab PO SCH ×2 (08:16→21:02)
[2021-09-14] MEDS: Enoxaparin 40 MG/0.4 ML Syringe SUBCUT SCH (08:16)
[2021-09-14] MEDS: Gabapentin 600 MG Tab PO SCH ×3 (08:20→21:01)
[2021-09-14] MEDS: Potassium Chloride 20 MEQ Tab.ER PO SCH ×3 (08:20→21:01)
[2021-09-14] MEDS: methylPREDNISolone Sodium Succinate 40 MG/1 ML SDV IVPUSH SCH (08:21)
[2021-09-14] MEDS: Isosorbide Mononitrate 30 MG Tab.ER PO SCH (08:21)
[2021-09-14] MEDS: Sertraline 50 MG Tab PO SCH (08:21)
[2021-09-14] MEDS: Losartan 100 MG Tab PO SCH (08:21)
[2021-09-14] MEDS: Insulin Glargine,Hum.Rec.Anlog 100 UNIT/ML 3 ML Pen SUBCUT SCH (08:22)
[2021-09-14] MEDS: Insulin Lispro 100 Unit/ML 3 ML KwikPen SUBCUT SCH ×4 (08:22→21:13)
[2021-09-14] MEDS: Nicotine 14 MG/24 Hr Patch TRDERM SCH (08:24)
[2021-09-14] MEDS: Nystatin Topical Powder 15 GM Bottle TOP SCH ×3 (08:45→21:15)
[2021-09-14] MEDS: Formoterol/Mometasone 200-5 MCG 8.8 GM Inhaler IH SCH ×2 (08:49→20:52)
[2021-09-14] MEDS: Tiotropium BR/Olodaterol HCL 4 GM Inhalation Spray 2.5mcg/1 dose; 10 doses INH SCH (08:49)
[2021-09-14] MEDS ORDERED: Insulin Glargine,Hum.Rec.Anlog 100 UNIT/ML 3 ML Pen SUBCUT ONE (09:40)
[2021-09-15] MEDS: Acetaminophen/HYDROcodone 325-5 MG Tab PO PRN ×2 (04:56→11:54)
[2021-09-15] MEDS: Cyclobenzaprine 10 MG Tab PO PRN (04:57)
[2021-09-15] MEDS: Albuterol/Ipratropium 3.0-0.5 MG/3 ML Neb Soln NEB SCH ×2 (05:14→09:40)
[2021-09-15 08:10] VITALS: BP 139/84; PULSE 62
[2021-09-15] MEDS ORDERED: Insulin Glargine,Hum.Rec.Anlog 100 UNIT/ML 3 ML Pen SUBCUT SCH (09:00)
[2021-09-15] MEDS: Insulin Lispro 100 Unit/ML 3 ML KwikPen SUBCUT SCH ×2 (09:08→11:56)
[2021-09-15] MEDS: Enoxaparin 40 MG/0.4 ML Syringe SUBCUT SCH (09:09)
[2021-09-15] MEDS: cefTRIAXone 1 GM in Sodium Chloride 0.9% 100 ML IV SCH (09:09)
[2021-09-15] MEDS: Gabapentin 600 MG Tab PO SCH (09:10)
[2021-09-15] MEDS: Losartan 100 MG Tab PO SCH (09:10)
[2021-09-15] MEDS: methylPREDNISolone Sodium Succinate 40 MG/1 ML SDV IVPUSH SCH (09:10)
[2021-09-15] MEDS: Metoprolol Tartrate 25 MG Tab PO SCH (09:11)
[2021-09-15] MEDS: Isosorbide Mononitrate 30 MG Tab.ER PO SCH (09:12)
[2021-09-15] MEDS: Potassium Chloride 20 MEQ Tab.ER PO SCH (09:12)
[2021-09-15] MEDS: Rosuvastatin 10 MG Tab PO SCH (09:13)
[2021-09-15] MEDS: Nicotine 14 MG/24 Hr Patch TRDERM SCH (09:13)
[2021-09-15] MEDS: Sertraline 50 MG Tab PO SCH (09:13)
[2021-09-15] MEDS: Nystatin Topical Powder 15 GM Bottle TOP SCH (09:14)
[2021-09-15] MEDS: Formoterol/Mometasone 200-5 MCG 8.8 GM Inhaler IH SCH (09:40)
[2021-09-15] MEDS: Tiotropium BR/Olodaterol HCL 4 GM Inhalation Spray 2.5mcg/1 dose; 10 doses INH SCH (09:41)
--- NOTE | 2021-09-15 10:39 | PCM.DCSUM1 ---
<Duc Bose - Last Filed: 09/15/21 12:39> Discharge Summary - Hospital Course HPI Initial Comments: This is a 46-year-old morbidly obese male who presents to ED on 09/11/2021 via [facility] for shortness of breath which began around 2 AM. He has a history of COPD, asthma and chronic bronchitis. He does have a history of Covid infection however he was off quarantine several weeks ago. He states he was asymptomatic with his COVID-19. He now reports shortness of breath and pr oductive cough but no fever, chills, chest pain, abdominal pain, nausea or vomiting. EMS gave him an albuterol and DuoNeb. In the ED twelve-lead EKG was obtained showing a sinus tachycardia at 121 bpm with no ectopy. Temp is 35.9 Celsius. Pulse 125. Respirations 32. Pulse oximetry 92%. He started on oxygen and given 125 mg IV push Solu-Medrol and 2 g IV magnesium. Labs are obtained showing a mild leukocytosis at 9.28. Hemoglobin is 15.4. Platelet are 184,000. Neutrophils are 86.6%. D-dimer is 0.40. Sodium 138. Potassium 3.9. Chloride 101. Carbon dioxide 27. Anion gap is 13.9. BUN is nine. Creatinine 0.7. GFR greater than 60. Glucose is 371. Calcium 9.2. Total bilirubin 0.3. AST is 37, ALT 63, alkaline phosphatase 152. Troponin is less than 0.017. Albumin is 3.4. proBNP is 11. ABGs obtained in the right radial with a pH of 7.37. PCO2 of 46.8. PO2 of 78.0. HCO3 of 26.4. O2 saturation is 95.4. Base excess is 1.1. AA gradient is 120. This is obtained while on 4 L via nasal cannula. He is given a DuoNeb and a continuous albuterol nebulizer. He is also given [place] for pain and 10 units of regular insulin. Chest x-ray is obtained showing a density off the left cardiac apex. Difficult to exclude a small mass and a chest CT noncontrast was recommended. Chest CT was obtained and was stable from prior study on 01/21/2021 with no density appreciated and nothing acute seen. He carries a history of hypertension, asthma, recurrent bronchitis, COPD, recurrent pneumonia, recurrent UTI, chronic back pain, peripheral neuropathy, anxiety, depression, type II DM, obesity, venous stasis dermatitis and MRSA on his right thigh wound in 2005. He is a full code. His PCP is Dr. Tigre Rosario. He subsequently admitted to the medical floor for management of his COPD exacerbation. Diagnosis: Stroke: No - Discharge Data Discharge Date: 09/15/21 (Admit date: 09/11/2021) Discharge Disposition: Home, Self-Care 01 Condition: Good - Referral to Home Health Primary Care Physician: Tigre Rosario MD - Discharge Diagnosis/Problem(s) (1) COPD exacerbation SNOMED Code(s): 302943645 ICD Code: J44.1 - CHRONIC OBSTRUCTIVE PULMONARY DISEASE W (ACUTE) EXACERBATION Status: Acute Priority: High Current Visit: Yes (2) H/O recurrent pneumonia SNOMED Code(s): 478240352 ICD Code: Z87.01 - PERSONAL HISTORY OF PNEUMONIA (RECURRENT) Status: Chronic Priority: Low Current Visit: No (3) History of recurrent UTI (urinary tract infection) SNOMED Code(s): 792229564 ICD Code: Z87.440 - PERSONAL HISTORY OF URINARY (TRACT) INFECTIONS Status: Chronic Priority: Low Current Visit: No (4) Peripheral neuropathy SNOMED Code(s): 033060192 ICD Code: G62.9 - POLYNEUROPATHY, UNSPECIFIED Status: Chronic Priority: Low Current Visit: No Qualifiers: Peripheral neuropathy type: polyneuropathy, unspecified Qualified Code(s): G62.9 - Polyneuropathy, unspecified (5) Anxiety SNOMED Code(s): 51798775 ICD Code: F41.9 - ANXIETY DISORDER, UNSPECIFIED Status: Chronic Priority: Low Current Visit: No (6) Depression SNOMED Code(s): 16941098 ICD Code: F32.A - DEPRESSION, UNSPECIFIED Status: Chronic Priority: Low Current Visit: No Qualifiers: Depression Type: other depression Qualified Code(s): F32.89 - Other specified depressive episodes (7) Venous stasis dermatitis of both lower extremities SNOMED Code(s): 54433410 ICD Code: I87.2 - VENOUS INSUFFICIENCY (CHRONIC) (PERIPHERAL) Status: Chronic Priority: Low Current Visit: No (8) History of MRSA infection SNOMED Code(s): 019891012, 616943301 ICD Code: Z86.14 - PERSONAL HISTORY OF METHICILLIN RESIS STAPH INFECTION Status: Chronic Priority: Low Current Visit: No (9) History of COVID-19 SNOMED Code(s): 000653480855065723, 465226996553916960 ICD Code: Z86.16 - PERSONAL HISTORY OF COVID-19 Status: Chronic Priority: Medium Current Visit: No (10) Asthma exacerbation SNOMED Code(s): 629836427 ICD Code: J45.901 - UNSPECIFIED ASTHMA WITH (ACUTE) EXACERBATION Status: Acute Priority: High Current Visit: Yes Qualifiers: Asthma severity: moderate Asthma persistence: unspecified Qualified Code(s): J45.901 - Unspecified asthma with (acute) exacerbation (11) Chronic lower back pain SNOMED Code(s): 103157041 ICD Code: M54.5 - LOW BACK PAIN * DO NOT USE *; G89.29 - OTHER CHRONIC PAIN Status: Chronic Priority: Low Current Visit: No Qualifiers: Back pain laterality: unspecified Sciatica presence: unspecified whether sciatica present Qualified Code(s): M54.50 - Low back pain, unspecified; G89.29 - Other chronic pain (12) Hypertension SNOMED Code(s): 34264744 ICD Code: I10 - ESSENTIAL (PRIMARY) HYPERTENSION Status: Chronic Priority: Medium Current Visit: No Qualifiers: Hypertension type: unspecified Qualified Code(s): I10 - Essential (primary) hypertension (13) Obesity SNOMED Code(s): 113065070, 594346699 ICD Code: E66.9 - OBESITY, UNSPECIFIED Status: Chronic Priority: High Current Visit: No Qualifiers: Obesity type: unspecified obesity type Obesity classification: adult class 3 (BMI >= 40) Serious obesity comorbidity presence: unspecified whether serious comorbidity present Body mass index: BMI 50.0-59.9 Qualified Code(s): E66.01 - Morbid (severe) obesity due to excess calories; Z68.43 - Body mass index [BMI] 50.0-59.9, adult (14) Type II diabetes mellitus SNOMED Code(s): 45132548 ICD Code: E11.9 - TYPE 2 DIABETES MELLITUS WITHOUT COMPLICATIONS Status: Chronic Priority: Medium Current Visit: No Qualifiers: Diabetes mellitus long filler cigar roller machine insulin use: without [facility] use Diabetes mellitus complication status: with diabetic arthropathy (15) Acute bronchitis SNOMED Code(s): 04008184 ICD Code: J20.9 - ACUTE BRONCHITIS, UNSPECIFIED Status: Acute Priority: High Current Visit: Yes (16) Acute respiratory failure with hypoxia SNOMED Code(s): 07254043, 546667823 ICD Code: J96.01 - ACUTE RESPIRATORY FAILURE WITH HYPOXIA Status: Acute Priority: High Current Visit: Yes - Patient Summary/Data Consults: Consultations 09/11/21 11:12 Respiratory Care Assess and Treatment [CONS] Routine Labs Pending at D/C: None Recommended Follow-up Testing/Procedures: Recommend follow-up with primary care provider within 5 to 7 days of discharge, sooner if needed. * Recommend repeat CBC, CMP, and magnesium in follow-up. Consider repeat chest x-ray. * Recommend PFT once patient symptoms resolve. * Patient discharged on 4 more days of 500 mg every 6 hour Keflex and a Medrol dose pack. * Patient's respiratory medications were reviewed and he will be started on Spiriva. Symbicort will be continued and we will discontinue his other combination medications. * Patient reports he has not been taking his insulin because he cannot afford it. Given cost of Trulicity this is likely not a good option for him. He was started on 25 units of bedtime Lantus and medium intensity sliding scale insulin. He may benefit from Metformin as well. * Patient structured to take his blood glucose readings 4 times daily before meals and bedtime. He was told to keep these in a journal and bring this with to all medical appointments. Please review this journal and adjust insulin dosing as needed. Patient discharged on steroid and will likely have elevated blood sugars for some time. * Instructed to utilize incentive spirometry and Acapella for 1 to 2 weeks or until symptoms resolve. * Strongly recommend outpatient diabetic education consult * Patient reported difficulty affording medications. Please discuss this with patient. Hospital Course: This is a 46-year-old male who presents to ED on 09/11/2021 with acute onset shortness of breath, cough, and wheezing. He does have known underlying asthma, COPD, and chronic bronchitis. CT scan of his chest showed no pulmonary infiltrates. In the ED he was requiring 8 L of oxygen and was able to be weaned down to 4 via nasal cannula. No fevers were ever appreciated. He was admitted for acute asthma and COPD exacerbation. There was some concern for bronchitis and he was started on azithromycin. Rocephin 1 g daily was later added. He was also started on 60 mg methylprednisolone IV push. He was given an incentive spirometer and Acapella which he used regularly. He was able to be weaned off of oxygen prior to discharge. Patient is a diabetic. He reports that he is unable to afford many of his medications including his long and short acting insulin. Of note he is on Trulicity weekly, and states that he does have this and will take it when he remembers. He states he has plenty of blood glucose testing supplies. His respiratory medications are reviewed and show a double long-acting beta agonist into his combination meds. Discussed discharge medications with Dr. Baez, attending hospitalist and ultimately pharmacy. We will streamline some of his medications to make them easier to remember. Unfortunately patient has been on steroids recently for a COVID-19 infection and so an A1c will likely be skewed and not very helpful. She has blood glucose readings in the ED and on admission were in the mid to upper 300s and patient does report he has not been taking his medications as noted prior. Because of this we will put him on 25 units long-acting insulin at bedtime. We will also put him on medium intensity sliding scale insulin for now as his blood sugars will likely be somewhat variable given his steroid use. Strongly recommend patient follow-up with outpatient clinical trial educator. He may benefit from Me tformin use as well. In regards to his respiratory medications he will be discharged on a daily Spiriva and his home Symbicort will be continued. He states he does have an albuterol MDI at home. He did just run out of albuterol nebulizer medication. He is on both albuterol and Xopenex per his prior medication list. Because of this we will discharge the patient on his albuterol MDI and also add as needed DuoNebs. Recommend patient obtain a pulmonary function test in the near future to see where his baseline respiratory function is. He remained somewhat wheezy so we will discharge him on a Medrol dose pack at discharge. He will discharge on 500 mg every 6 hour Keflex for 4 more days. He is a smoker and he was strongly advised to stop smoking. He will discharge on 14 mg transdermal nicotine patches at discharge as well. Advised patient to discuss his medication cost concerns with his primary care provider as they may be able to help him with this. He was directed to continue to utilize incentive spirometer and Acapella for 1-2 more weeks or until symptoms resolve. As noted he was weaned off of oxygen prior to discharge. He was discharged home today with medication changes as noted prior. Recommend follow-up with primary care provider within 5 to 7 days of discharge, sooner if needed. Recommend repeat CBC, CMP, and magnesium in follow-up. Consider repeat chest x-ray. Please review patient's home medication list and adjust accordingly. - Patient Instructions Diet: Diabetic Diet, Weight Loss Diet Activity: As Tolerated Driving: Do Not Drive (Until feeling better ) Showering/Bathing: May Shower Notify Provider of: Fever, Increased Pain, Nausea and/or Vomiting Other/Special Instructions: Follow-up with primary care provider within 5 to 7 days of discharge, sooner if needed. You need to stop smoking as this is negatively impacting your lungs. Prescription was sent for nicotine patches. Please follow-up with your primary care provider regarding this as you will likely need to be on this for some time and then step down the dosing. You were provided a list of resources such as [place] quits in the [facility] tobacco cessation program to assist you. Resume home medications as directed. We adjusted and changed several of your medications. Strongly recommend you discuss your financial concerns with your primary care provider as they may be able to help with this. Stop taking your weekly insulin. We started you on a nightly long acting insulin. Take this as prescribed. You should take your blood glucose readings 4 times a day - before each meal and before bedtime. Record these results in a journal and bring this with to all medical appointments. Inject the following amount of insulin depending on the value you get: For a blood glucose of less than 150 - no insulin. Blood glucose 152-199: 2 units subcutaneous; blood glucose 200-249: 4 units; blood glucose 250-299: 6units; blood glucose 300-349: 8 units; blood glucose 350-400: 10 units; blood glucose greater than 400: notify your primary care provider. If you have a blood glucose reading less than 60 eat something with sugar such as a candy bar or nondiet pop can contact your primary care provider. If you notice blood glucose readings greater than 400 contact your primary care provider. Note: you will likely have higher blood glucose readings while on your steroid. Strongly recommend you see an outpatient clinical trial educator. Your primary care provider may assist you with this. You were prescribed a steroid taper. Take this as prescribed. Continue to utilize you incentive spirometer (clear/blue device you inhale through) and acapella (tube like device you blow through) for 1-2 more weeks or until symptoms resolve. You were prescribed an antibiotic for your bronchitis. You should take this 4 times a day with your first dose tonight (09/15/2021) until you run out. Recommend outpatient pulmonary function testing. This may be obtained through your primary care provider. Should symptoms return or worsen contact your primary care provider or return to the Emergency Department. - Discharge Plan *PRESCRIPTION DRUG MONITORING PROGRAM REVIEWED*: Not Applicable *COPY OF PRESCRIPTION DRUG MONITORING REPORT IN PATIENT [facility]ATRIZ: Not Applicable Prescriptions/Med Rec: Albuterol/Ipratropium [DuoNeb 3.0-0.5 MG/3 ML] 3 ml NEB QIDRT PRN #30 neb PRN Reason: SOB/Wheezing Nicotine [Habitrol] 14 mg TRDERM DAILY #60 patch Insulin Lispro [Humalog] See Protocol SUBCUT 0700,1100,1700,2100 #10 pen Pen Needle, Diabetic [Insulin Pen Needle] 1 each MC 5XDAY #100 dis.needle cephALEXin [Keflex] 500 mg PO Q6HR #18 cap methylPREDNISolone [Medrol Dose Pack] 84 mg PO ASDIRECTED #21 dospk Insulin Glargine,Hum.Rec.Anlog [Semglee Pen] 25 unit SUBCUT BEDTIME #10 pen Tiotropium [place] [Spiriva Respimat] 2 puff INH DAILY #1 spray.metp Tobacco Cessation Medication: Prescription Given Home Medications: Home Meds Hydrocodone/Acetaminophen [HYDROcodone-Acetaminophen 5-325 MG] 1 tab PO Q6H PRN #10 03/23/20 [Rx] Cyclobenzaprine [Flexeril] 10 mg PO TID PRN 01/20/21 [History] Isosorbide Mononitrate [Imdur] 30 mg PO DAILY #30 tab.er 01/26/21 [Rx] Losartan [Cozaar] 100 mg PO DAILY #30 tablet 01/26/21 [Rx] Metoprolol Tartrate [Lopressor] 12.5 mg PO BID #60 tablet 01/26/21 [Rx] Potassium Chloride [Klor-Con M20] 20 meq PO TID #2 tab.er 01/26/21 [Rx] Albuterol Sulfate [Albuterol Sulfate HFA] 1 puff INH Q4H PRN 09/11/21 [History] Budesonide/Formoterol [Symbicort 160-4.5 MCG] 2 puff INH BID 09/11/21 [History] Furosemide [Lasix] 40 mg PO Q48H 09/11/21 [History] Gabapentin [Neurontin] 600 mg PO TID 09/11/21 [History] Rosuvastatin [Crestor] 10 mg PO DAILY 09/11/21 [History] Sertraline [Zoloft] 100 mg PO DAILY 09/11/21 [History] Albuterol/Ipratropium [DuoNeb 3.0-0.5 MG/3 ML] 3 ml NEB QIDRT PRN #30 neb 09/15/21 [Rx] Insulin Glargine,Hum.Rec.Anlog [Semglee Pen] 25 unit SUBCUT BEDTIME #10 pen 09/15/21 [Rx] Insulin Lispro [Humalog] See Protocol SUBCUT 0700,1100,1700,2100 #10 pen 09/15/21 [Rx] Nicotine [Habitrol] 14 mg TRDERM DAILY #60 patch 09/15/21 [Rx] Pen Needle, Diabetic [Insulin Pen Needle] 1 each 5XDAY #100 dis.needle 09/15/21 [Rx] Tiotropium [place] [Spiriva Respimat] 2 puff INH DAILY #1 spray.metp 09/15/21 [Rx] cephALEXin [Keflex] 500 mg PO Q6HR #18 cap 09/15/21 [Rx] methylPREDNISolone [Medrol Dose Pack] 84 mg PO ASDIRECTED #21 dospk 09/15/21 [Rx] Oxygen Therapy Mode: Room Air Patient Handouts: Insulin Storage and Care, Insulin Treatment for Diabetes Mellitus, Asthma, Adult, Diabetes Mellitus and Foot Care, Insulin Aspart injection, Chronic Obstructive Pulmonary Disease, Insulin Injection I nstructions, Using Insulin Pens, Adult, Correction Insulin, Steps to Quit Smoking Forms: ED Department Discharge Referrals: Kitty Marquez NP [Ordering Only Provider] - 09/24/21 1:00 pm (This is the check in time for your appointment.) - Discharge Summary/Plan Comment DC Time >30 min.: Yes Total # of Minutes for Discharge Time: 60 - General Info Date of Service: 09/15/21 Admission Dx/Problem (Free Text: Admission Diagnosis/Problem Admission Diagnosis/Problem Asthma with acute exacerbation in adult Functional Status: Reports: Pain Controlled, Tolerating Diet, Ambulating, Urinating, Incentive Spirometry, Other (Acapella ). Denies: New Symptoms - Review of Systems General: Reports: No Symptoms. Denies: Fever, Weakness, Fatigue, Malaise, Chills HEENT: Reports: No Symptoms. Denies: Headaches, Sore Throat Pulmonary: Reports: Cough, Wheezing. Denies: Shortness of Breath, Sputum Cardiovascular: Reports: Dyspnea on Exertion (minimal ), Edema (chronic ). Denies: Chest Pain, Palpitations Gastrointestinal: Reports: No Symptoms. Denies: Abdominal Pain, Constipation, Diarrhea, Nausea, Vomiting Genitourinary: Reports: No Symptoms. Denies: Pain Musculoskeletal: Reports: No Symptoms Skin: Reports: No Symptoms Neurological: Reports: No Symptoms. Denies: Confusion, Dizziness, Headache, Numbness, Pre-Existing Deficit, Tingling, Difficulty Walking, Gait Disturbance Psychiatric: Reports: No Symptoms - Patient Data Vitals - Most Recent: Last Vital Signs Temp 97.5 F 09/15/21 07:53 Pulse 62 09/15/21 09:11 Resp 15 09/15/21 07:53 BP 139/84 09/15/21 09:12 Pulse Ox 90 L 09/15/21 09:41 Weight - Most Recent: 451 lb 12.8 oz I&O - Last 24 hours: Intake & Output 09/14/21 09/15/21 09/15/21 22:59 06:59 14:59 Intake Total 2690 1840 Output Total 2500 2800 Balance 190 -960 Lab Results - Last 24 hrs: Laboratory Results - last 24 hr 09/14/21 09/14/21 09/14/21 Range/Units 11:17 16:42 20:45 WBC (4.23-9.07) K/mm3 RBC (4.63-6.08) M/mm3 Hgb (13.7-17.5) gm/dl Hct (40.1-51.0) % MCV (79.0-92.2) fl MCH (25.7-32.2) pg MCHC (32.2-35.5) g/dl RDW Std Deviation (35.1-43.9) fL Plt Count (163-337) K/mm3 MPV (9.4-12.3) fl Neut % (Auto) (34.0-67.9) % Lymph % (Auto) (21.8-53.1) % [place] % (Auto) (5.3-12.2) % Eos % (Auto) (0.8-7.0) Baso % (Auto) (0.1-1.2) % Neut # (Auto) (1.78-5.38) K/mm3 Lymph # (Auto) (1.32-3.57) K/mm3 [place] # (Auto) (0.30-0.82) K/mm3 Eos # (Auto) (0.04-0.54) K/mm3 Baso # (Auto) (0.01-0.08) K/mm3 Sodium (136-145) mEq/L Potassium (3.5-5.1) mEq/L Chloride (98-107) mEq/L Carbon Dioxide (21-32) mEq/L Anion Gap (5-15) BUN (7-18) mg/dL Creatinine (0.7-1.3) mg/dL Est Cr Clr Drug Dosing mL/min Estimated GFR (MDRD) (>60) mL/min BUN/Creatinine Ratio (14-18) Glucose (70-99) mg/dL POC Glucose 334 H 345 H 310 H (70-99) mg/dL Calcium (8.5-10.1) mg/dL Magnesium (1.8-2.4) mg/dL Total Bilirubin (0.2-1.0) mg/dL AST (15-37) U/L ALT (16-63) U/L Alkaline Phosphatase (46-116) U/L Total Protein (6.4-8.2) g/dl Albumin (3.4-5.0) g/dl Globulin gm/dL Albumin/Globulin Ratio (1-2) 09/14/21 09/15/21 09/15/21 Range/Units 22:02 05:10 05:10 WBC 9.22 H (4.23-9.07) K/mm3 RBC 5.17 (4.63-6.08) M/mm3 Hgb 14.9 (13.7-17.5) gm/dl Hct 45.1 (40.1-51.0) % MCV 87.2 (79.0-92.2) fl MCH 28.8 (25.7-32.2) pg MCHC 33.0 (32.2-35.5) g/dl RDW Std Deviation 44.7 H (35.1-43.9) fL Plt Count 186 (163-337) K/mm3 MPV 11.7 (9.4-12.3) fl Neut % (Auto) 77.5 H (34.0-67.9) % Lymph % (Auto) 15.2 L (21.8-53.1) % [place] % (Auto) 7.0 (5.3-12.2) % Eos % (Auto) 0 L (0.8-7.0) Baso % (Auto) 0.0 L (0.1-1.2) % Neut # (Auto) 7.14 H (1.78-5.38) K/mm3 Lymph # (Auto) 1.40 (1.32-3.57) K/mm3 [place] # (Auto) 0.65 (0.30-0.82) K/mm3 Eos # (Auto) 0.00 L (0.04-0.54) K/mm3 Baso # (Auto) 0.00 L (0.01-0.08) K/mm3 Sodium 136 (136-145) mEq/L Potassium 4.0 (3.5-5.1) mEq/L Chloride 100 (98-107) mEq/L Carbon Dioxide 30 (21-32) mEq/L Anion Gap 10.0 (5-15) BUN 20 H (7-18) mg/dL Creatinine 0.8 (0.7-1.3) mg/dL Est Cr Clr Drug Dosing 137.00 mL/min Estimated GFR (MDRD) > 60 (>60) mL/min BUN/Creatinine Ratio 25.0 H (14-18) Glucose 255 H (70-99) mg/dL POC Glucose 331 H (70-99) mg/dL Calcium 8.5 (8.5-10.1) mg/dL Magnesium 2.0 (1.8-2.4) mg/dL Total Bilirubin 0.4 (0.2-1.0) mg/dL AST 23 (15-37) U/L ALT 69 H (16-63) U/L Alkaline Phosphatase 111 (46-116) U/L Total Protein 6.5 (6.4-8.2) g/dl Albumin 3.4 (3.4-5.0) g/dl Globulin 3.1 gm/dL Albumin/Globulin Ratio 1.1 (1-2) 09/15/21 Range/Units 06:25 WBC (4.23-9.07) K/mm3 RBC (4.63-6.08) M/mm3 Hgb (13.7-17.5) gm/dl Hct (40.1-51.0) % MCV (79.0-92.2) fl MCH (25.7-32.2) pg MCHC (32.2-35.5) g/dl RDW Std Deviation (35.1-43.9) fL Plt Count (163-337) K/mm3 MPV (9.4-12.3) fl Neut % (Auto) (34.0-67.9) % Lymph % (Auto) (21.8-53.1) % [place] % (Auto) (5.3-12.2) % Eos % (Auto) (0.8-7.0) Baso % (Auto) (0.1-1.2) % Neut # (Auto) (1.78-5.38) K/mm3 Lymph # (Auto) (1.32-3.57) K/mm3 [place] # (Auto) (0.30-0.82) K/mm3 Eos # (Auto) (0.04-0.54) K/mm3 Baso # (Auto) (0.01-0.08) K/mm3 Sodium (136-145) mEq/L Potassium (3.5-5.1) mEq/L Chloride (98-107) mEq/L Carbon Dioxide (21-32) mEq/L Anion Gap (5-15) BUN (7-18) mg/dL Creatinine (0.7-1.3) mg/dL Est Cr Clr Drug Dosing mL/min Estimated GFR (MDRD) (>60) mL/min BUN/Creatinine Ratio (14-18) Glucose (70-99) mg/dL POC Glucose 254 H (70-99) mg/dL Calcium (8.5-10.1) mg/dL Magnesium (1.8-2.4) mg/dL Total Bilirubin (0.2-1.0) mg/dL AST (15-37) U/L ALT (16-63) U/L Alkaline Phosphatase (46-116) U/L Total Protein (6.4-8.2) g/dl Albumin (3.4-5.0) g/dl Globulin gm/dL Albumin/Globulin Ratio (1-2) Med Orders - Current: Current Medications Acetaminophen (Acetaminophen 325 Mg Tab) 650 mg PO Q4H PRN PRN Reason: Pain (Mild 1-3)/fever Hydrocodone Bitart/Acetaminophen (Acetaminophen/Hydrocodone 325-5 Mg Tab) 1 tab PO Q6H PRN PRN Reason: Pain (moderate 4-6) Last Admin: 09/15/21 04:56 Dose: 1 tab Documented by: Albuterol (Albuterol 6.7 Gm Inhaler) 0 gm INH Q2H PRN PRN Reason: Shortness of Breath Last Admin: 09/12/21 13:25 Dose: 2 inhalation Documented by: Albuterol/Ipratropium (Albuterol/Ipratropium 3.0-0.5 Mg/3 Ml Neb Soln) 3 ml NEB QIDRT [facility] Last Admin: 09/15/21 09:40 Dose: 3 ml Documented by: Cephalexin (Cephalexin 500 Mg Cap) 500 mg PO Q6H [facility] Cyclobenzaprine HCl (Cyclobenzaprine 10 Mg Tab) 10 mg PO TID PRN PRN Reason: Pain Last Admin: 09/15/21 04:57 Dose: 10 mg Documented by: Enoxaparin Sodium (Enoxaparin 40 Mg/0.4 Ml Syringe) 40 mg SUBCUT DAILY [facility] Last Admin: 09/15/21 09:09 Dose: 40 mg Documented by: Furosemide (Furosemide 40 Mg Tab) 40 mg PO Q48H [facility] Last Admin: 09/13/21 12:34 Dose: 40 mg Documented by: Gabapentin (Gabapentin 600 Mg Tab) 600 mg PO TID [facility] Last Admin: 09/15/21 09:10 Dose: 600 mg Documented by: Insulin Glargine (Insulin Glargine,Hum.Rec.Anlog 100 Unit/Ml 3 Ml Pen) 30 unit SUBCUT DAILY [facility] Last Admin: 09/15/21 09:15 Dose: 30 units Documented by: Insulin Human Lispro (Insulin Lispro 100 Unit/Ml 3 Ml Kwikpen) 0 unit SUBCUT 0700,1100,1700,2100 [facility]; Protocol Last Admin: 09/15/21 09:08 Dose: 9 units Documented by: Isosorbide Mononitrate (Isosorbide Mononitrate 30 Mg Tab.Er) 30 mg PO DAILY [facility] Last Admin: 09/15/21 09:12 Dose: 30 mg Documented by: Losartan Potassium (Losartan 100 Mg Tab) 100 mg PO DAILY [facility] Last Admin: 09/15/21 09:10 Dose: 100 mg Documented by: Methylprednisolone Sodium Succinate (Methylprednisolone Sodium Succinate 40 Mg/1 Ml Sdv) 60 mg IVPUSH DAILY [facility] Last Admin: 09/15/21 09:10 Dose: 60 mg Documented by: Metoprolol Tartrate (Metoprolol Tartrate 25 Mg Tab) 12.5 mg PO BID [facility] [facility] Last Admin: 09/15/21 09:11 Dose: 12.5 mg Documented by: Miscellaneous Information (Remove Nicotine Patch) 1 ea TRDERM DAILY [facility] Last Admin: 09/15/21 09:14 Dose: 1 ea Documented by: Mometasone Furoate/Formoterol Fumar (Formoterol/Mometasone 200-5 Mcg 8.8 Gm Inhaler) 2 puff IH BID [facility] Last Admin: 09/15/21 09:40 Dose: 2 puff Documented by: Nicotine (Nicotine 14 Mg/24 Hr Patch) 14 mg TRDERM DAILY [facility] Last Admin: 09/15/21 09:13 Dose: 14 mg Documented by: Nystatin (Nystatin Topical Powder 15 Gm Bottle) 0 gm TOP TID [facility] Last Admin: 09/15/21 09:14 Dose: 1 applic Documented by: Ondansetron HCl (Ondansetron 4 Mg/2 Ml Sdv) 4 mg IV Q6H PRN PRN Reason: Nausea/Vomiting Potassium Chloride (Potassium Chloride 20 Meq Tab.Er) 20 meq PO TID [facility] Last Admin: 09/15/21 09:12 Dose: 20 meq Documented by: Rosuvastatin Calcium (Rosuvastatin 10 Mg Tab) 10 mg PO DAILY [facility] Last Admin: 09/15/21 09:13 Dose: 10 mg Documented by: Senna/Docusate Sodium (Docusate Sodium/Sennosides 50-8.6 Mg Tab) 1 tab PO BID PRN PRN Reason: Constipation Sertraline HCl (Sertraline 50 Mg Tab) 100 mg PO DAILY [facility] Last Admin: 09/15/21 09:13 Dose: 100 mg Documented by: Sodium Chloride (Sodium Chloride 0.9% 10 Ml Syringe) 10 ml FLUSH ASDIRECTED PRN PRN Reason: Keep Vein Open Last Admin: 09/11/21 06:32 Dose: 10 ml Documented by: Discontinued Medications Hydrocodone Bitart/Acetaminophen (Acetaminophen/Hydrocodone 325-5 Mg Tab) 1 tab PO ONETIME ONE Stop: 09/11/21 09:11 Last Admin: 09/11/21 09:28 Dose: 1 tab Documented by: Hydrocodone Bitart/Acetaminophen (Acetaminophen/Hydrocodone 325-5 Mg Tab) 1 tab PO Q4H PRN PRN Reason: Pain (moderate 4-6) Albuterol (Albuterol 0.5% 2.5 Mg/0.5 Ml Neb Soln) 10 mg NEB ONETIME ONE Stop: 09/11/21 08:19 Last Admin: 09/11/21 08:28 Dose: 10 mg Documented by: Albuterol/Ipratropium (Albuterol/Ipratropium 3.0-0.5 Mg/3 Ml Neb Soln) 3 ml NEB ONETIME ONE Stop: 09/11/21 07:10 Last Admin: 09/11/21 07:28 Dose: 3 ml Documented by: Azithromycin (Azithromycin 250 Mg Tab) 500 mg PO 1200 [facility] Stop: 09/13/21 12:01 Last Admin: 09/13/21 11:18 Dose: 500 mg Documented by: Hydrochlorothiazide (Hydrochlorothiazide 12.5 Mg Cap) 12.5 mg PO DAILY [facility] Magnesium Sulfate 2 gm/ Premix 50 mls @ 25 mls/hr IV ONETIME ONE Stop: 09/11/21 08:24 Last Admin: 09/11/21 06:32 Dose: 25 mls/hr Documented by: Ceftriaxone Sodium 1 gm/ (Sodium Chloride) 100 mls @ 200 mls/hr IV Q24H [facility] Last Admin: 09/15/21 09:09 Dose: 200 mls/hr Documented by: Insulin Glargine (Insulin Glargine,Hum.Rec.Anlog 100 Unit/Ml 3 Ml Pen) 20 unit SUBCUT BEDTIME [facility] Insulin Glargine (Insulin Glargine,Human Rec. Analog 100 Units/Ml 3 Ml Pen) 20 units SUBCUT DAILY [facility] Insulin Glargine (Insulin Glargine,Hum.Rec.Anlog 100 Unit/Ml 3 Ml Pen) 20 unit SUBCUT DAILY [facility] Last Admin: 09/14/21 08:22 Dose: 20 units Documented by: Insulin Glargine (Insulin Glargine,Hum.Rec.Anlog 100 Unit/Ml 3 Ml Pen) 5 unit SUBCUT ONETIME ONE Stop: 09/14/21 09:41 Last Admin: 09/14/21 10:12 Dose: 5 units Documented by: Insulin Human Lispro (Insulin Lispro 100 Unit/Ml 3 Ml Kwikpen) 0 unit SUBCUT WITHMEALSANDBED [facility]; Protocol Insulin Human Lispro (Insulin Lispro 100 Unit/Ml 3 Ml Kwikpen) 20 unit SUBCUT ONETIME ONE Stop: 09/12/21 16:54 Last Admin: 09/12/21 17:06 Dose: 20 units Documented by: Insulin Human Regular (Insulin Regular, Human 100 Units/Ml 3 Ml Vial) 10 unit SUBCUT ONETIME ONE Stop: 09/11/21 09:09 Last Admin: 09/11/21 09:39 Dose: 10 unit Documented by: Methylprednisolone Sodium Succinate (Methylprednisolone Sodium Succinate 125 Mg/2 Ml Sdv) 125 mg IVPUSH ONETIME ONE Stop: 09/11/21 06:25 Last Admin: 09/11/21 06:30 Dose: 125 mg Documented by: - Exam Quality Assessment: Reports: DVT Prophylaxis. Denies: Supplemental Oxygen, Urine Catheter General: Reports: Alert, Oriented, Cooperative, No Acute Distress HEENT: Reports: Pupils Equal, Pupils Reactive, Mucous Membr. Moist/[place] Neck: Reports: Supple, Trachea Midline Lungs: Reports: Normal Respiratory Effort, Decreased Breath Sounds, Wheezing. Denies: Crackles, Rhonchi Cardiovascular: Reports: Regular Rate, Regular Rhythm GI/Abdominal Exam: Normal Bowel Sounds, Soft, Non-Tender, No Distention (Male) Exam: Deferred Rectal (Males) Exam: Deferred Back Exam: Reports: Normal Inspection, Full Range of Motion Extremities: Normal Range of Motion, Non-Tender, No Pedal Edema, Normal Capillary Refill, Pedal Edema (trace bilateral ), Other (Bilateral lower extremity discoloration consistent with PVD) Skin: Reports: Warm, Dry, Intact Neurological: Reports: No New Focal Deficit Psy/Mental Status: Reports: Alert, Normal Affect, Normal Mood <Aj Baez Jr - Last Filed: 09/15/21 12:48> Discharge Summary - Referral to Home Health Primary Care Physician: Tigre Rosario MD - Patient Summary/Data Consults: Consultations 09/11/21 11:12 Respiratory Care Assess and Treatment [CONS] Routine - Discharge Summary/Plan Comment Discharge Summary/Plan Comment: Case Discussed in full. Agree with evaluation, assessment and plan. -Israel Mars Jr. DO - Patient Data Vitals - Most Recent: Last Vital Signs Temp 97.5 F 09/15/21 07:53 Pulse 62 09/15/21 09:11 Resp 15 09/15/21 07:53 BP 139/84 09/15/21 09:12 Pulse Ox 90 L 09/15/21 09:41 I&O - Last 24 hours: Intake & Output 09/14/21 09/15/21 09/15/21 22:59 06:59 14:59 Intake Total 2690 1840 320 Output Total 2500 2800 Balance 190 -960 320 Lab Results - Last 24 hrs: Laboratory Results - last 24 hr 09/14/21 09/14/21 09/14/21 Range/Units 16:42 20:45 22:02 WBC (4.23-9.07) K/mm3 RBC (4.63-6.08) M/mm3 Hgb (13.7-17.5) gm/dl Hct (40.1-51.0) % MCV (79.0-92.2) fl MCH (25.7-32.2) pg MCHC (32.2-35.5) g/dl RDW Std Deviation (35.1-43.9) fL Plt Count (163-337) K/mm3 MPV (9.4-12.3) fl Neut % (Auto) (34.0-67.9) % Lymph % (Auto) (21.8-53.1) % [place] % (Auto) (5.3-12.2) % Eos % (Auto) (0.8-7.0) Baso % (Auto) (0.1-1.2) % Neut # (Auto) (1.78-5.38) K/mm3 Lymph # (Auto) (1.32-3.57) K/mm3 [place] # (Auto) (0.30-0.82) K/mm3 Eos # (Auto) (0.04-0.54) K/mm3 Baso # (Auto) (0.01-0.08) K/mm3 Sodium (136-145) mEq/L Potassium (3.5-5.1) mEq/L Chloride (98-107) mEq/L Carbon Dioxide (21-32) mEq/L Anion Gap (5-15) BUN (7-18) mg/dL Creatinine (0.7-1.3) mg/dL Est Cr Clr Drug Dosing mL/min Estimated GFR (MDRD) (>60) mL/min BUN/Creatinine Ratio (14-18) Glucose (70-99) mg/dL POC Glucose 345 H 310 H 331 H (70-99) mg/dL Calcium (8.5-10.1) mg/dL Magnesium (1.8-2.4) mg/dL Total Bilirubin (0.2-1.0) mg/dL AST (15-37) U/L ALT (16-63) U/L Alkaline Phosphatase (46-116) U/L Total Protein (6.4-8.2) g/dl Albumin (3.4-5.0) g/dl Globulin gm/dL Albumin/Globulin Ratio (1-2) 09/15/21 09/15/21 09/15/21 Range/Units 05:10 05:10 06:25 WBC 9.22 H (4.23-9.07) K/mm3 RBC 5.17 (4.63-6.08) M/mm3 Hgb 14.9 (13.7-17.5) gm/dl Hct 45.1 (40.1-51.0) % MCV 87.2 (79.0-92.2) fl MCH 28.8 (25.7-32.2) pg MCHC 33.0 (32.2-35.5) g/dl RDW Std Deviation 44.7 H (35.1-43.9) fL Plt Count 186 (163-337) K/mm3 MPV 11.7 (9.4-12.3) fl Neut % (Auto) 77.5 H (34.0-67.9) % Lymph % (Auto) 15.2 L (21.8-53.1) % [place] % (Auto) 7.0 (5.3-12.2) % Eos % (Auto) 0 L (0.8-7.0) Baso % (Auto) 0.0 L (0.1-1.2) % Neut # (Auto) 7.14 H (1.78-5.38) K/mm3 Lymph # (Auto) 1.40 (1.32-3.57) K/mm3 [place] # (Auto) 0.65 (0.30-0.82) K/mm3 Eos # (Auto) 0.00 L (0.04-0.54) K/mm3 Baso # (Auto) 0.00 L (0.01-0.08) K/mm3 Sodium 136 (136-145) mEq/L Potassium 4.0 (3.5-5.1) mEq/L Chloride 100 (98-107) mEq/L Carbon Dioxide 30 (21-32) mEq/L Anion Gap 10.0 (5-15) BUN 20 H (7-18) mg/dL Creatinine 0.8 (0.7-1.3) mg/dL Est Cr Clr Drug Dosing 137.00 mL/min Estimated GFR (MDRD) > 60 (>60) mL/min BUN/Creatinine Ratio 25.0 H (14-18) Glucose 255 H (70-99) mg/dL POC Glucose 254 H (70-99) mg/dL Calcium 8.5 (8.5-10.1) mg/dL Magnesium 2.0 (1.8-2.4) mg/dL Total Bilirubin 0.4 (0.2-1.0) mg/dL AST 23 (15-37) U/L ALT 69 H (16-63) U/L Alkaline Phosphatase 111 (46-116) U/L Total Protein 6.5 (6.4-8.2) g/dl Albumin 3.4 (3.4-5.0) g/dl Globulin 3.1 gm/dL Albumin/Globulin Ratio 1.1 (1-2) 09/15/ Range/Units 11:11 WBC (4.23-9.07) K/mm3 RBC (4.63-6.08) M/mm3 Hgb (13.7-17.5) gm/dl Hct (40.1-51.0) % MCV (79.0-92.2) fl MCH (25.7-32.2) pg MCHC (32.2-35.5) g/dl RDW Std Deviation (35.1-43.9) fL Plt Count (163-337) K/mm3 MPV (9.4-12.3) fl Neut % (Auto) (34.0-67.9) % Lymph % (Auto) (21.8-53.1) % [place] % (Auto) (5.3-12.2) % Eos % (Auto) (0.8-7.0) Baso % (Auto) (0.1-1.2) % Neut # (Auto) (1.78-5.38) K/mm3 Lymph # (Auto) (1.32-3.57) K/mm3 [place] # (Auto) (0.30-0.82) K/mm3 Eos # (Auto) (0.04-0.54) K/mm3 Baso # (Auto) (0.01-0.08) K/mm3 Sodium (136-145) mEq/L Potassium (3.5-5.1) mEq/L Chloride (98-107) mEq/L Carbon Dioxide (21-32) mEq/L Anion Gap (5-15) BUN (7-18) mg/dL Creatinine (0.7-1.3) mg/dL Est Cr Clr Drug Dosing mL/min Estimated GFR (MDRD) (>60) mL/min BUN/Creatinine Ratio (14-18) Glucose (70-99) mg/dL POC Glucose 312 H (70-99) mg/dL Calcium (8.5-10.1) mg/dL Magnesium (1.8-2.4) mg/dL Total Bilirubin (0.2-1.0) mg/dL AST (15-37) U/L ALT (16-63) U/L Alkaline Phosphatase (46-116) U/L Total Protein (6.4-8.2) g/dl Albumin (3.4-5.0) g/dl Globulin gm/dL Albumin/Globulin Ratio (1-2) Med Orders - Current: Current Medications Acetaminophen (Acetaminophen 325 Mg Tab) 650 mg PO Q4H PRN PRN Reason: Pain (Mild 1-3)/fever Hydrocodone Bitart/Acetaminophen (Acetaminophen/Hydrocodone 325-5 Mg Tab) 1 tab PO Q6H PRN PRN Reason: Pain (moderate 4-6) Last Admin: 09/15/21 11:54 Dose: 1 tab Documented by: Albuterol (Albuterol 6.7 Gm Inhaler) 0 gm INH Q2H PRN PRN Reason: Shortness of Breath Last Admin: 09/12/21 13:25 Dose: 2 inhalation Documented by: Albuterol/Ipratropium (Albuterol/Ipratropium 3.0-0.5 Mg/3 Ml Neb Soln) 3 ml NEB QIDRT [facility] Last Admin: 09/15/21 09:40 Dose: 3 ml Documented by: Cephalexin (Cephalexin 500 Mg Cap) 500 mg PO Q6H [facility] Last Admin: 09/15/21 11:54 Dose: 500 mg Documented by: Cyclobenzaprine HCl (Cyclobenzaprine 10 Mg Tab) 10 mg PO TID PRN PRN Reason: Pain Last Admin: 09/15/21 04:57 Dose: 10 mg Documented by: Enoxaparin Sodium (Enoxaparin 40 Mg/0.4 Ml Syringe) 40 mg SUBCUT DAILY [facility] Last Admin: 09/15/21 09:09 Dose: 40 mg Documented by: Furosemide (Furosemide 40 Mg Tab) 40 mg PO Q48H [facility] Last Admin: 09/13/21 12:34 Dose: 40 mg Documented by: Gabapentin (Gabapentin 600 Mg Tab) 600 mg PO TID [facility] Last Admin: 09/15/21 09:10 Dose: 600 mg Documented by: Insulin Glargine (Insulin Glargine,Hum.Rec.Anlog 100 Unit/Ml 3 Ml Pen) 30 unit SUBCUT DAILY [facility] Last Admin: 09/15/21 09:15 Dose: 30 units Documented by: Insulin Human Lispro (Insulin Lispro 100 Unit/Ml 3 Ml Kwikpen) 0 unit SUBCUT 0700,1100,1700,2100 [facility]; Protocol Last Admin: 09/15/21 11:56 Dose: 12 units Documented by: Isosorbide Mononitrate (Isosorbide Mononitrate 30 Mg Tab.Er) 30 mg PO DAILY [facility] Last Admin: 09/15/21 09:12 Dose: 30 mg Documented by: Losartan Potassium (Losartan 100 Mg Tab) 100 mg PO DAILY [facility] Last Admin: 09/15/21 09:10 Dose: 100 mg Documented by: Methylprednisolone Sodium Succinate (Methylprednisolone Sodium Succinate 40 Mg/1 Ml Sdv) 60 mg IVPUSH DAILY [facility] Last Admin: 09/15/21 09:10 Dose: 60 mg Documented by: Metoprolol Tartrate (Metoprolol Tartrate 25 Mg Tab) 12.5 mg PO BID [facility] Last Admin: 09/15/21 09:11 Dose: 12.5 mg Documented by: Miscellaneous Information (Remove Nicotine Patch) 1 ea TRDERM DAILY [facility] Last Admin: 09/15/21 09:14 Dose: 1 ea Documented by: Mometasone Furoate/Formoterol Fumar (Formoterol/Mometasone 200-5 Mcg 8.8 Gm Inhaler) 2 puff IH BID [facility] Last Admin: 09/15/21 09:40 Dose: 2 puff Documented by: Nicotine (Nicotine 14 Mg/24 Hr Patch) 14 mg TRDERM DAILY [facility] Last Admin: 09/15/21 09:13 Dose: 14 mg Documented by: Nystatin (Nystatin Topical Powder 15 Gm Bottle) 0 gm TOP TID [facility] Last Admin: 09/15/21 09:14 Dose: 1 applic Documented by: Ondansetron HCl (Ondansetron 4 Mg/2 Ml Sdv) 4 mg IV Q6H PRN PRN Reason: Nausea/Vomiting Potassium Chloride (Potassium Chloride 20 Meq Tab.Er) 20 meq PO TID [facility] Last Admin: 09/15/21 09:12 Dose: 20 meq Documented by: Rosuvastatin Calcium (Rosuvastatin 10 Mg Tab) 10 mg PO DAILY [facility] Last Admin: 09/15/21 09:13 Dose: 10 mg Documented by: Senna/Docusate Sodium (Docusate Sodium/Sennosides 50-8.6 Mg Tab) 1 tab PO BID PRN PRN Reason: Constipation Sertraline HCl (Sertraline 50 Mg Tab) 100 mg PO DAILY [facility] Last Admin: 09/15/21 09:13 Dose: 100 mg Documented by: Sodium Chloride (Sodium Chloride 0.9% 10 Ml Syringe) 10 ml FLUSH ASDIRECTED PRN PRN Reason: Keep Vein Open Last Admin: 09/11/21 06:32 Dose: 10 ml Documented by: Discontinued Medications Hydrocodone Bitart/Acetaminophen (Acetaminophen/Hydrocodone 325-5 Mg Tab) 1 tab PO ONETIME ONE Stop: 09/11/21 09:11 Last Admin: 09/11/21 09:28 Dose: 1 tab Documented by: Hydrocodone Bitart/Acetaminophen (Acetaminophen/Hydrocodone 325-5 Mg Tab) 1 tab PO Q4H PRN PRN Reason: Pain (moderate 4-6) Albuterol (Albuterol 0.5% 2.5 Mg/0.5 Ml Neb Soln) 10 mg NEB ONETIME ONE Stop: 09/11/21 08:19 Last Admin: 09/11/21 08:28 Dose: 10 mg Documented by: Albuterol/Ipratropium (Albuterol/Ipratropium 3.0-0.5 Mg/3 Ml Neb Soln) 3 ml NEB ONETIME ONE Stop: 09/11/21 07:10 Last Admin: 09/11/21 07:28 Dose: 3 ml Documented by: Azithromycin (Azithromycin 250 Mg Tab) 500 mg PO 1200 [facility] Stop: 09/13/21 12:01 Last Admin: 09/13/21 11:18 Dose: 500 mg Documented by: Hydrochlorothiazide (Hydrochlorothiazide 12.5 Mg Cap) 12.5 mg PO DAILY [facility] Magnesium Sulfate 2 gm/ Premix 50 mls @ 25 mls/hr IV ONETIME ONE Stop: 09/11/21 08:24 Last Admin: 09/11/21 06:32 Dose: 25 mls/hr Documented by: Ceftriaxone Sodium 1 gm/ (Sodium Chloride) 100 mls @ 200 mls/hr IV Q24H [facility] Last Admin: 09/15/21 09:09 Dose: 200 mls/hr Documented by: Insulin Glargine (Insulin Glargine,Hum.Rec.Anlog 100 Unit/Ml 3 Ml Pen) 20 unit SUBCUT BEDTIME [facility] Insulin Glargine (Insulin Glargine,Human Rec. Analog 100 Units/Ml 3 Ml Pen) 20 units SUBCUT DAILY [facility] Insulin Glargine (Insulin Glargine,Hum.Rec.Anlog 100 Unit/Ml 3 Ml Pen) 20 unit SUBCUT DAILY [facility] Last Admin: 09/14/21 08:22 Dose: 20 units Documented by: Insulin Glargine (Insulin Glargine,Hum.Rec.Anlog 100 Unit/Ml 3 Ml Pen) 5 unit SUBCUT ONETIME ONE Stop: 09/14/21 09:41 Last Admin: 09/14/21 10:12 Dose: 5 units Documented by: Insulin Human Lispro (Insulin Lispro 100 Unit/Ml 3 Ml Kwikpen) 0 unit SUBCUT WITHMEALSANDBED [facility]; Protocol Insulin Human Lispro (Insulin Lispro 100 Unit/Ml 3 Ml Kwikpen) 20 unit SUBCUT ONETIME ONE Stop: 09/12/21 16:54 Last Admin: 09/12/21 17:06 Dose: 20 units Documented by: Insulin Human Regular (Insulin Regular, Human 100 Units/Ml 3 Ml Vial) 10 unit SUBCUT ONETIME ONE Stop: 09/11/21 09:09 Last Admin: 09/11/21 09:39 Dose: 10 unit Documented by: Methylprednisolone Sodium Succinate (Methylprednisolone Sodium Succinate 125 Mg/2 Ml Sdv) 125 mg IVPUSH ONETIME ONE Stop: 09/11/21 06:25 Last Admin: 09/11/21 06:30 Dose: 125 mg Documented by:
[2021-09-15] MEDS ORDERED: Cephalexin 500 MG Cap PO SCH (12:00)
== END 2021-09-15 13:10 | disposition home or self-care (01) | DRG 189 ==
LOC: JD.ED 06:14 → JD.MS 09:13
PROVIDERS: ADMIT Emergency Medicine; ATTEND Emergency Medicine
DX: J96.01 Acute respiratory failure with hypoxia (principal); Z68.43 Body mass index [BMI] 50.0-59.9, adult; Z68.44 Body mass index [BMI] 60.0-69.9, adult; R09.02 Hypoxemia; J44.1 Chronic obstructive pulmonary disease with (acute) exacerbation; E11.42 Type 2 diabetes mellitus with diabetic polyneuropathy; F41.9 Anxiety disorder, unspecified; Z87.442 Personal history of urinary calculi; F32.89 Other specified depressive episodes; M54.9 Dorsalgia, unspecified; F32.A Depression, unspecified; I87.2 Venous insufficiency (chronic) (peripheral); E66.01 Morbid (severe) obesity due to excess calories; Z79.4 Long term (current) use of insulin; Z79.51 Long term (current) use of inhaled steroids; M54.50 Low back pain, unspecified; G89.29 Other chronic pain; I10 Essential (primary) hypertension; J20.9 Acute bronchitis, unspecified; F17.210 Nicotine dependence, cigarettes, uncomplicated; Z87.01 Personal history of pneumonia (recurrent); Z87.440 Personal history of urinary (tract) infections; Z86.16 Personal history of COVID-19; Z86.14 Personal history of Methicillin resistant Staphylococcus aureus infection; Z79.899 Other long term (current) drug therapy; Z71.6 Tobacco abuse counseling
CPT/HCPCS: 36415; 36600; 71045; 71045-26; 71250; 71250-26; 80053; 82803; 82947; 83735; 83880; 84484; 85025; 85379; 93005; 94640; 94761; 94762; 96365; 96375; 99285-25; A9270-GY; J0696; J1650; J1815; J1815-GY; J2920; J2930; J3475; J7620-GY

== ENCOUNTER 2021-10-01 17:04 | Emergency (ER) | payer MEDICARE, MEDICAID ==
[2021-10-01 17:21] VITALS: PULSE 145
[2021-10-01] MEDS ORDERED: Sodium Chloride 0.9% 10 ML Syringe FLUSH PRN (17:25)
[2021-10-01 18:11] LABS: CORONAVIRUS COVID-19 NAA NEGATIVE (NEGATIVE)
--- NOTE | 2021-10-01 18:17 | EDM.PDOC ---
<Nupur Dumont - Last Filed: 10/01/21 18:21> ED HPI GENERAL MEDICAL PROBLEM - General Chief Complaint: Respiratory Problem Stated Complaint: SOB Time Seen by Provider: 10/01/21 17:50 Source of Information: Reports: Patient History Limitations: Reports: No Limitations - History of Present Illness Onset: Gradual Duration: Week(s): Severity: Severe Improves with: Reports: None Worsens with: Reports: None Associated Symptoms: Reports: Chest Pain, Cough, cough w sputum, Fever/Chills, Headaches, Loss of Appetite, Shortness of Breath. Denies: Diaphoresis, Nausea/Vomiting - Related Data Allergies Allergy/AdvReac Type Severity Reaction Status Date / Time No Known Allergies Allergy Verified 09/11/21 06:18 Home Meds: Home Meds Hydrocodone/Acetaminophen [HYDROcodone-Acetaminophen 5-325 MG] 1 tab PO Q6H PRN #10 03/23/20 [Rx] Cyclobenzaprine [Flexeril] 10 mg PO TID PRN 01/20/21 [History] Isosorbide Mononitrate [Imdur] 30 mg PO DAILY #30 tab.er 01/26/21 [Rx] Losartan [Cozaar] 100 mg PO DAILY #30 tablet 01/26/21 [Rx] Metoprolol Tartrate [Lopressor] 12.5 mg PO BID #60 tablet 01/26/21 [Rx] Potassium Chloride [Klor-Con M20] 20 meq PO TID #2 tab.er 01/26/21 [Rx] Albuterol Sulfate [Albuterol Sulfate HFA] 1 puff INH Q4H PRN 09/11/21 [History] Budesonide/Formoterol [Symbicort 160-4.5 MCG] 2 puff INH BID 09/11/21 [History] Furosemide [Lasix] 40 mg PO Q48H 09/11/21 [History] Gabapentin [Neurontin] 600 mg PO TID 09/11/21 [History] Rosuvastatin [Crestor] 10 mg PO DAILY 09/11/21 [History] Sertraline [Zoloft] 100 mg PO DAILY 09/11/21 [History] Albuterol/Ipratropium [DuoNeb 3.0-0.5 MG/3 ML] 3 ml NEB QIDRT PRN #30 neb 09/15/21 [Rx] Insulin Glargine,Hum.Rec.Anlog [Semglee Pen] 25 unit SUBCUT BEDTIME #10 pen 09/15/21 [Rx] Insulin Lispro [Humalog] See Protocol SUBCUT 0700,1100,1700,2100 #10 pen 09/15/21 [Rx] Nicotine [Habitrol] 14 mg TRDERM DAILY #60 patch 09/15/21 [Rx] Pen Needle, Diabetic [Insulin Pen Needle] 1 each MC 5XDAY #100 dis.needle 09/15/21 [Rx] Tiotropium [place] [Spiriva Respimat] 2 puff INH DAILY #1 spray.metp 09/15/21 [Rx] cephALEXin [Keflex] 500 mg PO Q6HR #18 cap 09/15/21 [Rx] methylPREDNISolone [Medrol Dose Pack] 84 mg PO ASDIRECTED #21 dospk 09/15/21 [Rx] Past Medical History - Past Health History Medical/Surgical History: Denies Medical/Surgical History Cardiovascular History: Reports: Hypertension Respiratory History: Reports: Asthma, Bronchitis, Recurrent, COPD, Pneumonia, Recurrent, Sleep Apnea, Other (See Below) Other Respiratory History: respiratory failure 2016 Gastrointestinal History: Reports: Other (See Below) Other Gastrointestinal History: hernias Genitourinary History: Reports: Renal Calculus, UTI, Recurrent Other Genitourinary History: States voided twice today with blood in it Musculoskeletal History: Reports: Back Pain, Chronic, Fracture Other Musculoskeletal History: multiple surguries on L arm and hand Neurological History: Reports: Neuropathy, Peripheral Psychiatric History: Reports: Addiction, Anxiety, Depression Other Psychiatric History: situational anxiety improving Endocrine/Metabolic History: Reports: Diabetes, Type II, Obesity/BMI 30+ Hematologic History: Reports: Blood Transfusion(s) Dermatologic History: Reports: Venous Stasis Dermatitis, Other (See Below) Other Dermatologic History: skin dryness/discoloration - Infectious Disease History Infectious Disease History: Reports: Chicken Pox, Influenza, MRSA, Novel Coronavirus, Shingles Other Infectious Disease History: chicken pox as a kid. hx MRSA on right thigh wound in 2006 that is now healed. - Past Surgical History HEENT Surgical History: Reports: Other (See Below) Other HEENT Surgeries/Procedures: Neck surgery; lump removal that was benign. GI Surgical History: Reports: Hernia, Abdominal Musculoskeletal Surgical History: Reports: ORIF Other Musculoskeletal Surgeries/Procedures:: multiple on L arm and hand, R) leg ORIF with leatha. - History Comment History Comment: Chronic pain syndrome peripheral neuropathy chronic low back pain Social & Family History - Family History Endocrine/Metabolic: Reports: Diabetes, type II Other Endocrine/Metabolic Family History: Mother DM - Tobacco Use Tobacco Use Status *Q: Current Every Day Tobacco User Years of Tobacco use: 15 Packs/Tins Daily: 0.5 Second Hand Smoke Exposure: No - Caffeine Use Caffeine Use: Reports: Coffee, Energy Drinks, Soda, Tea Caffeine Use Comment: Patient reports he drinks a lot of caffeine daily - Recreational Drug Use Recreational Drug Use: Yes Drug Use in Last 12 Months: Yes Recreational Drug Type: Reports: Marijuana/Hashish Recreational Drug Use Frequency: Daily - Living Situation & Occupation Living situation: Reports: Single Occupation: Employed ED ROS GENERAL - Review of Systems Review Of Systems: Comprehensive ROS is negative, except as noted in HPI. Constitutional: Reports: Fever, Chills HEENT: Reports: Sinus Problem (sinus pain). Denies: Ear Pain, Eye Discharge Respiratory: Reports: Shortness of Breath, Wheezing, Cough, Sputum Cardiovascular: Reports: Chest Pain. Denies: Lightheadedness, Palpitations GI/Abdominal: Reports: No Symptoms : Reports: No Symptoms Musculoskeletal: Reports: No Symptoms Psychiatric: Reports: No Symptoms ED EXAM, GENERAL - Physical Exam Exam: See Below Exam Limited By: No Limitations General Appearance: Alert, Moderate Distress Respiratory/Chest: Decreased Breath Sounds, Rhonchi, Wheezing (end expiratory), Other (Tripod) Cardiovascular: Tachycardia Course - Vital Signs Last Recorded V/S: Mr. Gage Gongora is a 46 year old male who presents to the ER for evaluation of "Chest pain". He reports he is also having the shakes, headache, fever, unable to eat since 0930 this morning, a productive cough, shortness of breath and sinus pain. Cough is productive for a moderate amount of pale yellow, green sputum. This has been going on for >2 weeks and gradually getting worse. Recent medical history includes treatment for PNA, COVID and bronchitics. He denies recent antibiotic use. Departure - Departure Disposition: Home, Self-Care 01 Clinical Impression: Influenza A - Discharge Information Instructions: Influenza, Adult, [id number] Referrals: PCP,None [Primary Care Provider] - Forms: ED Department Discharge Additional Instructions: You were evaluated in the ER today for your shortness of breath. You did test positive for influenza A. Influenza can take about 7 to 10 days for you to begin to feel better. Continue the use of your albuterol nebulizer/inhalers as directed. You may use the inhaler you were given in the ER today, 2 puffs every 4 hours as needed for ongoing shortness of breath or wheezing. You can take some Tylenol or ibuprofen every 6 hours as needed for ongoing pain/fever management. Do not hesitate to return to the ER at any time if symptoms change or worsen. Sepsis Event Note (ED) - Evaluation Sepsis Screening Result: Possible Sepsis Risk <Cheri Weaver V - Last Filed: 10/01/21 21:49> #1 Interpretation EKG Date: 10/01/21 Time: 17:18 Rhythm: Other (sinus tach) Rate (Beats/Min): 137 [place]: Normal P-Wave: Present QRS: Normal ST-T: Normal QT: Normal Comparison: NA - No Prior EKG EKG Interpretation Comments: No obvious ischemia or acute ST changes noted, reviewed by myself and Dr. Cobian. Course - Vital Signs Last Recorded V/S: Last Vital Signs Temp 100.6 F 10/01/21 17:16 Pulse 145 H 10/01/21 17:16 Resp 26 H 10/01/21 17:16 BP 144/91 H 10/01/21 17:16 Pulse Ox 92 L 10/01/21 18:24 - Orders/Labs/Meds Orders: Active Orders 24 hr Category Date Time Status Communication Order [RC] ASDIRECTED Care 10/01/21 17:26 Active Oxygen Therapy, ED [RC] ASDIRECTED Care 10/01/21 20:57 Active Peripheral IV Care [RC] . DIRECTED Care 10/01/21 17:26 Active RT Aerosol Therapy [RC] ASDIRECTED Care 10/01/21 18:24 Active RT Post Treatment Assessment [RC] Click to Edit Care 10/01/21 18:55 Active RT Pre-Treatment Assessment [RC] Click to Edit Care 10/01/21 18:55 Active Chest 1V Frontal [CR] Stat Exams 10/01/21 17:26 Taken BLOOD CULTURE [MREF] Stat Lab 10/01/21 17:48 Received BLOOD CULTURE [MREF] Stat Lab 10/01/21 17:57 Received Albuterol/Ipratropium [DuoNeb 3.0-0.5 MG/3 ML] Med 10/01/21 20:56 Active 3 ml NEB Q4H PRN Sodium Chloride 0.9% [Saline Flush] Med 10/01/21 17:25 Active 10 ml FLUSH ASDIRECTED PRN Blood Culture x2 Reflex Set [OM.PC] Stat Oth 10/01/21 17:26 Ordered Peripheral IV Insertion Adult [OM.PC] Stat Oth 10/01/21 17:26 Ordered Medication Orders Albuterol/Ipratropium (Albuterol/Ipratropium 3.0-0.5 Mg/3 Ml Neb Soln) 3 ml NEB Q4H PRN PRN Reason: sob Last Admin: 10/01/21 21:37 Dose: 3 ml Documented by: NATO Sodium Chloride (Sodium Chloride 0.9% 10 Ml Syringe) 10 ml FLUSH ASDIRECTED PRN PRN Reason: Keep Vein Open Last Admin: 10/01/21 17:34 Dose: 10 ml Documented by: HODAN Labs: Laboratory Tests 10/01/21 10/01/21 10/01/21 Range/Units 17:17 17:26 17:26 WBC 7.06 (4.23-9.07) K/mm3 RBC 5.77 (4.63-6.08) M/mm3 Hgb 16.4 D (13.7-17.5) gm/dl Hct 50.2 (40.1-51.0) % MCV 87.0 (79.0-92.2) fl MCH 28.4 (25.7-32.2) pg MCHC 32.7 (32.2-35.5) g/dl RDW Std Deviation 44.0 H (35.1-43.9) fL Plt Count 185 (163-337) K/mm3 MPV 11.0 (9.4-12.3) fl Neutrophils % (Manual) 91 H (40-60) % Band Neutrophils % 0 (0-10) % Lymphocytes % (Manual) 6 L (20-40) % Atypical Lymphs % 0 % Monocytes % (Manual) 2 (2-10) % Eosinophils % (Manual) 1 (0.8-7.0) % Basophils % (Manual) 0 L (0.2-1.2) Platelet Estimate Adequate RBC Morph Comment Normal D-Dimer, Quantitative (0.19-0.50) mg/L Puncture Site Rt radial ABG pH 7.42 (7.35-7.45) ABG pCO2 37.8 (35.0-45.0) mmHg ABG pO2 54.0 L (80.0-100.0) mmHg ABG HCO3 24.1 (22.0-26.0) meq/L ABG O2 Saturation 91.3 L (96.0-97.0) % ABG Base Excess 0.4 (-2-2.0) Jesu Test Positive O2 Delivery Device Room air Oxygen Flow Rate 0.0 Sodium (136-145) mEq/L Potassium (3.5-5.1) mEq/L Chloride (98-107) mEq/L Carbon Dioxide (21-32) mEq/L Anion Gap (5-15) BUN (7-18) mg/dL Creatinine (0.7-1.3) mg/dL Est Cr Clr Drug Dosing Estimated GFR (MDRD) (>60) mL/min BUN/Creatinine Ratio (14-18) Glucose (70-99) mg/dL Lactic Acid (0.4-2.0) mmol/L Calcium (8.5-10.1) mg/dL Total Bilirubin (0.2-1.0) mg/dL AST (15-37) U/L ALT (16-63) U/L Alkaline Phosphatase (46-116) U/L Troponin I (0.00-0.056) ng/mL C-Reactive Protein (<1.0) mg/dL NT-Pro-B Natriuret Pep (0-125) pg/mL Total Protein (6.4-8.2) g/dl Albumin (3.4-5.0) g/dl Globulin gm/dL Albumin/Globulin Ratio (1-2) Influenza Type A RNA Positive H (NEGATIVE) RSV RNA (INAAT) Negative (NEGATIVE) Influenza Type B RNA Negative (NEGATIVE) SARS-CoV-2 RNA ([place]) Negative (NEGATIVE) 10/01/21 10/01/21 10/01/21 Range/Units 17:26 17:26 17:26 WBC (4.23-9.07) K/mm3 RBC (4.63-6.08) M/mm3 Hgb (13.7-17.5) gm/dl Hct (40.1-51.0) % MCV (79.0-92.2) fl MCH (25.7-32.2) pg MCHC (32.2-35.5) g/dl RDW Std Deviation (35.1-43.9) fL Plt Count (163-337) K/mm3 MPV (9.4-12.3) fl Neutrophils % (Manual) (40-60) % Band Neutrophils % (0-10) % Lymphocytes % (Manual) (20-40) % Atypical Lymphs % % Monocytes % (Manual) (2-10) % Eosinophils % (Manual) (0.8-7.0) % Basophils % (Manual) (0.2-1.2) Platelet Estimate RBC Morph Comment D-Dimer, Quantitative (0.19-0.50) mg/L Puncture Site ABG pH (7.35-7.45) ABG pCO2 (35.0-45.0) mmHg ABG pO2 (80.0-100.0) mmHg ABG HCO3 (22.0-26.0) meq/L ABG O2 Saturation (96.0-97.0) % ABG Base Excess (-2-2.0) Jesu Test O2 Delivery Device Oxygen Flow Rate Sodium 136 (136-145) mEq/L Potassium 4.0 (3.5-5.1) mEq/L Chloride 100 (98-107) mEq/L Carbon Dioxide 30 (21-32) mEq/L Anion Gap 10.0 (5-15) BUN 11 (7-18) mg/dL Creatinine 0.7 (0.7-1.3) mg/dL Est Cr Clr Drug Dosing TNP Estimated GFR (MDRD) > 60 (>60) mL/min BUN/Creatinine Ratio 15.7 (14-18) Glucose 195 H (70-99) mg/dL Lactic Acid 1.4 (0.4-2.0) mmol/L Calcium 8.7 (8.5-10.1) mg/dL Total Bilirubin 0.8 (0.2-1.0) mg/dL AST 65 H (15-37) U/L ALT 91 H (16-63) U/L Alkaline Phosphatase 129 H (46-116) U/L Troponin I < 0.017 (0.00-0.056) ng/mL C-Reactive Protein 3.2 H* (<1.0) mg/dL NT-Pro-B Natriuret Pep 5 (0-125) pg/mL Total Protein 7.1 (6.4-8.2) g/dl Albumin 3.6 (3.4-5.0) g/dl Globulin 3.5 gm/dL Albumin/Globulin Ratio 1.0 (1-2) Influenza Type A RNA (NEGATIVE) RSV RNA (INAAT) (NEGATIVE) Influenza Type B RNA (NEGATIVE) SARS-CoV-2 RNA ([place]) (NEGATIVE) 10/01/21 Range/Units 17:31 WBC (4.23-9.07) K/mm3 RBC (4.63-6.08) M/mm3 Hgb (13.7-17.5) gm/dl Hct (40.1-51.0) % MCV (79.0-92.2) fl MCH (25.7-32.2) pg MCHC (32.2-35.5) g/dl RDW Std Deviation (35.1-43.9) fL Plt Count (163-337) K/mm3 MPV (9.4-12.3) fl Neutrophils % (Manual) (40-60) % Band Neutrophils % (0-10) % Lymphocytes % (Manual) (20-40) % Atypical Lymphs % % Monocytes % (Manual) (2-10) % Eosinophils % (Manual) (0.8-7.0) % Basophils % (Manual) (0.2-1.2) Platelet Estimate RBC Morph Comment D-Dimer, Quantitative 0.40 (0.19-0.50) mg/L Puncture Site ABG pH (7.35-7.45) ABG pCO2 (35.0-45.0) mmHg ABG pO2 (80.0-100.0) mmHg ABG HCO3 (22.0-26.0) meq/L ABG O2 Saturation (96.0-97.0) % ABG Base Excess (-2-2.0) Jesu Test O2 Delivery Device Oxygen Flow Rate Sodium (136-145) mEq/L Potassium (3.5-5.1) mEq/L Chloride (98-107) mEq/L Carbon Dioxide (21-32) mEq/L Anion Gap (5-15) BUN (7-18) mg/dL Creatinine (0.7-1.3) mg/dL Est Cr Clr Drug Dosing Estimated GFR (MDRD) (>60) mL/min BUN/Creatinine Ratio (14-18) Glucose (70-99) mg/dL Lactic Acid (0.4-2.0) mmol/L Calcium (8.5-10.1) mg/dL Total Bilirubin (0.2-1.0) mg/dL AST (15-37) U/L ALT (16-63) U/L Alkaline Phosphatase (46-116) U/L Troponin I (0.00-0.056) ng/mL C-Reactive Protein (<1.0) mg/dL NT-Pro-B Natriuret Pep (0-125) pg/mL Total Protein (6.4-8.2) g/dl Albumin (3.4-5.0) g/dl Globulin gm/dL Albumin/Globulin Ratio (1-2) Influenza Type A RNA (NEGATIVE) RSV RNA (INAAT) (NEGATIVE) Influenza Type B RNA (NEGATIVE) SARS-CoV-2 RNA ([place]) (NEGATIVE) Meds: Medications Generic Name Dose Route Start Last Admin Trade Name Freq PRN Reason Stop Dose Admin Albuterol/Ipratropium 3 ml 10/01/21 20:56 10/01/21 21:37 Albuterol/Ipratropium 3.0-0.5 Mg/3 Ml Neb Soln NEB 3 ml Q4H PRN Administration sob Sodium Chloride 10 ml 10/01/21 17:25 10/01/21 17:34 Sodium Chloride 0.9% 10 Ml Syringe FLUSH 10 ml ASDIRECTED PRN Administration Keep Vein Open Discontinued Medications Generic Name Dose Route Start Last Admin Trade Name Freq PRN Reason Stop Dose Admin Hydrocodone Bitart/Acetaminophen 1 tab 10/01/21 18:24 10/01/21 18:39 Acetaminophen/Hydrocodone 325-5 Mg Tab PO 10/01/21 18:25 1 tab ONETIME ONE Administration Albuterol 0 gm 10/01/21 18:55 Albuterol 6.7 Gm Inhaler INH 10/01/21 18:56 ONETIME ONE Albuterol/Ipratropium 3 ml 10/01/21 18:24 10/01/21 18:39 Albuterol/Ipratropium 3.0-0.5 Mg/3 Ml Neb Soln NEB 10/01/21 18:25 3 ml ONETIME ONE Administration - Re-Assessments/Exams Free Text/Narrative Re-Assessment/Exam: 10/01/21 18:27 I have read and reviewed the student's HPI and examined the patient and agree with AMEE Barnhart. Labs were entered by triage nursing staff. Patient was requesting a pain pill as he states he gets this about every 6 hours and he is due for one for home use. This is okay with me I did order hydrocodone for this. We will also do a DuoNeb for ongoing management. 10/01/21 18:53 Patient states he got done with a neb, and feels slightly tachycardic and heart rate is 140. States he is feeling a little bit better after the neb however, he was given a sandwich to eat and states this is helped soothe his stomach. Laboratory evaluation demonstrates a fairly normal CBC, CMP is also fairly unremarkable but he does have some mildly elevated liver enzymes, CRP elevated at 3.2, troponin undetectably low, influenza A was positive but COVID and RSV were negative. I did discuss the findings with the patient and he does not feel comfortable going home tonight due to his shortness of breath, so we will likely observe him in the ER tonight and hopefully get him discharged home in the morning for ongoing management. Patient seemed to verbalize understanding of this. Departure - Departure Time of Disposition: 21:47 Condition: Good - Discharge Information *PRESCRIPTION DRUG MONITORING PROGRAM REVIEWED*: No *COPY OF PRESCRIPTION DRUG MONITORING REPORT IN PATIENT BEATRIZ: No Sepsis Event Note (ED) - Focused Exam Vital Signs: Vital Signs Temp Pulse Resp BP Pulse Ox Pulse Ox 10/01/21 18:24 92 L 10/01/21 17:16 100.6 F 145 H 26 H 144/91 H 94 L - My Orders Last 24 Hours: My Active Orders 10/01/21 18:24 RT Aerosol Therapy [RC] ASDIRECTED 10/01/21 18:55 RT Post Treatment Assessment [RC] Click to Edit RT Pre-Treatment Assessment [RC] Click to Edit 10/01/21 20:56 Albuterol/Ipratropium [DuoNeb 3.0-0.5 MG/3 ML] 3 ml NEB Q4H PRN 10/01/21 20:57 Oxygen Therapy, ED [RC] ASDIRECTED - Assessment/Plan Last 24 Hours: My Active Orders 10/01/21 18:24 RT Aerosol Therapy [RC] ASDIRECTED 10/01/21 18:55 RT Post Treatment Assessment [RC] Click to Edit RT Pre-Treatment Assessment [RC] Click to Edit 10/01/21 20:56 Albuterol/Ipratropium [DuoNeb 3.0-0.5 MG/3 ML] 3 ml NEB Q4H PRN 10/01/21 20:57 Oxygen Therapy, ED [RC] ASDIRECTED
[2021-10-01] MEDS ORDERED: Acetaminophen/HYDROcodone 325-5 MG Tab PO ONE (18:24)
[2021-10-01] MEDS ORDERED: Albuterol/Ipratropium 3.0-0.5 MG/3 ML Neb Soln NEB ONE (18:24)
[2021-10-01] MEDS ORDERED: Albuterol 6.7 GM Inhaler INH ONE (18:55)
[2021-10-01] MEDS ORDERED: Albuterol/Ipratropium 3.0-0.5 MG/3 ML Neb Soln NEB PRN (20:56)
[2021-10-01] MEDS ORDERED: Cyclobenzaprine 10 MG Tab PO ONE (22:02)
[2021-10-02] MEDS ORDERED: Acetaminophen/HYDROcodone 325-5 MG Tab PO ONE (00:01)
[2021-10-02] MEDS ORDERED: Albuterol 6.7 GM Inhaler INH ONE (06:28)
[2021-10-02 07:10] VITALS: BP 140/65
--- NOTE | 2021-10-02 08:36 | CR ---
Chest: Portable view of the chest was obtained. Comparison: Prior chest CT and chest x-ray of 09/11/21. Heart size and mediastinum are within normal limits. Lungs are clear with no acute parenchymal change. Bony structures show nothing acute for the patient's age. Impression: 1. Nothing acute is seen on portable chest x-ray. Diagnostic code #1
== END 2021-10-02 07:05 | disposition home or self-care (01) ==
LOC: JD.ED 17:04
DX: J10.1 Influenza due to other identified influenza virus with other respiratory manifestations (principal); J44.9 Chronic obstructive pulmonary disease, unspecified; E11.9 Type 2 diabetes mellitus without complications; E66.9 Obesity, unspecified; Z68.30 Body mass index [BMI] 30.0-30.9, adult; Z79.899 Other long term (current) drug therapy; Z72.0 Tobacco use; Z20.822 Contact with and (suspected) exposure to COVID-19
CPT/HCPCS: 0241U; 36415; 36600; 71045; 80053; 82803; 83605; 83880; 84484; 85007; 85027; 85379; 86140; 87040; 93005; 94640; 99285; A9270; J7620-GY

== ENCOUNTER 2021-10-24 11:34 | Emergency (ER) | payer MEDICARE, MEDICAID ==
[2021-10-24 11:53] VITALS: BP 154/118; PULSE 101
[2021-10-24] MEDS ORDERED: Acetaminophen/HYDROcodone 325-5 MG Tab PO ONE (12:18)
== END 2021-10-24 13:15 | disposition home or self-care (01) ==
LOC: JD.ED 11:34
DX: M25.561 Pain in right knee (principal); J44.9 Chronic obstructive pulmonary disease, unspecified; E11.42 Type 2 diabetes mellitus with diabetic polyneuropathy; E66.9 Obesity, unspecified; Z68.43 Body mass index [BMI] 50.0-59.9, adult; Z72.0 Tobacco use; Z79.4 Long term (current) use of insulin; Z79.899 Other long term (current) drug therapy
CPT/HCPCS: 73564; 99283; A9270

== ENCOUNTER 2021-11-28 18:03 | Emergency (ER) | payer MEDICAID, MEDICARE ==
[2021-11-28] MEDS ORDERED: Albuterol/Ipratropium 3.0-0.5 MG/3 ML Neb Soln NEB ONE ×3 (18:13→20:35)
[2021-11-28] MEDS ORDERED: Sodium Chloride 0.9% 10 ML Syringe FLUSH PRN (18:14)
[2021-11-28 18:19] VITALS: PULSE 106
[2021-11-28 19:11] LABS: CORONAVIRUS COVID-19 NAA NEGATIVE (NEGATIVE)
[2021-11-28] MEDS ORDERED: methylPREDNISolone Sodium Succinate 125 MG/2 ML SDV IVPUSH ONE (19:12)
[2021-11-28] MEDS ORDERED: Acetaminophen/HYDROcodone 325-10 MG Tab PO ONE (20:34)
[2021-11-28] MEDS ORDERED: Benzonatate 100 MG Cap PO ONE (20:34)
[2021-11-28] MEDS ORDERED: Cyclobenzaprine 10 MG Tab PO ONE (20:34)
[2021-11-28] MEDS ORDERED: Acetaminophen/HYDROcodone 325-5 MG Tab PO ONE (20:35)
[2021-11-28] MEDS ORDERED: Albuterol/Ipratropium 3.0-0.5 MG/3 ML Neb Soln ONE ×2 (20:42→20:43)
[2021-11-28] MEDS ORDERED: Ondansetron 4 MG Tab.DIS PO ONE (21:34)
[2021-11-29 00:30] VITALS: BP 143/75
== END 2021-11-28 22:49 | disposition home or self-care (01) ==
LOC: JD.ED 18:03
DX: J44.1 Chronic obstructive pulmonary disease with (acute) exacerbation (principal); E66.9 Obesity, unspecified; E11.9 Type 2 diabetes mellitus without complications; Z79.899 Other long term (current) drug therapy; Z68.31 Body mass index [BMI] 31.0-31.9, adult; Z20.822 Contact with and (suspected) exposure to COVID-19
CPT/HCPCS: 0240U; 36415; 71045; 80053; 82803; 83880; 84484; 85025; 93005; 94640; 96374; 99285; A9270; J2930; 93010; J7620-GY

== ENCOUNTER 2022-02-25 19:43 | Emergency (ER) | payer MEDICARE, MEDICAID ==
[2022-02-25 20:07] VITALS: BP 128/80; PULSE 107
[2022-02-25] MEDS ORDERED: Albuterol/Ipratropium 3.0-0.5 MG/3 ML Neb Soln NEB ONE ×2 (20:09→20:50)
[2022-02-25] MEDS ORDERED: Sodium Chloride 0.9% 10 ML Syringe FLUSH PRN (20:10)
[2022-02-25] MEDS ORDERED: methylPREDNISolone Sodium Succinate 125 MG/2 ML SDV IVPUSH ONE (20:10)
[2022-02-25] MEDS ORDERED: Magnesium Sulfate/Water 2 GM in Premix Bag 1 BAG IV ONE (20:50)
[2022-02-25 20:59] LABS: ESTIMATED GFR > 60 mL/min (>60)
[2022-02-25 21:48] LABS: CORONAVIRUS COVID-19 NAA NEGATIVE (NEGATIVE)
[2022-02-25] MEDS ORDERED: Albuterol 0.083% 2.5 MG/3 ML Neb Soln NEB ONE (22:07)
[2022-02-25] MEDS ORDERED: Amoxicillin/Clavulanate K 875-125 MG Tab PO ONE (22:14)
== END 2022-02-25 22:29 | disposition home or self-care (01) ==
LOC: JD.ED 19:43
DX: J44.1 Chronic obstructive pulmonary disease with (acute) exacerbation (principal); I10 Essential (primary) hypertension; E11.9 Type 2 diabetes mellitus without complications; E66.9 Obesity, unspecified; Z68.43 Body mass index [BMI] 50.0-59.9, adult; Z86.16 Personal history of COVID-19; Z79.899 Other long term (current) drug therapy; Z20.822 Contact with and (suspected) exposure to COVID-19
CPT/HCPCS: 0240U; 36415; 71045; 80053; 83880; 84484; 85025; 85379; 86140; 93005; 94640; 96365; 96375; 99285; A9270; J2930; J3475; J3490; J7620-GY

== ENCOUNTER 2022-02-26 09:34 | Inpatient (IN) | payer MEDICARE, MEDICAID ==
[~2022-02-26 09:34] MED LIST: Enoxaparin 40 MG/0.4 ML Syringe SUBCUT SCH
[2022-02-26] MEDS ORDERED: Sodium Chloride 0.9% 10 ML Syringe FLUSH PRN (10:13)
[2022-02-26] MEDS ORDERED: Albuterol/Ipratropium 3.0-0.5 MG/3 ML Neb Soln NEB ONE ×2 (10:13→11:21)
[2022-02-26] MEDS ORDERED: Magnesium Sulfate/Water 2 GM in Premix Bag 1 BAG IV ONE (10:14)
[2022-02-26] MEDS ORDERED: methylPREDNISolone Sodium Succinate 40 MG/1 ML SDV IVPUSH ONE ×2 (10:14→14:01)
[2022-02-26] MEDS ORDERED: Acetaminophen/HYDROcodone 325-5 MG Tab PO ONE (12:06)
[2022-02-26] MEDS ORDERED: Ondansetron 4 MG/2 ML SDV IV PRN (13:14)
[2022-02-26] MEDS ORDERED: Docusate Sodium 100 MG Cap PO PRN (13:14)
[2022-02-26] MEDS ORDERED: Acetaminophen 325 MG Tab PO PRN (13:14)
[2022-02-26] MEDS ORDERED: Polyethylene Glycol 3350 Powder 17 GM Packet PO PRN (13:14)
[2022-02-26] MEDS ORDERED: Insulin Glargine,Human Rec. Analog 100 Units/ML 3 ML Pen SUBCUT SCH (13:30)
[2022-02-26] MEDS ORDERED: Doxycycline 100 MG in Sodium Chloride 0.9% 100 ML IV ONE (13:59)
[2022-02-26] MEDS: Gabapentin 600 MG Tab PO SCH ×2 (15:43→20:09)
[2022-02-26] MEDS: Cyclobenzaprine 10 MG Tab PO PRN (15:55)
[2022-02-26] MEDS: Levalbuterol HCl 1.25 MG/0.5 ML Neb NEB SCH ×2 (15:55→20:39)
[2022-02-26] MEDS: Ipratropium 0.02% 0.5 MG/2.5 ML Neb Soln NEB SCH ×2 (15:55→20:39)
[2022-02-26] MEDS ORDERED: Levalbuterol HCl 1.25 MG/3 ML Neb NEB SCH (16:00)
[2022-02-26] MEDS ORDERED: Insulin Glargine,Human Rec. Analog 100 Units/ML 3 ML Pen SUBCUT ONE (17:25)
[2022-02-26] MEDS: Nicotine 14 MG/24 Hr Patch TRDERM SCH (17:25)
[2022-02-26] MEDS: Insulin Lispro 100 Unit/ML 3 ML KwikPen SUBCUT SCH ×2 (17:27→22:32)
[2022-02-26] MEDS: Acetaminophen/HYDROcodone 325-5 MG Tab PO PRN (18:31)
[2022-02-26] MEDS: Metoprolol Tartrate 25 MG Tab PO SCH (20:05)
[2022-02-26] MEDS ORDERED: Doxycycline 100 MG in Sodium Chloride 0.9% 100 ML IV SCH (21:00)
[2022-02-26] MEDS ORDERED: methylPREDNISolone Sodium Succinate 40 MG/1 ML SDV IVPUSH SCH (21:00)
[2022-02-27] MEDS: Cyclobenzaprine 10 MG Tab PO PRN ×3 (05:25→23:27)
[2022-02-27] MEDS: predniSONE 20 MG Tab PO SCH ×2 (05:26→08:43)
[2022-02-27] MEDS: Acetaminophen/HYDROcodone 325-5 MG Tab PO PRN ×4 (05:26→23:27)
[2022-02-27] MEDS: Levalbuterol HCl 1.25 MG/0.5 ML Neb NEB SCH ×4 (05:29→21:43)
[2022-02-27] MEDS: Ipratropium 0.02% 0.5 MG/2.5 ML Neb Soln NEB SCH ×4 (05:29→21:43)
[2022-02-27] MEDS: Insulin Lispro 100 Unit/ML 3 ML KwikPen SUBCUT SCH ×4 (08:35→20:31)
[2022-02-27] MEDS: Enoxaparin 40 MG/0.4 ML Syringe SUBCUT SCH (08:39)
[2022-02-27] MEDS: Losartan 100 MG Tab PO SCH (08:40)
[2022-02-27] MEDS: Doxycycline 100 MG Cap PO SCH ×2 (08:40→20:27)
[2022-02-27] MEDS: Gabapentin 600 MG Tab PO SCH ×3 (08:41→20:27)
[2022-02-27] MEDS: Cholecalciferol (Vitamin D3) 5,000 UNIT Tab PO SCH (08:41)
[2022-02-27] MEDS: Metoprolol Tartrate 25 MG Tab PO SCH ×2 (08:41→20:27)
[2022-02-27] MEDS: Rosuvastatin 10 MG Tab PO SCH (08:41)
[2022-02-27] MEDS: Isosorbide Mononitrate 30 MG Tab.ER PO SCH (08:42)
[2022-02-27] MEDS: Nicotine 14 MG/24 Hr Patch TRDERM SCH (08:43)
[2022-02-27] MEDS ORDERED: Insulin Glargine,Human Rec. Analog 100 Units/ML 3 ML Pen SUBCUT SCH ×4 (09:00→21:00)
[2022-02-27] MEDS ORDERED: Insulin Lispro 100 Unit/ML 3 ML KwikPen SUBCUT ONE ×2 (11:46→14:59)
[2022-02-28] MEDS: Acetaminophen/HYDROcodone 325-5 MG Tab PO PRN ×2 (05:32→11:58)
[2022-02-28] MEDS: Ipratropium 0.02% 0.5 MG/2.5 ML Neb Soln NEB SCH ×2 (06:15→09:43)
[2022-02-28] MEDS: Levalbuterol HCl 1.25 MG/0.5 ML Neb NEB SCH ×2 (06:15→09:43)
[2022-02-28] MEDS: predniSONE 20 MG Tab PO SCH (07:46)
[2022-02-28] MEDS: Insulin Lispro 100 Unit/ML 3 ML KwikPen SUBCUT SCH ×2 (07:47→12:12)
[2022-02-28] MEDS ORDERED: guaiFENesin 600 MG Tab.ER PO SCH (09:00)
[2022-02-28] MEDS ORDERED: Insulin Glargine,Human Rec. Analog 100 Units/ML 3 ML Pen SUBCUT SCH ×2 (09:00)
[2022-02-28] MEDS: Nicotine 14 MG/24 Hr Patch TRDERM SCH (09:01)
[2022-02-28] MEDS: Cyclobenzaprine 10 MG Tab PO PRN (09:04)
[2022-02-28] MEDS: Rosuvastatin 10 MG Tab PO SCH (09:04)
[2022-02-28] MEDS: Doxycycline 100 MG Cap PO SCH (09:04)
[2022-02-28] MEDS: Cholecalciferol (Vitamin D3) 5,000 UNIT Tab PO SCH (09:05)
[2022-02-28] MEDS: Losartan 100 MG Tab PO SCH (09:05)
[2022-02-28] MEDS: Gabapentin 600 MG Tab PO SCH (09:05)
[2022-02-28] MEDS: Isosorbide Mononitrate 30 MG Tab.ER PO SCH (09:08)
[2022-02-28] MEDS: Metoprolol Tartrate 25 MG Tab PO SCH (09:12)
[2022-02-28] MEDS: Enoxaparin 40 MG/0.4 ML Syringe SUBCUT SCH (09:36)
[2022-02-28 12:19] VITALS: BP 121/67; PULSE 85
== END 2022-02-28 12:50 | disposition home or self-care (01) | DRG 189 ==
LOC: JD.ED 09:34 → JD.MS 13:17 → JD.OB 02-27 18:27
PROVIDERS: ADMIT Internal Medicine; ATTEND Internal Medicine
DX: J96.01 Acute respiratory failure with hypoxia (principal); J44.1 Chronic obstructive pulmonary disease with (acute) exacerbation; Z68.44 Body mass index [BMI] 60.0-69.9, adult; J45.901 Unspecified asthma with (acute) exacerbation; F41.9 Anxiety disorder, unspecified; E11.65 Type 2 diabetes mellitus with hyperglycemia; E66.01 Morbid (severe) obesity due to excess calories; G47.33 Obstructive sleep apnea (adult) (pediatric); E11.618 Type 2 diabetes mellitus with other diabetic arthropathy; I87.2 Venous insufficiency (chronic) (peripheral); M54.50 Low back pain, unspecified; G89.29 Other chronic pain; F32.89 Other specified depressive episodes; F32.A Depression, unspecified; E11.42 Type 2 diabetes mellitus with diabetic polyneuropathy; Z86.16 Personal history of COVID-19; Z87.891 Personal history of nicotine dependence; Z79.4 Long term (current) use of insulin; Z79.899 Other long term (current) drug therapy; Z87.440 Personal history of urinary (tract) infections; Z86.14 Personal history of Methicillin resistant Staphylococcus aureus infection
CPT/HCPCS: 36415; 36600; 71045; 71045-26; 80053; 82306; 82803; 82947; 83036; 83735; 83880; 84145; 84484; 85025; 85379; 86140; 93005; 94640; 94667; 94668; 94760; 94761; 96365; 96375; 99285-25; A9270-GY; J1650; J1815; J1815-GY; J2920; J3475; J3490; J7512; J7620-GY

== ENCOUNTER 2022-03-13 10:34 | Emergency (ER) | payer MEDICARE, MEDICAID ==
[2022-03-13] MEDS ORDERED: Sodium Chloride 0.9% 10 ML Syringe FLUSH PRN (11:06)
[2022-03-13] MEDS ORDERED: methylPREDNISolone Sodium Succinate 125 MG/2 ML SDV IVPUSH ONE (11:08)
[2022-03-13] MEDS ORDERED: Albuterol/Ipratropium 3.0-0.5 MG/3 ML Neb Soln NEB ONE ×2 (11:08→12:31)
[2022-03-13 11:40] LABS: ESTIMATED GFR > 60 mL/min (>60)
[2022-03-13 13:39] VITALS: BP 129/78; PULSE 89
== END 2022-03-13 13:39 | disposition home or self-care (01) ==
LOC: JD.ED 10:34
DX: J45.901 Unspecified asthma with (acute) exacerbation (principal); E11.9 Type 2 diabetes mellitus without complications; E66.9 Obesity, unspecified; Z68.43 Body mass index [BMI] 50.0-59.9, adult; Z87.891 Personal history of nicotine dependence; Z79.899 Other long term (current) drug therapy; Z79.4 Long term (current) use of insulin
CPT/HCPCS: 36415; 71045; 80053; 85025; 94640; 96374; 99285; J2930; J3490; J7620-GY

== ENCOUNTER 2022-03-20 16:57 | Emergency (ER) | payer MEDICARE, MEDICAID ==
[2022-03-20] MEDS ORDERED: Sodium Chloride 0.9% 10 ML Syringe FLUSH PRN (17:27)
[2022-03-20] MEDS ORDERED: Sodium Chloride 0.9% 1,000 ML IV ONE ×2 (17:28→19:05)
[2022-03-20 17:30] VITALS: BP 153/90; PULSE 122
[2022-03-20] MEDS ORDERED: Insulin Regular, Human 100 Units/ML 3 ML Vial IV ONE ×2 (19:05→19:45)
== END 2022-03-20 20:50 | disposition home or self-care (01) ==
LOC: JD.ED 16:57
DX: R07.89 Other chest pain (principal); E11.65 Type 2 diabetes mellitus with hyperglycemia; J44.9 Chronic obstructive pulmonary disease, unspecified; I10 Essential (primary) hypertension; E66.9 Obesity, unspecified; Z68.43 Body mass index [BMI] 50.0-59.9, adult; Z79.899 Other long term (current) drug therapy
CPT/HCPCS: 36415; 71045; 80053; 82009; 82800; 82947; 83735; 83880; 84484; 85025; 85379; 85610; 85730; 93005; 99283; J1815; J3490; J7030; 93010; 99284

== ENCOUNTER 2022-04-06 11:17 | Emergency (ER) | payer MEDICARE, MEDICAID ==
[2022-04-06] MEDS ORDERED: methylPREDNISolone Sodium Succinate 125 MG/2 ML SDV IVPUSH ONE (12:19)
[2022-04-06] MEDS ORDERED: Albuterol 0.083% 2.5 MG/3 ML Neb Soln NEB ONE ×2 (12:19→14:12)
[2022-04-06] MEDS ORDERED: Sodium Chloride 0.9% 10 ML Syringe FLUSH PRN (12:19)
[2022-04-06] MEDS ORDERED: Doxycycline 100 MG Cap PO ONE (14:15)
[2022-04-06 14:44] VITALS: BP 155/86; PULSE 86
== END 2022-04-06 14:40 | disposition home or self-care (01) ==
LOC: JD.ED 11:17
DX: J44.1 Chronic obstructive pulmonary disease with (acute) exacerbation (principal); E11.9 Type 2 diabetes mellitus without complications; E66.9 Obesity, unspecified; Z68.43 Body mass index [BMI] 50.0-59.9, adult; Z28.310 Unvaccinated for COVID-19; Z79.899 Other long term (current) drug therapy; Z20.822 Contact with and (suspected) exposure to COVID-19
CPT/HCPCS: 36415; 71045; 80053; 81003; 83735; 83880; 84484; 85025; 86140; 93005; 94640; 96374; 99285; A9270; J2930; J3490; U0002; 93010; 99284

== ENCOUNTER 2022-05-18 11:52 | Emergency (ER) | payer MEDICARE, MEDICAID ==
[2022-05-18 12:44] VITALS: BP 161/73; PULSE 80
[2022-05-18] MEDS ORDERED: Sodium Chloride 0.9% 10 ML Syringe FLUSH PRN (13:13)
[2022-05-18] MEDS ORDERED: Albuterol/Ipratropium 3.0-0.5 MG/3 ML Neb Soln NEB ONE ×2 (13:14→14:22)
[2022-05-18] MEDS ORDERED: methylPREDNISolone Sodium Succinate 125 MG/2 ML SDV IVPUSH ONE (13:15)
== END 2022-05-18 15:20 | disposition home or self-care (01) ==
LOC: JD.ED 11:52
DX: J45.901 Unspecified asthma with (acute) exacerbation (principal); E11.9 Type 2 diabetes mellitus without complications; F17.210 Nicotine dependence, cigarettes, uncomplicated; E66.9 Obesity, unspecified; Z68.43 Body mass index [BMI] 50.0-59.9, adult; Z79.899 Other long term (current) drug therapy; Z79.4 Long term (current) use of insulin
CPT/HCPCS: 36415; 71045; 80053; 85025; 94640; 96374; 99285; J2930; J3490; 99283; J7620-GY

== ENCOUNTER 2022-06-07 19:59 | Emergency (ER) | payer MEDICARE, MEDICAID ==
[2022-06-07 21:46] VITALS: BP 165/91; PULSE 101
[2022-06-08] MEDS ORDERED: Insulin Regular, Human 100 Units/ML 3 ML Vial SUBCUT STA (00:29)
== END 2022-06-08 00:50 | disposition home or self-care (01) ==
LOC: JD.ED 19:59
DX: E11.65 Type 2 diabetes mellitus with hyperglycemia (principal); T48.6X5A Adverse effect of antiasthmatics, initial encounter; J44.9 Chronic obstructive pulmonary disease, unspecified; I10 Essential (primary) hypertension; E11.40 Type 2 diabetes mellitus with diabetic neuropathy, unspecified; M19.90 Unspecified osteoarthritis, unspecified site; Z79.899 Other long term (current) drug therapy; Z79.4 Long term (current) use of insulin; Z87.891 Personal history of nicotine dependence
CPT/HCPCS: 36415; 71046; 80053; 83605; 83880; 84484; 85007; 85027; 85379; 93005; 99285; J1815; 93010; 99284

== ENCOUNTER 2022-08-03 20:22 | Emergency (ER) | payer MEDICARE, MEDICAID ==
[2022-08-03] MEDS ORDERED: Sodium Chloride 0.9% 10 ML Syringe FLUSH PRN (20:36)
[2022-08-03] MEDS ORDERED: Sodium Chloride 0.9% 1,000 ML IV ONE (20:36)
[2022-08-03] MEDS ORDERED: Albuterol/Ipratropium 3.0-0.5 MG/3 ML Neb Soln NEB ONE (20:53)
[2022-08-03] MEDS ORDERED: methylPREDNISolone Sodium Succinate 125 MG/2 ML SDV IVPUSH ONE (20:53)
[2022-08-03 22:08] LABS: ESTIMATED GFR 117 mL/min (>60)
[2022-08-03] MEDS ORDERED: Sulfamethoxazole/Trimethoprim 800-160 MG Tab PO ONE (22:50)
[2022-08-04 00:24] VITALS: BP 126/75; PULSE 85
== END 2022-08-03 23:55 | disposition home or self-care (01) ==
LOC: JD.ED 20:22
DX: J44.1 Chronic obstructive pulmonary disease with (acute) exacerbation (principal); N39.0 Urinary tract infection, site not specified; E11.9 Type 2 diabetes mellitus without complications; I10 Essential (primary) hypertension; E66.9 Obesity, unspecified; Z68.30 Body mass index [BMI] 30.0-30.9, adult; Z79.4 Long term (current) use of insulin; Z79.899 Other long term (current) drug therapy
CPT/HCPCS: 36415; 36600; 71045; 80053; 81001; 82803; 83605; 84484; 85007; 85027; 85610; 86140; 87040; 87086; 87088; 87186; 93005; 94640; 96361; 96374; 99285; A9270; J2930; J3490; J7030; J7620-GY

== ENCOUNTER 2022-08-16 10:16 | Emergency (ER) | payer MEDICARE, MEDICAID ==
[2022-08-16] MEDS ORDERED: Albuterol/Ipratropium 3.0-0.5 MG/3 ML Neb Soln NEB ONE ×4 (11:10→15:24)
[2022-08-16] MEDS ORDERED: methylPREDNISolone Sodium Succinate 125 MG/2 ML SDV IVPUSH ONE (11:11)
[2022-08-16 12:04] LABS: CORONAVIRUS COVID-19 NAA NEGATIVE (NEGATIVE)
[2022-08-16] MEDS ORDERED: Albuterol/Ipratropium 3.0-0.5 MG/3 ML Neb Soln ONE (12:32)
[2022-08-16 18:00] VITALS: BP 125/98; PULSE 119
== END 2022-08-16 17:50 | disposition home or self-care (01) ==
LOC: JD.ED 10:16
DX: J45.901 Unspecified asthma with (acute) exacerbation (principal); I10 Essential (primary) hypertension; E11.42 Type 2 diabetes mellitus with diabetic polyneuropathy; M19.90 Unspecified osteoarthritis, unspecified site; R00.0 Tachycardia, unspecified; E66.01 Morbid (severe) obesity due to excess calories; Z68.43 Body mass index [BMI] 50.0-59.9, adult; Z87.891 Personal history of nicotine dependence; Z79.4 Long term (current) use of insulin; Z79.899 Other long term (current) drug therapy; Z20.822 Contact with and (suspected) exposure to COVID-19
CPT/HCPCS: 36415; 71045; 80053; 83880; 84484; 85025; 85379; 87502; 93005; 94640; 96374; 99285; J2930; U0002; J7620-GY

== ENCOUNTER 2022-08-16 17:52 | Inpatient (IN) | payer MEDICARE, MEDICAID ==
[2022-08-16] MEDS ORDERED: Albuterol/Ipratropium 3.0-0.5 MG/3 ML Neb Soln NEB ONE ×2 (19:20→21:09)
[2022-08-16] MEDS ORDERED: methylPREDNISolone Sodium Succinate 125 MG/2 ML SDV IM ONE (19:20)
[2022-08-16] MEDS ORDERED: Acetaminophen/HYDROcodone 325-5 MG Tab PO ONE (21:10)
[2022-08-16] MEDS ORDERED: Sodium Chloride 0.9% 10 ML Syringe FLUSH PRN (22:51)
[2022-08-17] MEDS: Albuterol/Ipratropium 3.0-0.5 MG/3 ML Neb Soln NEB SCH ×5 (03:10→21:19)
[2022-08-17] MEDS: Acetaminophen/HYDROcodone 325-10 MG Tab PO PRN ×4 (05:12→23:53)
[2022-08-17] MEDS ORDERED: Ondansetron 4 MG/2 ML SDV IV PRN (07:55)
[2022-08-17] MEDS ORDERED: Albuterol 0.083% 2.5 MG/3 ML Neb Soln NEB PRN (07:55)
[2022-08-17] MEDS ORDERED: Acetaminophen 325 MG Tab PO PRN (07:55)
[2022-08-17] MEDS: methylPREDNISolone Sodium Succinate 40 MG/1 ML SDV IVPUSH SCH ×2 (09:04→21:07)
[2022-08-17] MEDS: Enoxaparin 40 MG/0.4 ML Syringe SUBCUT SCH (09:05)
[2022-08-17] MEDS ORDERED: guaiFENesin/Dextromethorphan 100-10 MG/5 ML Soln 5 ML Cup PO ONE (10:30)
[2022-08-17] MEDS ORDERED: cefTRIAXone 2 GM in Sodium Chloride 0.9% 100 ML IV SCH (13:00)
[2022-08-17] MEDS: Azithromycin 500 MG in Sodium Chloride 0.9% 250 ML IV SCH (13:01)
[2022-08-17] MEDS: Nicotine 14 MG/24 Hr Patch TRDERM SCH (13:01)
[2022-08-17] MEDS: Cyclobenzaprine 10 MG Tab PO PRN ×2 (13:02→21:58)
[2022-08-17] MEDS: Insulin Lispro 100 Unit/ML 3 ML KwikPen SUBCUT SCH ×3 (13:32→21:59)
[2022-08-17] MEDS: guaiFENesin/Dextromethorphan 100-10 MG/5 ML Soln 5 ML Cup PO SCH ×2 (14:34→21:06)
[2022-08-17] MEDS: Sodium Chloride 0.9% 1,000 ML IV SCH ×2 (15:16→21:58)
[2022-08-17 19:47] LABS: BORDETELLA PARAPERT IS1001 Not Detected (Not Detected)
[2022-08-17] MEDS: Montelukast 10 MG Tab PO SCH (21:57)
[2022-08-17] MEDS: Insulin Glargine,Human Rec. Analog 100 Units/ML 3 ML Pen SUBCUT SCH (22:18)
[2022-08-18] MEDS: Albuterol/Ipratropium 3.0-0.5 MG/3 ML Neb Soln NEB SCH ×4 (05:29→20:38)
[2022-08-18] MEDS: guaiFENesin/Dextromethorphan 100-10 MG/5 ML Soln 5 ML Cup PO SCH ×3 (06:10→20:14)
[2022-08-18] MEDS: Acetaminophen/HYDROcodone 325-10 MG Tab PO PRN ×3 (06:10→18:21)
[2022-08-18] MEDS: Insulin Lispro 100 Unit/ML 3 ML KwikPen SUBCUT SCH ×4 (06:32→21:57)
[2022-08-18] MEDS: Nicotine 14 MG/24 Hr Patch TRDERM SCH (08:00)
[2022-08-18] MEDS: methylPREDNISolone Sodium Succinate 40 MG/1 ML SDV IVPUSH SCH (08:00)
[2022-08-18] MEDS: Insulin Glargine,Human Rec. Analog 100 Units/ML 3 ML Pen SUBCUT SCH ×2 (08:01→21:58)
[2022-08-18] MEDS: Enoxaparin 40 MG/0.4 ML Syringe SUBCUT SCH (08:01)
[2022-08-18] MEDS: Cyclobenzaprine 10 MG Tab PO PRN ×2 (12:33→21:56)
[2022-08-18] MEDS: Azithromycin 500 MG in Sodium Chloride 0.9% 250 ML IV SCH (14:52)
[2022-08-18] MEDS: Montelukast 10 MG Tab PO SCH (20:14)
[2022-08-18] MEDS: predniSONE 20 MG Tab PO SCH (20:14)
[2022-08-19] MEDS: Acetaminophen/HYDROcodone 325-10 MG Tab PO PRN ×2 (02:08→07:36)
[2022-08-19] MEDS: Albuterol/Ipratropium 3.0-0.5 MG/3 ML Neb Soln NEB SCH ×2 (05:32→11:30)
[2022-08-19] MEDS: guaiFENesin/Dextromethorphan 100-10 MG/5 ML Soln 5 ML Cup PO SCH ×2 (06:34→13:27)
[2022-08-19] MEDS: Insulin Lispro 100 Unit/ML 3 ML KwikPen SUBCUT SCH ×2 (07:35→11:25)
[2022-08-19] MEDS: Insulin Glargine,Human Rec. Analog 100 Units/ML 3 ML Pen SUBCUT SCH (09:38)
[2022-08-19] MEDS: Nicotine 14 MG/24 Hr Patch TRDERM SCH (09:41)
[2022-08-19] MEDS: predniSONE 20 MG Tab PO SCH (09:41)
[2022-08-19] MEDS: Enoxaparin 40 MG/0.4 ML Syringe SUBCUT SCH (09:42)
[2022-08-19 10:14] VITALS: BP 161/106; PULSE 107
== END 2022-08-19 14:19 | disposition home or self-care (01) | DRG 189 ==
LOC: JD.ED 17:52 → JD.MS 23:48
PROVIDERS: ADMIT Internal Medicine Cardiovascular Disease; ATTEND Internal Medicine Cardiovascular Disease
DX: J96.01 Acute respiratory failure with hypoxia (principal); J45.901 Unspecified asthma with (acute) exacerbation; I10 Essential (primary) hypertension; J44.9 Chronic obstructive pulmonary disease, unspecified; G47.30 Sleep apnea, unspecified; M19.90 Unspecified osteoarthritis, unspecified site; J44.1 Chronic obstructive pulmonary disease with (acute) exacerbation; F32.A Depression, unspecified; Z68.43 Body mass index [BMI] 50.0-59.9, adult; F41.9 Anxiety disorder, unspecified; E11.42 Type 2 diabetes mellitus with diabetic polyneuropathy; D41.9 Neoplasm of uncertain behavior of unspecified urinary organ; M54.50 Low back pain, unspecified; G89.29 Other chronic pain; F32.89 Other specified depressive episodes; G47.33 Obstructive sleep apnea (adult) (pediatric); E66.01 Morbid (severe) obesity due to excess calories; I87.2 Venous insufficiency (chronic) (peripheral); J20.4 Acute bronchitis due to parainfluenza virus; Z87.01 Personal history of pneumonia (recurrent); Z86.16 Personal history of COVID-19; Z86.14 Personal history of Methicillin resistant Staphylococcus aureus infection; B34.1 Enterovirus infection, unspecified; Z79.4 Long term (current) use of insulin; Z79.52 Long term (current) use of systemic steroids; Z79.899 Other long term (current) drug therapy; Z87.442 Personal history of urinary calculi
CPT/HCPCS: 87486; 87581; 87633; 87798; 94640 ×2; A9270; J2930; 36410; 36415; 80048; 82947; 83735; 84145; 85025; 94667; 94668; 94761; 96372; 99285; G0008; J0456; J0696; J1650; J1815; J1815-GY; J2920; J7030; J7050; J7512; J7620-GY

== ENCOUNTER 2023-06-30 13:34 | Emergency (ER) | payer MEDICARE, MEDICAID ==
[2023-06-30 18:23] VITALS: BP 142/82; PULSE 100
== END 2023-06-30 15:35 | disposition home or self-care (01) ==
LOC: JD.ED 13:34
DX: M25.561 Pain in right knee (principal); J44.9 Chronic obstructive pulmonary disease, unspecified; E11.9 Type 2 diabetes mellitus without complications; E66.9 Obesity, unspecified; Z68.42 Body mass index [BMI] 45.0-49.9, adult; Z87.891 Personal history of nicotine dependence
CPT/HCPCS: 73562-26-RT; 73562-RT; 99283

== ENCOUNTER 2024-03-31 18:50 | Emergency (ER) | payer MEDICARE, MEDICAID ==
[2024-03-31 19:09] VITALS: BP 165/103; PULSE 117
[2024-03-31] MEDS: Acetaminophen/HYDROcodone 325-5 MG Tab PO ONE (19:35)
== END 2024-03-31 20:54 | disposition home or self-care (01) ==
LOC: JD.ED 18:50
DX: S69.91XA Unspecified injury of right wrist, hand and finger(s), initial encounter (principal); I10 Essential (primary) hypertension; J44.9 Chronic obstructive pulmonary disease, unspecified; E11.40 Type 2 diabetes mellitus with diabetic neuropathy, unspecified; E66.9 Obesity, unspecified; Z86.16 Personal history of COVID-19; Z79.4 Long term (current) use of insulin; Z68.43 Body mass index [BMI] 50.0-59.9, adult; W01.0XXA Fall on same level from slipping, tripping and stumbling without subsequent striking against object, initial encounter; Y92.000 Kitchen of unspecified non-institutional (private) residence as the place of occurrence of the external cause
CPT/HCPCS: 73130; 99283; A9270

== ENCOUNTER 2024-08-04 09:35 | Emergency (ER) | payer MEDICARE, MEDICAID ==
[2024-08-04] MEDS: Ibuprofen 800 MG Tab PO ONE (11:15)
[2024-08-04 11:55] VITALS: BP 158/84; PULSE 86
== END 2024-08-04 11:55 | disposition home or self-care (01) ==
LOC: JD.ED 09:35
DX: M25.521 Pain in right elbow (principal); I10 Essential (primary) hypertension; J44.9 Chronic obstructive pulmonary disease, unspecified; E11.42 Type 2 diabetes mellitus with diabetic polyneuropathy; E66.9 Obesity, unspecified; Z68.43 Body mass index [BMI] 50.0-59.9, adult; Z86.16 Personal history of COVID-19; Z79.51 Long term (current) use of inhaled steroids; Z79.891 Long term (current) use of opiate analgesic; Z79.4 Long term (current) use of insulin; Z79.899 Other long term (current) drug therapy
CPT/HCPCS: 73090; 99283; A9270

== ENCOUNTER 2024-11-08 03:46 | Emergency (ER) | payer MEDICARE, MEDICAID ==
[2024-11-08] MEDS ORDERED: Sodium Chloride 0.9% 10 ML Syringe FLUSH PRN (03:48)
[2024-11-08 04:17] LABS: BASOPHILS PERCENT AUTO 0.2 % (0.0-1.0); EOSINOPHILS ABSOLUTE AUTO 0.1 K/mm3 (0.0-0.4); HEMOGLOBIN 14.6 gm/dl (14.0-18.0); IMMATURE GRAN ABSOLUTE AUTO 0.01 K/mm3 (0.00-0.05); IMMATURE GRAN PERCENT AUTO 0.2 % (0.0-0.4); LYMPHOCYTES ABSOLUTE AUTO 1.5 K/mm3 (1.0-4.8); LYMPHOCYTES PERCENT AUTO 30.5 % (24.0-44.0); MEAN CORPUSCULAR HEMOGLOBIN 28.5 pg (28.0-32.0); MEAN CORPUSCULAR HGB CONC 33.2 g/dl (32.0-36.0); MEAN CORPUSCULAR VOLUME 85.9 fl (83.0-99.0); MEAN PLATELET VOLUME 10.9 fl (9.4-12.4); MONOCYTES ABSOLUTE AUTO 0.4 K/mm3 (0.0-0.8); NEUTROPHILS ABSOLUTE AUTO 3.1 K/mm3 (1.8-7.7); NEUTROPHILS PERCENT AUTO 61.1 % (41.0-71.0); PLATELET COUNT,PLT 149 K/mm3 (150-400); RED BLOOD CELL COUNT 5.12 M/mm3 (4.52-5.90); WHITE BLOOD CELL COUNT,WBC 5.01 K/mm3 (3.9-11.3)
[2024-11-08 04:42] LABS: LACTIC ACID 1.1 mmol/L (0.4-2.0)
[2024-11-08 04:45] LABS: A/G RATIO 0.9 (1-2); ALBUMIN 3.2 g/dl (3.4-5.0); ANION GAP 12.3 (5-15); BILIRUBIN TOTAL 0.4 mg/dL (0.2-1.0); BUN/CREATININE RATIO 11.4 (14-18); CALCIUM 8.4 mg/dL (8.5-10.1); CREATININE 0.7 mg/dL (0.7-1.3); EST CRCL DRUG DOSING (CG) 151.68 mL/min; MAGNESIUM 1.8 mg/dL (1.8-2.4); POTASSIUM,K 3.3 mEq/L (3.5-5.1); PROTEIN TOTAL,TP 6.7 g/dl (6.4-8.2)
[2024-11-08 05:11] LABS: APPEARANCE,URINE CLEAR (Clear); BILIRUBIN,URINE NEGATIVE (Negative); COLOR,URINE YELLOW (Yellow); GLUCOSE,URINE 2+ (Negative); KETONES,URINE NEGATIVE (Negative); LEUKOCYTE ESTERASE,URINE NEGATIVE (Negative); NITRITE,URINE NEGATIVE (Negative); OCCULT BLOOD,URINE TRACE-INTACT (Negative); PROTEIN,URINE NEGATIVE (Negative); UROBILINOGEN,URINE 0.2 (0.2-1.0)
[2024-11-08 05:20] LABS: BARBITURATE SCREEN,URINE NEGATIVE (CUTOFF=200); BENZODIAZEPINES SCREEN,URINE NEGATIVE (CUTOFF=150); BUPRENORPHINE SCREEN,URINE NEGATIVE (CUTOFF=10); METHADONE SCREEN, URINE NEGATIVE (CUT0FF=200); METHAMPHETAMINES SCREEN, URINE NEGATIVE (CUTOFF=500); OXYCODONE SCREEN,URINE NEGATIVE (CUT0FF=100); THC SCREEN,URINE 20 NG/ML PRESUMPTIVE POSITIVE (CUTOFF=50)
[2024-11-08 05:43] LABS: BACTERIA,URINE FEW /hpf (FEW); EPITHELIAL CELLS,URINE 0-5 /hpf (0-5); MUCUS,URINE NOT SEEN /hpf (FEW); RBC,URINE 0-5 /hpf (0-5)
[2024-11-08 05:46] LABS: AMPHETAMINES SCREEN, URINE NEGATIVE (CUTOFF=500)
[2024-11-08] MEDS: Insulin Glargine,Human Rec. Analog 100 Units/ML 3 ML Pen SUBCUT SCH (06:34)
[2024-11-08 06:46] VITALS: BP 162/91; PULSE 97
== END 2024-11-08 06:43 | disposition home or self-care (01) ==
LOC: JD.ED 03:46
DX: E11.65 Type 2 diabetes mellitus with hyperglycemia (principal); I10 Essential (primary) hypertension; J44.9 Chronic obstructive pulmonary disease, unspecified; E66.9 Obesity, unspecified; Z68.43 Body mass index [BMI] 50.0-59.9, adult; Z86.16 Personal history of COVID-19; Z79.4 Long term (current) use of insulin; Z79.51 Long term (current) use of inhaled steroids; Z79.899 Other long term (current) drug therapy
CPT/HCPCS: 36415; 80053; 80306; 80307; 81001; 83605; 83735; 85025; 87428; 99285; J1815

== ENCOUNTER 2025-05-31 14:38 | Emergency (ER) | payer MEDICARE, MEDICAID ==
[2025-05-31] MEDS: Iopamidol 755 Mg/ML 100 ML Bottle IVPUSH ONE (16:12)
[2025-05-31 17:37] VITALS: BP 152/108; PULSE 88
== END 2025-05-31 17:35 | disposition home or self-care (01) ==
LOC: JD.ED 14:38
DX: M25.522 Pain in left elbow (principal); M79.89 Other specified soft tissue disorders; I10 Essential (primary) hypertension; E11.9 Type 2 diabetes mellitus without complications; E66.9 Obesity, unspecified; J44.9 Chronic obstructive pulmonary disease, unspecified; Z79.899 Other long term (current) drug therapy; Z86.16 Personal history of COVID-19; X58.XXXA Exposure to other specified factors, initial encounter
CPT/HCPCS: 73080; 73201; 99284; Q9967; 99283

== ENCOUNTER 2025-08-31 10:45 | Inpatient (IN) | payer MEDICARE, MEDICAID ==
[2025-08-31 11:54] LABS: BASOPHILS ABSOLUTE AUTO 0.0 K/mm3 (0.0-0.2); BASOPHILS PERCENT AUTO 0.1 % (0.0-1.0); EOSINOPHILS ABSOLUTE AUTO 0.0 K/mm3 (0.0-0.4); EOSINOPHILS PERCENT AUTO 0.0 % (0.0-6.0); IMMATURE GRAN ABSOLUTE AUTO 0.07 K/mm3 (0.00-0.05); IMMATURE GRAN PERCENT AUTO 0.5 % (0.0-0.4); LYMPHOCYTES ABSOLUTE AUTO 0.7 K/mm3 (1.0-4.8); LYMPHOCYTES PERCENT AUTO 4.5 % (24.0-44.0); MEAN PLATELET VOLUME 10.6 fl (9.4-12.4); MONOCYTES ABSOLUTE AUTO 0.6 K/mm3 (0.0-0.8); MONOCYTES PERCENT AUTO 3.8 % (0.0-8.0); NEUTROPHILS ABSOLUTE AUTO 13.5 K/mm3 (1.8-7.7); NEUTROPHILS PERCENT AUTO 91.1 % (41.0-71.0); NRBC ABSOLUTE 0.00 (0.00-0.02); NRBC PERCENT 0.0 % (0.0-0.2); PLATELET COUNT,PLT 170 K/mm3 (150-400); RED BLOOD CELL COUNT 5.01 M/mm3 (4.52-5.90); WHITE BLOOD CELL COUNT,WBC 14.83 K/mm3 (3.9-11.3)
[2025-08-31 12:17] LABS: A/G RATIO 0.8 (1-2); ALANINE AMINOTRANSFERASE,ALT 24 U/L (16-63); ASPARTATE AMNIOTRANSFERASE,AST 12 U/L (15-37); BILIRUBIN TOTAL 2.1 mg/dL (0.2-1.0); BLOOD UREA NITROGEN,BUN 10 mg/dL (7-18); CARBON DIOXIDE,CO2 29 mEq/L (21-32); CHLORIDE,CL 98 mEq/L (98-107); CREATININE 0.8 mg/dL (0.7-1.3); EST CRCL DRUG DOSING (CG) 132.72 mL/min; ESTIMATED GFR 110 mL/min (>60); GLUCOSE RANDOM 197 mg/dL (70-99); POTASSIUM,K 3.8 mEq/L (3.5-5.1); PROTEIN TOTAL,TP 7.2 g/dl (6.4-8.2); SODIUM,NA 134 mEq/L (136-145)
[2025-08-31 12:19] LABS: LACTIC ACID 2.0 mmol/L (0.4-2.0)
[2025-08-31] MEDS ORDERED: Ondansetron 4 MG/2 ML SDV IV PRN (13:44)
[2025-08-31] MEDS: Sodium Chloride 0.9% 10 ML Syringe FLUSH PRN (13:47)
[2025-08-31] MEDS: metroNIDAZOLE/Normal Saline 500 MG in Premix Bag 1 BAG IV ONE (13:47)
[2025-08-31] MEDS: cefTRIAXone 2 GM in Water For Injection, Sterile 20 ML IVPUSH ONE (13:47)
[2025-08-31] MEDS: Insulin Glargine,Human Rec. Analog 100 Units/ML 3 ML Pen SUBCUT SCH (14:42)
[2025-08-31] MEDS: Acetaminophen/HYDROcodone 325-5 MG Tab PO PRN (14:43)
[2025-08-31] MEDS: Insulin Lispro 100 Unit/ML 3 ML KwikPen SUBCUT SCH (17:40)
[2025-08-31] MEDS: metroNIDAZOLE/Normal Saline 500 MG in Premix Bag 1 BAG IV SCH (21:55)
[2025-09-01 05:49] LABS: MEAN PLATELET VOLUME 10.5 fl (9.4-12.4); NRBC ABSOLUTE 0.00 (0.00-0.02); NRBC PERCENT 0.0 % (0.0-0.2); PLATELET COUNT,PLT 156 K/mm3 (150-400); RED BLOOD CELL COUNT 4.77 M/mm3 (4.52-5.90); WHITE BLOOD CELL COUNT,WBC 9.93 K/mm3 (3.9-11.3)
[2025-09-01 06:09] LABS: A/G RATIO 0.6 (1-2); ALANINE AMINOTRANSFERASE,ALT 20 U/L (16-63); ASPARTATE AMNIOTRANSFERASE,AST 14 U/L (15-37); BILIRUBIN TOTAL 1.0 mg/dL (0.2-1.0); BLOOD UREA NITROGEN,BUN 12 mg/dL (7-18); CARBON DIOXIDE,CO2 26 mEq/L (21-32); CHLORIDE,CL 99 mEq/L (98-107); CREATININE 0.6 mg/dL (0.7-1.3); EST CRCL DRUG DOSING (CG) 176.96 mL/min; ESTIMATED GFR 120 mL/min (>60); GLUCOSE RANDOM 167 mg/dL (70-99); POTASSIUM,K 3.7 mEq/L (3.5-5.1); PROTEIN TOTAL,TP 7.0 g/dl (6.4-8.2); SODIUM,NA 136 mEq/L (136-145)
[2025-09-01] MEDS: cefTRIAXone 2 GM in Water For Injection, Sterile 20 ML IVPUSH SCH (13:13)
[2025-09-02 05:39] LABS: MEAN PLATELET VOLUME 10.4 fl (9.4-12.4); NRBC ABSOLUTE 0.00 (0.00-0.02); NRBC PERCENT 0.0 % (0.0-0.2); PLATELET COUNT,PLT 176 K/mm3 (150-400); RED BLOOD CELL COUNT 4.75 M/mm3 (4.52-5.90); WHITE BLOOD CELL COUNT,WBC 6.07 K/mm3 (3.9-11.3)
[2025-09-02 06:07] LABS: A/G RATIO 0.6 (1-2); ALANINE AMINOTRANSFERASE,ALT 24.0 U/L (16-63); ASPARTATE AMNIOTRANSFERASE,AST 15.0 U/L (15-37); BILIRUBIN TOTAL 0.6 mg/dL (0.2-1.0); CARBON DIOXIDE,CO2 31.0 mEq/L (21-32); CHLORIDE,CL 102.0 mEq/L (98-107); CREATININE 0.6 mg/dL (0.7-1.3); EST CRCL DRUG DOSING (CG) 176.96 mL/min; ESTIMATED GFR 120.0 mL/min (>60); GLUCOSE RANDOM 140.0 mg/dL (70-99); POTASSIUM,K 3.5 mEq/L (3.5-5.1); PROTEIN TOTAL,TP 6.9 g/dl (6.4-8.2); SODIUM,NA 140.0 mEq/L (136-145)
[2025-09-02 06:32] LABS: BLOOD UREA NITROGEN,BUN 13.0 mg/dL (7-18)
[2025-09-02 13:25] VITALS: BP 140/81; PULSE 94
== END 2025-09-02 13:18 | disposition home or self-care (01) | DRG 603 ==
LOC: JD.ED 10:45 → JD.MS 13:09
PROVIDERS: ADMIT Internal Medicine; ATTEND Internal Medicine
DX: L03.116 Cellulitis of left lower limb (principal); Z68.43 Body mass index [BMI] 50.0-59.9, adult; L02.416 Cutaneous abscess of left lower limb; E11.618 Type 2 diabetes mellitus with other diabetic arthropathy; J44.9 Chronic obstructive pulmonary disease, unspecified; I10 Essential (primary) hypertension; I83.10 Varicose veins of unspecified lower extremity with inflammation; G89.29 Other chronic pain; F41.9 Anxiety disorder, unspecified; F32.A Depression, unspecified; E66.9 Obesity, unspecified; Z96.698 Presence of other orthopedic joint implants; G47.33 Obstructive sleep apnea (adult) (pediatric); J41.1 Mucopurulent chronic bronchitis; Z79.4 Long term (current) use of insulin; Z79.84 Long term (current) use of oral hypoglycemic drugs; Z79.2 Long term (current) use of antibiotics; Z79.899 Other long term (current) drug therapy; Z79.1 Long term (current) use of non-steroidal anti-inflammatories (NSAID); W55.01XA Bitten by cat, initial encounter; Y92.89 Other specified places as the place of occurrence of the external cause
CPT/HCPCS: 36415; 80053; 82947; 83605; 85025; 85027; 86140; 87040; 87641; 94640; 94760; 94761; 99239; 99285; A4216; A9270-GY; J0696; J1650; J1815-GY; J1836